=== PATIENT | female | born 1965 | race Two or more races ===

== ENCOUNTER → 2020-06-13 08:06 | Outpatient (BNVA) | payer OTHER, SELFPAY | PROVIDERS: PCP Internal Medicine; Visit Provider Anesthesiology | DX: Z76.89 Persons encountering health services in other specified circumstances (principal) ==

== ENCOUNTER 2020-06-18 08:40 | Outpatient (REF) | payer OTHER, SELFPAY ==
--- NOTE | 2020-06-18 08:42 | MR_ITS ---
EXAMINATION: MR CERVICAL SPINE WITHOUT CONTRAST CLINICAL INFORMATION: Radiculopathy of left arm. COMPARISON: MRI dated 02/10/2018. TECHNIQUE: MRI of the cervical spine was obtained using routine sequences without contrast. FINDINGS: VERTEBRAL BODIES AND PARASPINAL SOFT TISSUES: There is a mild reversal of the normal cervical lordosis. Endplate spurring most notable at the C4-C5 level and at the C5-C6 level where there is also [id number] disc space narrowing. No compression fractures are seen. No new subluxation evident. The paraspinal soft tissues are unremarkable. The imaged portions of the lungs are clear. CERVICOMEDULLARY JUNCTION AND VISUALIZED POSTERIOR FOSSA: The craniovertebral junction and imaged portions of the brain parenchyma appear normal. No cord signal abnormality or syrinx is seen. SPINAL LEVELS: C2-C3: No disc pathology. No central canal stenosis or foraminal narrowing. C3-C4: Minimal posterior annular bulge. No central canal stenosis or foraminal narrowing. C4-C5: Anterior endplate spurring and very mild disc bulge without central canal stenosis or significant foraminal encroachment. C5-C6: Disc-osteophyte complex noted with a left foraminal disc protrusion and uncovertebral joint spurring, as on prior imaging, suspected to impinge upon the left C6 nerve root with significant left foraminal encroachment. Stable mild central canal stenosis. C6-C7: Very mild disc bulge without central canal stenosis. Small posterior annular fissure again visible. Patent foramina. C7-T1: No disc pathology. No central canal stenosis or foraminal narrowing. MR/MR cervical spine wo con IMPRESSION: Moderate spondylosis at C5-C6 with a left foraminal disc protrusion and bulky uncovertebral joint spurring noted, also visible on prior imaging. Findings result in significant left foraminal encroachment and suspected impingement of the left C6 nerve root. Mild central canal stenosis as well. Mild reversal of the normal cervical lordosis.
== END 2020-06-18 08:41 | disposition home or self-care (01) ==
LOC: HO.MRI 08:40
PROVIDERS: Visit Provider Anesthesiology
DX: M54.12 Radiculopathy, cervical region (principal)
CPT/HCPCS: 72141

== ENCOUNTER → 2020-07-02 14:53 | Outpatient (BNVA) | payer OTHER, SELFPAY | PROVIDERS: Visit Provider Anesthesiology | DX: Z76.89 Persons encountering health services in other specified circumstances (principal) ==

== ENCOUNTER 2020-09-27 10:39 | Outpatient (REF) | payer OTHER, SELFPAY ==
--- NOTE | ~2020-09-27 | XR_ITS ---
EXAMINATION: XR CERVICAL SPINE CLINICAL INFORMATION: Status post C5-C6 fusion. COMPARISON: Most recent cervical spine MRI dated 06/18/2020. TECHNIQUE: AP, lateral, swimmer's, and open-mouth views of the cervical spine were obtained. FINDINGS: Anterior fusion hardware at C5-C6 without acute hardware or osseous fracture. No perihardware lucency to suggest loosening or infection. The C7 vertebral body is largely obscured by overlying soft tissues, limiting evaluation. Anterior endplate osteophytes redemonstrated at C4-C5. Unremarkable prevertebral soft tissues. Normal atlantoaxial alignment. XR/XR cervical spine 3V IMPRESSION: Anterior fusion hardware at C5-C6 without evidence of complication. Evaluation of C7 limited due to overlying soft tissues.
== END 2020-09-27 10:40 | disposition home or self-care (01) ==
LOC: HO.XRAY 10:39
PROVIDERS: Absent Provider Neurological Surgery; Visit Provider Physician Assistant
DX: M43.22 Fusion of spine, cervical region (principal)
CPT/HCPCS: 72040

== ENCOUNTER 2020-10-12 09:20 | Outpatient (REF) | payer OTHER, SELFPAY ==
[2020-10-12 10:08] LABS: Basophils Absolute Auto 0.1 X10*3/uL (0.0-0.2); Basophils Percent Auto 0.5 % (0-2); Eosinophils Absolute Auto 0.2 X10*3/uL (0.0-0.4); Eosinophils Percent Auto 1.5 % (0-4); Hematocrit 46.9 % (37-47); Hemoglobin 15.2 g/dl (12.0-16.0); Imm Gran Abs Auto 0.13 X10*3/uL (0.00-0.03); Lymphocytes Absolute Auto 5.5 X10*3/uL (1.2-4.9); Lymphocytes Percent Auto 42.1 % (20-40); MANUAL DIFF FLAG SCAN; Mean Corpuscular HGB Conc 32.4 g/dl (31.0-35.0); Mean Corpuscular Hemoglobin 27.6 pg (27.0-33.0); Mean Corpuscular Volume 85.3 fL (80-98); Mean Platelet Volume 8.9 fL (9.4-12.3); Monocytes Absolute Auto 0.7 X10*3/uL (0.1-1.2); Monocytes Percent Auto 5.3 % (2-11); Neutrophils Absolute Auto 6.5 X10*3/uL (2.0-8.3); Neutrophils Percent Auto 49.6 % (45-73); Platelet Count 341 X10*3/uL (160-400); Red Cell Distribution Width 14.6 % (11.0-16.0); SCAN SMEAR FLAG 1; White Blood Count 13.1 X10*3/uL (4.8-10.8)
[2020-10-12 10:35] LABS: Alanine Aminotransferase 20 U/L (0-31); Albumin Level 4.1 g/dL (3.5-5.0); Alkaline Phosphatase 78 U/L (39-117); Anion Gap 15 (12-20); Aspartate Amino Transferase 16 U/L (5-31); Bilirubin Total 0.6 mg/dL (0.0-1.0); Blood Urea Nitrogen 15 mg/dL (9-16); Calcium 8.8 mg/dL (8.4-10.2); Carbon Dioxide 27 mmol/L (22-29); Chloride 102 mmol/L (96-108); Estimated Glomerular Filt Rate > 60; Glucose Random 83 mg/dL (60-115); Potassium 4.4 mmol/L (3.3-5.1); Sodium 140 mmol/L (135-145); Total Protein 7.1 g/dL (6.5-8.0)
[2020-10-12 10:40] LABS: SLIDE REVIEW VERIFIED
[2020-10-12 10:58] LABS: TSH reflex Free T4 1.98 uIU/mL (0.32-4.0)
== END 2020-10-12 09:21 | disposition home or self-care (01) ==
LOC: HO.LAB 09:20
PROVIDERS: PCP Internal Medicine; Visit Provider Physician Assistant
DX: R42 Dizziness and giddiness (principal)
CPT/HCPCS: 36415; 80053; 84443; 85025

== ENCOUNTER 2021-01-22 14:57 | Outpatient (REF) | payer OTHER, SELFPAY ==
[2021-01-22 15:38] LABS: MANUAL DIFF FLAG NO
[2021-01-22 15:44] LABS: Basophils Absolute Auto 0.1 X10*3/uL (0.0-0.2); Basophils Percent Auto 0.6 % (0-2); Eosinophils Absolute Auto 0.2 X10*3/uL (0.0-0.4); Eosinophils Percent Auto 1.4 % (0-4); Hematocrit 44.3 % (37-47); Imm Gran Abs Auto 0.11 X10*3/uL (0.00-0.03); Imm Gran Pct Auto 0.9 % (0.0-0.4); Mean Corpuscular HGB Conc 31.6 g/dl (31.0-35.0); Mean Corpuscular Hemoglobin 26.7 pg (27.0-33.0); Mean Corpuscular Volume 84.4 fL (80-98); Monocytes Absolute Auto 0.8 X10*3/uL (0.1-1.2); Monocytes Percent Auto 6.8 % (2-11); Neutrophils Percent Auto 49.3 % (45-73); Platelet Count 314 X10*3/uL (160-400); Red Blood Count 5.25 X10*6/uL (4.20-5.50); Red Cell Distribution Width 14.2 % (11.0-16.0); White Blood Count 12.1 X10*3/uL (4.8-10.8)
[2021-01-22 16:08] LABS: Alanine Aminotransferase 20 U/L (0-31); Albumin Level 4.3 g/dL (3.5-5.0); Alkaline Phosphatase 79 U/L (39-117); Anion Gap 13 (12-20); Aspartate Amino Transferase 20 U/L (5-31); Bilirubin Total 0.5 mg/dL (0.0-1.0); Blood Urea Nitrogen 10 mg/dL (9-16); Calcium 9.3 mg/dL (8.4-10.2); Carbon Dioxide 27 mmol/L (22-29); Chloride 103 mmol/L (96-108); Cholesterol 295 mg/dL; Estimated Glomerular Filt Rate > 60; Glucose Random 94 mg/dL (60-115); HDL Cholesterol 40 mg/dL; LDL Cholesterol Calculated 186 mg/dl; Potassium 4.4 mmol/L (3.3-5.1); Sodium 139 mmol/L (135-145); Total Protein 7.4 g/dL (6.5-8.0); Triglycerides 345 mg/dL
== END 2021-01-22 14:58 | disposition home or self-care (01) ==
LOC: HO.LAB 14:57
PROVIDERS: PCP Internal Medicine; Visit Provider Physician Assistant
DX: Z00.00 Encounter for general adult medical examination without abnormal findings (principal)
CPT/HCPCS: 36415; 80053; 80061; 85025

== ENCOUNTER 2021-01-24 12:59 | Outpatient (REF) | payer OTHER, SELFPAY ==
--- NOTE | ~2021-01-24 | US_ITS ---
EXAMINATION: US SOFT TISSUE NECK CLINICAL INFORMATION: Enlarged submental tissue prominence. COMPARISON: None TECHNIQUE: Ultrasound of the submental soft tissues is performed with high- frequency dewitt-scale imaging and color Doppler. FINDINGS: There are 2 lymph nodes seen in the submental region. These measure 0.6 x 0.4 x 0.6 cm and 0.8 x 0.5 x 0.6 cm. These are normal in size, demonstrate normal ultrasound morphology and flow. No solid or cystic soft tissue mass or fluid collection is seen. US/US soft tiss head and/or neck IMPRESSION: 2 small normal-appearing submental lymph nodes. Otherwise unremarkable exam.
== END 2021-01-24 13:00 | disposition home or self-care (01) ==
LOC: HO.HMGCX 12:59
PROVIDERS: PCP Internal Medicine; Visit Provider Physician Assistant
DX: R22.1 Localized swelling, mass and lump, neck (principal)
CPT/HCPCS: 76536

== ENCOUNTER 2021-01-29 12:18 | Outpatient (REF) | payer OTHER, SELFPAY ==
--- NOTE | ~2021-01-29 | MM_ITS ---
EXAMINATION: MM DIAGNOSTIC DIGITAL BREAST TOMOSYNTHESIS, LEFT US DIAGNOSTIC ULTRASOUND BREAST, LEFT CLINICAL INFORMATION: Recall from outside exam for nodule outer left breast, possibly intramammary node. COMPARISON: Outside left mammography 01/05/2021, and prior mammography 02/05/2011. TECHNIQUE: Digital breast tomosynthesis is performed. 2D images are generated from the tomosynthesis. The following views are obtained: 3-D spot CC, 3-D spot ML. Ultrasound left breast is targeted to the outer quadrants. Grayscale imaging and color Doppler are performed without and with harmonics. FINDINGS: There are scattered areas of fibroglandular density (ACR BI-RADS breast composition Category b). The additional views show the oval nodule mid 3:00 position approximately 6 x 5 mm. No spiculation or associated calcification. Ultrasound demonstrates a simple cyst 3:00 position 9-10 cm from nipple measuring 0.6 x 0.4 cm. Margins are circumscribed. There is increased through-transmission of sound at real-time imaging and no associated color flow. Results are discussed with the patient at time of visit. MM/MM tomosynthesis added views L IMPRESSION: Simple cyst 3:00 position mid left breast corresponding to oval circumscribed nodule on mammography. ASSESSMENT: BI-RADS 2: Benign RECOMMENDATION: Routine annual mammography screening. This patient's information was entered into a reminder system with a target due date for their next mammogram.
== END 2021-01-29 12:19 | disposition home or self-care (01) ==
LOC: HO.MAMMO 12:18
PROVIDERS: Visit Provider Internal Medicine
DX: N63.11 Unspecified lump in the right breast, upper outer quadrant (principal)
CPT/HCPCS: 76642; 77061; 77065

== ENCOUNTER 2021-02-06 15:25 | Outpatient (REF) | payer OTHER, SELFPAY ==
--- NOTE | ~2021-02-06 | XR_ITS ---
EXAMINATION: XR ANKLE, RIGHT CLINICAL INFORMATION: Right ankle pain and swelling. COMPARISON: None TECHNIQUE: AP, lateral, and mortise views of the right ankle. FINDINGS: No acute fracture or dislocation. No joint space narrowing or marginal osteophytes. The ankle mortise is maintained. No abnormal soft tissue calcification. Mild lateral soft tissue swelling. XR/XR ankle RT min 3V IMPRESSION: Mild lateral soft tissue swelling. No acute osseous abnormality.
== END 2021-02-06 15:26 | disposition home or self-care (01) ==
LOC: HO.XRAY 15:25
PROVIDERS: PCP Internal Medicine; Visit Provider Physician Assistant
DX: M25.571 Pain in right ankle and joints of right foot (principal); M25.471 Effusion, right ankle
CPT/HCPCS: 73610

== ENCOUNTER 2021-02-13 14:44 | Outpatient (REF) | payer OTHER, SELFPAY ==
--- NOTE | ~2021-02-13 | XR_ITS ---
EXAMINATION: XR WRIST, RIGHT CLINICAL INFORMATION: Right wrist pain COMPARISON: None TECHNIQUE: PA, lateral, and oblique views of the right wrist. FINDINGS: The bones and soft tissues are normal. No fracture. Alignment is anatomic with normal joint spaces. No erosions or abnormal soft tissue calcifications. XR/XR wrist RT min 3V IMPRESSION: No significant abnormality of the right wrist identified.
== END 2021-02-13 14:45 | disposition home or self-care (01) ==
LOC: HO.XRAY 14:44
PROVIDERS: PCP Internal Medicine; Visit Provider Physician Assistant
DX: M25.531 Pain in right wrist (principal)
CPT/HCPCS: 73110

== ENCOUNTER 2021-04-04 09:29 | Outpatient (REF) | payer OTHER, SELFPAY ==
--- NOTE | 2021-04-04 09:33 | EMG_ITS ---
Right median and ulnar motor and sensory studies were performed. Right radial sensory study was performed and paraspinal muscles were tested. IMPRESSION: Mild right ulnar neuropathy across cubital tunnel. MD JONATHAN Samuel/WILLOW / [id number]
== END 2021-04-04 09:30 | disposition home or self-care (01) ==
LOC: HO.NEURO 09:29
PROVIDERS: Visit Provider Physician Assistant
DX: R20.9 Unspecified disturbances of skin sensation (principal)
CPT/HCPCS: 95886; 95909

== ENCOUNTER → 2021-07-31 12:46 | Outpatient (BNVA) | payer OTHER, SELFPAY | PROVIDERS: PCP Internal Medicine; Referring Provider Internal Medicine; Visit Provider Surgery ==

== ENCOUNTER 2021-08-06 14:48 | Outpatient (REF) | payer OTHER, SELFPAY ==
[2021-08-06 15:56] LABS: Blood Urea Nitrogen 13 mg/dL (9-16); Estimated Glomerular Filt Rate > 60
== END 2021-08-06 14:49 | disposition home or self-care (01) ==
LOC: HO.LAB 14:48
PROVIDERS: PCP Internal Medicine; Visit Provider Surgery
DX: R10.31 Right lower quadrant pain (principal)
CPT/HCPCS: 36415; 82565; 84520

== ENCOUNTER 2021-08-12 06:58 | Outpatient (REF) | payer OTHER, SELFPAY ==
--- NOTE | ~2021-08-12 | CT_ITS ---
EXAMINATION: CT ABDOMEN AND PELVIS WITH CONTRAST CLINICAL INFORMATION: Right lower quadrant pain COMPARISON: MRI abdomen and pelvis with and without contrast 02/10/2020. CT abdomen and pelvis 05/20/2019. TECHNIQUE: Multidetector volumetric images were obtained from the superior aspect of the liver through the pubic symphysis following administration 85 mL of Omnipaque 350 intravenous contrast. Sagittal and coronal reformatted images were obtained on the technologist's workstation. Oral contrast: No This CT examination was performed using dose optimization techniques as appropriate, variously including the following: *Automated exposure control *Adjustment of mA and/or kV according to patient size (this includes techniques or standardized protocols for targeted exams where dose is matched to indication/reason for exam; i.e. extremities or head) *Use of iterative reconstruction technique DLP: 592 mGy-cm FINDINGS: LUNG BASES: There is minimal dependent bibasilar atelectasis. There is a focal 2.2 cm opacity anterior lingula, axial image /.Question focal atelectasis. The heart size is normal. LIVER, GALLBLADDER, AND BILIARY TREE: The liver is normal in size, shape, and attenuation. No focal hepatic lesion or biliary ductal dilatation is present. The gallbladder is unremarkable with no evidence of radiopaque gallstones, gallbladder wall thickening, or obvious pericholecystic inflammatory changes. PANCREAS: Unremarkable. SPLEEN: Unremarkable. ADRENAL GLANDS: Unremarkable. KIDNEYS AND URETERS: The kidneys are normal in size, shape, and attenuation. No hydronephrosis, hydroureter, or calculi seen. No perinephric stranding. There are punctate hyperdensities in the midpole right kidney likely tiny calculi. BLADDER: Unremarkable. GASTROINTESTINAL TRACT: There is scattered stool and oral contrast seen in the colon without distention. The small bowel loops are normal caliber. The appendix is normal caliber. No inflammatory process seen in the right lower quadrant or the abdomen. ABDOMINAL WALL: No significant hernia is appreciated. LYMPH NODES: Normal. VASCULAR: Unremarkable. PELVIC VISCERA: The uterus is anteverted and appears unremarkable. There are several phleboliths in the pelvis. OSSEOUS STRUCTURES: Unremarkable. CT/CT abdomen pelvis w con IMPRESSION: No acute intra-abdominal process seen. Nonobstructive punctate at least 3 radiopaque calculi seen midpole right kidney. Fleischner guidelines were followed.
[2021-08-12] MEDS: Barium Sulfate Oral (Berry) 450 ML ORAL.SUSP 900 ML PO (09:14)
== END 2021-08-12 06:59 | disposition home or self-care (01) ==
LOC: HO.CT 06:58
PROVIDERS: PCP Internal Medicine; Visit Provider Surgery
DX: R10.31 Right lower quadrant pain (principal); Z87.19 Personal history of other diseases of the digestive system; Z98.890 Other specified postprocedural states
CPT/HCPCS: 74177

== ENCOUNTER → 2021-08-20 15:20 | Outpatient (BNVA) | payer OTHER, SELFPAY | PROVIDERS: PCP Internal Medicine; Referring Provider Internal Medicine; Visit Provider Surgery ==

== ENCOUNTER 2021-12-09 12:44 | Emergency (ER) | payer OTHER, SELFPAY ==
--- NOTE | 2021-12-09 12:52 | ECG_ITS ---
Test Reason : L ARM PAIN Blood Pressure : / mmHG Vent. Rate : 088 BPM Atrial Rate : 088 BPM P-R Int : 170 ms QRS Dur : 074 ms QT Int : 354 ms P-R-T Axes : 056 -06 031 degrees QTc Int : 428 ms Normal sinus rhythm Low voltage QRS Septal infarct , age undetermined Abnormal ECG No previous ECGs available Referred By: Generic ED Physician Electronically Signed By:Javier Velasco
[2021-12-09 12:57] VITALS: BP 144/76; PULSE 85; RESP 16; TEMP 36.1; O2SAT 98; BMI 36.4
[2021-12-09 13:24] LABS: MANUAL DIFF FLAG NO
[2021-12-09 13:25] LABS: Basophils Absolute Auto 0.1 X10*3/uL (0.0-0.2); Basophils Percent Auto 0.5 % (0-2); Eosinophils Absolute Auto 0.1 X10*3/uL (0.0-0.4); Hematocrit 45.2 % (37.0-47.0); Hemoglobin 14.6 g/dl (12.0-16.0); Imm Gran Abs Auto 0.08 X10*3/uL (0.00-0.03); Imm Gran Pct Auto 0.7 % (0.0-0.4); Lymphocytes Absolute Auto 4.5 X10*3/uL (1.2-4.9); Lymphocytes Percent Auto 40.6 % (20-40); Mean Corpuscular HGB Conc 32.3 g/dl (31.0-35.0); Mean Corpuscular Hemoglobin 26.8 pg (27.0-33.0); Mean Corpuscular Volume 83.1 fL (80.0-98.0); Mean Platelet Volume 8.5 fL (9.4-12.3); Monocytes Absolute Auto 0.8 X10*3/uL (0.1-1.2); Monocytes Percent Auto 6.9 % (2-11); Neutrophils Absolute Auto 5.5 x10*3/uL (2.0-8.3); Neutrophils Percent Auto 50.3 % (45-73); Platelet Count 301 X10*3/uL (160-400); Red Blood Count 5.44 X10*6/uL (4.20-5.50); Red Cell Distribution Width 14.6 % (11.0-16.0)
[2021-12-09 13:30] LABS: INTERNATIONAL NORM RATIO 1.1 (0.9-1.1)
[2021-12-09 13:33] LABS: Partial Thromboplastin Time 41.4 SEC (24.1-38.0)
[2021-12-09 13:44] LABS: Troponin-I High Sensitivity < 3.5 ng/L (<3.5-17.0)
[2021-12-09 13:50] LABS: Anion Gap 12 (12-20); Blood Urea Nitrogen 10 mg/dL (9-16); Carbon Dioxide 28 mmol/L (22-29); Chloride 104 mmol/L (96-108); Creatinine Clr Calc Pharmacy 76.9; Estimated Glomerular Filt Rate > 60; Glucose Random 80 mg/dL (60-115); Sodium 140 mmol/L (135-145)
--- NOTE | 2021-12-09 15:28 | ED_ITS ---
HPI - General Adult General Chief complaint: General Medical Stated complaint: l arm pain, abnormal ekg Time Seen by Provider: 12/09/21 15:00 Source: patient Mode of arrival: ambulatory Limitations: no limitations History of Present Illness HPI narrative: 56-year-old female with a history of high cholesterol here with reports of left arm pain and numbness for 2 days. No chest pain, shortness of breath, nausea, d iaphoresis, cough for fever. Patient was seen at [facility]. They were concerned that her EKG was abnormal. Additionally it was noted that she has family history of coronary disease. Therefore she was transferred to the emergency department for further evaluation. Patient denies any recent travel. No sick contact. No leg swelling or leg pain. No estrogen use. Denies any smoking history. Related Data Home Medications Medication Instructions Recorded Confirmed ibuprofen 800 mg tablet 800 mg PO Q8H PRN 06/13/20 08/21/21 acetaminophen 500 mg tablet 500 mg PO QID PRN 07/02/20 08/21/21 (Tylenol Extra Strength) ascorbic acid (vitamin C) 500 mg 500 mg PO DAILY 03/06/21 08/21/21 tablet (Vitamin C) atorvastatin 10 mg tablet 1 tab PO DAILY 03/06/21 08/21/21 cholecalciferol (vitamin D3) 125 125 mcg PO DAILY 03/06/21 08/21/21 mcg (5,000 unit) tablet (Vitamin D3) multivitamin 1 tab PO DAILY 03/06/21 08/21/21 Previous Rx's Medication Instructions Recorded cyclobenzaprine 10 mg tablet 10 mg PO TID PRN #14 tab 12/09/21 prednisone 20 mg tablet 40 mg PO DAILY #10 tab 12/09/21 Allergies Allergy/AdvReac Type Severity Reaction Status Date / Time No Known Drug Allergies Allergy Unknown N/A Verified 08/20/21 15:30 [NO KNOWN DRUG ALLERGIES] Review of Systems Review of Systems: Yes all other systems are reviewed and are negative Constitutional: Constitutional: Reports no additional constitutional complaints, Denies body ache(s), Denies chills, Denies fever(s), Denies headache(s) and Denies weakness Eyes: Eyes: Reports no additional eye complaints and Denies change in vision ENT: Reports system reviewed and no additional complaints, except as documented, Denies dizziness, Denies headache(s), Denies nasal congestion, Denies nasal discharge and Denies neck pain Cardiovascular: Cardiovascular: Reports no additional cardiovascular complaints, Denies chest pain, Denies leg edema and Denies dyspnea Respiratory: Respiratory: Reports no additional respiratory complaints, Denies cough and Denies dyspnea Gastrointestinal: Gastrointestinal: Reports no additional gastrointestinal complaints, Denies abdominal pain, Denies diarrhea, Denies nausea and Denies vomiting Genitourinary: Genitourinary: Reports no additional female genitourinary complaints and Denies urinary incontinence Musculoskeletal: Musculoskeletal: Reports no additional musculoskeletal complaints, Denies back pain, Denies arthralgias, Denies joint swelling, Denies neck pain, Reports numbness, Reports radiating pain into limb, Reports tingling and Reports other Integumentary/Breasts: Skin/Breast: Reports system reviewed and no additional complaints, except as docu and Denies rash Neurologic: Reports system reviewed and no additional complaints, except as documented, Denies dizziness, Denies headache(s), Reports numbness, Reports tingling and Denies weakness PMFSH Past Medical History Attestation statement: The following information was validated with the patient. Source: old records reviewed and nursing notes reviewed Medical History Degeneration, intervertebral disc, cervical Family history of early CAD History of kidney stones Hyperlipidemia JAIRO (obstructive sleep apnea) Spondylosis of cervical spine with radiculopathy Surgical History History of bilateral inguinal hernia repair (~2018) History of cervical spinal surgery (~2018) History of colonoscopy (~2017) History of cystoscopy (~2015) History of esophagogastroduodenoscopy (EGD) (~2019) History of hysterectomy (~2010) History of left oophorectomy History of lithotripsy (~2017) Family History Family History Maternal Aunt Breast cancer Maternal Aunt Stomach cancer Maternal Aunt Ovarian cancer Maternal Uncle Throat cancer Father Alzheimer disease Diabetes Brother COPD (chronic obstructive pulmonary disease) Diabetes Son HTN (hypertension) Maternal Uncle Prostate cancer Sister CAD, multiple vessel Social History Social History Alcohol intake: former Patient Tobacco Use Status: Never used Tobacco Advance Directives: No Advance Directives Information Provided: No Physical Exam ED Vital Signs: Vital Signs - 24 hr 12/09/21 12:57 Temperature 96.9 F Pulse Rate 85 Respiratory Rate 16 Blood Pressure 144/76 H Pulse Oximetry 98 BMI result Body Mass Index 36.4 Const General: cooperative, healthy appearing, comfortable and no acute distress Orientation/consciousness: patient oriented x3 Limitations: no limitations HENMT Head: Yes normal to inspection Ears: hearing grossly normal bilaterally and TM's normal bilaterally General nose exam: Normal external nose present Face and sinus: Yes normal facial exam Mouth: Normal oral and palatal mucosa present Throat: Yes posterior oropharynx normal, Yes tonsils normal and Yes uvula midline Eyes General: appearance normal, both eyes and all related structures Pupils: Equal, round and reactive pupils present Neck Other: Tenderness the left trapezius with a palpable muscle spasm. Neck: Yes normal visual inspection, Yes full ROM and Yes no lymphadenopathy Chest Chest palpation & inspection: normal inspection of the chest Resp Effort & Inspection: normal respiratory effort Auscultation: clear to auscultation bilaterally Cardio Rate: regular rate Rhythm: regular rhythm Peripheral pulses: Peripheral pulses 2+ throughout GI Inspection: Yes normal to inspection Palpation (GI): Soft to palpation and nontender General: Yes no CVA tenderness Back/Spine/Pelvis Back: no CVA tenderness Thoracic/Lumbar Spine: thoracic and lumbar spine normal to inspection Skin General skin exam: no rashes or lesions noted Neuro General: patient oriented x3 Cranial nerves: Yes CN's II-XII intact bilaterally, Yes Equal, round and reactive pupils present, Yes Bilaterally intact EOM present, Yes Nystagmus not present, Yes Normal facial strength present and Yes Midline tongue present Cognition (Neuro): normal cognition Gait exam (Neuro): Normal gait present Motor exam (neuro): 5/5 motor strength present throughout Sensory Exam: Normal double simultaneous stimulation for sensation Extrem General: Yes normal to inspection, Yes no pedal edema and Yes no calf tenderness Course Course Course Narrative: 56-year-old female with a history of high cholesterol here with reports of intermittent left arm numbness and pain that feels like it is radiating down the limb for 2 days. No other reported symptoms. On exam the patient has palpable trapezius tenderness over the left trapezius with a palpable muscle spasm. She has normal neurological exam. Vitals are stable. She was sent from [facility] as there was concern that her EKG was abnormal. I reviewed the EKG from [facility] which shows normal sinus rhythm with a septal infarct age undetermined. No previous for comparison Therefore labs will be obtained and a EKG here. Exam is more typical for cervical radiculopathy versus ACS so I will treat her with Toradol Reevaluation(s) Reevaluation #1: Labs are unremarkable. EKG is unremarkable with a septal infarct which is age indeterminate. Patient received Toradol with some improvement. Less likely ACS. Exam is more consistent with cervical radiculopathy. Will discharge her home with Flexeril, prednisone course and recommend she use NSAIDs. Also red and recommend massage and heat and follow-up with primary care doctor. She can follow-up with Cardiology for her or old findings on her EKG. Reviewed worrisome signs and symptoms of when to return to the emergency department. Comfortable discharge home. Time: 16:15 Medical Decision Making MDM Narrative Medical decision making narrative: Heart score 2 Low concern for ACS with atypical symptoms, normal EKG, negative troponin Medical Records Medical records reviewed: Yes I reviewed the patient's medical records. Lab Data Lab results reviewed: Yes I reviewed the patient's lab results. Result diagrams: 12/09/21 13:14 12/09/21 13:14 Labs: Lab Results 12/09/21 12/09/21 12/09/21 Range/Units 13:14 13:14 13:14 WBC 11.0 H (4.8-10.8) X10*3/uL RBC 5.44 (4.20-5.50) X10*6/uL Hgb 14.6 (12.0-16.0) g/dl Hct 45.2 (37.0-47.0) % MCV 83.1 (80.0-98.0) fL MCH 26.8 L (27.0-33.0) pg MCHC 32.3 (31.0-35.0) g/dl RDW 14.6 (11.0-16.0) % Plt Count 301 (160-400) X10*3/uL MPV 8.5 L (9.4-12.3) fL Immature Gran % (Auto) 0.7 H (0.0-0.4) % Neut % (Auto) 50.3 (45-73) % Lymph % (Auto) 40.6 H (20-40) % [place] % (Auto) 6.9 (2-11) % Eos % (Auto) 1.0 (0-4) % Baso % (Auto) 0.5 (0-2) % Lymph # (Auto) 4.5 (1.2-4.9) X10*3/uL [place] # (Auto) 0.8 (0.1-1.2) X10*3/uL Eos # (Auto) 0.1 (0.0-0.4) X10*3/uL Baso # (Auto) 0.1 (0.0-0.2) X10*3/uL Abs Immat Gran (auto) 0.08 H (0.00-0.03) X10*3/uL Absolute Neuts (auto) 5.5 (2.0-8.3) x10*3/uL Absolute Nucleated RBC 0.000 (0.0-0.012) X10*3/uL Nucleated RBC % (auto) 0.0 (0.0-0.2) /100WBC PT (9.9-13.0) SEC INR (0.9-1.1) APTT (24.1-38.0) SEC Sodium 140 (135-145) mmol/L Potassium 4.0 (3.3-5.1) mmol/L Chloride 104 (96-108) mmol/L Carbon Dioxide 28 (22-29) mmol/L Anion Gap 12 (12-20) BUN 10 (9-16) mg/dL Creatinine 0.84 (0.5-1.4) mg/dL Estim Creat Clear Calc 76.9 Estimated GFR > 60 Random Glucose 80 (60-115) mg/dL Calcium 10.0 D (8.4-10.2) mg/dL Magnesium 2.1 (1.6-2.6) mg/dL Total Bilirubin 0.5 (0.0-1.0) mg/dL Direct Bilirubin 0.2 (0.0-0.5) mg/dL AST 18 (5-31) U/L ALT 24 (0-31) U/L Alkaline Phosphatase 75 (39-117) U/L Troponin I High Sens < 3.5 (<3.5-17.0) ng/L Total Protein 7.5 (6.5-8.0) g/dL Albumin 4.2 (3.5-5.0) g/dL 12/09/21 Range/Units 13:14 WBC (4.8-10.8) X10*3/uL RBC (4.20-5.50) X10*6/uL Hgb (12.0-16.0) g/dl Hct (37.0-47.0) % MCV (80.0-98.0) fL MCH (27.0-33.0) pg MCHC (31.0-35.0) g/dl RDW (11.0-16.0) % Plt Count (160-400) X10*3/uL MPV (9.4-12.3) fL Immature Gran % (Auto) (0.0-0.4) % Neut % (Auto) (45-73) % Lymph % (Auto) (20-40) % [place] % (Auto) (2-11) % Eos % (Auto) (0-4) % Baso % (Auto) (0-2) % Lymph # (Auto) (1.2-4.9) X10*3/uL [place] # (Auto) (0.1-1.2) X10*3/uL Eos # (Auto) (0.0-0.4) X10*3/uL Baso # (Auto) (0.0-0.2) X10*3/uL Abs Immat Gran (auto) (0.00-0.03) X10*3/uL Absolute Neuts (auto) (2.0-8.3) x10*3/uL Absolute Nucleated RBC (0.0-0.012) X10*3/uL Nucleated RBC % (auto) (0.0-0.2) /100WBC PT 12.0 (9.9-13.0) SEC INR 1.1 (0.9-1.1) APTT 41.4 H (24.1-38.0) SEC Sodium (135-145) mmol/L Potassium (3.3-5.1) mmol/L Chloride (96-108) mmol/L Carbon Dioxide (22-29) mmol/L Anion Gap (12-20) BUN (9-16) mg/dL Creatinine (0.5-1.4) mg/dL Estim Creat Clear Calc Estimated GFR Random Glucose (60-115) mg/dL Calcium (8.4-10.2) mg/dL Magnesium (1.6-2.6) mg/dL Total Bilirubin (0.0-1.0) mg/dL Direct Bilirubin (0.0-0.5) mg/dL AST (5-31) U/L ALT (0-31) U/L Alkaline Phosphatase (39-117) U/L Troponin I High Sens (<3.5-17.0) ng/L Total Protein (6.5-8.0) g/dL Albumin (3.5-5.0) g/dL ECG Data Attestation: I personally reviewed and interpreted this ECG as follows: Interpretation: Normal sinus rhythm with rate 88, normal [place], normal QRS, normal QT, normal ST segment. Discharge Plan Discharge Clinical Impression: Radiculopathy of cervical region, Abnormal EKG Patient Disposition: Home, Self-Care Instructions: Cervical Radiculopathy (ED) Additional Instructions: Your EKG does not show any acute infarct. You can follow-up with Cardiology as desired Apply heat to the area. Gentle massage to the affected area. Take ibuprofen or naproxen for the next couple of days which you can purchase [id number] Follow up with her primary care doctor for persistent symptoms Prescriptions: New cyclobenzaprine 10 mg tablet 10 mg PO TID PRN (Reason: muscle spasm) Qty: 14 0RF prednisone 20 mg tablet 40 mg PO DAILY Qty: 10 0RF No Action multivitamin Tablet 1 tab PO DAILY 0RF atorvastatin 10 mg tablet 1 tab PO DAILY 0RF ascorbic acid (vitamin C) [Vitamin C] 500 mg Tablet 500 mg PO DAILY 0RF cholecalciferol (vitamin D3) [Vitamin D3] 125 mcg (5,000 unit) Tablet 125 mcg PO DAILY 0RF ibuprofen 800 mg tablet 800 mg PO Q8H PRN (Reason: pain) 0RF acetaminophen [Tylenol Extra Strength] 500 mg tablet 500 mg PO QID PRN (Reason: Pain) 0RF Referrals: Javier Velasco MD [Physician] - 2 weeks Luna Andrew MD [Primary Care Provider] - 1 week (for er follow-up) Stand Alone Forms: Work/School Release
[2021-12-09 15:53] LABS: Alanine Aminotransferase 24 U/L (0-31); Albumin Level 4.2 g/dL (3.5-5.0); Alkaline Phosphatase 75 U/L (39-117); Aspartate Amino Transferase 18 U/L (5-31); Bilirubin Direct 0.2 mg/dL (0.0-0.5); Bilirubin Total 0.5 mg/dL (0.0-1.0); Magnesium 2.1 mg/dL (1.6-2.6); Total Protein 7.5 g/dL (6.5-8.0)
[2021-12-09] MEDS: Ketorolac Tromethamine 60 MG/2 ML VIAL IM (15:55)
--- NOTE | 2021-12-09 16:20 | PC.NURSE ---
NO DYSPNEA, NO CYANOSIS, NO DIFF BREATHING, NO CP AT THIS TIME. PT CALM AND COOPERATIVE, MOVING ALL EXTREMITIES, A+OX4, STEADY GAIT, NAD.
== END 2021-12-09 16:25 | disposition home or self-care (01) ==
PROVIDERS: Nurse Practitioner Family; Emergency Provider Emergency Medicine; PCP Internal Medicine
DX: M54.12 Radiculopathy, cervical region (principal); R94.31 Abnormal electrocardiogram [ECG] [EKG]; M79.602 Pain in left arm; E78.5 Hyperlipidemia, unspecified; Z79.02 Long term (current) use of antithrombotics/antiplatelets
CPT/HCPCS: 36415; 80048; 80076; 83735; 84484; 85025; 85610; 85730; 93005; 96372; 99283; 99284; J1885

== ENCOUNTER → 2021-12-18 10:31 | Outpatient (BNVA) | payer OTHER, SELFPAY | PROVIDERS: PCP Internal Medicine; Referring Provider Internal Medicine; Visit Provider Internal Medicine Cardiovascular Disease | DX: Z13.89 Encounter for screening for other disorder (principal) ==

== ENCOUNTER 2021-12-25 13:59 | Outpatient (REF) | payer OTHER, SELFPAY ==
--- NOTE | ~2021-12-25 | XR_ITS ---
EXAMINATION: XR CERVICAL SPINE CLINICAL INFORMATION: Pain radiating down left arm COMPARISON: Previous x-ray September 2020 TECHNIQUE: 5 views of the cervical spine were obtained. FINDINGS: There is anterior fusion hardware at C5-C6. Hardware appears intact without evidence of fracture or loosening. Bone alignment is normal. The C7 vertebral body is not well visualized. There is degenerative spondylosis at C4-C5 and mild degenerative spondylosis at C6-C7. There is left-sided neuroforaminal narrowing at C5-C6 from bony osteophyte. Right-sided neural foramen are patent. Vertebral soft tissues are normal. XR/XR cervical spine 4V IMPRESSION: Stable postsurgical changes at C5-C6. Degenerative changes.
== END 2021-12-25 14:00 | disposition home or self-care (01) ==
LOC: HO.XRAY 13:59
PROVIDERS: Visit Provider Physician Assistant
DX: Z98.890 Other specified postprocedural states (principal)
CPT/HCPCS: 72050

== ENCOUNTER → 2021-12-31 08:21 | Outpatient (REF) | payer OTHER, SELFPAY ==
--- NOTE | 2021-12-31 08:38 | CA_ITS ---
Transthoracic Echocardiogram Patient (Last, First, Middle): Roxie Alfaro, Gender: Female Date of : 1965 Age: 56 Procedure Date: 12/31/2021 Procedure Type: Transthoracic Echocardiogram Location: OP Height: 154.94 cm Weight: 87.54 kg BSA: 1.86 m2 Heart Rate: bpm BP: 112 / 76 mmHg Stock Layer: EILEEN Referring MD: Javier Velasco MD Symptoms: R94.31 - Abnormal electrocardiogram [ECG] [EKG] Study Quality: Fair/contrast Conclusions: - Normal left ventricular size and systolic function. There is mildly increased left ventricular wall thickness. The visually estimated ejection fraction is between 55-60%. - Diastolic function is normal for age. - Normal right ventricular cavity size and systolic function. Findings Procedure Information Contrast agent, definity, is being given per protocol without apparent complications. Left Ventricle Normal left ventricular size and systolic function. There is mildly increased left ventricular wall thickness. The visually estimated ejection fraction is between 55-60%. There is no evidence of regional wall motion abnormalities. Diastolic function is normal for age. Right Ventricle Normal right ventricular cavity size and systolic function. Atria Both atria are normal in size. Aortic Valve Normal aortic valve structure and function. There is no aortic valve stenosis. There is no aortic valve regurgitation. Mitral Valve Normal mitral valve structure and function. There is no mitral valve regurgitation. There is no mitral valve stenosis. Pulmonic Valve Normal pulmonic valve structure and function. Tricuspid Valve Normal tricuspid valve structure and function. There is trace tricuspid valve regurgitation. Normal right atrial pressure. There is no evidence of pulmonary hypertension. Great Vessels All visible segments of the aorta are normal in size. The visualized portions of the pulmonary artery and branches are normal. Venous The inferior vena cava is normal in size and collapses greater than 50% with inspiration. Pericardium/Pleural There is no evidence of pericardial effusion. Prior Study Comparison No prior study available for comparison. Measurements 2D Linear Measurements IVSd: 0.92 0.6-0.9/0.6-1.0 cm LVIDd: 3.63 3.9-5.3/4.2-5.9 cm LVIDd Index: 1.95 2.4-3.2/2.2-3.1 cm/m2 LVIDs: 2.43 2.0-3.6 cm LVPWd: 1.04 0.7-1.1 cm LA Diam: 3.30 2.7-3.8/3.0-4.0 cm LAIDs Index: 1.77 1.5-2.3 cm/m2 LV Mass: 132.31 67-162/88-224 g LV Mass Index: 71.13 43-95/49-115 g/m2 LVOT Diam: 2.00 3.0+(-)1.3 cm 2D Systolic Function EF 4C: 58.40 >55% EF 2C: 64.50 >55% EF BiP: 62.90 >55% Mitral Valve MV Pk E: 0.80 MV PK A: 0.80 MV Decel Time: 207.00 E/A: 1.00 E'Lateral: 11.30 E'Medial: 8.59 E/E' Med: 9.30 E/E' Lat: 7.00 PHT: 61.00 MVA PHT: 3.61 Decel [place]: 3.84 Aortic Valve AoV Pk [place]: 1.01 AoV Mn [place]: 0.66 AoV VTI: 0.22 AoV Pk Grad: 4.00 Aov Mn Grad: 2.00 MARTA Cont.VTI: 2.66 LVOT LVOT Pk [place]: 0.84 LVOT Mn [place]: 0.54 LVOT VTI: 0.19 LVOT Pk Grad: 3.00 LVOT Mn Grad: 1.00 LVOT Diam: 2.00 LVOT Area: 3.14 Diastolic Function MV Pk E: 0.80 MV Pk A: 0.80 E/A: 1.00 E'Medial: 8.59 E/E' Med: 9.30 E' Laterial: 11.30 E/E' Lat: 7.00 Right Ventricle TAPSE (mm): 22.80 TVS' [place]: 10.30 Tricuspid Valve TR Pk [place]: 2.29 TR Pk Grad: 21.00 RA Press: 3.00 RVSP: 24.00 Great Vessels Aorta Sinus of Valsalva: 2.79 2.0-3.[address] [place]: 2.59 1.7-3.4 cm Ao Asc: 2.60 2.1-3.4 cm Updated in Other Vendor System with Status of Final Javier Velasco MD electronically signed on 01/04/2022 7:03:44 PM with status of Final
== END ==
LOC: HO.CARD 08:21
PROVIDERS: PCP Nurse Practitioner Family; Visit Provider Internal Medicine Cardiovascular Disease
DX: R94.31 Abnormal electrocardiogram [ECG] [EKG] (principal)
CPT/HCPCS: 93306; Q9957

== ENCOUNTER → 2022-01-09 08:46 | Outpatient (REF) | payer OTHER, SELFPAY ==
--- NOTE | ~2022-01-09 | NM_ITS ---
Exercise Myocardial perfusion study Indication: Chest pain to evaluate for myocardial ischemia Technique: The patient was brought in for an exercise perfusion study on 01/09/2022. Patient performed exercise as per Nikita protocol and was injected 30 mCi of sestamibi was given intravenously one target HR was achieved. Images were obtained using the SPECT gamma camera interlaced with the gating device. Images were obtained in supine position. Resting perfusion study was performed on 01/10/2022. Patient was administered 30 mCi of sestamibi intravenously at rest. Images were then obtained in supine position. Images obtained with and without CT attenuation. Total DLP 131 mGy-cm. Images were processed with the software and compared side to side in short axis, horizontal long axis and vertical long axis views. Findings: The stress perfusion study showed non attenuated as well as attenuated corrected images show normal uptake of radiotracer in all segments of LV myocardium. There is suggestion of left ventricle hypertrophy. The gated study shows normal LV systolic function with calculated LVEF of greater than 70%. LV cavity is normal in size. The gated study shows normal systolic wall thickening and contraction of all segments. There is no transient ischemic dilation. Resting study shows non attenuated images show normal uptake of radiotracer in all segments of LV myocardium. Gating at rest reveals normal systolic wall motion with ejection fraction at greater than 70 %. The findings are consistent with normal myocardial perfusion. NM/NM cardiolite stress test Impression: 1. Normal myocardial perfusion 2. Gated LVEF is greater than 70% 3. Transient ischemic dilatation not present Stress EKG is negative for ischemia
--- NOTE | 2022-01-09 08:49 | CA_ITS ---
Acquisition Time: 2022-01-09 09:09:46 Total Exercise Time: 00:06:45 Test Indications: Abnormal ECG Medications: ATORVASTATIN PREDNISONE ASA Protocol: ERLIN Max HR: 153 BPM 92% of Pred: 166 BPM Max BP: 128/070 mmHG Max Work Load: 7.7 METS Exercise stress test with exercise 6 min 45 sec of Erlin protocol, with moderate shortness of breath and feeling of anxiety , no chest discomfort, without arrythmia, with normotensive response to exercise, without EKG changes meeting criteria for ischemia. In recovery she had an ongoing feeling of anxiety that resolved with encouragement and relaxation. Nuclear images pending. Test reviewed with Dr Diana, Referred By: Javier Velasco Overread By: MADDY HERNANDEZ
== END ==
LOC: HO.CARD 08:46
PROVIDERS: PCP Nurse Practitioner Family; Visit Provider Internal Medicine Cardiovascular Disease
DX: R07.9 Chest pain, unspecified (principal)
CPT/HCPCS: 78452; 93017; A9500

== ENCOUNTER 2022-02-18 18:32 | Outpatient (REF) | payer OTHER, SELFPAY | END 2022-02-18 18:33 | disposition home or self-care (01) | LOC: HO.MRI 18:32 | PROVIDERS: Visit Provider Physician Assistant | DX: Z13.89 Encounter for screening for other disorder (principal) ==

== ENCOUNTER 2022-02-24 13:31 | Outpatient (REF) | payer OTHER, SELFPAY ==
--- NOTE | ~2022-02-24 | MR_ITS ---
EXAMINATION: MR CERVICAL SPINE WITHOUT CONTRAST CLINICAL INFORMATION: Radiculopathy, cervical region. COMPARISON: Cervical spine MRI 06/18/2020. TECHNIQUE: MRI of the cervical spine was performed using routine sequences without contrast. FINDINGS: There postoperative findings of anterior cervical discectomy and fusion at C5-C6. The vertebral body heights are preserved. No significant disc height loss is seen. There is no bone marrow edema. The imaged portions of the intracranial contents appear normal. The extraspinal soft tissues appear normal. SPINAL LEVELS: C2-C3: No posterior disc abnormality. No spinal canal or neural foraminal stenosis. C3-C4: Shallow central protrusion. No spinal canal or neural foraminal stenosis. C4-C5: Disc bulging asymmetric to the left with uncovertebral hypertrophy resulting in mild left neural foraminal stenosis. No spinal canal stenosis. C5-C6: ACDF. No spinal canal or neural foraminal stenosis. C6-C7: Disc bulging with left foraminal protrusion causing severe left neural foraminal stenosis, new from prior. No spinal canal stenosis. C7-T1: No posterior disc abnormality. No spinal canal or neural foraminal stenosis. MR/MR cervical spine wo con IMPRESSION: Postoperative findings of ACDF at C5-C6. At C6-C7 there is left foraminal protrusion causing severe left-sided neural foraminal stenosis. No cervical spinal canal stenosis is seen.
== END 2022-02-24 13:32 | disposition home or self-care (01) ==
LOC: HO.MRI 13:31
PROVIDERS: Visit Provider Physician Assistant
DX: M54.12 Radiculopathy, cervical region (principal)
CPT/HCPCS: 72141

== ENCOUNTER 2022-03-17 06:54 | Outpatient (REF) | payer OTHER, SELFPAY ==
[2022-03-17 07:44] LABS: Cholesterol 233 mg/dL; HDL Cholesterol 45 mg/dL; LDL Cholesterol Calculated 164 mg/dl; Triglycerides 124 mg/dL
== END 2022-03-17 06:55 | disposition home or self-care (01) ==
LOC: HO.LAB 06:54
PROVIDERS: Visit Provider Internal Medicine Cardiovascular Disease
DX: E78.5 Hyperlipidemia, unspecified (principal)
CPT/HCPCS: 36415; 80061

== ENCOUNTER 2022-04-11 06:50 | Outpatient (REF) | payer OTHER, SELFPAY ==
--- NOTE | ~2022-04-11 | XR_ITS ---
EXAMINATION: XR CHEST CLINICAL INFORMATION: Obesity COMPARISON: Previous chest x-ray July 2019 TECHNIQUE: 2 views of the chest were obtained. FINDINGS: The cardiac and mediastinal contours are normal. The lungs are clear. There is no pleural effusion or pneumothorax. There are postsurgical changes to the cervical spine. Bony structures are otherwise unremarkable. XR/XR chest 2V IMPRESSION: No evidence for acute disease in the chest.
--- NOTE | 2022-04-11 06:59 | ECG_ITS ---
Test Reason : arm pain Blood Pressure : / mmHG Vent. Rate : 084 BPM Atrial Rate : 084 BPM P-R Int : 180 ms QRS Dur : 074 ms QT Int : 374 ms P-R-T Axes : 054 -05 044 degrees QTc Int : 441 ms Normal sinus rhythm Septal infarct (cited on or before 09-DEC-2021) Abnormal ECG When compared with ECG of 09-DEC-2021 12:54, No significant change was found Referred By: Rory Irby Electronically Signed By:DARNELL LUU
[2022-04-11 07:04] LABS: MANUAL DIFF FLAG NO
[2022-04-11 07:31] LABS: Basophils Percent Auto 0.4 % (0-2); Eosinophils Absolute Auto 0.2 X10*3/uL (0.0-0.4); Eosinophils Percent Auto 1.6 % (0-4); Hematocrit 46.1 % (37.0-47.0); Hemoglobin 15.1 g/dl (12.0-16.0); Imm Gran Abs Auto 0.03 X10*3/uL (0.00-0.03); Imm Gran Pct Auto 0.3 % (0.0-0.4); Lymphocytes Absolute Auto 3.7 X10*3/uL (1.2-4.9); Lymphocytes Percent Auto 39.9 % (20-40); Mean Corpuscular HGB Conc 32.8 g/dl (31.0-35.0); Mean Corpuscular Hemoglobin 26.9 pg (27.0-33.0); Mean Platelet Volume 8.8 fL (9.4-12.3); Monocytes Absolute Auto 0.5 X10*3/uL (0.1-1.2); Monocytes Percent Auto 5.5 % (2-11); Neutrophils Absolute Auto 4.8 x10*3/uL (2.0-8.3); Neutrophils Percent Auto 52.3 % (45-73); Platelet Count 282 X10*3/uL (160-400); Red Blood Count 5.62 X10*6/uL (4.20-5.50); Red Cell Distribution Width 14.3 % (11.0-16.0); White Blood Count 9.2 X10*3/uL (4.8-10.8)
[2022-04-11 07:47] LABS: Estimated Average Glucose 126 mg/dL
[2022-04-11 08:15] LABS: Alanine Aminotransferase 22 U/L (0-31); Albumin Level 4.3 g/dL (3.5-5.0); Alkaline Phosphatase 80 U/L (39-117); Anion Gap 17 (12-20); Aspartate Amino Transferase 18 U/L (5-31); Bilirubin Total 0.6 mg/dL (0.0-1.0); Blood Urea Nitrogen 13 mg/dL (9-16); Calcium 9.2 mg/dL (8.4-10.2); Carbon Dioxide 25 mmol/L (22-29); Chloride 104 mmol/L (96-108); Cholesterol 216 mg/dL; Estimated Glomerular Filt Rate 60; Glucose Random 103 mg/dL (60-115); HDL Cholesterol 43 mg/dL; Iron 46 mcg/dL (30-160); LDL Cholesterol Calculated 141 mg/dl; Percent Iron Saturation 16 % (15-50); Potassium 4.3 mmol/L (3.3-5.1); Sodium 142 mmol/L (135-145); Total Iron Binding Capacity 289 mcg/dL (228-428); Total Protein 7.6 g/dL (6.5-8.0); Triglycerides 163 mg/dL; Unsaturated Iron Binding 243 ug/dL
[2022-04-11 08:31] LABS: Ferritin 130 ng/mL (10-250); TSH reflex Free T4 2.66 uIU/mL (0.32-4.0); Vitamin D 25-OH Total 30.6 ng/mL (>30)
[2022-04-11 08:48] LABS: Folate > 20.0 ng/mL (> or = 4.0); Vitamin B12 510 pg/mL (200-900)
[2022-04-11 09:01] LABS: Insulin 22 uU/mL (2-29)
[2022-04-14 17:26] LABS: Calcium (PTHI) 9.2 mg/dL (8.6-10.4); PTHI 72 pg/mL (16-77)
[2022-04-15 06:02] LABS: Vitamin B1 10 nmol/L (8-30)
[2022-04-15 12:52] LABS: Zinc 74 mcg/dL (60-130)
[2022-04-16 20:32] LABS: Vitamin A 39 mcg/dL (38-98)
== END 2022-04-11 06:51 | disposition home or self-care (01) ==
LOC: HO.XRAY 06:50
PROVIDERS: Visit Provider Surgery
DX: E66.9 Obesity, unspecified (principal); Z68.36 Body mass index [BMI] 36.0-36.9, adult; E78.5 Hyperlipidemia, unspecified; G47.30 Sleep apnea, unspecified
CPT/HCPCS: 36415; 71046; 80053; 80061; 82306; 82607; 82728; 82746; 83036; 83525; 83540; 83970; 84425; 84443; 84590; 84630; 85025; 86140; 93005

== ENCOUNTER 2022-06-16 06:47 | Outpatient (REF) | payer OTHER, SELFPAY ==
[2022-06-16 07:27] LABS: Basophils Absolute Auto 0.1 X10*3/uL (0.0-0.2); Basophils Percent Auto 0.7 % (0-2); Eosinophils Percent Auto 0.1 % (0-4); Hematocrit 48.7 % (37.0-47.0); Hemoglobin 15.6 g/dl (12.0-16.0); Imm Gran Abs Auto 0.45 X10*3/uL (0.00-0.03); Imm Gran Pct Auto 2.3 % (0.0-0.4); Lymphocytes Absolute Auto 7.3 X10*3/uL (1.2-4.9); Lymphocytes Percent Auto 36.7 % (20-40); MANUAL DIFF FLAG SCAN; Mean Corpuscular Hemoglobin 26.4 pg (27.0-33.0); Mean Corpuscular Volume 82.3 fL (80.0-98.0); Mean Platelet Volume 8.8 fL (9.4-12.3); Monocytes Percent Auto 4.8 % (2-11); Neutrophils Percent Auto 55.4 % (45-73); Platelet Count 380 X10*3/uL (160-400); Red Blood Count 5.92 X10*6/uL (4.20-5.50); Red Cell Distribution Width 14.6 % (11.0-16.0); SCAN SMEAR FLAG 1; White Blood Count 19.8 X10*3/uL (4.8-10.8)
[2022-06-16 07:53] LABS: Alanine Aminotransferase 23 U/L (0-31); Albumin Level 4.1 g/dL (3.5-5.0); Alkaline Phosphatase 70 U/L (39-117); Anion Gap 13 (12-20); Aspartate Amino Transferase 14 U/L (5-31); Bilirubin Total 0.5 mg/dL (0.0-1.0); Blood Urea Nitrogen 15 mg/dL (9-16); Calcium 9.3 mg/dL (8.4-10.2); Carbon Dioxide 28 mmol/L (22-29); Chloride 103 mmol/L (96-108); Cholesterol 185 mg/dL; Estimated Glomerular Filt Rate > 60; Glucose Random 82 mg/dL (60-115); HDL Cholesterol 59 mg/dL; LDL Cholesterol Calculated 91 mg/dl; Potassium 4.3 mmol/L (3.3-5.1); Sodium 140 mmol/L (135-145); Total Protein 7.3 g/dL (6.5-8.0); Triglycerides 177 mg/dL
[2022-06-16 08:05] LABS: SLIDE REVIEW VERIFIED
== END 2022-06-16 06:48 | disposition home or self-care (01) ==
LOC: HO.LAB 06:47
PROVIDERS: PCP Internal Medicine; Visit Provider Internal Medicine
DX: E78.2 Mixed hyperlipidemia (principal)
CPT/HCPCS: 36415; 80053; 80061; 85025

== ENCOUNTER 2022-06-25 06:59 | Outpatient (REF) | payer OTHER, SELFPAY | END 2022-06-25 07:00 | disposition home or self-care (01) | LOC: HO.LAB 06:59 | PROVIDERS: Visit Provider Otolaryngology | DX: J30.89 Other allergic rhinitis (principal) | CPT/HCPCS: 36415; 82785; 86003 ==

== ENCOUNTER 2022-07-27 19:51 | Emergency (ER) | payer OTHER, SELFPAY ==
[2022-07-27 19:54] VITALS: BP 149/75; PULSE 98; RESP 20; TEMP 36.6; O2SAT 98; BMI 35.9
--- NOTE | 2022-07-27 19:55 | ED.ALLEREA ---
HPI - Allergic Reaction General Chief complaint: Allergic Reaction Stated complaint: rash ?allergic reaction Time Seen by Provider: 07/27/22 19:55 Source: patient Mode of arrival: ambulatory Limitations: no limitations History of Present Illness HPI narrative: 57-year-old female presenting to the ER with complaints of rash to her neck/chest that is radiating to her abdomen that is very itchy in nature that started a few hours prior to arrival while she was drinking coffee. She denies any new substances which include medications, lotions, detergents, foods. Reports that she has not been in the [place] and she does not believe this is poison lamar or any plan exposures. She denies any bug bites. She denies others with similar symptoms. She denies any other symptoms complaints or concerns at this time. Reports she is being worked up by the community organization director due to she has had allergic reactions in the past. Denies any other symptoms complaints or concerns at this time. MD complaint: allergic reaction and hives Onset (ago): hour(s) (Few hours prior to arrival) Exposure: unknown Symptoms: rash and itching Severity: mild Treatment prior to arrival: none Previous Allergic Reaction History: prior ED visit(s) Related Data Home Medications Medication Instructions Recorded Confirmed ibuprofen 800 mg tablet 800 mg PO Q8H PRN pain 06/13/20 06/27/22 acetaminophen 500 mg tablet 500 mg PO QID PRN Pain 07/02/20 06/27/22 (Tylenol Extra Strength) ascorbic acid (vitamin C) 500 mg 500 mg PO DAILY 03/06/21 06/27/22 tablet (Vitamin C) Previous Rx's Medication Instructions Recorded evolocumab 140 mg/mL subcutaneous 140 mg subcut Q2W 90 days #6 mL 05/29/22 pen injector (Repatha SureVictorianoick) diphenhydramine HCl 25 mg tablet 50 mg PO TID PRN allergic reaction 07/27/22 (Benadryl Allergy) #20 tabs epinephrine 0.3 mg/0.3 mL 0.3 mg (0.3 mL) IM Q10M PRN 07/27/22 injection, auto-injector anaphylaxis #2 ea famotidine 20 mg tablet (Pepcid) 20 mg PO BID rash #20 tabs 07/27/22 prednisone 20 mg tablet 40 mg PO DAILY rash 5 days #10 tabs 01/08/23 Allergies Allergy/AdvReac Type Severity Reaction Status Date / Time No Known Drug Allergies Allergy Unknown N/A Verified 07/27/22 19:59 [NO KNOWN DRUG ALLERGIES] gluten Allergy Diarrhea Verified 06/27/22 11:51 lactose Allergy Diarrhea Verified 06/27/22 11:51 Review of Systems Review of Systems: Constitutional : No Fever, No Chills , no body aches, no recent illness Head/Face: No facial swelling, No facial redness ENT/Mouth : No oral/throat swelling, No Hoarseness, No Swallowing Difficulty Eyes: No Eye Pain, No Swelling, No Redness Cardiovascular : No Chest Pain, No SOB, No palpitations Respiratory : No Cough, No Sputum, No Wheezing, No Smoke Exposure, No Dyspnea Gastrointestinal : No Nausea, No Vomiting, No Diarrhea, No abdominal Pain Genitourinary : No Dysuria, No Urinary Frequency, No Hematuria Musculoskeletal : No joint pain, No Myalgias, No Joint Swelling Skin : No Skin Lesions, positive rash Neuro : No Weakness, No Numbness, No Headache, No dizziness, No tingling Psych : No Anxiety/Panic, No Depression Heme/Lymph: No Bruising, No Lymphadenopathy Endocrine : No Polyuria, No Polydipsia Denies changes in lotions or detergents. Denies new medications or any changes in medications. Denies drainage from rash. Denies any recent sick contacts or recent travel. Yes all other systems are reviewed and are negative PMFSH Past Medical History Attestation statement: The following information was validated with the patient. Source: old records reviewed and nursing notes reviewed Medical History Back pain BMI 36.0-36.9,adult Degeneration, intervertebral disc, cervical Family history of early CAD History of kidney stones Hyperlipidemia Obesity JAIRO (obstructive sleep apnea) Sleep apnea with use of continuous positive airway pressure (CPAP) Spondylosis of cervical spine with radiculopathy Surgical History History of bilateral inguinal hernia repair (~2017) History of cervical spinal surgery (~2018) History of colonoscopy (~2017) History of cystoscopy (~2015) History of esophagogastroduodenoscopy (EGD) (~2019) History of hysterectomy (~2010) History of left oophorectomy History of lithotripsy (~2016) Family History Family History Maternal Aunt Breast cancer Maternal Aunt Stomach cancer Maternal Aunt Ovarian cancer Maternal Uncle Throat cancer Father Alzheimer disease Diabetes Brother COPD (chronic obstructive pulmonary disease) Diabetes Son HTN (hypertension) Maternal Uncle Prostate cancer Sister CAD, multiple vessel Son No problems noted. Son No problems noted. Social History Social History Household Members: Significant Other Housing: House Alcohol intake: never Patient Tobacco Use Status: Never used Tobacco service: No Current occupational status: employed Physical Exam ED Vital Signs: Vital Signs - 24 hr 07/27/22 19:54 Temperature 98 F Pulse Rate 98 Respiratory Rate 20 Blood Pressure 149/75 H Pulse Oximetry 98 Oxygen Delivery Method Room Air BMI result Body Mass Index 35.9 Vital signs have been reviewed and all within normal limits Appearance: Alert. Oriented X3. No acute distress. Head: Normal external exam. Normocephalic. No angioedema noted. Eyes: PERRLA. EOMI. Conjunctiva and sclera normal. Eyelids normal. ENT: Pharynx normal. Uvula midline. Moist mucous membranes. No trismus noted. No drooling noted. No muffled voice noted. Neck: Normal inspection. Neck supple. FROM. No adenopathy. No meningeal signs. CVS: Normal heart rate and rhythm. Heart sound normal. No murmurs noted. Pulses normal throughout. Respiratory: No respiratory distress. Painless inspiration. Breath sounds normal. No wheezes/rales/rhonchi noted. Chest nontender. No accessory muscle usage noted or decreased air movement noted. Abdomen: Soft and nontender. Nondistended. No guarding. Back: No CVA tenderness. Full range of motion noted. Skin: Skin warm and dry. Normal skin color. Normal skin turgor. Patient macular well-demarcated erythematous blanching lesions/hives throughout the chest/abdomen and neck. No signs of infection. No lesions/lacerations noted. Extremities: Extremities exhibit normal range of motion. Extremities nontender. Neuro: Oriented X 3. No motor deficit. No sensory deficit. Reflexes normal. Normal steady gait. CN's II-XII intact bilaterally? Course Course Course Narrative: IMP/Plan: Allergic rxn. Not anaphylaxis. Not sepsis/ infectious etiology. Patient well appearing in no acute distress, breathing easily without throat symptoms. Speaking full sentences, and handling secretions without difficulty. There is no obvious threat to airway. Lungs are CTA in all trevizo. No signs of angioedema, stridor, airway compromise, anaphylaxis or anaphylactic shock. Not c/w SSSS/ TEN/ Eryth multiforme/ Vo Johnsons. Given HPI and PE - Will watch and observe. If patient continues to be symptom free - will d/c with return precautions. Patient understands and agrees with plan Discharge Plan Discharge Clinical Impression: Allergic reaction Patient Disposition: Home, Self-Care Instructions: General Allergic Reaction (ED) Prescriptions: New prednisone 20 mg tablet 40 mg PO DAILY 5 Days Qty: 10 0RF famotidine [Pepcid] 20 mg tablet 20 mg PO BID Qty: 20 0RF diphenhydramine HCl [Benadryl Allergy] 25 mg tablet 50 mg PO TID PRN (Reason: allergic reaction) Qty: 20 0RF epinephrine 0.3 mg/0.3 mL auto-injector 0.3 mg IM Q10M PRN (Reason: anaphylaxis) Qty: 2 0RF Rx Instructions: for 2 doses No Action Repatha SureClick 140 mg/mL pen injector 140 mg subcut Q2W 90 Days Qty: 6 3RF ascorbic acid (vitamin C) [Vitamin C] 500 mg Tablet 500 mg PO DAILY ibuprofen 800 mg tablet 800 mg PO Q8H PRN (Reason: pain) acetaminophen [Tylenol Extra Strength] 500 mg tablet 500 mg PO QID PRN (Reason: Pain) Referrals: Physician,Unknown J [Primary Care Provider] - (Your PCP within the next few days as needed) Stand Alone Forms: Work/School Release
[2022-07-27] MEDS: Famotidine 20 MG TABLET PO (20:19)
[2022-07-27] MEDS: predniSONE 20 MG TABLET 60 MG PO (20:19)
[2022-07-27] MEDS: diphenhydrAMINE HCL 25 MG CAPSULE 50 MG PO (20:19)
== END 2022-07-27 20:26 | disposition home or self-care (01) ==
PROVIDERS: Emergency Provider Internal Medicine; PCP Internal Medicine
DX: L50.0 Allergic urticaria (principal); Z79.899 Other long term (current) drug therapy
CPT/HCPCS: 99283; 99284

== ENCOUNTER 2022-07-28 18:27 | Emergency (ER) | payer OTHER, SELFPAY ==
[2022-07-28 19:20] VITALS: BP 129/68; PULSE 100; RESP 18; TEMP 36.7; O2SAT 95; BMI 35.9
--- NOTE | 2022-07-28 19:22 | ED.GENADULT ---
HPI - General Adult General Chief complaint: General Medical Stated complaint: rash under arms/ back of neck Time Seen by Provider: 07/28/22 19:21 Source: patient Mode of arrival: ambulatory History of Present Illness HPI narrative: 57-year-old female with a past medical history of allergic reaction to unknown source evaluated in our ED last night presenting to the ED complaining of recurrent pruritic rash to bilateral axilla and posterior neck since 16:00. States yesterday after treatment symptoms resolved, then return today, states they are not worsening however just persistent. Denies cough, throat closing sensation, SOB, CP, new exposures/lotions/detergents, foods, or medications. Has been using previously prescribed medications with improvement Onset (ago): hour(s) Related Data Home Medications Medication Instructions Recorded Confirmed ibuprofen 800 mg tablet 800 mg PO Q8H PRN pain 06/13/20 06/27/22 acetaminophen 500 mg tablet 500 mg PO QID PRN Pain 07/02/20 06/27/22 (Tylenol Extra Strength) ascorbic acid (vitamin C) 500 mg 500 mg PO DAILY 03/06/21 06/27/22 tablet (Vitamin C) Previous Rx's Medication Instructions Recorded evolocumab 140 mg/mL subcutaneous 140 mg subcut Q2W 90 days #6 mL 05/29/22 pen injector (Yanet Bradford) diphenhydramine HCl 25 mg tablet 50 mg PO TID PRN allergic reaction 07/27/22 (Benadryl Allergy) #20 tabs epinephrine 0.3 mg/0.3 mL 0.3 mg (0.3 mL) IM Q10M PRN 07/27/22 injection, auto-injector anaphylaxis #2 ea famotidine 20 mg tablet (Pepcid) 20 mg PO BID rash #20 tabs 07/27/22 prednisone 20 mg tablet 40 mg PO DAILY rash 5 days #10 tabs 07/27/22 hydrocortisone 1 % topical cream 1 appl topical BID PRN rash #28.4 07/28/22 (Anti-Itch (hydrocortisone)) grams Allergies Allergy/AdvReac Type Severity Reaction Status Date / Time No Known Drug Allergies Allergy Unknown N/A Verified 07/27/22 19:59 [NO KNOWN DRUG ALLERGIES] gluten Allergy Diarrhea Verified 06/27/22 11:51 lactose Allergy Diarrhea Verified 06/27/22 11:51 Review of Systems Review of Systems: Constitutional: No Weight loss, No Fever, No Chills ENT/Mouth: No Ear Pain, No Nasal Congestion, No Sinus Pain, No Hoarseness, No sore throat, No Rhinorrhea, No Swallowing Difficulty Cardiovascular: No Chest Pain, No SOB Respiratory: No Cough, No Sputum, No Wheezing Gastrointestinal: No Nausea, No Vomiting, No Abdominal pain Genitourinary: No Dysuria, No Urinary Frequency, No Hematuria,No Flank Pain Musculoskeletal: No joint pain, No Myalgias, No Joint Swelling Skin: No Skin Lesions, + rash Neuro: No Weakness, No Numbness, No Paresthesias Yes all other systems are reviewed and are negative Constitutional: Constitutional: Reports as per [facility] Past Medical History Attestation statement: The following information was validated with the patient. Medical History Back pain BMI 36.0-36.9,adult Degeneration, intervertebral disc, cervical Family history of early CAD History of kidney stones Hyperlipidemia Obesity JAIRO (obstructive sleep apnea) Sleep apnea with use of continuous positive airway pressure (CPAP) Spondylosis of cervical spine with radiculopathy Surgical History History of bilateral inguinal hernia repair (~2018) History of cervical spinal surgery (~2019) History of colonoscopy (~2017) History of cystoscopy (~2016) History of esophagogastroduodenoscopy (EGD) (~2019) History of hysterectomy (~2010) History of left oophorectomy History of lithotripsy (~2017) Family History Family History Maternal Aunt Breast cancer Maternal Aunt Stomach cancer Maternal Aunt Ovarian cancer Maternal Uncle Throat cancer Father Alzheimer disease Diabetes Brother COPD (chronic obstructive pulmonary disease) Diabetes Son HTN (hypertension) Maternal Uncle Prostate cancer Sister CAD, multiple vessel Son No problems noted. Son No problems noted. Social History Social History Household Members: Significant Other Housing: House Alcohol intake: never Patient Tobacco Use Status: Never used Tobacco Advance Directives: No Advance Directives Information Provided: No service: No Current occupational status: employed Physical Exam ED Vital Signs: Vital Signs - 24 hr 07/28/22 19:20 Temperature 98.1 F Pulse Rate 100 Respiratory Rate 18 Blood Pressure 129/68 Pulse Oximetry 95 Oxygen Delivery Method Room Air BMI result Body Mass Index 35.9 Const General: cooperative, healthy appearing and no acute distress Orientation/consciousness: patient oriented x3 Limitations: no limitations HENMT Head: Yes normal to inspection and Yes atraumatic Ears: hearing grossly normal bilaterally, external ears normal and mastoids normal General nose exam: Normal external nose present Face and sinus: Yes normal facial exam Mouth: Normal oral and palatal mucosa present Throat: Yes posterior oropharynx normal, Yes tonsils normal, Yes uvula midline, No peritonsillar mass, No uvula laterally displaced and No uvular edema Eyes General: appearance normal, both eyes and all related structures EOM: EOMs intact bilaterally Neck Neck: Yes normal visual inspection, Yes no meningeal signs, Yes supple and No anterior neck swelling Resp Effort & Inspection: normal respiratory effort, no respiratory distress and no stridor Auscultation: clear to auscultation bilaterally, no crackles, no rhonchi and no wheezes Cardio Rate: regular rate Heart sounds: S1 normal heart sound present and S2 normal heart sound present Skin Other: + mild erythematous macular rash noted to posterior neck and bilateral axilla. Blanching. No evidence of hives. No palm/sole or mucous membrane involvement Wounds: no wounds Neuro General: patient oriented x3, tone normal and no meningeal signs Gait exam (Neuro): Normal gait present Extrem General: Yes normal to inspection Medical Decision Making Medical Decision Making MDM Narrative: 57-year-old female with a past medical history of allergic reaction to unknown source evaluated in our ED last night presenting to the ED complaining of recurrent pruritic rash to bilateral axilla and posterior neck since 16:00. On exam vital signs stable, NAD, nontoxic appearing, mild blanching macular rash noted to posterior neck and bilateral axilla. Blanching. No evidence of cellulitis, no warmth, no mucous membrane or upon/stool involvement. Concern for recurrent allergic reaction versus contact dermatitis per id lower suspicion for tinea, SJS, TENs or insect/tick-borne illness Encouraged patient to continue taking previously prescribed medications, additionally will out topical hydrocortisone. Discussed allergic reaction precautions and need a close follow-up with supervisor billposting Results discussed with patient including worrisome signs and symptoms and strict return precautions, and when to return to the emergency department. They verbalized understanding and feel safe for discharge at this time. Differential Diagnosis Differential Diagnoses: The differential diagnosis associated with the presentation includes As above External Record Review Prior ED record Discharge Plan Discharge Clinical Impression: Allergic reaction Patient Disposition: Home, Self-Care Instructions: General Allergic Reaction (ED), Allergy Testing (ED) Additional Instructions: Continue taking previously prescribed medications. In addition hydrocortisone as a topical steroid, apply to rash only. Avoid application to face, hands, genital region or feet as can discolored skin Please follow-up with an supervisor billposting for allergy testing. If you develop worsening or persistent rash, fever, difficulty breathing, cough, throat closing sensation return to the ED Prescriptions: New hydrocortisone [Anti-Itch (HC)] 1 % cream 1 appl topical BID PRN (Reason: rash) Qty: 28.4 0RF No Action Repatha SureClick 140 mg/mL pen injector 140 mg subcut Q2W 90 Days Qty: 6 3RF ascorbic acid (vitamin C) [Vitamin C] 500 mg Tablet 500 mg PO DAILY prednisone 20 mg tablet 40 mg PO DAILY 5 Days Qty: 10 0RF famotidine [Pepcid] 20 mg tablet 20 mg PO BID Qty: 20 0RF diphenhydramine HCl [Benadryl Allergy] 25 mg tablet 50 mg PO TID PRN (Reason: allergic reaction) Qty: 20 0RF epinephrine 0.3 mg/0.3 mL auto-injector 0.3 mg IM Q10M PRN (Reason: anaphylaxis) Qty: 2 0RF Rx Instructions: for 2 doses ibuprofen 800 mg tablet 800 mg PO Q8H PRN (Reason: pain) acetaminophen [Tylenol Extra Strength] 500 mg tablet 500 mg PO QID PRN (Reason: Pain) Referrals: Donte Ac MD [Physician] - Cal Espinoza DO [Physician] -
== END 2022-07-28 19:28 | disposition home or self-care (01) ==
PROVIDERS: Emergency Provider Internal Medicine; PCP Internal Medicine
DX: T78.40XA Allergy, unspecified, initial encounter (principal); R21 Rash and other nonspecific skin eruption; X58.XXXA Exposure to other specified factors, initial encounter
CPT/HCPCS: 99282; 99283

== ENCOUNTER 2022-08-05 06:49 | Outpatient (REF) | payer OTHER, SELFPAY ==
[2022-08-05 07:40] LABS: Basophils Absolute Auto 0.1 X10*3/uL (0.0-0.2); Basophils Percent Auto 0.7 % (0-2); Eosinophils Absolute Auto 0.2 X10*3/uL (0.0-0.4); Eosinophils Percent Auto 1.9 % (0-4); Hematocrit 46.9 % (37.0-47.0); Hemoglobin 15.2 g/dl (12.0-16.0); Imm Gran Abs Auto 0.12 X10*3/uL (0.00-0.03); Lymphocytes Absolute Auto 5.4 X10*3/uL (1.2-4.9); Lymphocytes Percent Auto 43.7 % (20-40); MANUAL DIFF FLAG SCAN; Mean Corpuscular HGB Conc 32.4 g/dl (31.0-35.0); Mean Corpuscular Hemoglobin 26.5 pg (27.0-33.0); Mean Corpuscular Volume 81.7 fL (80.0-98.0); Monocytes Absolute Auto 0.7 X10*3/uL (0.1-1.2); Monocytes Percent Auto 5.6 % (2-11); Neutrophils Absolute Auto 5.8 x10*3/uL (2.0-8.3); Neutrophils Percent Auto 47.1 % (45-73); Platelet Count 279 X10*3/uL (160-400); Red Blood Count 5.74 X10*6/uL (4.20-5.50); Red Cell Distribution Width 14.6 % (11.0-16.0); SCAN SMEAR FLAG 1; White Blood Count 12.4 X10*3/uL (4.8-10.8)
[2022-08-05 08:06] LABS: SLIDE REVIEW VERIFIED
[2022-08-06 22:59] LABS: Immunoglobulin E 122 kU/L (<OR=114)
[2022-08-08 18:04] LABS: Mycoplasma Pneumoniae - IgG 1.69 (<=0.90); Mycoplasma Pneumoniae - IgM 24 U/mL (<770)
== END 2022-08-05 06:50 | disposition home or self-care (01) ==
LOC: HO.LAB 06:49
PROVIDERS: PCP Internal Medicine; Visit Provider Allergy & Immunology
DX: L50.9 Urticaria, unspecified (principal)
CPT/HCPCS: 36415; 82785; 85025; 86003; 86738

== ENCOUNTER 2023-02-14 09:08 | Outpatient (REF) | payer OTHER, SELFPAY ==
[2023-02-14 10:23] LABS: Anion Gap 17 (12-20); Blood Urea Nitrogen 10 mg/dL (9-16); Calcium 9.6 mg/dL (8.4-10.2); Carbon Dioxide 22 mmol/L (22-29); Chloride 105 mmol/L (96-108); Estimated Glomerular Filt Rate > 60; Glucose Random 106 mg/dL (60-115); Potassium 4.3 mmol/L (3.3-5.1); Sodium 140 mmol/L (135-145)
== END 2023-02-14 09:09 | disposition home or self-care (01) ==
LOC: HO.LAB 09:08
PROVIDERS: Visit Provider Internal Medicine
DX: M54.12 Radiculopathy, cervical region (principal)
CPT/HCPCS: 36415; 80048

== ENCOUNTER 2023-03-25 14:28 | Outpatient (AMB) | payer OTHER, SELFPAY ==
[2023-03-25 14:30] VITALS: BP 134/76; PULSE 94; BMI 36.6
--- NOTE | 2023-03-25 14:30 | MHC.OFFVIS ---
Intake Vital Signs 03/25/23 14:30 Height 5 ft 1 in Weight 193 lb 9.054 oz BMI 36.6 BP 134/76 Blood Pressure Location Lt brachial Position Sitting Pulse 94 Pulse Source Monitor Intake Visit Reasons: 6 month follow up Intake Note: 6 month follow up with EKG. Customer Assistance Associate Required: No Accompanied by: Self / Same As Patient Allergies gluten Allergy (Verified 06/27/22 11:51) Diarrhea lactose Allergy (Verified 06/27/22 11:51) Diarrhea Medication List - Last Reconciled 03/25/23 by Javier Velasco MD epinephrine 0.3 mg (0.3 mL) IM Q10M PRN evolocumab (Repatha SureClick) 140 mg subcut Q2W 90 days ibuprofen 600 mg PO Q8H PRN HPI HPI Comments History of Present Illness Details Pleasant 56-year-old female here for follow-up. Recently she was seen her primary care physician's office when she presented with shooting left arm pain. She had known history of cervical radiculopathy with previous C4-5 surgery. She said the pain has been a chronic issue but was worse on that day. She had an EKG performed which showed poor R-wave progression and concern for old anterior infarct. She was sent to the ER which she was ruled out and then discharged home. Her sister who is 1 year older had triple-vessel bypass. Patient has background of hyperlipidemia with an LDL level of 186 in January 2021. She is a nonsmoker and does not drink or do any recreational drugs. She was experiencing exertional left-sided sharp chest pains. She was referred for exercise stress test which did not show any perfusion defect. Echocardiography showed no wall motion abnormality with normal biventricular function. She returns today and has been experiencing left arm pain. She has seen her neurosurgeon who has done MRI and told her that she has radiculopathy. 03/25/23: She returns for follow-up. She is saying that she has been taking the Repatha but apparently stop the atorvastatin 80 mg. There is some confusion about her medications. She currently is not taking statins. She does not have any allergy to statins. And In any case looking back at her blood workup her LDL level was 227 at 1 stage and total cholesterol was 319. Her last LDL was 92 in May 2022. She is complaining of some palpitations which happen at nighttime. She also has some off and on chest discomfort but this is random and there is no pattern. She previously had normal exercise stress test. [facility] Medical History Back pain BMI 36.0-36.9,adult Degeneration, intervertebral disc, cervical Family history of early CAD History of kidney stones Hyperlipidemia Obesity JAIRO (obstructive sleep apnea) Sleep apnea with use of continuous positive airway pressure (CPAP) Spondylosis of cervical spine with radiculopathy Surgical History History of bilateral inguinal hernia repair (~2017) History of cervical spinal surgery (~2018) History of colonoscopy (~2016) History of cystoscopy (~2015) History of esophagogastroduodenoscopy (EGD) (~2019) History of hysterectomy (~2010) History of left oophorectomy History of lithotripsy (~2016) Family History Maternal Aunt Breast cancer Maternal Aunt Stomach cancer Maternal Aunt Ovarian cancer Maternal Uncle Throat cancer Father Alzheimer disease Diabetes Brother COPD (chronic obstructive pulmonary disease) Diabetes Son HTN (hypertension) Maternal Uncle Prostate cancer Sister CAD, multiple vessel Son No problems noted. Son No problems noted. Social History Household Members: Significant Other Housing: House Alcohol intake: never Patient Tobacco Use Status: Never used Tobacco service: No Current occupational status: employed Review of Systems Const Denies weakness ENT Denies dizziness Card Denies chest pain, Denies chest pain with activity, Denies syncope, Denies rapid heart rate, Denies pedal edema, Denies edema, Denies leg edema, Denies lightheadedness, Denies palpitations, Denies dyspnea, Denies dyspnea on exertion and Denies orthopnea Resp Denies cough, Denies dyspnea and Denies dyspnea on exertion GI Denies hematochezia and Denies change in stool character Musc Denies abnormal gait, Denies muscle cramps, Denies muscle weakness, Denies numbness, Denies radiating pain into limb and Denies tingling Neuro Denies abnormal gait, Denies dizziness, Denies syncope, Denies numbness, Denies tingling and Denies weakness Endo Denies palpitations Physical Exam Vital Signs: Last Vital Signs Pulse 94 03/25/23 14:30 BP 134/76 03/25/23 14:30 BMI result Body Mass Index 36.6 GENERAL APPEARANCE: in no acute distress, pleasant. NECK: no carotid bruit, no jugular venous distention. SKIN: no suspicious lesions, warm and dry. HEART: no murmurs, regular rate and rhythm. LUNGS: clear to auscultation bilaterally. ABDOMEN: soft, nontender. EXTREMITIES: no edema. PERIPHERAL PULSES: equal. NEUROLOGIC: No gross deficits, AAO X 3 Office Procedures EKG Details: Sinus rhythm 94 beats per minute, normal axis, anteroseptal infarct (old), QTC 455 milliseconds. [id number], Complete Assessment & Plan Assessment & Plan (1) Chest pain: Code(s): R07.9 - Chest pain, unspecified (2) Abnormal EKG: Onset Date: ~12/09/21 Comment: Septal infarct, poor R-wave progression. Code(s): R94.31 - Abnormal electrocardiogram [ECG] [EKG] (3) Hyperlipidemia: Comment: (untreated - 01/22/21 labs = Chol: 295, Tri, LDL: 186, HDL:40) Code(s): E78.5 - Hyperlipidemia, unspecified Plan Pleasant 57 year female who is here for follow-up. She has strong family history of coronary disease as well as hyperlipidemia. Her LDL cholesterol is previously were significantly elevated and were in the family and hyperlipidemia range. She was on statin therapy and we added Praluent but it appears she stop the statins at some stage. She is saying that she was instructed by my office to stop the statins. In any case does not have any LAD to statins right now. I am adding back Crestor 40 mg once a day which she will continue along with the PCSK9 inhibitors. In 6 weeks we will repeat her lipid panel. She has some random chest discomfort. I have advised her that if she gets any exertional symptoms consistent with and she should reach out to us. She previously had exercise stress testing which was normal. If she has persistent episodes of chest discomfort then we will consider either a diagnostic angiogram or a coronary CTA. Follow-up in few months. Thank you for allowing me to participate in the care of your patient. Please feel free to contact me if you have any questions. Orders: Orders Lipid Panel Today E78.5 - Hyperlipidemia, unspecified Medications: New rosuvastatin 40 mg PO DAILY 90 tabs 3RF E78.5 - Hyperlipidemia, unspecified Coding Level of Care Code Est Pt Level 4 (92830) Diagnoses Chest pain R07.9 Abnormal EKG R94.31 Hyperlipidemia E78.5 CPT Codes EKG - CPT: 80039-[id number], Complete ([id number])
== END 2023-03-25 15:08 | disposition home or self-care (01) ==
PROVIDERS: PCP Internal Medicine; Referring Provider Internal Medicine; Visit Provider Internal Medicine Cardiovascular Disease
DX: R07.9 Chest pain, unspecified (principal); R94.31 Abnormal electrocardiogram [ECG] [EKG]; E78.5 Hyperlipidemia, unspecified
CPT/HCPCS: 93010; 99214

== ENCOUNTER → 2023-03-25 14:28 | Outpatient (BNVA) | payer OTHER, SELFPAY | PROVIDERS: PCP Internal Medicine; Referring Provider Internal Medicine; Visit Provider Internal Medicine Cardiovascular Disease | DX: R07.9 Chest pain, unspecified (principal); R94.31 Abnormal electrocardiogram [ECG] [EKG]; E78.5 Hyperlipidemia, unspecified | CPT/HCPCS: 93005 ==

== ENCOUNTER 2023-05-05 14:41 | Outpatient (REF) | payer OTHER, SELFPAY ==
[2023-05-06 04:00] LABS: CT PCR NOT DETECTED (Not Detect.); NG PCR NOT DETECTED (Not Detect.)
[2023-05-07 23:43] LABS: HPV mRNA E6/E7 rflx Not Detected (Not Detected)
== END 2023-05-05 14:42 | disposition home or self-care (01) ==
LOC: HO.LNP 14:41
PROVIDERS: Visit Provider Advanced Practice Midwife
DX: Z01.419 Encounter for gynecological examination (general) (routine) without abnormal findings (principal); Z11.51 Encounter for screening for human papillomavirus (HPV); Z20.2 Contact with and (suspected) exposure to infections with a predominantly sexual mode of transmission
CPT/HCPCS: 0353U; 87624; 88142

== ENCOUNTER 2023-05-05 14:41 | Outpatient (AMB) | payer OTHER, SELFPAY ==
[2023-05-05 14:46] VITALS: BP 110/70; BMI 36.8
--- NOTE | 2023-05-05 14:46 | A.OFFVIS_ITS ---
Intake Vital Signs 05/05/23 14:46 Height 5 ft 1 in Weight 195 lb BMI 36.8 BP 110/70 Intake Visit Reasons: New patient Annual Intake Note: Last pap @[facility] normal hx per pt The patient agreed to use of a medical device during this encounter. Scribed for JAZMIN Sears by [employer]orena Tang medical device, on 05/05/2023 at 3:14 pm EST. Purchasing Buyer: Purchasing Buyer Present (Dianna) Allergies gluten Allergy (Verified 05/05/23 14:51) Diarrhea lactose Allergy (Verified 05/05/23 14:51) Diarrhea Post menopausal: Yes HPI HPI Comments History of Present Illness Details She is a new patient postmenopausal woman presenting for annual exam. Patient admits she tries to eat a healthy diet including Calcium and Vitamin D. She stays active with exercise. Currently not sexually active. Denies vaginal itching and irritation. STD screening offered; she accepts. Denies family hx of colon cancer. Last pap smear 01/29/21. Last mammogram 01/29/21. UTD on colonoscopy. Reports hernia mesh; complaints that the mesh in her abdomen hurts at times. [facility] Medical History Back pain Sleep apnea with use of continuous positive airway pressure (CPAP) BMI 36.0-36.9,adult Obesity JAIRO (obstructive sleep apnea) History of kidney stones Hyperlipidemia Family history of early CAD Spondylosis of cervical spine with radiculopathy Degeneration, intervertebral disc, cervical Surgical History History of right oophorectomy History of hysterectomy, supracervical History of esophagogastroduodenoscopy (EGD) (~2019) History of colonoscopy (~2017) History of left oophorectomy History of cystoscopy (~2015) History of lithotripsy (~2017) History of cervical spinal surgery (~2018) History of bilateral inguinal hernia repair (~2017) Family History Maternal Aunt Breast cancer Maternal Aunt Stomach cancer Maternal Aunt Ovarian cancer Maternal Uncle Throat cancer Father Alzheimer disease Diabetes Brother COPD (chronic obstructive pulmonary disease) Diabetes Son HTN (hypertension) Maternal Uncle Prostate cancer Sister CAD, multiple vessel Son No problems noted. Son No problems noted. Mother Breast cancer Social History Household Members: Significant Other Housing: House Alcohol intake: never Patient Tobacco Use Status: Never used Tobacco service: No Current occupational status: employed Female Reproductive History Menstrual Menopause type: surgical Total pregnancies: 4 Full term: 2 Number of Living Children: 2 Ab spontaneous: 2 Date of last pap smear: 01/29/21 Physical Exam Vital Signs: Last Vital Signs BP 110/70 05/05/23 14:46 BMI result Body Mass Index 36.8 Const General: cooperative, healthy appearing, no acute distress, well developed and alert Orientation/consciousness: patient oriented x3 HEENT Head: Yes normal to inspection Eyes General: appearance normal, both eyes and all related structures Neck Neck: Yes normal visual inspection Thyroid: Thyroid normal Chest Chest palpation & inspection: normal inspection of the chest Breast/axilla inspection: normal inspection of the breasts (no puckering, dimpling, peau de orange, retraction, discharge, masses) Breast/axilla palpation: normal palpation of the breasts Resp Effort & Inspection: normal respiratory effort GI Inspection: Yes normal to inspection and Yes obesity Palpation (GI): Soft to palpation (to palpation) Rectal Exam - Female: deferred General: Yes bladder normal to inspection External Female Exam: normal external appearance and normal appearance of the urethra Speculum Exam - Vagina: normal appearance of the vagina, normal palpation and vagina atrophic Speculum Exam - Cervix: normal appearance of the cervix and normal palpation Bimanual exam- vagina & uterus: normal palpation and normal palpation Bimanual Exam- Adnexa, other: normal adnexae and no masses Skin General skin exam: no rashes or lesions noted Neuro General: patient oriented x3 Cognition (Neuro): normal cognition Extrem General: Yes normal to inspection Psych Attitude: cooperative Thought process: Normal thought process present Assessment & Plan Assessment & Plan (1) Encounter for well woman exam: Code(s): Z01.419 - Encounter for gynecological examination (general) (routine) without abnormal findings Plan: Discussed: Current recommendations for pap smears per ASCCP guidelines. Breast awareness and periodic self breast exams. Encouraged yearly mammograms. Maintaining a healthy lifestyle including a well balanced diet including Calcium and Vitamin D and routine exercise. Contact office with any PMB. All of her questions and concerns were addressed to the best of my ability. RTO in 1 year for AG. (2) Potential exposure to STD: Code(s): Z20.2 - Contact with and (suspected) exposure to infections with a predominantly sexual mode of transmission Plan: BV testing and GC/CT panel done today. Await results and treat accordingly. Orders: Orders Pap Smear Today Z01.419 - Encounter for gynecological examination (general) (routine) without abnormal findings CT NG by PCR Today Z20.2 - Contact with and (suspected) exposure to infections with a predominantly sexual mode of transmission Coding Level of Care Code New Pt Prev Care 40-64y(06711) Diagnoses Encounter for well woman exam Z01.419 Potential exposure to STD Z20.2
== END 2023-05-05 15:23 | disposition home or self-care (01) ==
PROVIDERS: Visit Provider Advanced Practice Midwife
DX: Z01.419 Encounter for gynecological examination (general) (routine) without abnormal findings (principal); Z20.2 Contact with and (suspected) exposure to infections with a predominantly sexual mode of transmission
CPT/HCPCS: 99386

== ENCOUNTER → 2023-05-08 06:50 | Outpatient (REF) | payer OTHER, SELFPAY ==
--- NOTE | 2023-05-08 06:51 | HM_ITS ---
Conclusion: 1. Patient was monitored for total period of 3 days 2. Baseline was normal sinus rhythm with average heart of 87 beats per minute 3. No significant pauses or arrhythmias detected 4. Patient marked the counter 12 times correlating with symptoms in the diary of palpitations or chest pressure correlating with sinus rhythm MTDD
== END ==
LOC: HO.CARD 06:50
PROVIDERS: PCP Internal Medicine; Visit Provider Internal Medicine Cardiovascular Disease
DX: R00.2 Palpitations (principal); G47.30 Sleep apnea, unspecified
CPT/HCPCS: 93242

== ENCOUNTER → 2023-05-08 06:51 | Outpatient (BNV) | payer OTHER, SELFPAY | PROVIDERS: PCP Internal Medicine; Visit Provider Internal Medicine Cardiovascular Disease | DX: R00.2 Palpitations (principal) | CPT/HCPCS: 93244 ==

== ENCOUNTER 2023-06-19 06:44 | Outpatient (REF) | payer OTHER, SELFPAY ==
[2023-06-19 07:29] LABS: Cholesterol 105 mg/dL (<200); HDL Cholesterol 48 mg/dL (>40); LDL Cholesterol Calculated 35 mg/dL (<100); Triglycerides 112 mg/dL (<150)
== END 2023-06-19 06:45 | disposition home or self-care (01) ==
LOC: HO.LAB 06:44
PROVIDERS: PCP Internal Medicine; Visit Provider Internal Medicine Cardiovascular Disease
DX: E78.5 Hyperlipidemia, unspecified (principal)
CPT/HCPCS: 36415; 80061

== ENCOUNTER 2023-06-24 14:23 | Outpatient (AMB) | payer OTHER, SELFPAY ==
[2023-06-24 14:43] VITALS: BP 110/70; PULSE 103; BMI 37.1
--- NOTE | 2023-06-24 14:43 | MHC.OFFVIS ---
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 Recently she was seen her primary care physician's office when she presented with shooting left arm pain. She had known history of cervical radiculopathy with previous C4-5 surgery. She said the pain has been a chronic issue but was worse on that day. She had an EKG performed which showed poor R-wave progression and concern for old anterior infarct. She was sent to the ER which she was ruled out and then discharged home. Her sister who is 1 year older had triple-vessel bypass. Patient has background of hyperlipidemia with an LDL level of 186 in January 2021. She is a nonsmoker and does not drink or do any recreational drugs. She was experiencing exertional left-sided sharp chest pains. She was referred for exercise stress test which did not show any perfusion defect. Echocardiography showed no wall motion abnormality with normal biventricular function. She returns today and has been experiencing left arm pain. She has seen her neurosurgeon who has done MRI and told her that she has radiculopathy. 03/25/23: She returns for follow-up. She is saying that she has been taking the Repatha but apparently stop the atorvastatin 80 mg. There is some confusion about her medications. She currently is not taking statins. She does not have any allergy to statins. And In any case looking back at her blood workup her LDL level was 227 at 1 stage and total cholesterol was 319. Her last LDL was 92 in May 2022. She is complaining of some palpitations which happen at nighttime. She also has some off and on chest discomfort but this is random and there is no pattern. She previously had normal exercise stress test. 06/24/2023: She returns for follow-up. She has been doing well. Fasting lipid panel 06/19/2023: Triglycerides 112, cholesterol 105, LDL 35, HDL 48. She has restarted rosuvastatin 40 mg along with Repatha. She is complaining of headaches, fatigue and daytime sleepiness. She has known history of sleep apnea and had a sleep study many years ago which was abnormal. She said she was given CPAP but there were charging her 50 dollars per week and she could not afford it. She has not had any further workup since then or any follow-up sleep study. Her symptoms appear to be related to sleep apnea and not due to Repatha. [facility] Medical History (Updated 06/24/23 @ 15:06 by Javier Velasco MD) Back pain Sleep apnea with use of continuous positive airway pressure (CPAP) BMI 36.0-36.9,adult Obesity JAIRO (obstructive sleep apnea) History of kidney stones Hyperlipidemia Family history of early CAD Spondylosis of cervical spine with radiculopathy Degeneration, intervertebral disc, cervical Surgical History History of right oophorectomy History of hysterectomy, supracervical History of esophagogastroduodenoscopy (EGD) (~2019) History of colonoscopy (~2017) History of left oophorectomy History of cystoscopy (~2015) History of lithotripsy (~2017) History of cervical spinal surgery (~2019) History of bilateral inguinal hernia repair (~2018) Family History Maternal Aunt Breast cancer Maternal Aunt Stomach cancer Maternal Aunt Ovarian cancer Maternal Uncle Throat cancer Father Alzheimer disease Diabetes Brother COPD (chronic obstructive pulmonary disease) Diabetes Son HTN (hypertension) Maternal Uncle Prostate cancer Sister CAD, multiple vessel Son No problems noted. Son No problems noted. Mother Breast cancer Social History Household Members: Significant Other Housing: House Alcohol intake: never Patient Tobacco Use Status: Never used Tobacco service: No Current occupational status: employed Review of [employer] Reports chills, Reports fatigue, Reports fever(s), Reports frequent falls, Reports weakness, Reports weight gain and Reports weight loss ENT Reports dizziness Card Reports chest pain, Reports leg edema, Reports lightheadedness, Reports palpitations, Reports dyspnea and Reports dyspnea on exertion Resp Reports cough, Reports dyspnea and Reports dyspnea on exertion GI Reports hematochezia Musc Reports abnormal gait, Reports muscle weakness, Reports numbness, Reports radiating pain into limb and Reports tingling Neuro Reports abnormal gait, Reports dizziness, Reports frequent falls, Reports numbness, Reports tingling and Reports weakness Endo Reports fatigue and Reports palpitations Physical Exam Vital Signs: Last Vital Signs Pulse 103 H 06/24/23 14:43 BP 110/70 06/24/23 14:43 BMI result Body Mass Index 37.1 GENERAL APPEARANCE: in no acute distress, pleasant. NECK: no carotid bruit, no jugular venous distention. SKIN: no suspicious lesions, warm and dry. HEART: no murmurs, regular rate and rhythm. LUNGS: clear to auscultation bilaterally. ABDOMEN: soft, nontender. EXTREMITIES: no edema. PERIPHERAL PULSES: equal. NEUROLOGIC: No gross deficits, AAO X 3 Assessment & Plan Assessment & Plan (1) JAIRO (obstructive sleep apnea): Code(s): G47.33 - Obstructive sleep apnea (adult) (pediatric) (2) Hyperlipidemia: Comment: (untreated - 01/22/21 labs = Chol: 295, Tri, LDL: 186, HDL:40) Code(s): E78.5 - Hyperlipidemia, unspecified Plan Very pleasant 58 year female who is here for follow-up. She has family history of coronary artery disease. She has significantly abnormal lipid panel in the past. She is currently taking rosuvastatin 40 mg and Repatha 140 mg q.2 weeks. Her cholesterol numbers have significantly improved. I have advised her to continue same medications for now. She is complaining of headache, daytime sleepiness and has known history of sleep apnea in the past. I am referring her to Sleep Medicine for further assessment. Thank you for allowing me to participate in the care of your patient. Please feel free to contact me if you have any questions. Orders: Referrals Sleep Medicine Referral G47.33 - Obstructive sleep apnea (adult) (pediatric) Coding Level of Care Code Est Pt Level 4 (44283) Diagnoses JAIRO (obstructive sleep apnea) G47.33 Hyperlipidemia E78.5
== END 2023-06-24 15:04 | disposition home or self-care (01) ==
PROVIDERS: PCP Internal Medicine; Visit Provider Internal Medicine Cardiovascular Disease
DX: G47.33 Obstructive sleep apnea (adult) (pediatric) (principal); E78.5 Hyperlipidemia, unspecified
CPT/HCPCS: 99214

== ENCOUNTER → 2023-06-24 14:23 | Outpatient (BNVA) | payer OTHER, SELFPAY | PROVIDERS: PCP Internal Medicine; Visit Provider Internal Medicine Cardiovascular Disease ==

== ENCOUNTER 2023-09-15 14:38 | Outpatient (AMB) | payer OTHER, SELFPAY ==
--- NOTE | 2023-09-15 15:01 | A.OFFVIS_ITS ---
Intake Vital Signs 09/15/23 15:06 Height 5 ft 1 in Weight 196 lb 4 oz BMI 37.1 BP 115/70 Blood Pressure Location Lt brachial Position Sitting Pulse 89 Pulse Source Pulse Oximeter Pulse Oximetry (%) 95 Oxygen Delivery Method Room Air Intake Visit Reasons: [employer]/JAIRO-CONF Intake Note: Patient presents for JAIRO. Difficulty falling asleep and difficulty staying up during the day. snoring and morning headaches Allergies gluten Allergy (Verified 09/15/23 15:06) Diarrhea lactose Allergy (Verified 09/15/23 15:06) Diarrhea HPI HPI Comments History of Present Illness Details 58 y/o female patient presents for new i n-person visit to manage sleep apnea. Pt reports she was diagnosed with JAIRO about 10 years ago. She used CPAP, and her sleep quality and daytime tiredness has improved. However, she used loaner CPAP and her insurance charged $45/week. She was not affordable for CPAP at that time and returned it. She continues to have gasping arousals, and non refreshing sleep with daytime sleepiness. Sleep questionnaire: Have you ever been diagnosed with a sleep disorder? Yes, JAIRO. Have you ever had a sleep study in the past? Yes. Have you ever been treated for a sleep disorder? Yes, CPAP. Do you take medications for a sleep disorder? No. Do you snore? Yes. Do you wake up gasping at night? Yes. Do you have episodes of apneas? Yes. If yes, are they witnessed? Yes. Do you have episodes of nocturnal chest pain or dyspnea? No. Do you have difficulty initiating sleep? Yes. Do you have difficulty maintaining sleep? Yes. Do you wake up tired? Yes. Do you have headaches upon awakening? Yes, sometimes. Do you wake up with dry mouth or throat? Yes, all the time. Do you have GERD? No. Do you have nocturia? Yes. Do you have nocturnal leg cramps? No. Do you have symptoms of restless legs? Yes. Do you act out your dreams? No. Sleep hygiene questionnaire: What is your usual sleep routine? Usual bedtime is at 10 pm; Usual wake up time is at 5:30 am. Do you take naps? Yes, sometimes. Is your sleep environment cool, dark, and quiet? Yes. Do you exercise? No. Do you take caffeine or other stimulants? 1 cup of coffee in the morning. Do you use electronics in bed? No. What is your work schedule? 7 am to 3:30 pm. Hypersomnolence questionnaire: Do you have daytime tiredness or fatigue? Yes. Do you easily fall asleep when inactive? Yes. Have you ever had episodes of sudden weakness? No. Have you ever had episodes of sudden weakness associated with strong emotions? No. PFSH Medical History (Updated 09/15/23 @ 15:20 by Dwayne Denton CNP) Back pain Sleep apnea with use of continuous positive airway pressure (CPAP) BMI 36.0-36.9,adult Obesity JAIRO (obstructive sleep apnea) History of kidney stones Hyperlipidemia Family history of early CAD Spondylosis of cervical spine with radiculopathy Degeneration, intervertebral disc, cervical Surgical History History of right oophorectomy History of hysterectomy, supracervical History of esophagogastroduodenoscopy (EGD) (~2019) History of colonoscopy (~2017) History of left oophorectomy History of cystoscopy (~2016) History of lithotripsy (~2017) History of cervical spinal surgery (~2019) History of bilateral inguinal hernia repair (~2018) Family History Maternal Aunt Breast cancer Maternal Aunt Stomach cancer Maternal Aunt Ovarian cancer Maternal Uncle Throat cancer Father Alzheimer disease Diabetes Brother COPD (chronic obstructive pulmonary disease) Diabetes Son HTN (hypertension) Maternal Uncle Prostate cancer Sister CAD, multiple vessel Son No problems noted. Son No problems noted. Mother Breast cancer Social History Household Members: Significant Other Housing: House Alcohol intake: never Patient Tobacco Use Status: Never used Tobacco service: No Current occupational status: employed [employer] All systems reviewed & are unremarkable except as noted in HPI and below Physical Exam Vital Signs: Last Vital Signs Pulse 89 09/15/23 15:06 BP 115/70 09/15/23 15:06 Pulse Ox 95 09/15/23 15:06 Oxygen Delivery Method Room Air 09/15/23 15:06 BMI result Body Mass Index 37.1 Const General: cooperative Nutritional Appearance: obese Orientation/consciousness: patient oriented x3 Neck Neck: Yes full ROM and Yes supple Resp Effort & Inspection: normal respiratory effort and able to speak in complete sentences Neuro General: patient oriented x3, gait normal and moves all extremities Cranial nerves: Yes CN's II-XII intact bilaterally Cognition (Neuro): normal cognition Gait exam (Neuro): Normal gait present Motor exam (neuro): 5/5 motor strength present throughout Psych Appearance: grossly normal Mental Status: mental status grossly normal Speech and movement: Normal speech and movement present Affect: normal affect Attitude: cooperative Assessment & Plan Assessment & Plan (1) JAIRO (obstructive sleep apnea): Code(s): G47.33 - Obstructive sleep apnea (adult) (pediatric) (2) Daytime sleepiness: Code(s): R40.0 - Somnolence (3) Obesity: Code(s): E66.9 - Obesity, unspecified Plan Pt is advised to undergo home sleep study to assess for sleep apnea. Will f/u with pt after study to discuss results and appropriate treatment options. Sleep hygiene education provided. Wt reduction advised. Pt to call with any worsening concerns or questions. Orders: Orders RT home sleep study 09/15/23 E66.9 - Obesity, unspecified, G47.33 - Obstructive sleep apnea (adult) (pediatric), R40.0 - Somnolence Coding Level of Care Code New Pt Level 3 (39756) Diagnoses JAIRO (obstructive sleep apnea) G47.33 Daytime sleepiness R40.0 Obesity E66.9
[2023-09-15 15:06] VITALS: BP 115/70; PULSE 89; O2SAT 95; BMI 37.1
== END 2023-09-15 15:24 | disposition home or self-care (01) ==
PROVIDERS: PCP Internal Medicine; Visit Provider Nurse Practitioner Family
DX: G47.33 Obstructive sleep apnea (adult) (pediatric) (principal); R40.0 Somnolence; E66.9 Obesity, unspecified
CPT/HCPCS: 99203

== ENCOUNTER → 2023-09-15 14:38 | Outpatient (BNVA) | payer OTHER, SELFPAY | PROVIDERS: PCP Internal Medicine; Visit Provider Nurse Practitioner Family ==

== ENCOUNTER 2023-09-29 11:20 | Outpatient (AMB) | payer OTHER, SELFPAY ==
[2023-09-29 11:40] VITALS: BMI 36.3
--- NOTE | 2023-09-29 11:40 | A.OFFVIS_ITS ---
Intake VS Expanded 09/29/23 11:40 09/29/23 11:56 Height 5 ft 1 in 5 ft 1 in Weight 192 lb 3.889 oz 192 lb BMI 36.3 36.3 Intake Visit Reasons: Pre DM/CONFIRMED Allergies gluten Allergy (Verified 09/15/23 15:06) Diarrhea lactose Allergy (Verified 09/15/23 15:06) Diarrhea HPI Nutrition Presentation Details Pt presents for MNT for Obesity, Pt is self referred Pt reports lacking meal planning, has 2 jobs and is typically choosing fast food most of the time or snacking throughout the day. works from 7am to 3 pm and then 4-7 pm coffee 2x/d Pt reports having lactose intolerance 10 croissant egg/ham/cheese 12 may skip or mixed nuts /flakito miranda, c rackers, chips , vitamin water 7 pm mashed potato, burger, lettuce/lul to , avocado/flakito miranda fruits: not including fish: not including water: 6 cups/day dairy: almond milk etoh: denies smoking: denies non additional to that at work on feet majority of the time EIR-Wbkwoco-Kq.Jeor Equation Height 5 ft 1 in Weight 192 lb Resting Metabolic Rate 1401.88 Calculated Activity Level Sedentary Calories Needed to Maintain Weight 1682.26 Diagnosis Nutrition problem #1 excessive energy intake As related to (etiology) #1 diagnosis (BMI at 36.3) As evidenced by (sign/symptom) #1 high BMI (36.3 on 09/2023) and knowledge deficit of diet Monitoring/Goals Nutrition problem monitoring level of knowledge/skill, total PRO intake, total CHO intake, weight and oral fluids Nutrition goal/outcome list 3 CHO foods, wt loss 5lbs in 2 months and list 3 high fiber foods Learning/Education Readiness to learn good Stages of change contemplation Educational materials provided Yes (meal planning) Most Recent Diabetes Results: Cholesterol 105 mg/dL (<200) 06/19/23 HDL Cholesterol 48 mg/dL (>40) 06/19/23 Triglycerides 112 mg/dL (<150) 06/19/23 Creatinine 0.82 mg/dL (0.5-1.4) 02/14/23 Blood Urea Nitrogen 10 mg/dL (9-16) 02/14/23 Sodium 140 mmol/L (135-145) 02/14/23 Potassium 4.3 mmol/L (3.3-5.1) 02/14/23 Chloride 105 mmol/L (96-108) 02/14/23 Carbon Dioxide 22 mmol/L (22-29) 02/14/23 Calcium 9.6 mg/dL (8.4-10.2) 02/14/23 [facility] Medical History (Updated 09/15/23 @ 15:20 by Dwayne Denton CNP) Back pain Sleep apnea with use of continuous positive airway pressure (CPAP) BMI 36.0-36.9,adult Obesity JAIRO (obstructive sleep apnea) History of kidney stones Hyperlipidemia Family history of early CAD Spondylosis of cervical spine with radiculopathy Degeneration, intervertebral disc, cervical Surgical History History of right oophorectomy History of hysterectomy, supracervical History of esophagogastroduodenoscopy (EGD) (~2019) History of colonoscopy (~2017) History of left oophorectomy History of cystoscopy (~2015) History of lithotripsy (~2017) History of cervical spinal surgery (~2018) History of bilateral inguinal hernia repair (~2018) Family History Maternal Aunt Breast cancer Maternal Aunt Stomach cancer Maternal Aunt Ovarian cancer Maternal Uncle Throat cancer Father Alzheimer disease Diabetes Brother COPD (chronic obstructive pulmonary disease) Diabetes Son HTN (hypertension) Maternal Uncle Prostate cancer Sister CAD, multiple vessel Son No problems noted. Son No problems noted. Mother Breast cancer Social History Household Members: Significant Other Housing: House Alcohol intake: never Patient Tobacco Use Status: Never used Tobacco service: No Current occupational status: employed Assessment & Plan Assessment & Plan (1) Obesity: Code(s): E66.9 - Obesity, unspecified Plan: Wt: 87 Kg ( 09/29/23 ) Est kcal needs as per MSJ: 1700 (40% carb, 30% protein/fat) Est fluid needs as per 25-30 ml/d: 2200 Est prot per day as per 1 g/kg bw: 87 Recommend fiber intake : 8-10 g per day and gradually increase to 25-28 g per day for women and 35-38 g for men or as tolerated Recommend sodium intake per day : less than 2000 mg Educated patient on: ( R = reviewed V = verbalizes understanding N/R = needs review N/A = not applicable * Food sources of carbohydrate, adequate serving sizes and its role in various health conditions: R * Differences between complex carbohydrates a simple carbohydrates, role of fiber in diet: R * Lean protein sources of foods: R * Differences between types of fats and role in diet (mono on saturated fat fatty acids, saturated fatty acids, trans fats): N/R * Food sources of sodium in salt and healthy modifications for heart health in kidney health: N/R * Vitamins and minerals: R * Healthy plate method concept: R * Physical activity: Benefits a precaution: N/R Plan 1600 Patient Instructions: Work on having 3 balanced meals per day following healthy plate method have a fruit as snack in place of pastries once a day to start Switch to Bolivian muffin vs croissant /bagels for sandwiches Coding Level of Care Code Nutr Indiv Intake (26564) Diagnoses Obesity E66.9 Time Spent (min) 30
[2023-09-29 11:56] VITALS: BMI 36.3
== END 2023-09-29 12:11 | disposition home or self-care (01) ==
PROVIDERS: PCP Internal Medicine; Visit Provider Dietitian, Registered
DX: E66.9 Obesity, unspecified (principal)

== ENCOUNTER → 2023-09-29 11:20 | Outpatient (BNVA) | payer OTHER, SELFPAY | PROVIDERS: PCP Internal Medicine; Visit Provider Dietitian, Registered | DX: E66.9 Obesity, unspecified (principal); Z68.36 Body mass index [BMI] 36.0-36.9, adult; Z71.3 Dietary counseling and surveillance | CPT/HCPCS: 97802 ==

== ENCOUNTER 2023-10-02 07:38 | Outpatient (REF) | payer OTHER, SELFPAY ==
--- NOTE | ~2023-10-02 | CT_ITS ---
EXAMINATION: CT MAXILLOFACIAL WITHOUT CONTRAST CLINICAL INFORMATION: Sinonasal polyps with deviated septum. COMPARISON: None available. TECHNIQUE: Multidetector helical imaging was performed in the axial plane with generation of coronal and sagittal reformatted images. This CT examination was performed using dose optimization techniques as appropriate, variously including the following: *Automated exposure control *Adjustment of mA and/or kV according to patient size (this includes techniques or standardized protocols for targeted exams where dose is matched to indication/reason for exam; i.e. extremities or head) *Use of iterative reconstruction technique DLP: 123 mGy-cm FINDINGS: The paranasal sinuses are well aerated. The nasal passages are clear. There is a leftward deviation of the nasal septum with nasal septal spurring impressing upon the left inferior turbinate. The ostiomeatal complexes are clear. The lamina papyracea are intact. The ethmoid roofs are asymmetric. The carotid canals are normally covered by bone. No maxillary periapical lucencies are seen. The mastoid air cells and visualized middle ear cavities are well aerated. The orbits are normal. There are mild degenerative changes in the condylar head of the right temporomandibular joint. The imaged portions of the brain demonstrate no acute abnormality. CT/CT sinus wo IV con IMPRESSION: No active sinus disease. Leftward nasal septal deviation with nasal septal spurring impressing upon the left inferior turbinate.
== END 2023-10-02 07:39 | disposition home or self-care (01) ==
LOC: HO.CT 07:38
PROVIDERS: PCP Internal Medicine; Visit Provider Otolaryngology
DX: J33.0 Polyp of nasal cavity (principal)
CPT/HCPCS: 70486

== ENCOUNTER → 2023-10-27 14:58 | Outpatient (REF) | payer OTHER, SELFPAY | LOC: HO.SL 14:58 | PROVIDERS: PCP Internal Medicine; Visit Provider Nurse Practitioner Family | DX: G47.33 Obstructive sleep apnea (adult) (pediatric) (principal); E66.9 Obesity, unspecified; R40.0 Somnolence | CPT/HCPCS: 95806 ==

== ENCOUNTER → 2023-10-27 15:11 | Outpatient (BNV) | payer OTHER, SELFPAY | PROVIDERS: PCP Internal Medicine; Visit Provider Psychiatry & Neurology Neurology | DX: G47.33 Obstructive sleep apnea (adult) (pediatric) (principal) | CPT/HCPCS: 95806 ==

== ENCOUNTER 2023-12-16 14:12 | Outpatient (AMB) | payer OTHER, SELFPAY ==
[2023-12-16 14:21] VITALS: BP 114/62; PULSE 89; O2SAT 97; BMI 36.1
--- NOTE | 2023-12-16 14:21 | A.OFFVIS_ITS ---
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 Recently she was seen her primary care physician's office when she presented with shooting left arm pain. She had known history of cervical radiculopathy with previous C4-5 surgery. She said the pain has been a chronic issue but was worse on that day. She had an EKG performed which showed poor R-wave progression and concern for old anterior infarct. She was sent to the ER which she was ruled out and then discharged home. Her sister who is 1 year older had triple-vessel bypass. Patient has background of hyperlipidemia with an LDL level of 186 in January 2021. She is a nonsmoker and does not drink or do any recreational drugs. She was experiencing exertional left-sided sharp chest pains. She was referred for exercise stress test which did not show any perfusion defect. Echocardiography showed no wall motion abnormality with normal biventricular function. She returns today and has been experiencing left arm pain. She has seen her neurosurgeon who has done MRI and told her that she has radiculopathy. 03/25/23: She returns for follow-up. She is saying that she has been taking the Repatha but apparently stop the atorvastatin 80 mg. There is some confusion about her medications. She currently is not taking statins. She does not have any allergy to statins. And In any case looking back at her blood workup her LDL level was 227 at 1 stage and total cholesterol was 319. Her last LDL was 92 in May 2022. She is complaining of some palpitations which happen at nighttime. She also has some off and on chest discomfort but this is random and there is no pattern. She previously had normal exercise stress test. 06/24/2023: She returns for follow-up. She has been doing well. Fasting lipid panel 06/19/2023: Triglycerides 112, cholesterol 105, LDL 35, HDL 48. She has restarted rosuvastatin 40 mg along with Repatha. She is complaining of headaches, fatigue and daytime sleepiness. She has known history of sleep apnea and had a sleep study many years ago which was abnormal. She said she was given CPAP but there were charging her 50 dollars per week and she could not afford it. She has not had any further workup since then or any follow-up sleep study. Her symptoms appear to be related to sleep apnea and not due to Repatha. 11/16/23: She is here for follow-up. She has been doing well. Last blood workup was in 07/08/2023 as mentioned above. She has been taking medications regularly. She is asking whether she can be taken off the Repatha. I have explained to her that she has significantly elevated LDL levels and she has done well with the current strategy of Repatha and rosuvastatin. I have advised her not to stop the Repatha currently. [facility] Medical History (Updated 09/15/23 @ 15:20 by Dwayne Denton CNP) Back pain Sleep apnea with use of continuous positive airway pressure (CPAP) BMI 36.0-36.9,adult Obesity JAIRO (obstructive sleep apnea) History of kidney stones Hyperlipidemia Family history of early CAD Spondylosis of cervical spine with radiculopathy Degeneration, intervertebral disc, cervical Surgical History History of right oophorectomy History of hysterectomy, supracervical History of esophagogastroduodenoscopy (EGD) (~2019) History of colonoscopy (~2016) History of left oophorectomy History of cystoscopy (~2015) History of lithotripsy (~2017) History of cervical spinal surgery (~2018) History of bilateral inguinal hernia repair (~2018) Family History Maternal Aunt Breast cancer Maternal Aunt Stomach cancer Maternal Aunt Ovarian cancer Maternal Uncle Throat cancer Father Alzheimer disease Diabetes Brother COPD (chronic obstructive pulmonary disease) Diabetes Son HTN (hypertension) Maternal Uncle Prostate cancer Sister CAD, multiple vessel Son No problems noted. Son No problems noted. Mother Breast cancer Social History Household Members: Significant Other Housing: House Alcohol intake: never Patient Tobacco Use Status: Never used Tobacco service: No Current occupational status: employed Review of Systems Const Denies chills, Denies fatigue, Denies fever(s), Denies frequent falls, Denies weakness, Denies weight gain and Denies weight loss ENT Denies dizziness Card Denies chest pain, Denies leg edema, Denies lightheadedness, Denies palpitations, Denies dyspnea and Denies dyspnea on exertion Resp Denies cough, Denies dyspnea and Denies dyspnea on exertion GI Denies hematochezia Musc Denies abnormal gait, Denies muscle weakness, Denies numbness, Denies radiating pain into limb and Denies tingling Neuro Denies abnormal gait, Denies dizziness, Denies frequent falls, Denies numbness, Denies tingling and Denies weakness Endo Denies fatigue and Denies palpitations Physical Exam Vital Signs: Last Vital Signs Pulse 89 12/16/23 14:21 BP 114/62 12/16/23 14:21 Pulse Ox 97 12/16/23 14:21 BMI result Body Mass Index 36.1 GENERAL APPEARANCE: in no acute distress, pleasant. NECK: no carotid bruit, no jugular venous distention. SKIN: no suspicious lesions, warm and dry. HEART: no murmurs, regular rate and rhythm. LUNGS: clear to auscultation bilaterally. ABDOMEN: soft, nontender. EXTREMITIES: no edema. PERIPHERAL PULSES: equal. NEUROLOGIC: No gross deficits, AAO X 3 Assessment & Plan Assessment & Plan (1) Hyperlipidemia: Comment: (untreated - 01/22/21 labs = Chol: 295, Tri, LDL: 186, HDL:40) Code(s): E78.5 - Hyperlipidemia, unspecified Category: Medical Plan Pleasant 58-year-old female with strong family history of coronary artery dise ase and familiar hyperlipidemia. Her total cholesterol in the past was as high as 319. LDL 227 in 2020. She has done very well with rosuvastatin and Repatha. Her LDL level is 35, total cholesterol 105, HDL 48 and triglycerides 112. I have explained to her that she has made good progress with the current medications and she should not stop Repatha. 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 She is saying that so far this set up is working for her and she will continue the Repatha. Hopefully will have some oral options for her in the coming years. Thank you for allowing me to participate in the care of your patient. Please feel free to contact me if you have any questions. Coding Level of Care Code Est Pt Level 4 (30821) Diagnoses Hyperlipidemia E78.5
== END 2023-12-16 14:38 | disposition home or self-care (01) ==
PROVIDERS: PCP Internal Medicine; Visit Provider Internal Medicine Cardiovascular Disease
DX: E78.5 Hyperlipidemia, unspecified (principal)
CPT/HCPCS: 99214

== ENCOUNTER → 2023-12-16 14:12 | Outpatient (BNVA) | payer OTHER, SELFPAY | PROVIDERS: PCP Internal Medicine; Visit Provider Internal Medicine Cardiovascular Disease ==

== ENCOUNTER 2023-12-17 08:20 | Outpatient (AMB) | payer OTHER, SELFPAY ==
--- NOTE | 2023-12-17 08:37 | A.OFFVIS_ITS ---
Vital Signs 12/17/23 08:42 Height 5 ft 1 in Weight 191 lb BMI 36.1 Intake Visit Reasons: [employer] LEAK TESTER-Right foot pain/ Intake Note: Roxie is a 58 year old female who presents today as a new patient for a evaluation of her right foot pain. She states that her pain is on the lateral aspect of the foot. Pain is worse when walking. Patient [place], the next day she started to have pain on the lateral aspect of the foot and it radiates up to her knee. Having pain for about 3 weeks. Allergies gluten Allergy (Verified 12/17/23 08:41) Diarrhea lactose Allergy (Verified 12/17/23 08:41) Diarrhea Medication List - Last Reconciled 12/17/23 by Claribel Ann MD epinephrine 0.3 mg (0.3 mL) IM Q10M PRN evolocumab (Repatha SureClick) 140 mg subcut Q2W 90 days ibuprofen 600 mg PO Q8H PRN rosuvastatin 40 mg PO DAILY HPI Comments Details: Acute onset of right foot, day after walking on [place] 2-3 weeks. right lateral ankle was swollen. Foot is now numb on lateral side. And feels the right knee would give out in the morning. No associated back pain. No past foot and knee issues before this. Wearing flat sandals today. But says she wears sneakers. Treatment done so far: epsom salt exercise REPLACED BY [facility] Medical History (Updated 12/17/23 @ 10:02 by Claribel Ann MD) Back pain Sleep apnea with use of continuous positive airway pressure (CPAP) BMI 36.0-36.9,adult Obesity JAIRO (obstructive sleep apnea) History of kidney stones Hyperlipidemia Family history of early CAD Spondylosis of cervical spine with radiculopathy Degeneration, intervertebral disc, cervical Surgical History History of right oophorectomy History of hysterectomy, supracervical History of esophagogastroduodenoscopy (EGD) (~2019) History of colonoscopy (~2016) History of left oophorectomy History of cystoscopy (~2016) History of lithotripsy (~2017) History of cervical spinal surgery (~2018) History of bilateral inguinal hernia repair (~2018) Family History Maternal Aunt Breast cancer Maternal Aunt Stomach cancer Maternal Aunt Ovarian cancer Maternal Uncle Throat cancer Father Alzheimer disease Diabetes Brother COPD (chronic obstructive pulmonary disease) Diabetes Son HTN (hypertension) Maternal Uncle Prostate cancer Sister CAD, multiple vessel Son No problems noted. Son No problems noted. Mother Breast cancer Social History Household Members: Significant Other Housing: House Alcohol intake: never Patient Tobacco Use Status: Never used Tobacco service: No Current occupational status: employed Review of Systems Const All systems reviewed & are unremarkable except as noted in HPI and below Physical Exam Vital Signs: BMI result Body Mass Index 36.1 Constitutional: Patient appears to be in no acute distress, well nourished and well developed. MSK: Tender around right lateral malleolus and slightly on achilles tendon. No effusion, warmth, redness. No tenderness medial malleolus or plantar fascia. No calf tenderness. No ankle instability. Tender on right lateral joint line, knee. No effusion, redness or warmth. No pain with varus or valgus stress. Negative emy or anterior drawer. Strength is 5/5 in all muscle groups tested. No increased tone noted. Neurological: Neurologic examination of the upper and lower extremities was nonfocal with intact sensation, muscle stretch reflexes and without focal motor deficits . Telles?s negative bilaterally. Babinski was down going bilaterally. Clonus was negative. Gait is non-antalgic without loss of balance. Results Reviewed Results Reviewed: No recent imaging. Ordering Physician: JUANI BAZAN Date of Service: 02/06/21 Procedure(s): XR ankle RT min 3V Accession Number(s): [id number] cc: JUANI BAZAN~ EXAMINATION: XR ANKLE, RIGHT CLINICAL INFORMATION: Right ankle pain and swelling. COMPARISON: None TECHNIQUE: AP, lateral, and mortise views of the right ankle. FINDINGS: No acute fracture or dislocation. No joint space narrowing or marginal osteophytes. The ankle mortise is maintained. No abnormal soft tissue calcification. Mild lateral soft tissue swelling. XR/XR ankle RT min 3V IMPRESSION: Mild lateral soft tissue swelling. No acute osseous abnormality. I reviewed records from the following: Neurology Cardiology Assessment & Plan Assessment & Plan (1) Sprain of lateral ligament of ankle joint: Code(s): S93.409A - Sprain of unspecified ligament of unspecified ankle, initial encounter Category: Medical (2) Right knee pain: Code(s): M25.561 - Pain in right knee Category: Medical Qualifiers: Chronicity: acute Qualified Code(s): M25.561 - Pain in right knee (3) Numbness of foot: Code(s): R20.0 - Anesthesia of skin Category: Medical Plan Suspect she sprained right lateral ankle. Pain on knee and paresthesia are secondary. Will put on lace up ankle brace. Discussed better stability shoes, not flip flops. Ice and elevate. Referring to PT. Will do ankle and knee xray today. If numbness continues, will consider EMG. Assessment and plan discussed with patient, and patient was agreeable. All questions were answered thoroughly. Claribel Ann MD, CALOS Board Certified, [place] Board [employer] and Rehabilitation (ABPMR) Board Certified, [place] Board [employer] Electrodiagnostic Medicine (ABEM) Orders: Orders PT Evaluation and Treatment Today S93.409A - Sprain of unspecified ligament of unspecified ankle, initial encounter XR knee RT 3V Today M25.561 - Pain in right knee, S93.409A - Sprain of unspecified ligament of unspecified ankle, initial encounter Coding Level of Care Code New Pt Level 4 (26109) Diagnoses Sprain of lateral ligament of ankle joint S93.409A Acute pain of right knee M25.561 Chronicity: acute Numbness of foot R20.0
[2023-12-17 08:42] VITALS: BMI 36.1
== END 2023-12-17 09:24 | disposition home or self-care (01) ==
PROVIDERS: PCP Internal Medicine; Visit Provider Physical Medicine & Rehabilitation
DX: S93.401A Sprain of unspecified ligament of right ankle, initial encounter (principal); M25.561 Pain in right knee; R20.0 Anesthesia of skin
CPT/HCPCS: 99203

== ENCOUNTER 2023-12-17 08:20 | Outpatient (REF) | payer OTHER, SELFPAY ==
--- NOTE | ~2023-12-17 | XR_ITS ---
EXAMINATION: XR KNEE, RIGHT CLINICAL INFORMATION: Sprain. COMPARISON: None available. TECHNIQUE: Three views of the right knee. FINDINGS: No fracture or joint effusion. Alignment is anatomic. Medial and lateral compartment joint spaces are maintained. Question mild patellofemoral joint space narrowing on the lateral view. Evaluation limited. No abnormal soft tissue calcification. XR/XR knee RT 3V IMPRESSION: Possible mild patellofemoral arthritis.
--- NOTE | ~2023-12-17 | XR_ITS ---
EXAMINATION: XR ANKLE, RIGHT CLINICAL INFORMATION: Sprain COMPARISON: None available. TECHNIQUE: AP, lateral, and mortise views of the right ankle. FINDINGS: No visible acute fracture or dislocation.. Alignment is anatomic. No erosions. Joint spaces are maintained. Soft tissues are unremarkable. XR/XR ankle RT min 3V IMPRESSION: No radiographic evidence of acute osseous abnormality.
== END 2023-12-17 08:21 | disposition home or self-care (01) ==
LOC: HO.HOSX 08:20
PROVIDERS: PCP Internal Medicine; Visit Provider Physical Medicine & Rehabilitation
DX: S93.409A Sprain of unspecified ligament of unspecified ankle, initial encounter (principal); M25.561 Pain in right knee; Y93.01 Activity, walking, marching and hiking; Y92.9 Unspecified place or not applicable
CPT/HCPCS: 73562; 73610

== ENCOUNTER 2024-01-29 13:45 | Outpatient (RCR) | payer OTHER, SELFPAY ==
--- NOTE | 2024-01-29 15:48 | MHC.PT.EP ---
[facility] [place] Office [place] Office [place] Office [address] Alisa Mireles [address] [phone] F: [phone] F: [phone] F: [phone] F: [phone] Physical Therapy Plan of Care Date of Evaluation: 01/29/24 Date of Surgery: Diagnosis: RIGHT ankle sprain (MD Dx) BILATERAL ankle pain, questionable sciatica vs nerve compression (PT Dx) Assessment: Patient is a pleasant 58 y.o. female who is referred to PT by Dr. Claribel Ann MD with Dx of RIGHT ankle sprain (MD Dx). PT diagnosis is BILATERAL ankle pain, questionable sciatica vs nerve compression (PT Dx). She has tenderness in LEFT low back and LEFT hip musculature but NEGATIVE SLR Testing bilaterally. Patient impairments include pain in ankles, low back, numbness/tingling, limited ROM ankles, weakness in ankles and hips. Patient current functional limitations are prolonged walking, walking outdoors/uneven surfaces, prolonged sitting, prolonged standing. Patient will benefit from skilled PT to address aforementioned impairments and functional limitations to meet established goals. Frequency and Duration: The patient will be seen 2x/week for 4 weeks Short Term Goals: 2 weeks Patient demonstrates consistency and independence with HEP to self manage symptoms. Artificial Breeding Distributor Goals: 4 weeks Patient presents with increased LEFT glute med strength 4+/5 to be able to ambulate 1 mile outside without familiar sxs. Patient presents with increased bilateral ankle DF 5 degrees bilaterally to improve gait pattern rockerboard. Treatment Plan: Modalities to reduce pain, spasms and effusion. Manual therapy to restore motion and function. Therapeutic exercise to improve strength and flexibility. Neuromuscular re-education for posture and balance. Therapeutic activities to return to functional activities of daily living. Electronically signed by: Mai Copeland, PT, DPT Please sign and return to therapist. Thank you for your referral.
== END 2024-02-10 13:05 | disposition home or self-care (01) ==
LOC: HO.PT 13:45
PROVIDERS: PCP Internal Medicine; Visit Provider Physical Medicine & Rehabilitation
DX: S93.401D Sprain of unspecified ligament of right ankle, subsequent encounter (principal)
CPT/HCPCS: 97110; 97161

== ENCOUNTER 2024-02-05 08:44 | Outpatient (AMB) | payer OTHER, SELFPAY ==
--- NOTE | 2024-02-05 08:52 | MHC.OFFWIV ---
Intake Vital Signs 02/05/24 08:53 Height 5 ft 1 in Weight 180 lb BMI 34.0 BP 132/78 Blood Pressure Location Lt brachial Position Sitting Pulse 76 Pulse Source Pulse Oximeter Pulse Oximetry (%) 98 Oxygen Delivery Method Room Air Intake Visit Reasons: EP Stiff RT shoulder Patient Tobacco Use Status: Never used Tobacco Allergies gluten Allergy (Verified 02/05/24 08:54) Diarrhea lactose Allergy (Verified 02/05/24 08:54) Diarrhea Do you need a note to return to daycare/school/sports/work: No HPI HPI Comments History of Present Illness Details 58 y/o female patient who presents to the walk in clinic with c/o right shoulder pain since yesterday. She lifted a heavy laptop backpack yesterday. Woke up this morning with severe excrutining pain and unable to abduct her upper arm. Prior h/o Neck Surgery ([facility]) after Trauma at work. She is currently receiving PT for the shoulder and lower legs. [facility] Medical History (Updated 12/17/23 @ 10:02 by Claribel Ann MD) Back pain Sleep apnea with use of continuous positive airway pressure (CPAP) BMI 36.0-36.9,adult Obesity JAIRO (obstructive sleep apnea) History of kidney stones Hyperlipidemia Family history of early CAD Spondylosis of cervical spine with radiculopathy Degeneration, intervertebral disc, cervical Surgical History (Reviewed 12/16/23 @ 14:23 by Flor Ruano [facility]) History of right oophorectomy History of hysterectomy, supracervical History of esophagogastroduodenoscopy (EGD) (~2019) History of colonoscopy (~2017) History of left oophorectomy History of cystoscopy (~2016) History of lithotripsy (~2017) History of cervical spinal surgery (~2019) History of bilateral inguinal hernia repair (~2018) Family History Maternal Aunt Breast cancer Maternal Aunt Stomach cancer Maternal Aunt Ovarian cancer Maternal Uncle Throat cancer Father Alzheimer disease Diabetes Brother COPD (chronic obstructive pulmonary disease) Diabetes Son HTN (hypertension) Maternal Uncle Prostate cancer Sister CAD, multiple vessel Son No problems noted. Son No problems noted. Mother Breast cancer Social History (Reviewed 12/16/23 @ 14:24 by Flor Ruano [facility]) Household Members: Significant Other Housing: House Alcohol intake: never Patient Tobacco Use Status: Never used Tobacco service: No Current occupational status: employed Review of Systems Const All systems reviewed & are unremarkable except as noted in HPI and below Physical Exam Vital Signs: Last Vital Signs Pulse 76 02/05/24 08:53 BP 132/78 02/05/24 08:53 Pulse Ox 98 02/05/24 08:53 Oxygen Delivery Method Room Air 02/05/24 08:53 BMI result Body Mass Index 34.0 Const General: no acute distress; No comfortable Nutritional Appearance: obese Orientation/consciousness: patient oriented x3 Neuro General: patient oriented x3 and gait normal Extrem Right upper extremity: shoulder/upper arm Details: tenderness (posterior trapezius muscle, right side) Location: of the A-C joint and abnormal ROM Details: held in an abnormal fashion Details: in ABduction and in internal rotation, pain with active ROM and pain with passive ROM; no swelling Psych Speech and movement: Normal speech and movement present Assessment & Plan Assessment & Plan (1) Trapezius muscle strain: Code(s): S46.819A - Strain of other muscles, fascia and tendons at shoulder and upper arm level, unspecified arm, initial encounter Qualifiers: Encounter type: initial encounter Laterality: right Qualified Code(s): S46.811A - Strain of other muscles, fascia and tendons at shoulder and upper arm level, right arm, initial encounter Plan: Ref to Ortho Ref to PT IceHot NSAIDs alt with Acetaminophen Rest joint Prednisone Orders: Orders PT Evaluation and Treatment Today S46.811A - Strain of other muscles, fascia and tendons at shoulder and upper arm level, right arm, initial encounter Referrals Orthopedics Referral S46.811A - Strain of other muscles, fascia and tendons at shoulder and upper arm level, right arm, initial encounter Medications: New ibuprofen 800 mg PO Q8H 60 tabs 0RF S46.811A - Strain of other muscles, fascia and tendons at shoulder and upper arm level, right arm, initial encounter acetaminophen 1,000 mg (2 x 500 mg) PO Q6H PRN 60 caps 0RF pain S46.811A - Strain of other muscles, fascia and tendons at shoulder and upper arm level, right arm, initial encounter prednisone 50 mg PO DAILY 5 days 5 tabs 0RF S46.811A - Strain of other muscles, fascia and tendons at shoulder and upper arm level, right arm, initial encounter cyclobenzaprine 10 mg PO BEDTIME 10 tabs 0RF S46.811A - Strain of other muscles, fascia and tendons at shoulder and upper arm level, right arm, initial encounter Coding Level of Care Code Est Pt Level 3 (60377) Diagnoses Strain of right trapezius muscle, initial encounter S46.811A Encounter type: initial encounter Laterality: right Time Spent (min) 15
[2024-02-05 08:53] VITALS: BP 132/78; PULSE 76; O2SAT 98; BMI 34.0
== END 2024-02-05 09:13 | disposition home or self-care (01) ==
PROVIDERS: PCP Internal Medicine; Visit Provider Nurse Practitioner Family
DX: S46.811A Strain of other muscles, fascia and tendons at shoulder and upper arm level, right arm, initial encounter (principal)
CPT/HCPCS: 99213

== ENCOUNTER 2024-03-01 10:24 | Outpatient (REF) | payer OTHER, SELFPAY ==
--- NOTE | ~2024-03-01 | XR_ITS ---
EXAMINATION: XR SHOULDER, RIGHT CLINICAL INFORMATION: Back pain COMPARISON: None available. TECHNIQUE: Two views of the right shoulder. FINDINGS: Postsurgical changes on the views of the lower cervical spine. Mild degenerative changes in the common clavicular joint. Glenohumeral alignment is preserved. Calcification/ossification along the superolateral aspect of the humeral head possibly related to focal periostitis versus soft tissue calcification related to rotator cuff pathology. XR/XR shoulder RT min 2V IMPRESSION: 1. Calcification/ossification along the superolateral aspect of the humeral head possibly related to focal periostitis versus soft tissue calcification related to rotator cuff pathology. Electronically signed by: Susanne Cheng MD 03/30/2024 05:32 AM EDT
== END 2024-03-01 10:25 | disposition home or self-care (01) ==
LOC: HO.HOSX 10:24
PROVIDERS: Visit Provider Orthopaedic Surgery
DX: M25.511 Pain in right shoulder (principal)
CPT/HCPCS: 73030

== ENCOUNTER 2024-03-01 12:07 | Outpatient (AMB) | payer OTHER, SELFPAY ==
--- NOTE | 2024-03-01 13:18 | MHC.OFFVIS ---
Intake Visit Reasons: OV- RT shoulder pain, Neck pain Intake Note: Roxei a 58 year old female who presents with complaints of progressively worsening neck pain which radiates down her left arm to her left hand. The patient states that she did undergo cervical spine surgery by Dr. Lopez at [facility] several years ago. She got mild relief from that surgery. The patient states that over the last year her neck pain has gotten progressively worse in spite of continued non operative treatments. She has failed the last 6 weeks of conservative treatment. She has done physical therapy which aggravated her neck pain. She has also tried Tylenol and anti-inflammatory medicines which gave her minimal relief. She also reports intermittent weakness in her left arm. The patient does have intermittent right shoulder pain as well. She states that at this point her right shoulder pain is tolerable to her. She did aggravate her right shoulder several weeks ago while lifting a backpack with a laptop inside of it. Allergies gluten Allergy (Verified 02/05/24 08:54) Diarrhea lactose Allergy (Verified 02/05/24 08:54) Diarrhea shellfish derived Allergy (Verified 03/01/24 13:25) Anaphylaxis Medication List - Last Reconciled 03/01/24 by Satya Ruiz MD acetaminophen 1,000 mg (2 x 500 mg) PO Q6H PRN epinephrine 0.3 mg (0.3 mL) IM Q10M PRN ibuprofen 600 mg PO Q8H PRN PFSH Medical History (Updated 02/26/24 @ 12:05 by Satya Ruiz MD) Back pain Sleep apnea with use of continuous positive airway pressure (CPAP) BMI 36.0-36.9,adult Obesity JAIRO (obstructive sleep apnea) History of kidney stones Hyperlipidemia Family history of early CAD Spondylosis of cervical spine with radiculopathy Degeneration, intervertebral disc, cervical Surgical History History of right oophorectomy History of hysterectomy, supracervical History of esophagogastroduodenoscopy (EGD) (~2019) History of colonoscopy (~2016) History of left oophorectomy History of cystoscopy (~2016) History of lithotripsy (~2017) History of cervical spinal surgery (~2018) History of bilateral inguinal hernia repair (~2018) Family History Maternal Aunt Breast cancer Maternal Aunt Stomach cancer Maternal Aunt Ovarian cancer Maternal Uncle Throat cancer Father Alzheimer disease Diabetes Brother COPD (chronic obstructive pulmonary disease) Diabetes Son HTN (hypertension) Maternal Uncle Prostate cancer Sister CAD, multiple vessel Son No problems noted. Son No problems noted. Mother Breast cancer Social History Household Members: Significant Other Housing: House Alcohol intake: never Patient Tobacco Use Status: Never used Tobacco service: No Current occupational status: employed Physical Exam Const Other: Well-nourished well-developed very friendly female awake alert and oriented x3 in no acute distress Neck Other: Cervical spine examination shows left-sided paraspinal muscle tenderness, pain with range of motion, positive Spurling's test, 4/5 strength with testing of her left biceps and wrist extensors when compared to 5/5 strength on her right side Extrem Other: Right shoulder examination shows full range of motion when compared to her left shoulder, positive impingement signs, 5/5 strength with supraspinatus testing, no instability Results Reviewed Results Reviewed: X-rays of the patient's right shoulder show moderate acromioclavicular joint narrowing, a type 2 acromion, a possible small calcium deposit within the supraspinatus tendon, no acute bony abnormalities Assessment & Plan Assessment & Plan (1) Cervicalgia: Code(s): M54.2 - Cervicalgia Category: Medical Plan Ms. Alfaro presents with progressively worsening neck pain which radiates down her left arm as well as associated left arm weakness most likely due to cervical herniation. Thus, I will send the patient for an MRI of her cervical spine for further evaluation. I will contact her by phone once the MRI results are available. She also has right shoulder pain due to impingement syndrome. At this point her right shoulder pain is tolerable to her. We will hold off on a cortisone injection. Feel free to call me at any time should questions regarding her orthopedic management arise. Thank you very much for asking me to see this very friendly patient. I spent 22 minutes in reviewing the patient's records and imaging studies, seeing the patient and documenting in the medical record. Orders: Orders XR shoulder RT min 2V Today M25.511 - Pain in right shoulder MR cervical spine wo con Today M54.2 - Cervicalgia Coding Level of Care Code New Pt Level 3 (09601) Diagnoses Cervicalgia M54.2
== END 2024-03-01 13:44 | disposition home or self-care (01) ==
PROVIDERS: PCP Internal Medicine; Visit Provider Orthopaedic Surgery
DX: M54.2 Cervicalgia (principal)
CPT/HCPCS: 99203

== ENCOUNTER 2024-03-17 10:05 | Outpatient (REF) | payer OTHER, SELFPAY ==
--- NOTE | ~2024-03-17 | XR_ITS ---
EXAMINATION: XR LUMBOSACRAL SPINE CLINICAL INFORMATION: Back pain, numbness and tingling in both legs for years per patient, no known injury COMPARISON: None available. TECHNIQUE: 05/20/2019 FINDINGS: Mild dextroscoliosis of the lumbar spine. Surgical clips in the pelvis.. Facet arthritis in the lower lumbar spine. Moderate degenerative changes with loss of disc space height at L5-S1. Grade 1 anterolisthesis of L5 on S1. XR/XR lumbar spine 2-3V IMPRESSION: Moderate degenerative disc disease at L5-S1. Electronically signed by: Susanne Cheng MD 03/30/2024 05:29 AM EDT
== END 2024-03-17 10:06 | disposition home or self-care (01) ==
LOC: HO.HOSX 10:05
PROVIDERS: PCP Internal Medicine; Visit Provider Physical Medicine & Rehabilitation
DX: M54.9 Dorsalgia, unspecified (principal); R29.818 Other symptoms and signs involving the nervous system; R20.0 Anesthesia of skin
CPT/HCPCS: 72100

== ENCOUNTER 2024-03-17 10:05 | Outpatient (AMB) | payer OTHER, SELFPAY ==
[2024-03-17 10:18] VITALS: BMI 34.0
--- NOTE | 2024-03-17 10:18 | A.OFFVIS_ITS ---
Vital Signs 03/17/24 10:18 Height 5 ft 1 in Weight 180 lb BMI 34.0 Intake Visit Reasons: OV-Right foot pain-two month follow up Intake Note: Roxie is a 58 year old female who presents today for a follow up evaluation of her right foot pain. Patient was going to PT, which she found helpful. However, patient injured her shoulder and is now doing PT for her shoulder and not her right foot. Allergies gluten Allergy (Verified 03/17/24 10:18) Diarrhea lactose Allergy (Verified 03/17/24 10:18) Diarrhea shellfish derived Allergy (Verified 03/17/24 10:18) Anaphylaxis HPI Comments Details: Seen last November for acute onset right foot pain. To be lateral ankle sprain. Has finished PT for the right foot. She tells me that it is still numb, actually bilateral. Points to lateral sides of both feet. No numbness on leg or toes. Constant. Worse when walking more than a mile. Feets gets swollen. History of surgery C5-6; pending further surgery per patient. Following Dr. Ruiz and sent to Pain Management, waiting for cervical MRI. Told to have arthritis. No history of diabetis, thyroid, cancer/chemo, kidney issues, HIV or hepatitis B/C. Denies crossing legs or wearing high boots. No numbness on hands. [facility] Medical History (Updated 03/17/24 @ 10:51 by Claribel Ann MD) Back pain Sleep apnea with use of continuous positive airway pressure (CPAP) BMI 36.0-36.9,adult Obesity JAIRO (obstructive sleep apnea) History of kidney stones Hyperlipidemia Family history of early CAD Spondylosis of cervical spine with radiculopathy Degeneration, intervertebral disc, cervical Surgical History History of right oophorectomy History of hysterectomy, supracervical History of esophagogastroduodenoscopy (EGD) (~2019) History of colonoscopy (~2016) History of left oophorectomy History of cystoscopy (~2016) History of lithotripsy (~2017) History of cervical spinal surgery (~2019) History of bilateral inguinal hernia repair (~2018) Family History Maternal Aunt Breast cancer Maternal Aunt Stomach cancer Maternal Aunt Ovarian cancer Maternal Uncle Throat cancer Father Alzheimer disease Diabetes Brother COPD (chronic obstructive pulmonary disease) Diabetes Son HTN (hypertension) Maternal Uncle Prostate cancer Sister CAD, multiple vessel Son No problems noted. Son No problems noted. Mother Breast cancer Social History Household Members: Significant Other Housing: House Alcohol intake: never Patient Tobacco Use Status: Never used Tobacco service: No Current occupational status: employed Physical Exam Vital Signs: BMI result Body Mass Index 34.0 Constitutional: Patient appears to be in no acute distress, well nourished and well developed. Patient was appropriately conversant and oriented. Good historian. MSK: No specific abnormalities found on inspection of the spine and all extremities. No pain with palpation over the lumbar area. Lumbar ROM was full. Bilateral hip, knee and ankle ROM WNL. No ligamentous laxity or crepitance. No increased effusion. Straight-leg raising test negative. FABERE test negative. Strength is 5/5 in all muscle groups tested. No increased tone noted. No footdrop. Neurological: Neurologic examination of the upper and lower extremities was nonfocal with intact sensation, muscle stretch reflexes and without focal motor deficits . Telles?s negative bilaterally. Babinski was down going bilaterally. Clonus was negative. Gait is non-antalgic without loss of balance. Results Reviewed Results Reviewed: Ordering Physician: Claribel Woody Date of Service: 12/17/23 Procedure(s): XR ankle RT min 3V Accession Number(s): [id number] cc: Keya Jay MD; Claribel Woody~ EXAMINATION: XR ANKLE, RIGHT CLINICAL INFORMATION: Sprain COMPARISON: None available. TECHNIQUE: AP, lateral, and mortise views of the right ankle. FINDINGS: No visible acute fracture or dislocation.. Alignment is anatomic. No erosions. Joint spaces are maintained. Soft tissues are unremarkable. XR/XR ankle RT min 3V IMPRESSION: No radiographic evidence of acute osseous abnormality. I reviewed records from the following: Orthopedics PCP Assessment & Plan Assessment & Plan (1) Numbness of foot: Code(s): R20.0 - Anesthesia of skin Category: Medical (2) Neurogenic claudication: Code(s): R29.818 - Other symptoms and signs involving the nervous system Category: Medical Plan Ankle sprain has healed but she continues to have numbness, affecting both feet. No past medical history that could cause neuropathy. She does have chronic back pain and describes claudication type symptoms. We will schedule for EMG to rule out neuropathy. Getting lumbar x-rays to evaluate back pain and claudication. Assessment and plan discussed with patient, and patient was agreeable. All questions were answered thoroughly. Claribel Ann MD, CALOS Board Certified, [place] [employer] and Rehabilitation (ABPMR) Board Certified, [place] [employer] Electro[employer] (ABEM) Orders: Orders XR lumbar spine 2-3V Today M54.9 - Dorsalgia, unspecified, R20.0 - Anesthesia of skin, R29.818 - Other symptoms and signs involving the nervous system NE electromyogram (EMG) Today R20.0 - Anesthesia of skin, R29.818 - Other symptoms and signs involving the nervous system NE nerve conduction velocity Today R20.0 - Anesthesia of skin, R29.818 - Other symptoms and signs involving the nervous system Coding Level of Care Code Est Pt Level 4 (40971) Complex EM visit Add On G2211 Diagnoses Numbness of foot R20.0 Neurogenic claudication R29.818
== END 2024-03-17 10:57 | disposition home or self-care (01) ==
PROVIDERS: PCP Internal Medicine; Visit Provider Physical Medicine & Rehabilitation
DX: R20.0 Anesthesia of skin (principal); R29.818 Other symptoms and signs involving the nervous system
CPT/HCPCS: 99213

== ENCOUNTER 2024-03-23 14:54 | Outpatient (REF) | payer OTHER, SELFPAY ==
--- NOTE | 2024-03-23 14:56 | EMG_ITS ---
Chief complaint: Bilateral feet numbness Reason for referral: Evaluate for peripheral neuropathy versus peroneal neuropathy Procedure done: Bilateral lower extremity NCS Precautions and/or limitations: Anxiety, patient deferred needle EMG. The limb temperature was monitored continuously and remained between 32-36 degrees C during the performance of the NCS. Nerve Conduction Studies Anti Sensory Summary Table ?Stim Site NR Onset (ms) Norm Onset (ms) Peak (ms) Norm Peak (ms) O-P Amp (?V) Norm O-P Amp Site1 Site2 Delta-0 (ms) Dist (cm) [place] (m/s) Norm [place] (m/s) Left Sural Anti Sensory (Lat Mall) Calf ? 1.5 3.4 <4.0 3.8 >5.0 Calf Lat Mall 1.5 14.0 93 Right Sural Anti Sensory (Lat Mall) Calf ? 2.2 3.3 <4.0 3.0 >5.0 Calf Lat Mall 2.2 14.0 64 Motor Summary Table ?Stim Site NR Onset (ms) Norm Onset (ms) O-P Amp (mV) Norm O-P Amp iAmp (mV) Amp (1st) (%) Site1 Site2 Delta-0 (ms) Dist (cm) [place] (m/s) Norm [place] (m/s) Left Peroneal Motor (Ext Dig Brev) Ankle ? 3.5 <4.0 10.8 >2.5 13.5 100.0 Ankle Ext Dig Brev 3.5 0.0 B Fib ? 8.8 10.7 13.4 99.1 B Fib Ankle 5.3 28.0 53 >40 Poplt ? 9.3 11.1 14.0 102.8 Poplt B Fib 0.5 5.0 100 >40 Right Peroneal Motor (Ext Dig Brev) Ankle ? 3.5 <4.0 9.6 >2.5 11.2 100.0 Ankle Ext Dig Brev 3.5 0.0 B Fib ? 8.9 9.5 11.2 99.0 B Fib Ankle 5.4 29.5 55 >40 Poplt ? 9.8 9.0 10.6 93.8 Poplt B Fib 0.9 5.5 61 >40 Left Tibial Motor (Abd Gerardo Brev) Ankle ? 3.7 <5 16.2 >2.5 21.1 100.0 Ankle Abd Gerardo Brev 3.7 0.0 Knee ? 9.9 12.2 15.9 75.3 Knee Ankle 6.2 32.0 52 >40 Right Tibial Motor (Abd Gerardo Brev) Ankle ? 4.1 <5 6.5 >2.5 8.2 100.0 Ankle Abd Gerardo Brev 4.1 0.0 Knee ? 11.2 5.4 6.2 83.1 Knee Ankle 7.1 36.0 51 >40 FINDINGS: All motor and sensory nerves tested showed normal latencies, amplitudes and conduction velocities. Sural nerves were present, normal peak latencies, but slightly small amplitude. IMPRESSION: I think this is overall normal nerve conduction study. Unable to do needle EMG due to anxiety. CLINICAL COMMENT: We will further follow up patient in the physiatry Clinic. Thank you for your kind referral. Claribel Ann MD, CALOS Board Certified, [place] Board [employer] and Rehabilitation (ABPMR) Board Certified, [place] Board [employer] Electrodiagnostic [employer] (ABEM) CODIN MTDD
== END 2024-03-23 14:55 | disposition home or self-care (01) ==
LOC: HO.NEURO 14:54
PROVIDERS: PCP Internal Medicine; Visit Provider Physical Medicine & Rehabilitation
DX: R29.818 Other symptoms and signs involving the nervous system (principal); R20.0 Anesthesia of skin
CPT/HCPCS: 95909

== ENCOUNTER → 2024-03-23 14:56 | Outpatient (BNV) | payer OTHER, SELFPAY | PROVIDERS: PCP Internal Medicine; Visit Provider Physical Medicine & Rehabilitation | DX: R20.0 Anesthesia of skin (principal); R20.2 Paresthesia of skin | CPT/HCPCS: 95909 ==

== ENCOUNTER 2024-03-25 18:43 | Outpatient (REF) | payer OTHER, SELFPAY | END 2024-03-25 18:44 | disposition home or self-care (01) | LOC: HO.MRI 18:43 | PROVIDERS: PCP Internal Medicine; Visit Provider Orthopaedic Surgery | DX: Z13.89 Encounter for screening for other disorder (principal) ==

== ENCOUNTER 2024-03-30 15:00 | Outpatient (RCR) | payer OTHER, SELFPAY ==
--- NOTE | 2024-02-25 07:54 | MHC.PT.EP ---
[facility] [place] Office [place] Office [place] Office [address] Alisa Mireles [address] [phone] F: [phone] F: [phone] F: [phone] F: [phone] Physical Therapy Plan of Care Date of Evaluation: 02/25/24 Date of Surgery: Diagnosis: shoulder pain (RL) Assessment: pt is a 58 y/o female presenting to physical therapy w/ referring diagnosis of shoulder pain. Her signs and symptoms seem more consistent w/ neck pain and cervical radiculopathy. Her poor upper extremity function is questionably related to pain vs. nerve compression causing weakness. She has an order for another MRI and is following up w/ neurosurgeon soon. Impairments include pain, decreased range of motion, decreased strength, impaired functional mobility, impaired postural awareness, and altered ambulation mechanics. pt is a fair candidate for skilled PT due to age, potential remediation of impairments, typical disease/condition progression and prognosis, comorbidities, and motivation. pt would benefit from skilled PT intervention to provide a tailored strengthening and stretching exercise program, functional training, gait training, postural re-training, neuromuscular re-education, modalities as needed for pain, equipment safety demonstration. Frequency and Duration: The patient will be seen 2x/wk for 6 wks Short Term Goals: pt will be I w/ HEP to promote self-management of condition. pt will demo proper sitting posture w/ lumbar roll to promote neutral spine w/ seated ADLs. pt will improve B shoulder flexion by at least 10 degrees to promote ease in reaching for objects on higher shelves. Chartered Wealth Manager Goals: pt will report a statistically significant improvement in self-reported outcome measure, SPADI, to promote return to PLOF. pt will improve L shoulder functional ER to at least occiput to promote ease in upper body ADLs. pt will improve B shoulder and abduction strength by at least 1 MMT grade to promote ease in carrying 10# (groceries). Treatment Plan: Modalities to reduce pain, spasms and effusion. Manual therapy to restore motion and function. Therapeutic exercise to improve strength and flexibility. Neuromuscular re-education for posture and balance. Therapeutic activities to return to functional activities of daily living. Electronically signed by: Winnie Fuentes PT, DPT Please sign and return to therapist. Thank you for your referral.
--- NOTE | 2024-04-26 11:28 | MHC.PT.DC ---
[facility] [place] Office [place] Office [place] Office [address] Alisa Mireles [address] [facility] [phone] F: [phone] F: [phone] F: [phone] F: [phone] Physical Therapy Discharge Report Diagnosis: shoulder pain (RL) Date of Surgery: Date of Evaluation: 02/25/24 Date of Discharge: 04/26/24 Treatments to Date: 6 Cancellations to Date: 5 No Shows to Date: 0 Discharge Status: Visit Non-compliance Discharge Summary: The patient has cancelled her last several appointments and has not rescheduled in almost 30 days. She is discharged for non-compliance. Electronically signed by: Winnie Fuentes PT, DPT Please sign and return to therapist. Thank you for your referral.
== END 2024-04-26 11:28 | disposition home or self-care (01) ==
LOC: HO.PT 15:00
PROVIDERS: PCP Internal Medicine; Visit Provider Nurse Practitioner Family
DX: S46.811D Strain of other muscles, fascia and tendons at shoulder and upper arm level, right arm, subsequent encounter (principal)
CPT/HCPCS: 97110; 97140; 97162

== ENCOUNTER 2024-03-31 13:39 | Outpatient (REF) | payer OTHER, SELFPAY ==
[2024-03-31 16:30] LABS: Vitamin D 25-OH Total 28.9 ng/mL (>30)
[2024-03-31 16:39] LABS: Folate 15.8 ng/mL (> or = 4.0); Vitamin B12 421 pg/mL (200-900)
== END 2024-03-31 13:40 | disposition home or self-care (01) ==
LOC: HO.LAB 13:39
PROVIDERS: PCP Internal Medicine; Visit Provider Physical Medicine & Rehabilitation
DX: R20.0 Anesthesia of skin (principal)
CPT/HCPCS: 36415; 82306; 82607; 82746

== ENCOUNTER 2024-03-31 13:39 | Outpatient (AMB) | payer OTHER, SELFPAY ==
--- NOTE | 2024-03-31 13:54 | A.OFFVIS_ITS ---
Intake Visit Reasons: OV- EMG review B/L feet numbness Intake Note: Roxie is a 58 year old female who presents today for an EMG review of bilateral LE. Patient reports no change in her symptoms. She mentions that she is scheduled today at [facility] for a cervical MRI that was ordered by Dr. Ruiz, she is questioning if these could be done together. Allergies gluten Allergy (Verified 03/31/24 13:59) Diarrhea lactose Allergy (Verified 03/31/24 13:59) Diarrhea shellfish derived Allergy (Verified 03/31/24 13:59) Anaphylaxis HPI Comments Details: Seen last November for acute onset right foot pain. Thought to be lateral ankle sprain. Has finished PT for the right foot. She tells me that it is still numb, actually bilateral. Points to lateral sides of both feet. No numbness on leg or toes. Constant. Worse when walking more than a mile. Feets gets swollen. History of surgery C5-6; pending further surgery per patient. Following Dr. Ruiz and sent to Pain Management, waiting for cervical MRI. Told to have arthritis. No history of diabetes, thyroid, cancer/chemo, kidney issues, HIV or hepatitis B/C. Denies crossing legs or wearing high boots. No numbness on hands. NCS done by me 03/23 did not show signs of neuropathy. Unfortunately could not tolerate needle EMG. Lumbar xray shows decreased disc space L5-S1. Patient reports back pain. But back pain is non radicular. Today getting cervical MRI. [facility] Medical History (Updated 03/17/24 @ 10:51 by Claribel Ann MD) Back pain Sleep apnea with use of continuous positive airway pressure (CPAP) BMI 36.0-36.9,adult Obesity JAIRO (obstructive sleep apnea) History of kidney stones Hyperlipidemia Family history of early CAD Spondylosis of cervical spine with radiculopathy Degeneration, intervertebral disc, cervical Surgical History History of right oophorectomy History of hysterectomy, supracervical History of esophagogastroduodenoscopy (EGD) (~2019) History of colonoscopy (~2017) History of left oophorectomy History of cystoscopy (~2015) History of lithotripsy (~2017) History of cervical spinal surgery (~2019) History of bilateral inguinal hernia repair (~2018) Family History Maternal Aunt Breast cancer Maternal Aunt Stomach cancer Maternal Aunt Ovarian cancer Maternal Uncle Throat cancer Father Alzheimer disease Diabetes Brother COPD (chronic obstructive pulmonary disease) Diabetes Son HTN (hypertension) Maternal Uncle Prostate cancer Sister CAD, multiple vessel Son No problems noted. Son No problems noted. Mother Breast cancer Social History Household Members: Significant Other Housing: House Alcohol intake: never Patient Tobacco Use Status: Never used Tobacco service: No Current occupational status: employed Physical Exam Constitutional: Patient appears to be in no acute distress, well nourished and well developed. Patient was appropriately conversant and oriented. Good historian. MSK: No specific abnormalities found on inspection of the spine and all extremities. No pain with palpation over the lumbar area. Lumbar ROM was full. Bilateral hip, knee and ankle ROM WNL. No ligamentous laxity or crepitance. No increased effusion. Straight-leg raising test negative. FABERE test negative. Cervical range of motion full. Negative Spurling sign. Strength is 5/5 in all muscle groups tested. No increased tone noted. No footdrop. Neurological: Neurologic examination of the upper and lower extremities was nonfocal with intact sensation, muscle stretch reflexes and without focal motor deficits . Telles?s negative bilaterally. Babinski was down going bilaterally. Clonus was negative. Gait is non-antalgic without loss of balance. Results Reviewed Results Reviewed: Ordering Physician: Claribel Woody Date of Service: 03/17/24 Procedure(s): XR lumbar spine 2-3V Accession Number(s): [id number] cc: Keya Jay MD; Claribel Woody~ EXAMINATION: XR LUMBOSACRAL SPINE CLINICAL INFORMATION: Back pain, numbness and tingling in both legs for years per patient, no known injury COMPARISON: None available. TECHNIQUE: 05/20/2019 FINDINGS: Mild dextroscoliosis of the lumbar spine. Surgical clips in the pelvis.. Facet arthritis in the lower lumbar spine. Moderate degenerative changes with loss of disc space height at L5-S1. Grade 1 anterolisthesis of L5 on S1. XR/XR lumbar spine 2-3V IMPRESSION: Moderate degenerative disc disease at L5-S1. Assessment & Plan Assessment & Plan (1) Numbness of foot: Code(s): R20.0 - Anesthesia of skin Category: Medical Plan Numbness in both feet, etiology unknown. Nerve conduction studies did not show signs of neuropathy. Chronic back pain, possible claudication? No signs of cervical myelopathy. But patient is getting cervical MRI ordered by Dr. Ruiz. Let us see if it shows any significant spinal stenosis or cord compression that could cause paresthesias to lower extremities. If none, we will consider getting lumbar MRI. We will do blood work to rule out other causes of neuropathy such as diabetes and vitamin deficiencies. Assessment and plan discussed with patient, and patient was agreeable. All questions were answered thoroughly. Patient to let us know after cervical MRI done. Claribel Ann MD, CALOS Board Certified, [place] [employer] and Rehabilitation (ABPMR) Board Certified, [place] [employer] Electrodiagnostic [employer] (ABEM) Orders: Orders Vitamin D 25-OH Total Today R20.0 - Anesthesia of skin AMB Hemoglobin A1c Today R20.0 - Anesthesia of skin, Z13.9 - Encounter for scr eening, unspecified Vitamin B12 and Folate Today R20.0 - Anesthesia of skin Coding Level of Care Code Est Pt Level 4 (79036) Diagnoses Numbness of foot R20.0
== END 2024-03-31 14:25 | disposition home or self-care (01) ==
PROVIDERS: PCP Internal Medicine; Visit Provider Physical Medicine & Rehabilitation
DX: R20.0 Anesthesia of skin (principal)
CPT/HCPCS: 99214

== ENCOUNTER 2024-04-12 06:45 | Outpatient (REF) | payer OTHER, SELFPAY ==
[2024-04-12 07:42] LABS: Estimated Average Glucose 131 mg/dL; Hemoglobin A1c % 6.2 % (<6.0)
[2024-04-12 07:45] LABS: Anion Gap 12 (12-20); Blood Urea Nitrogen 12 mg/dL (9-16); Carbon Dioxide 26 mmol/L (22-29); Chloride 106 mmol/L (96-108); Cholesterol 207 mg/dL (<200); Estimated Glomerular Filt Rate > 60; Glucose Random 123 mg/dL (60-115); HDL Cholesterol 44 mg/dL (>40); LDL Cholesterol Calculated 126 mg/dL (<100); Potassium 4.1 mmol/L (3.3-5.1); Sodium 140 mmol/L (135-145); Triglycerides 189 mg/dL (<150)
== END 2024-04-12 06:46 | disposition home or self-care (01) ==
LOC: HO.LAB 06:45
PROVIDERS: PCP Internal Medicine; Visit Provider Internal Medicine
DX: E66.01 Morbid (severe) obesity due to excess calories (principal); Z68.37 Body mass index [BMI] 37.0-37.9, adult; Z13.1 Encounter for screening for diabetes mellitus
CPT/HCPCS: 36415; 80048; 80061; 83036

== ENCOUNTER 2024-04-18 08:48 | Outpatient (REF) | payer OTHER, SELFPAY ==
--- NOTE | ~2024-04-18 | XR_ITS ---
EXAMINATION: XR CERVICAL SPINE CLINICAL INFORMATION: M96.1 - Postlaminectomy syndrome, not elsewhere classified COMPARISON: 01/24/2022. Correlation made with MR cervical spine 02/24/2022. TECHNIQUE: 5 views of the cervical spine, inclusive of bilateral oblique views, were obtained. FINDINGS: No significant scoliosis. Straightening of the normal lordosis, nonspecific. No subluxations. Anterior fusion C5-6 with disc graft and oblique endplate interbody screws. Hardware appears well situated in anatomic alignment, without complication or loosening. No periscrew lucencies. There is mild to moderate disc degeneration C4-5, and C6-C7. Mild multilevel facet degeneration is present bilaterally, most significant at C3-4 and C4-5 on the left. Oblique views obtained demonstrate no significant bony neural foraminal narrowing on either side. Mild narrowing seen C5-6 on the left. Atlantoaxial joint mildly narrowed from degenerative changes but normally aligned. Craniocervical junction intact. There is no prevertebral soft tissue abnormality. Remainder of the soft tissue structures and lung apices appear normal. XR/XR cervical spine 4V IMPRESSION: 1. No acute bony more soft tissue abnormalities of the cervical spine. No alignment abnormalities. 2. Anterior fusion and discectomy C5-6 without complication evident. 3. Mild straightening of the normal lordosis, nonspecific. 4. Mild to moderate disc space narrowing C4-5, and C6-7. 5. Mild degenerative facet changes throughout, most significant at C3-4 and C4-5 on the left. Electronically signed by: Oscar Knight MD 06/26/2024 04:[address] [facility]
== END 2024-04-18 08:49 | disposition home or self-care (01) ==
LOC: HO.XRAY 08:48
PROVIDERS: PCP Internal Medicine; Visit Provider Anesthesiology
DX: M96.1 Postlaminectomy syndrome, not elsewhere classified (principal); G89.4 Chronic pain syndrome
CPT/HCPCS: 72050

== ENCOUNTER 2024-04-18 08:48 | Outpatient (AMB) | payer OTHER, SELFPAY ==
--- NOTE | 2024-04-18 08:49 | A.OFFVIS_ITS ---
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 She was in the past diagnose to is disc degeneration of the cervical spine, spinal stenosis, radiculopathy of the cervical spine. She was under care of and under care of Pioneer Mckeon. She received multiple injections, Dr. Rogers was performing her injections under deep sedation, while Pioneer Mckeon performed on her what sounds like left transforaminal cervical epidural steroid injection while awake. She reports that it was very uncomfortable and she never would imagine any transforaminal or interlaminar cervical epidural steroid injections to be performed with a without anesthesia. She also was under care of Dr. Lopez and she had C5-C6 ACDF. She had an MRI of the cervical spine results of which dictated as below. On this MRI she has severe C6-C7 left sided foraminal stenosis. She was offered a spinal surgery but adamantly refused. She had very bad experience with 1st ACDF although admits that it gave her some results. We discussed today possibility of treating her pain with spinal cord stimulator. I explained to her cervical spinal cord stimulator. I explained to her psychological evaluation. As soon as she will past psychological evaluation we go for [employer] trial of SCS. [facility] Medical History (Updated 04/18/24 @ 09:31 by Bhupendra Chauhan MD) Back pain Sleep apnea with use of continuous positive airway pressure (CPAP) BMI 36.0-36.9,adult Obesity JAIRO (obstructive sleep apnea) History of kidney stones Hyperlipidemia Family history of early CAD Spondylosis of cervical spine with radiculopathy Degeneration, intervertebral disc, cervical Surgical History History of right oophorectomy History of hysterectomy, supracervical History of esophagogastroduodenoscopy (EGD) (~2019) History of colonoscopy (~2016) History of left oophorectomy History of cystoscopy (~2015) History of lithotripsy (~2017) History of cervical spinal surgery (~2019) History of bilateral inguinal hernia repair (~2018) Family History Maternal Aunt Breast cancer Maternal Aunt Stomach cancer Maternal Aunt Ovarian cancer Maternal Uncle Throat cancer Father Alzheimer disease Diabetes Brother COPD (chronic obstructive pulmonary disease) Diabetes Son HTN (hypertension) Maternal Uncle Prostate cancer Sister CAD, multiple vessel Son No problems noted. Son No problems noted. Mother Breast cancer Social History Household Members: Significant Other Housing: House Alcohol intake: never Patient Tobacco Use Status: Never used Tobacco service: No Current occupational status: employed Review of Systems Const All systems reviewed & are unremarkable except as noted in HPI and below ENT Reports Normal hearing present Neuro Reports Normal hearing present, Denies Abnormal speech present, Denies confusion and Denies Sensory deficit (Neuro) Psych Denies confusion Physical Exam Vital Signs: Last Vital Signs Pulse 84 04/18/24 08:53 BP 123/60 04/18/24 08:53 Pulse Ox 99 04/18/24 08:53 Oxygen Delivery Method Room Air 04/18/24 08:53 BMI result Body Mass Index 37.6 Const General: No confusion Nutritional Appearance: obese Orientation/consciousness: No confusion Eyes General: appearance normal, both eyes and all related structures Pupils: Equal, round and reactive pupils present EOM: EOMs intact bilaterally Neck Neck: Yes full ROM Chest Chest palpation & inspection: normal inspection of the chest Resp Effort & Inspection: normal respiratory effort, able to speak in complete sentences, normal respiratory pattern, no audible wheezes and no cough Cardio Jugular venous distension: no JVD GI Inspection: Yes normal to inspection Back/Spine/Pelvis Other: +spurlings on the left in the C6 distribution. Strength 5/5 C5-T1 b/l. DTR's 2+ biceps/triceps b/l. +dysesthesias in the left C6 . Neuro General: No confusion Cranial nerves: Yes Equal, round and reactive pupils present and Yes Normal hearing present Speech: No Abnormal speech present Gait exam (Neuro): Normal gait present Motor exam (neuro): 5/5 motor strength present throughout Sensory Exam: No Sensory deficit (Neuro) Extrem General: No pedal edema Psych Speech and movement: Normal speech and movement present Affect: normal affect Attitude: cooperative Thought process: Normal thought process present Thought content: Normal thought content present Insight: Good insight present (Psych) Judgement: Good judgement present (Psych) Results Reviewed Results Reviewed: On the MRI cervical spine 06/18/2020: C2-C3 no disc pathology no central canal or foraminal narrowing same as at C3-C4. C4-C5 anterior endplate spurring and very mild disc bulge without central canal stenosis or significant foraminal encroachment. C5-C6 disc osteophyte complex noted in the left foraminal disc protrusion and uncovertebral joint spurring as on prior imaging. Suspect into impinge upon the left C6 nerve root with significant left foraminal encroachment. Stable mild central canal stenosis. C6-C7 very mild disc bulge without central canal stenosis small posterior annular fissure patent foramina. C7-T1 no disc pathology no central canal or foraminal stenosis. On sagittal image mild reversal of normal cervical lordosis no cord signal abnormality or syrinx is seen. Assessment & Plan Assessment & Plan (1) Postlaminectomy syndrome of cervical region: Code(s): M96.1 - Postlaminectomy syndrome, not elsewhere classified Category: Medical (2) Chronic pain syndrome: Code(s): G89.4 - Chronic pain syndrome Category: Medical Plan Patient is adamantly refusing to go for MRI to evaluate current condition in her cervical spine. She is suffering from postlaminectomy syndrome. She states that she can not even tolerate MRI in open MRI machine, she wants MRI to be done under sedation. At the same time she has on the previous MRI severe C6-C7 left foraminal stenosis. The MRI would be reasonable thing to do if she would go for surgery or if she would agreed to go for interlaminar epidural steroid injections. However patient adamantly refused to do epidural steroid injections she is adamantly negative about surgery. She tried multiple ways to manage her cervicalgia and radiculopathy pain with physical therapy, chiropractic manipulation, she tried NSAIDs she is trying to be active and mobile. Unfortunately all of those measures did not help her in extend that she can not tolerate her activities of daily living and reduce her pain. I offered her psychological evaluation and [employer] spinal cord stimulator trial. This can be done under sedation. I will send her for the x-ray to evaluate feasibility of spinal cord stimulation with her ACDF. I will see her on a trial when her psychological evaluation will be scheduled. Orders: Orders XR cervical spine 4V Today G89.4 - Chronic pain syndrome, M96.1 - Postlaminectomy syndrome, not elsewhere classified Patient Instructions: I here by testify that I spent 35 minutes in conversation with this patient as well as planning her care and organizing this note. Coding Level of Care Code Est Pt Level 4 (39244) Diagnoses Postlaminectomy syndrome of cervical region M96.1 Chronic pain syndrome G89.4
[2024-04-18 08:53] VITALS: BP 123/60; PULSE 84; O2SAT 99; BMI 37.6
== END 2024-04-18 09:26 | disposition home or self-care (01) ==
PROVIDERS: PCP Internal Medicine; Visit Provider Anesthesiology
DX: M96.1 Postlaminectomy syndrome, not elsewhere classified (principal); G89.4 Chronic pain syndrome
CPT/HCPCS: 99214

== ENCOUNTER → 2024-04-18 15:01 | Outpatient (BNV) | payer OTHER, SELFPAY | PROVIDERS: PCP Internal Medicine; Visit Provider Radiology Diagnostic Radiology | DX: M96.1 Postlaminectomy syndrome, not elsewhere classified (principal); M43.22 Fusion of spine, cervical region | CPT/HCPCS: 72050 ==

== ENCOUNTER 2024-06-01 14:37 | Outpatient (REF) | payer OTHER, SELFPAY ==
[2024-06-01 16:16] LABS: Thyroid Stimulating Hormone 1.81 uIU/mL (0.32-4.0)
== END 2024-06-01 14:38 | disposition home or self-care (01) ==
LOC: HO.LAB 14:37
PROVIDERS: PCP Internal Medicine; Visit Provider Internal Medicine
DX: Z00.00 Encounter for general adult medical examination without abnormal findings (principal)
CPT/HCPCS: 36415; 84443

== ENCOUNTER 2024-06-20 13:39 | Outpatient (AMB) | payer OTHER, SELFPAY ==
--- NOTE | 2024-06-20 13:45 | MHC.OFFWIV ---
Intake Vital Signs 06/20/24 13:50 Weight 200 lb BP 110/78 Blood Pressure Location Rt brachial Position Sitting Pulse 89 Pulse Source Pulse Oximeter Pulse Oximetry (%) 97 Oxygen Delivery Method Room Air Intake Visit Reasons: EP-sob, chest tightness Intake Note: Patient here for SOB and chest tightness that started yesterday. Patient Tobacco Use Status: Never used Tobacco Allergies gluten Allergy (Verified 06/20/24 13:50) Diarrhea lactose Allergy (Verified 06/20/24 13:50) Diarrhea shellfish derived Allergy (Verified 06/20/24 13:50) Anaphylaxis Do you need a note to return to daycare/school/sports/work: No HPI EP-sob, chest tightness HPI Details This note is constructed using voice recognition software. While every effort has been made to ensure accuracy, sander and buffer errors may have been included. The patient is a 59 year old female who presents to the clinic today with shortness of breath and chest tightness since yesterday. She reports she contacted her senior portfolio manager who advised her to be seen immediately. She reports the pain to be midsternal, and feeling like a tightness with breathing. She feels like this was either a panic attack, or an exacerbation of her allergies as both been affecting her recently. Reports that she treats her allergies with Zyrtec, Flonase. She has not been working on her stress lately, but does have recently some worsening mental health. She reports that sometimes when she gets a panic attack she feels very immobilized, and unable to proceed with what she is trying to do. She denies dyspnea at rest. [facility] Medical History (Updated 04/18/24 @ 09:31 by Bhupendra Chauhan MD) Back pain Sleep apnea with use of continuous positive airway pressure (CPAP) BMI 36.0-36.9,adult Obesity JAIRO (obstructive sleep apnea) History of kidney stones Hyperlipidemia Family history of early CAD Spondylosis of cervical spine with radiculopathy Degeneration, intervertebral disc, cervical Surgical History History of right oophorectomy History of hysterectomy, supracervical History of esophagogastroduodenoscopy (EGD) (~2019) History of colonoscopy (~2016) History of left oophorectomy History of cystoscopy (~2015) History of lithotripsy (~2017) History of cervical spinal surgery (~2019) History of bilateral inguinal hernia repair (~2018) Family History Maternal Aunt Breast cancer Maternal Aunt Stomach cancer Maternal Aunt Ovarian cancer Maternal Uncle Throat cancer Father Alzheimer disease Diabetes Brother COPD (chronic obstructive pulmonary disease) Diabetes Son HTN (hypertension) Maternal Uncle Prostate cancer Sister CAD, multiple vessel Son No problems noted. Son No problems noted. Mother Breast cancer Social History Household Members: Significant Other Housing: House Alcohol intake: never Patient Tobacco Use Status: Never used Tobacco service: No Current occupational status: employed Review of Systems Const All systems reviewed & are unremarkable except as noted in HPI and below Physical Exam Vital Signs: Last Vital Signs Pulse 89 06/20/24 13:50 BP 110/78 06/20/24 13:50 Pulse Ox 97 06/20/24 13:50 Oxygen Delivery Method Room Air 06/20/24 13:50 Const General: cooperative, healthy appearing, comfortable, no acute distress and well developed Orientation/consciousness: patient oriented x3 Limitations: no limitations HEENT Head: Yes normal to inspection Ears: hearing grossly normal bilaterally General nose exam: Normal external nose present Face and sinus: Yes normal facial exam Eyes General: appearance normal, both eyes and all related structures Neck Neck: Yes normal visual inspection and Yes full ROM Resp Effort & Inspection: normal respiratory effort and able to speak in complete sentences Auscultation: clear to auscultation bilaterally Cardio Rate: regular rate Rhythm: regular rhythm Heart sounds: normal S1 and S2 GI Inspection: Yes normal to inspection Palpation (GI): Soft to palpation and nontender Skin General skin exam: no rashes or lesions noted Neuro General: patient oriented x3 Assessment & Plan Assessment & Plan (1) Atypical chest pain: Code(s): R07.89 - Other chest pain Plan: In office EKG appears normal sinus rhythm. May be asthmatic type response to allergies, albuterol inhaler prescribed for symptomatic management. Reviewed appropriate use of inhaler. Advised patient to seek out care for her mental health, however I do not believe that her symptoms are related to a panic attack, as they lasted much longer than typical 20 minutes. Her examination was otherwise reassuring, so we elected to defer any additional imaging. Advised ER with sudden acute worsening chest pain. Advised patient to keep her follow up appointment scheduled with product info specialist and Cardiology. Plan See above for full details and plan. Orders: Orders AMB EKG-In Office Today R07.9 - Chest pain, unspecified Medications: New albuterol sulfate 90 mcg/actuation 1 - 2 puffs inhalation QID PRN 6.7 grams 0RF Shortness Of Breath Or Wheezing Coding Level of Care Code Est Pt Level 3 (39784) Diagnoses Atypical chest pain R07.89
[2024-06-20 13:50] VITALS: BP 110/78; PULSE 89; O2SAT 97
== END 2024-06-20 14:33 | disposition home or self-care (01) ==
PROVIDERS: PCP Internal Medicine; Visit Provider Registered Nurse
DX: R07.89 Other chest pain (principal)

== ENCOUNTER → 2024-06-20 13:39 | Outpatient (BNVA) | payer OTHER, SELFPAY | PROVIDERS: PCP Internal Medicine; Visit Provider Registered Nurse | DX: R07.89 Other chest pain (principal) | CPT/HCPCS: 93005 ==

== ENCOUNTER 2024-06-27 13:08 | Outpatient (AMB) | payer OTHER, SELFPAY ==
[2024-06-27 13:15] VITALS: BP 130/68; PULSE 91; BMI 38.0
--- NOTE | 2024-06-27 13:15 | MHC.OFFVIS ---
Vital Signs 06/27/24 13:15 Height 5 ft 1 in Weight 201 lb 0.985 oz BMI 38.0 BP 130/68 Blood Pressure Location Lt brachial Position Sitting Pulse 91 Pulse Source Pulse Oximeter Intake Visit Reasons: r/s 05/23/24 6 mos followup Intake Note: R/S- 6 mth f/up [employer] Required: No Accompanied by: Self / Same As Patient Allergies gluten Allergy (Verified 06/27/24 15:46) Diarrhea lactose Allergy (Verified 06/27/24 15:46) Diarrhea shellfish derived Allergy (Verified 06/27/24 15:46) Anaphylaxis evolocumab [From Repathgarrett [facility]] Adverse Reaction (Intermediate, Verified 06/27/24 15:46) Abdominal Pain Medication List - Last Reconciled 06/27/24 by Javier Velasco MD acetaminophen 1,000 mg (2 x 500 mg) PO Q6H PRN albuterol sulfate 90 mcg/actuation 1 - 2 puffs inhalation QID PRN epinephrine 0.3 mg (0.3 mL) IM Q10M PRN ibuprofen 600 mg PO Q8H PRN lorazepam 0.5 mg (1/2 x 1 mg) PO ONCE rosuvastatin 40 mg PO DAILY HPI Comments Details: Pleasant 59-year-old female here for follow-up. Recently she was seen her primary care physician's office when she presented with shooting left arm pain. She had known history of cervical radiculopathy with previous C4-5 surgery. She said the pain has been a chronic issue but was worse on that day. She had an EKG performed which showed poor R-wave progression and concern for old anterior infarct. She was sent to the ER which she was ruled out and then discharged home. Her sister who is 1 year older had triple-vessel bypass. Patient has background of hyperlipidemia with an LDL level of 186 in January 2021. She is a nonsmoker and does not drink or do any recreational drugs. She was experiencing exertional left-sided sharp chest pains. She was referred for exercise stress test which did not show any perfusion defect. Echocardiography showed no wall motion abnormality with normal biventricular function. She returns today and has been experiencing left arm pain. She has seen her neurosurgeon who has done MRI and told her that she has radiculopathy. 03/25/23: She returns for follow-up. She is saying that she has been taking the Repatha but apparently stop the atorvastatin 80 mg. There is some confusion about her medications. She currently is not taking statins. She does not have any allergy to statins. And In any case looking back at her blood workup her LDL level was 227 at 1 stage and total cholesterol was 319. Her last LDL was 92 in May 2022. She is complaining of some palpitations which happen at nighttime. She also has some off and on chest discomfort but this is random and there is no pattern. She previously had normal exercise stress test. 06/24/2023: She returns for follow-up. She has been doing well. Fasting lipid panel 06/19/2023: Triglycerides 112, cholesterol 105, LDL 35, HDL 48. She has restarted rosuvastatin 40 mg along with Repatha. She is complaining of headaches, fatigue and daytime sleepiness. She has known history of sleep apnea and had a sleep study many years ago which was abnormal. She said she was given CPAP but there were charging her 50 dollars per week and she could not afford it. She has not had any further workup since then or any follow-up sleep study. Her symptoms appear to be related to sleep apnea and not due to Repatha. 11/16/23: She is here for follow-up. She has been doing well. Last blood workup was in 07/08/2023 as mentioned above. She has been taking medications regularly. She is asking whether she can be taken off the Repatha. I have explained to her that she has significantly elevated LDL levels and she has done well with the current strategy of Repatha and rosuvastatin. I have advised her not to stop the Repatha currently. 06/27/2024: She is here for follow-up. She said she had headache, abdominal pain and lower extremity numbness couple of months ago after using Repatha. She called the rep and was advised to stop the Repatha. Repeat LDL was 126. [facility] Medical History (Updated 04/18/24 @ 09:31 by Bhupendra Chauhan MD) Back pain Sleep apnea with use of continuous positive airway pressure (CPAP) BMI 36.0-36.9,adult Obesity JAIRO (obstructive sleep apnea) History of kidney stones Hyperlipidemia Family history of early CAD Spondylosis of cervical spine with radiculopathy Degeneration, intervertebral disc, cervical Surgical History (Reviewed 06/27/24 @ 13:26 by Flor Ruano [facility]) History of right oophorectomy History of hysterectomy, supracervical History of esophagogastroduodenoscopy (EGD) (~2019) History of colonoscopy (~2017) History of left oophorectomy History of cystoscopy (~2016) History of lithotripsy (~2017) History of cervical spinal surgery (~2019) History of bilateral inguinal hernia repair (~2018) Family History (Reviewed 06/27/24 @ 13:26 by Flor Ruano [facility]) Maternal Aunt Breast cancer Maternal Aunt Stomach cancer Maternal Aunt Ovarian cancer Maternal Uncle Throat cancer Father Alzheimer disease Diabetes Brother COPD (chronic obstructive pulmonary disease) Diabetes Son HTN (hypertension) Maternal Uncle Prostate cancer Sister CAD, multiple vessel Son No problems noted. Son No problems noted. Mother Breast cancer Social History (Reviewed 06/27/24 @ 13:26 by Flor Ruano [facility]) Household Members: Significant Other Housing: House Alcohol intake: never Patient Tobacco Use Status: Never used Tobacco service: No Current occupational status: employed Review of Systems Const Denies chills, Denies fatigue, Denies fever(s), Denies frequent falls, Denies weakness, Denies weight gain and Denies weight loss ENT Denies dizziness Card Denies chest pain, Denies leg edema, Denies lightheadedness, Denies palpitations, Denies dyspnea and Denies dyspnea on exertion Resp Denies cough, Denies dyspnea and Denies dyspnea on exertion GI Denies hematochezia Musc Denies abnormal gait, Denies muscle weakness, Denies numbness, Denies radiating pain into limb and Denies tingling Neuro Denies abnormal gait, Denies dizziness, Denies frequent falls, Denies numbness, Denies tingling and Denies weakness Endo Denies fatigue and Denies palpitations Physical Exam Vital Signs: Last Vital Signs Pulse 91 06/27/24 13:15 BP 130/68 06/27/24 13:15 BMI result Body Mass Index 38.0 GENERAL APPEARANCE: in no acute distress, pleasant. NECK: no carotid bruit, no jugular venous distention. SKIN: no suspicious lesions, warm and dry. HEART: no murmurs, regular rate and rhythm. LUNGS: clear to auscultation bilaterally. ABDOMEN: soft, nontender. EXTREMITIES: no edema. PERIPHERAL PULSES: equal. NEUROLOGIC: No gross deficits, AAO X 3 Assessment & Plan Assessment & Plan (1) Hyperlipidemia: Comment: (untreated - 01/22/21 labs = Chol: 295, Tri, LDL: 186, HDL:40) Code(s): E78.5 - Hyperlipidemia, unspecified Category: Medical Plan Pleasant 59-year-old female with strong family history of coronary artery disease and familiar hyperlipidemia. Her total cholesterol in the past was as high as 319. LDL 227 in 2020. She was doing quite well with rosuvastatin and Repatha combination and LDL was down to 35, total cholesterol 105, HDL 48 and triglycerides 112. Unfortunately she was getting some headaches and abdominal pain and also leg numbness and she got in touch with the Repatha help desk representative and she was advised to stop the Repatha. She is saying that since then her symptoms have improved. She is unable to take the Repatha and her LDL already has gone from 35-126. We have discussed in detail. After some discussion we have decided to start her on Praluent. We will continue to monitor her closely. If she can not tolerate Praluent then she may need referral to lipidology specialist. Thank you for allowing me to participate in the care of your patient. Please feel free to contact me if you have any questions. Medications: New alirocumab (Praluent Pen) 150 mg subcut Q14D 2 mL 6RF Coding Level of Care Code Est Pt Level 4 (76947) Diagnoses Hyperlipidemia E78.5
== END 2024-06-27 14:14 | disposition home or self-care (01) ==
PROVIDERS: PCP Internal Medicine; Visit Provider Internal Medicine Cardiovascular Disease
DX: E78.5 Hyperlipidemia, unspecified (principal)
CPT/HCPCS: 99214

== ENCOUNTER 2024-07-04 08:21 | Outpatient (AMB) | payer OTHER, SELFPAY ==
--- OUTSIDE RECORDS SUMMARY | 2024-07-04 08:24 | XMS_ITS | Patient Health Record ---
Demographics Address [address] [place] [address] Mobile Email Address Preferred Language en Marital Status Moravian Affiliation Unknown Race Ethnic Group or Author Organization [facility] Address [address] [place] [address] Care Team Providers Care Ui Developer Name Role Phone NONE, NONE Primary Care Provider Unavaildarshan e Osman Ledbetter Jr Unavailable [phone] Marya Tejada MD Unavailable Unavailable ALLERGIES Allergen (clinical drug ingredient) Drug/Non Drug Allergy documented on EMR Reaction Allergy Type Onset Date Status seasonal (uncoded) Unknown Allergy A ctive REASON FOR REFERRAL No Information MEDICATIONS Medication SIG (Take, Route, Frequency, Duration) Notes Start Date End Date Status Colyte with Flavor Packs 240 GM as directed Orally 05/27/2017 Active Dicyclomine HCl 20 MG 1 tablet Orally 2- 4 times a day Active Colyte with Flavor Packs 240 GM As directed Orally Over the specified time. for 1 day(s) Active Flonase 50 MCG/DOSE 1 spray in each nost ril Nasally Once a day 05/27/2017 Active Estradiol 0.05 MG/24HR APPLY 1 PATCH TOP ICALLY EVERY WEEK, REMOVE AFTER 1 WK & PLACE NEW PATCH IN DIFFERENT LOCATION Transdermal for 28 Active SOCIAL HISTORY Tobacco Use: Social History Observation Description Date Details (start date - stop date) Never Smoker NA - NA Sex Assigned At : Social History Observation Description Sex Assigned At Unknown Tobacco Use/Smoking Question Answer Notes Patient is a nonsmoker Alcohol Screen Question Answer Notes Did you have a drink containing alcohol in the p ast year? No Points 0 Interpretation Negative PROBLEMS Problem Type ICD Code Onset Dates Problem Status W/U Status Risk SNOMED Code Notes Problem Diarrhea, unspecified type (R19.7) Active confirmed [id number] PLAN OF TREATMENT Pending Test Test Name Order Date STOOL WBC 05/27/2017 OVA & PARASITES (O&P) 05/27/2017 CULTURE, STOOL 05/27/2017 Future Test Test Name Order Date COLONOSCOPY 05/27/2017 Insurance Providers Payer Name Payer Address Payer Phone Subscriber Number Group Number Insured Name Patient Relationship to Insured Coverage Start Date Coverage End Date [employer] [place] [address] [address] [place] [address] [id number] MINERVA JONES Self - patient is the insured MEDICAL (GENERAL) HISTORY Medical History History ICD Code Denies HI,DM,CVA,Lung disease,renal dise ase Surgical History Surgery Date(Month/Year) partial hysterectomy robotic oopherectomy
--- NOTE | 2024-07-04 11:21 | A.OFFVIS_ITS ---
VS Expanded 07/04/24 11:35 Height 5 ft 1 in Weight 197 lb 8 oz BMI 37.3 Body Fat % 42.1 Body Fat Mass 83.4 Fat Free Mass 114.4 Visceral Fat Rating 12 Body Water % 41 Body Water Mass 81.2 Basal Metabolic Rate/Score 1,582 Intake Visit Reasons: TV Re-Est SWL BMI 37.4 Allergies gluten Allergy (Verified 07/04/24 11:21) Diarrhea lactose Allergy (Verified 07/04/24 11:21) Diarrhea shellfish derived Allergy (Verified 07/04/24 11:21) Anaphylaxis evolocumab [From Yanet Bradford] Adverse Reaction (Intermediate, Verified 07/04/24 11:21) Abdominal Pain Medication List - Last Reconciled 07/04/24 by Rory Irby MD acetaminophen 1,000 mg (2 x 500 mg) PO Q6H PRN albuterol sulfate 90 mcg/actuation 1 - 2 puffs inhalation QID PRN alirocumab (Praluent Pen) 150 mg subcut Q14D epinephrine 0.3 mg (0.3 mL) IM Q10M PRN ibuprofen 600 mg PO Q8H PRN rosuvastatin 40 mg PO DAILY HPI HPI TV Re-Est SWL BMI 37.4: Details: Start time: 11.06am, End time: 12.06pm ?I spent 55 minutes speaking with the patient on the phone plus an additional 5 minutes reviewing and updating records for a total of 60 minutes HPI Comments Details: Previous weight loss efforts: [facility] Wakes up: 5.30am, sleeps: 10pm Breakfast: 10am (Yogurt with berries and egg and croisant) Lunch: 1pm (Grilled cheese) Dinner: 5pm (graf's pie, salad) Snacks: 7-8pm (ice cream) Exercise: Has home treadmill Fluids: Coffee: 1 cup/day (milk and sugar), tea:none, soda: Gingerale 2wk/wk, juice: Sullivan juice: 2/wk, ETOH: none PFSH Medical History (Updated 07/04/24 @ 11:46 by Rory Irby MD) History of ovarian cancer BMI 37.0-37.9, adult Back pain Sleep apnea with use of continuous positive airway pressure (CPAP) BMI 36.0-36.9,adult Obesity JAIRO (obstructive sleep apnea) History of kidney stones Hyperlipidemia Family history of early CAD Spondylosis of cervical spine with radiculopathy Degeneration, intervertebral disc, cervical Surgical History History of right oophorectomy History of hysterectomy, supracervical History of esophagogastroduodenoscopy (EGD) (~2019) History of colonoscopy (~2016) History of left oophorectomy History of cystoscopy (~2015) History of lithotripsy (~2017) History of cervical spinal surgery (~2019) History of bilateral inguinal hernia repair (~2018) Family History Maternal Aunt Breast cancer Maternal Aunt Stomach cancer Maternal Aunt Ovarian cancer Maternal Uncle Throat cancer Father Alzheimer disease Diabetes Brother COPD (chronic obstructive pulmonary disease) Diabetes Son HTN (hypertension) Maternal Uncle Prostate cancer Sister CAD, multiple vessel Son No problems noted. Son No problems noted. Mother Breast cancer Social History Household Members: Significant Other Housing: House Alcohol intake: never Patient Tobacco Use Status: Never used Tobacco service: No Current occupational status: employed Telehealth Telehealth Telehealth Platform: Telephone Location of provider rendering services: practice address Location of patient: address on file Patient Identification confirmed using: Name, : Yes Telehealth method: voice only Patient verbally consented to treatment: Yes Patient verbally consented to billing insurance company: Yes Patient informed of any privacy concerns related to visit: Yes Minutes spent on Phone/Video with Pt.: 60 Assessment & Plan Assessment & Plan (1) Obesity: Code(s): E66.9 - Obesity, unspecified Category: Medical Qualifiers: Obesity type: due to excess calories Obesity classification: adult class 2 (BMI 35 - 39.9) Serious obesity comorbidity presence: with serious comorbidity Body mass index: BMI 37.0-37.9 Qualified Code(s): E66.812 - Obesity, class 2; E66.01 - Morbid (severe) obesity due to excess calories; Z68.37 - Body mass index [BMI] 37.0-37.9, adult Plan: 1.? Plan for lap sleeve gastrectomy. If diaphragmatic or ventral hernias are present at time of surgery, these will be repaired laparoscopically as well. Risks and complications include possible conversion to an open procedure, anastomotic leak, bleeding requiring transfusion, small bowel obstruction, , DVT and pulmonary embolism, cardiac, or pulmonary complications, as chcf complications such as anastomotic ulcer, insufficient weight loss and vitamin deficiencies. I emphasized the importance of close follow-up, adherence to instructions and good communication. 2. Nutritional counseling. Start with 2 CELEBRATE REBUILD protein (buy at [facility] [employer]) shakes (HALF scoop EACH in 8oz low fat unsweetened almond milk each) at 7am-9am and 10am-12pm, 2 protein bars (CELEBRATE protein bars, buy at [facility] [employer]) at 1pm-3pm and 4pm-6pm, dinner at 7pm (8 forks of protein and 8 forks of salad/vegetables) AND another HALF protein bar after dinner at 9pm-10pm. So you do 2 protein shakes, 2.5 protein bars and one meal per day. Meal to include lean meat (beef, fish, pork, turkey, chicken), or pashto yogurt, or egg whites, or beans with a salad with olive oil and fruits (berries, pears, apples, kiwi). Avoid salt, breads, potatoes, rice, pasta, desserts. 3. Each shake would be drunk slowly, like coffee in a period of 2 hours. 4. Cut each bar in 4 pieces and eat each piece in 30min ?to make each bar last 2 hours. 5. I emphasized the importance of measuring accurately the food portion and measure it when serving the food in plate 6. The meal portions include 8 full-size forks of meat and 8 full-size forks of salad. You always eat the meat portion but you can replace up to 4 forks for salad/vegetables with rice, potatoes or pasta, or a fruit ?if you like. The less you do it the better weight loss will be. 7. One full-size fork is what it can be scooped on the fork without falling aside and not what can be bit with the fork. Use regular forks like those you find in a typical restaurant. 8.? Please buy the body composition scale we discussed and send me weight measurements as soon as possible and then once a week. Always include your diet and exercise plan. 9. Start treadmill with a speed of 3.5 and burn daily 300 calories. Goal is to burn 2000 calories per week on exercise, which means either 300 calories daily, or 400 calories 5 days per week, or 500 calories 4 days per week, or 650 calories 3 days per week. Start also weight exercises with 20-30lbs for fritz st/shoulders/abdomen and 40-50lbs for thighs doing 2 sets of 15 repetitions each. 10. The best choice would be to purchase a stationary bike, elliptical or treadmill at home that can track calories. Let me know if you do so I can give you an exercise plan. 11. Goal is to lose at least 1.5-2lbs per week 12. Goal to lose 10% of your weight before surgery, which is about 20lbs. Ultimate weight goal: 177lbs before surgery 13. Please follow the diet plan exactly without any change. If you don't like something about the plan or you feel hungry you need to communicate with me so I can help you revise the plan. You should not change the plan yourself. 14. To be scheduled for EGD on 07/19/24 to assess the stomach's anatomy. The possibility of biopsies was discussed. Patient needs to avoid use of NSAIDs and aspirin for 1 week prior to EGD. You must be on liquids only the day before your endoscopy. Risks of perforation and bleeding was discussed with the patient. This will be an outpatient procedure with IV sedation. Orders: Orders Hemoglobin A1c Today E66.9 - Obesity, unspecified, E78.5 - Hyperlipidemia, unspecified, Z68.37 - Body mass index [BMI] 37.0-37.9, adult Complete Blood Count Auto Diff Today E66.9 - Obesity, unspecified, E78.5 - Hyperlipidemia, unspecified, Z68.37 - Body mass index [BMI] 37.0-37.9, adult Lipid Panel Today E66.9 - Obesity, unspecified, E78.5 - Hyperlipidemia, unspecified, Z68.37 - Body mass index [BMI] 37.0-37.9, adult Comprehensive Met. Panel Today E66.9 - Obesity, unspecified, E78.5 - Hyperlipidemia, unspecified, Z68.37 - Body mass index [BMI] 37.0-37.9, adult C Reactive Protein Today E66.9 - Obesity, unspecified, E78.5 - Hyperlipidemia, unspecified, Z68.37 - Body mass index [BMI] 37.0-37.9, adult Vitamin B1 Today E66.9 - Obesity, unspecified, E78.5 - Hyperlipidemia, unspecified, Z68.37 - Body mass index [BMI] 37.0-37.9, adult TSH reflex Free T4 Today E66.9 - Obesity, unspecified, E78.5 - Hyperlipidemia, unspecified, Z68.37 - Body mass index [BMI] 37.0-37.9, adult Vitamin D 25-OH Total Today E66.9 - Obesity, unspecified, E78.5 - Hyperlipidemia, unspecified, Z68.37 - Body mass index [BMI] 37.0-37.9, adult XR chest 2V Today E66.9 - Obesity, unspecified, E78.5 - Hyperlipidemia, unspecified, Z68.37 - Body mass index [BMI] 37.0-37.9, adult ECG 12 lead EKG Today E66.9 - Obesity, unspecified, E78.5 - Hyperlipidemia, unspecified, Z68.37 - Body mass index [BMI] 37.0-37.9, adult FL upper GI w air Today E66.9 - Obesity, unspecified, E78.5 - Hyperlipidemia, unspecified, Z68.37 - Body mass index [BMI] 37.0-37.9, adult Insulin Today E66.9 - Obesity, unspecified, E78.5 - Hyperlipidemia, unspecified, Z68.37 - Body mass index [BMI] 37.0-37.9, adult H Pylori Breath Test Today E66.9 - Obesity, unspecified, E78.5 - Hyperlipidemia, unspecified, Z68.37 - Body mass index [BMI] 37.0-37.9, adult IRON PROFILE Today E66.9 - Obesity, unspecified, E78.5 - Hyperlipidemia, unspecified, Z68.37 - Body mass index [BMI] 37.0-37.9, adult Vitamin B12 and Folate Today E66.9 - Obesity, unspecified, E78.5 - Hyperlipidemia, unspecified, Z68.37 - Body mass index [BMI] 37.0-37.9, adult Zinc Today E66.9 - Obesity, unspecified, E78.5 - Hyperlipidemia, unspecified, Z68.37 - Body mass index [BMI] 37.0-37.9, adult Vitamin A Today E66.9 - Obesity, unspecified, E78.5 - Hyperlipidemia, unspecified, Z68.37 - Body mass index [BMI] 37.0-37.9, adult Ferritin Today E66.9 - Obesity, unspecified, E78.5 - Hyperlipidemia, unspecified, Z68.37 - Body mass index [BMI] 37.0-37.9, adult US abdomen comp w elastography Today E66.9 - Obesity, unspecified, E78.5 - Hyperlipidemia, unspecified, Z68.37 - Body mass index [BMI] 37.0-37.9, adult Referrals Behavioral Health Referral E66.9 - Obesity, unspecified, E78.5 - Hyperlipidem ia, unspecified, Z68.37 - Body mass index [BMI] 37.0-37.9, adult Nutrition/Dietitian Referral E66.9 - Obesity, unspecified, E78.5 - Hyperlipidemia, unspecified, Z68.37 - Body mass index [BMI] 37.0-37.9, adult
[2024-07-04 11:35] VITALS: BMI 37.3
== END 2024-07-04 12:07 | disposition home or self-care (01) ==
LOC: HO.HBS 08:21
PROVIDERS: PCP Internal Medicine; Visit Provider Surgery
DX: E66.812 Obesity, class 2 (principal); E66.01 Morbid (severe) obesity due to excess calories; Z68.37 Body mass index [BMI] 37.0-37.9, adult
CPT/HCPCS: 99215

== ENCOUNTER → 2024-07-04 08:21 | Outpatient (BNVA) | payer OTHER, SELFPAY | PROVIDERS: PCP Internal Medicine; Visit Provider Surgery ==

== ENCOUNTER 2024-07-05 06:57 | Outpatient (REF) | payer OTHER, SELFPAY ==
--- NOTE | ~2024-07-05 | FL_ITS ---
EXAMINATION: XR FLUOROSCOPY UPPER GI WITH AIR CLINICAL INFORMATION: Preoperative evaluation prior to bariatric surgery COMPARISON: None TECHNIQUE: Fluoroscopic air contrast upper GI examination was performed utilizing standard techniques with thin and thick barium and effervescent granules. Numerous spot images were obtained. FINDINGS: Dual and single contrast images of the esophagus demonstrate normal caliber, contour, and mucosal pattern. There is mild cricopharyngeal achalasia present. No evidence of stricture, mass, or ulcerations identified. Esophageal peristalsis is mildly disorganized. Anterior cervical fusion and discectomy is seen at C5-C6. A small type I hiatal hernia is present. A small amount of gastroesophageal reflux is seen in the stomach esophagus. Dual contrast and single contrast images of the stomach demonstrated normal contour and mucosal pattern without evidence of mass, ulceration, or other abnormality. Contrast freely passed into the gastric antrum and duodenal bulb without delay. Single and air-contrast images of the duodenal bulb demonstrate no abnormality. The duodenal sweep has a normal appearance, course, and mucosal fold appearance. The imaged proximal jejunum has a normal fold pattern and caliber. FLUOROSCOPY TIME: 4 minutes 2 seconds Number of Spot Images: 8 Number of Cine: 14 DOSE AREA PRODUCT: [id number] uGy-m2 (microgray-meter squared) FL/FL upper GI w air IMPRESSION: 1. Mild cricopharyngeal achalasia. 2. Mildly disorganized esophageal peristalsis. 3. Small type I hiatal hernia with mild gastroesophageal reflux. 4. Status post ACDF at C5-C6. This procedure was performed by Checo Pappas PA-C, and supervised by Dr. Knight Electronically signed by: Oscar Knight MD 07/06/2024 04:25 PM [facility]
--- OUTSIDE RECORDS SUMMARY | 2024-07-05 06:59 | XMS_ITS | Patient Health Record ---
Demographics Address [address] [place] [address] Mobile Email Address Preferred Language en Marital Status Denominational Affiliation Unknown Race Ethnic Group or Author Organization [facility] Address [address] [place] [address] Care Team Providers Care Plaster Foreman Name Role Phone NONE, NONE Primary Care Provider Unavaildarshan e Osman Ledbetter Jr Unavailable [phone] Marya Tejada MD Unavailable Unavailable ALLERGIES [...] Problem Diarrhea, unspecified type (R19.7) Active confirmed [id number] PLAN OF TREATMENT Pending Test Test Name Order Date STOOL WBC 05/27/2017 OVA & PARASITES (O&P) 05/27/2017 CULTURE, STOOL 05/27/2017 Future Test Test Name Order Date COLONOSCOPY 05/27/2017 Insurance Providers Payer Name Payer Address Payer Phone Subscriber Number Group Number Insured Name Patient Relationship to Insured Coverage Start Date Coverage End Date [employer] [place] [address] [address] [place] [address] [id number] MINERVA JONES Self - patient is the insured MEDICAL (GENERAL) HISTORY Medical History History ICD Code Denies [place],DM,CVA,Lung disease,renal dise ase Surgical History Surgery Date(Month/Year) partial hysterectomy robotic oopherectomy
--- NOTE | 2024-07-05 07:30 | ECG_ITS ---
Test Reason : e66.9 Blood Pressure : / mmHG Vent. Rate : 077 BPM Atrial Rate : 077 BPM P-R Int : 164 ms QRS Dur : 072 ms QT Int : 362 ms P-R-T Axes : 058 -02 040 degrees QTc Int : 409 ms Normal sinus rhythm Septal infarct (cited on or before 09-DEC-2021) Abnormal ECG When compared with ECG of 11-APR-2022 06:58, No significant change was found Referred By: Rory Irby Electronically Signed By:GABRIELE JOSEPH
[2024-07-05 08:34] LABS: Basophils Absolute Auto 0.1 X10*3/uL (0.0-0.2); Basophils Percent Auto 0.4 % (0-2); Eosinophils Percent Auto 0.1 % (0-4); Hematocrit 47.6 % (37.0-47.0); Hemoglobin 15.7 g/dl (12.0-16.0); Imm Gran Abs Auto 0.13 X10*3/uL (0.00-0.03); Imm Gran Pct Auto 0.7 % (0.0-0.4); Lymphocytes Percent Auto 36.9 % (20-40); MANUAL DIFF FLAG SCAN; Mean Corpuscular Hemoglobin 26.3 pg (27.0-33.0); Mean Corpuscular Volume 79.6 fL (80.0-98.0); Mean Platelet Volume 9.1 fL (9.4-12.3); Monocytes Percent Auto 5.4 % (2-11); Neutrophils Absolute Auto 10.3 x10*3/uL (2.0-8.3); Neutrophils Percent Auto 56.5 % (45-73); Platelet Count 328 X10*3/uL (160-400); Red Blood Count 5.98 X10*6/uL (4.20-5.50); Red Cell Distribution Width 14.6 % (11.0-16.0); SCAN SMEAR FLAG 1; White Blood Count 18.1 X10*3/uL (4.8-10.8)
[2024-07-05 08:35] LABS: Lymphocytes Absolute Auto 6.7 X10*3/uL (1.2-4.9)
[2024-07-05 08:45] LABS: Estimated Average Glucose 131 mg/dL; Hemoglobin A1C 179.8342 umol/L; Hemoglobin A1c % 6.2 % (<6.0); Total Hemoglobin (HGBA1C) 4028.1353 umol/L
[2024-07-05 09:01] LABS: Alanine Aminotransferase 44 U/L (0-31); Albumin Level 4.3 g/dL (3.5-5.0); Alkaline Phosphatase 84 U/L (39-117); Anion Gap 12 (12-20); Aspartate Amino Transferase 21 U/L (5-31); Bilirubin Total 0.6 mg/dL (0.0-1.0); Blood Urea Nitrogen 14 mg/dL (9-16); C Reactive Protein 0.49 mg/dL (< or = 0.50); Calcium 9.1 mg/dL (8.4-10.2); Carbon Dioxide 28 mmol/L (22-29); Chloride 104 mmol/L (96-108); Cholesterol 217 mg/dL (<200); Estimated Glomerular Filt Rate > 60; Glucose Random 82 mg/dL (60-115); HDL Cholesterol 64 mg/dL (>40); Iron 55 mcg/dL (30-160); LDL Cholesterol Calculated 121 mg/dL (<100); Percent Iron Saturation 20 % (15-50); Potassium 4.2 mmol/L (3.3-5.1); SLIDE REVIEW VERIFIED; Sodium 140 mmol/L (135-145); Total Iron Binding Capacity 273 mcg/dL (228-428); Total Protein 8.1 g/dL (6.5-8.0); Triglycerides 163 mg/dL (<150); Unsaturated Iron Binding 218 ug/dL
[2024-07-05 09:26] LABS: Ferritin 114 ng/mL (10-250); Vitamin D 25-OH Total 24.5 ng/mL (>30)
[2024-07-05 09:31] LABS: Folate 10.4 ng/mL (> or = 4.0); Vitamin B12 450 pg/mL (200-900)
[2024-07-05 09:40] LABS: Insulin 23 uU/mL (2-29)
[2024-07-08 00:28] LABS: Zinc 80 mcg/dL (60-130)
[2024-07-08 20:43] LABS: Vitamin A 57 mcg/dL (38-98)
[2024-07-12 14:23] LABS: Vitamin B1 12 nmol/L (8-30)
== END 2024-07-05 06:58 | disposition home or self-care (01) ==
LOC: HO.XRAY 06:57
PROVIDERS: PCP Internal Medicine; Visit Provider Surgery
DX: E66.9 Obesity, unspecified (principal); Z68.37 Body mass index [BMI] 37.0-37.9, adult; E78.5 Hyperlipidemia, unspecified; Z13.1 Encounter for screening for diabetes mellitus
CPT/HCPCS: 36415; 71046; 74246; 80053; 80061; 82306; 82607; 82728; 82746; 83036; 83525; 83540; 84425; 84443; 84590; 84630; 85025; 86140; 93005

== ENCOUNTER → 2024-07-05 07:11 | Outpatient (BNV) | payer OTHER, SELFPAY | PROVIDERS: PCP Internal Medicine; Visit Provider Physician Assistant Surgical | DX: K22.4 Dyskinesia of esophagus (principal) | CPT/HCPCS: 74246 ==

== ENCOUNTER → 2024-07-05 07:30 | Outpatient (BNV) | payer OTHER, SELFPAY | PROVIDERS: PCP Internal Medicine; Visit Provider Internal Medicine | DX: R94.31 Abnormal electrocardiogram [ECG] [EKG] (principal) | CPT/HCPCS: 93010 ==

== ENCOUNTER 2024-07-18 11:25 | Outpatient (AMB) | payer OTHER, SELFPAY ==
--- NOTE | 2024-07-18 11:15 | A.OFFWM_ITS ---
Intake Intake Visit Reasons: VIDEO BH Intake Allergies shellfish derived Allergy (Severe, Verified 07/19/24 11:05) Anaphylaxis gluten Allergy (Intermediate, Verified 07/19/24 11:05) Diarrhea lactose Allergy (Intermediate, Verified 07/19/24 11:05) Diarrhea evolocumab [From Yanet Bradford] Adverse Reaction (Intermediate, Verified 07/19/24 11:05) Abdominal Pain PFSH Medical History History of ovarian cancer BMI 37.0-37.9, adult Back pain Sleep apnea with use of continuous positive airway pressure (CPAP) BMI 36.0-36.9,adult Obesity JAIRO (obstructive sleep apnea) History of kidney stones Hyperlipidemia Family history of early CAD Spondylosis of cervical spine with radiculopathy Degeneration, intervertebral disc, cervical Surgical History History of right oophorectomy History of hysterectomy, supracervical History of esophagogastroduodenoscopy (EGD) (~2019) History of colonoscopy (~2017) History of left oophorectomy History of cystoscopy (~2015) History of lithotripsy (~2017) History of cervical spinal surgery (~2018) History of bilateral inguinal hernia repair (~2018) Family History Maternal Aunt Breast cancer Maternal Aunt Stomach cancer Maternal Aunt Ovarian cancer Maternal Uncle Throat cancer Father Alzheimer disease Diabetes Brother COPD (chronic obstructive pulmonary disease) Diabetes Son HTN (hypertension) Maternal Uncle Prostate cancer Sister CAD, multiple vessel Son No problems noted. Son No problems noted. Mother Breast cancer Social History Household Members: Significant Other Housing: House Are you a primary caregivers non medical to a significant other at home: No Do you presently have visiting nurse or other home services: No Alcohol intake: never Patient Tobacco Use Status: Never used Tobacco service: No Current occupational status: employed Behavioral Health Assessment Weight Management Therapy Therapy Notes Details PT is a 59 years old Female, who presents for a visit to complete BH assessment as part of surgical weight loss program. Presenting Concerns Referral Source P Provider. PT had initial visit with Dr. Ridley on 07/04/2024. Reason for referral Completion of behavioral health assessment as part of process for weight-loss surgery. Precipitating Event Obesity. Started weight: 197 lbs. Living Situation Current Living Situation Rent At risk of losing current housing? No Satisfied with current living situation? 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 Food/Weight/Diet Expectations of change The initial Goal to lose 10% of her weight before surgery, which is about 20 lbs. Ultimate weight goal: 177lbs before surgery. PT started the program at 197 Lbs. Most recent weight (): 195 lbs. PT is implementing the following: Current meal plan: 2 protein shakes, 2.5 protein bars, and one meal per day. Exercise plan: treadmill. 2x day, every other day. For 30 min. History/Relationship with food Example of meals before starting the program: Breakfast: Lunch: Dinner: Snacks: Drinks/Liquids: History/Relationship with weight In the last 10 years, the patient's Lowest weight was and highest Social History Family history and relationship PT is single. She was years ago. She has 2 adult children and has 9 grandchildren. Father is alive, in a detention due to dementia. Mother is alive and lives independently. 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 Developmental history and status Never got any Special Ed. but she has undiagnosed dyslexia. Social support She hasn't shared about weight-loss surgery with her family. But she is very close to her family and Community support Therapist. PCP Quaker/Spirituality Amish. Attends synagogue weekly. Cultural/Ethnic information . PT was born in [place], parents are from [place]. PT is bi-lingual. Legal Involvement and History Current or historical involvement with the legal system? None reported Education Highest grade completed 3 years of college. Associate degree. Preferred learning style Visual Currently enrolled in educational program? No Interested in further educational program? 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 ) Wants help to find employment? No Meaningful activities Family activities. Financial Situation Describe current financial situation Comfortable and Occasional struggle Financial assistance? None Service Service? No Mental Health and Addiction Treatment Current/Past substance abuse? No Comments Alcohol: None Cigarettes/Tobacco: None Cannabis/Edibles: None Current/Past addictive behavior concerns? No Psychiatric history PT reports she attends counseling as needed using her EAP benefits. However, she has never been in formal counseling or mental health treatment. PT denies ever being in crisis or inpatient for mental health. There is no history and/or current concern about SI/SA and self-harm or other harm. Medical and Physical Health Summary Additional Medical History not covered in history None additional Sexual History concerns None reported Physical exam in the last year? Yes Pain Screening Current pain? Yes Pain in the last few months? Yes Comments Due to back surgery she has back and neck pain. Medications Is the patient compliant with medications? Yes Does the patient have Alvarado Guardian in place? Not applicable Does the patient use complimentary health approaches? No Trauma/Abuse History History of trauma? No Questionnaires PHQ-9 Over the last 2 weeks, how often have you been bothered by any of the following problems? 1. Little interest or pleasure in doing things: more than half the days 2. Feeling down, depressed, or hopeless: more than half the days 3. Trouble falling or staying asleep, or sleeping too much: more than half the days 4. Feeling tired or having little energy: more than half the days 5. Poor appetite or overeating: several days 6. Feeling bad about yourself - or that you are a failure or have let yourself or your family down: nearly every day 7. Trouble concentrating on things, such as reading the newspaper or watching television: several days 8. Moving or speaking so slowly that other people could have noticed. Or the opposite - being so fidgety or restless that you have been moving around a lot more than usual: more than half the days 9. Thoughts that you would be better off or of hurting yourself in some way: not at all Total score: 15 Depression Screening Interpretation: Positive (From new PT pack scanned on 07/08/24) Depression Screening Done: Yes Source: Developed by Drs. Chang L. NinaCourtney ceja, Shon Medellin and colleagues, with an educational thomas from [employer]. Binge Eating Scale Group 1 A. I don't feel self-conscious about my wt. or body size when I'm with others. B. I feel concerned about how I look to others, but it normally does not make me fell disappointed with myself C. I do get self-conscious about my appearance and wt. which makes me feel disappointed in myself. D. I feel very self-conscious about my wt. and frequently I feel intense shame and disgust for myself. I try to avoid social contacts because of my self- consciousness. Response Group 1: D Group 2 A. I don't have any difficulty eating slowly in the proper manner. B. Although I seem to gobble down foods, I don't end up feeling stuffed because of eating to much. C. At times, I tend to eat quickly and then, I feel uncomfortably full afterwards. D. I have the habit of bolting down my food, without really chewing it. When this happens I usually feel uncomfortably stuffed because I've eaten to much. Response Group 2: A Group 3 A. I feel capable to control my eating urges when I want to. B. I feel like I have failed to control my eating more than the average person. C. I feel utterly helpless when it comes to feeling in control of my eating urges. D. Because I feel so helpless about controlling my eating I have become very desperate about trying to get control. Response Group 3: A Group 4 A. I don't have the habit of eating when I'm bored. B. I sometimes eat when I'm bored, but often I'm able to get busy and get my mind off food. C. I have a regular habit of eating when I'm bored, but occasionally, I can use some other activity to get my mind off eating. D. I have a strong habit of eating when I'm bored. Nothing seems to help me breath the habit. Response Group 4: A Group 5 A. I'm usually physically hungry when I eat something. B. Occasionally, I eat something on impulse even though I really am not hungry. C. I have the regular habit of eating foods, that I might not really enjoy, to satisfy a hungry feeling even though physically, I don't need the food. D. Although I'm not physically hungry, I get a hungry feeling in my mouth that only seems to be satisfied when I eat a food, like sandwich, that fills my mouth. Sometimes, when I eat the food to satisfy my mouth hunger, I then spit the food out so I won't gain weight. Response Group 5: B Group 6 A. I don't feel any guilt or self-hate after I overeat. B. After I overeat, occasionally I feel guilt or self-hate. C. Almost all the time I experience strong guilt or self-hate after I overeat. Response Group 6: B Group 7 A. I don't lose total control of my eating when dieting even after periods when I overeat. B. Sometimes when I eat a forbidden food on a diet, I feel like I blew it and eat even more. C. Frequently, I have the habit of saying to myself, I've blown it now, why not go all the way, when I overeat on a diet. When that happens I eat more. D. I have a regular habit of starting a strict diets for myself but I break the diets by going on an eating binge. My life seems to be either a feast or famine. Response Group 7: B Group 8 A. I rarely eat so much food that I feel uncomfortably stuffed afterwards. B. Usually about once a month, I each such a quantity of food, I end up feeling very stuffed. C. I have regular periods during the month when I eat large amounts of food, either at mealtime or at snacks. D. I eat so much food that I regularly feel quite uncomfortable after eating and sometimes a bit nauseous. Response Group 8: B Group 9 A. My level of calorie intake does not go up very high or go down very low on a regular basis. B. Sometimes after I overeat, I will try to reduce my caloric intake to almost nothing to compensate for the excess calories I've eaten. C. I have a regular habit of overeating during the night. It seems that my routine is not to be hungry in the morning but overeat in the evening. D. In my adult years, I have had week-long periods where I practically starve myself. This follows periods when I overeat. It seems I live a life of either feast or famine. Response Group 9: D Group 10 A. I usually am able to stop eating when I want to. I know when enough is enough. B. Every so often, I experience a compulsion to eat which I can't seem to control. C. Frequently, I experience strong urges to eat which I seem unable to control, but at other times I can control my eating urges. D. I feel incapable of controlling urges to eat. I have a fear of not being able to stop eating voluntarily. Response Group 10: C Group 11 A. I don't have any problem stopping eating when I feel full. B. I usually can stop eating when I feel full but occasionally overeat leaving me feeling uncomfortably stuffed. C. I have a problem stopping eating once I start and usually I feel uncomfortably stuffed after I eat a meal. D. Because I have a problem not being able to stop eating when I want, I sometimes have to induce vomiting to relieve my stuffed feeling. Response Group 11: B Group 12 A. I seem to eat just as much when I'm with others, Family social gatherings as when I'm by myself. B. Sometimes, when I'm with other persons, I don't eat as much as I want to eat because I'm self-conscious about my eating. C. Frequently, I eat only a small amount of food when others are present, because I'm very embarrassed about my eating. D. I feel so ashamed about overeating that I pick times to overeat when I know no one will see me. I feel like a closet eater. Response Group 12: B Group 13 A. I eat three meals a day with only an occasional between meal snack. B. I eat 3 meals a day, but I also normally snack between meals. C. When I am snacking heavily, I get in the habit of skipping regular meals. D. There are regular periods when I seem to be continually eating, with no planned meals. Response Group 13: C Group 14 A. I don't think much about trying to control unwanted eating urges. B. At least some of the time, I feel my thoughts are pre-occupied with trying to control my eating urges. C. I feel that frequently I spend much time thinking about how much I ate or about trying not to eat anymore. D. It seems to me that most of my waking hours are pre-occupied by thoughts about eating or not eating. I feel like I'm constantly struggling not to eat. Response Group 14: C Group 15 A. I don't think about food a great deal. B. I have strong craving for food but they last only for brief periods of time. C. I have days when I can't seem to think about anything else but food. D. Most of my days seem to be pre-occupied with thoughts about food. I feel like I live to eat. Response Group 15: B Group 16 A. I usually know whether or not I'm physically hungry. I take the right portion of food to satisfy me. B. Occasionally, I feel uncertain about knowing whether or not I'm physically hungry. A these times it's hard to know how much food I should take to satisfy me. C. Even though I might know how many calories I should eat, I don't have any idea what is a normal amount of food for me. Response Group 16: B Binge Eating Score: 20 Score less than 17 Minimal Risk Score between 18-26 Moderate Risk Score between 27-46 High Risk Assessment & Plan Assessment & Plan (1) Adjustment disorder, unspecified: Code(s): F43.20 - Adjustment disorder, unspecified Plan PT is not yet cleared as the assessment was not completed today. She will return on 08/10/2024 at 1:00 PM via Telehealth to continue the assessment. Telehealth Telehealth [facility]health [facility] Location of provider rendering services: other Location of patient: address on file Patient Identification confirmed using: Name, : Yes Telehealth method: voice only Patient verbally consented to treatment: Yes Patient verbally consented to billing insurance company: Yes Patient informed of any privacy concerns related to visit: Yes Minutes spent on Phone/Video with Pt.: 50 Coding Level of Care Code New Pt Tele Psy Diag Rahelbryanna ([id number]) Patient Type New Diagnoses Adjustment disorder, unspecified F43.20 Time Spent (min) 50
== END 2024-07-18 14:07 | disposition home or self-care (01) ==
LOC: HO.HBST 11:25
PROVIDERS: PCP Internal Medicine; Visit Provider Counselor Mental Health
DX: F43.20 Adjustment disorder, unspecified (principal)
CPT/HCPCS: 90791

== ENCOUNTER → 2024-07-18 11:25 | Outpatient (BNVA) | payer OTHER, SELFPAY | PROVIDERS: PCP Internal Medicine; Visit Provider Counselor Mental Health ==

== ENCOUNTER → 2024-07-19 10:45 | Day surgery (SDC) | payer OTHER, SELFPAY ==
[2024-07-15 08:46] VITALS: BMI 37.3
--- OUTSIDE RECORDS SUMMARY | 2024-07-19 11:01 | XMS_ITS | Patient Health Record ---
Demographics Address [address] [place] [address] Mobile Email Address Preferred Language en Marital Status Restoration Affiliation Unknown Race Ethnic Group or Author Organization [facility] Address [address] [place] [address] Care Team Providers Care Flute Teacher Name Role Phone NONE, NONE Primary Care Provider Unavaildarshan e Osman Ledbetter Jr Unavailable Marya Tejada MD Unavailable Unavailable ALLERGIES Allergen [...] Problem Diarrhea, unspecified type (R19.7) Active confirmed [id number] PLAN OF TREATMENT Pending Test Test Name Order Date STOOL WBC 05/27/2017 OVA & PARASITES (O&P) 05/27/2017 CULTURE, STOOL 05/27/2017 Future Test Test Name Order Date COLONOSCOPY 05/27/2017 Insurance Providers Payer Name Payer Address Payer Phone Subscriber Number Group Number Insured Name Patient Relationship to Insured Coverage Start Date Coverage End Date [employer] [address] [address] [place] [address] [id number] MINERVA JONES Self - patient is the insured MEDICAL (GENERAL) HISTORY Medical History History ICD Code Denies [place],DM,CVA,Lung disease,renal dise ase Surgical History Surgery Date(Month/Year) partial hysterectomy robotic oopherectomy
[2024-07-19 11:06] VITALS: BMI 36.7
--- NOTE | 2024-07-19 14:29 | MHC.SHP ---
Pre-Procedural Eval Section A - 24 Hr Update-Section A only Date of Service: 07/19/24 The patient is an INPATIENT: No The patient has been examined within 24 hours of the surgical procedure. The History & Physical has been completed within 30 days and I have reviewed it.: Yes Section B - Complete if H&P > 30 days Chief Complaint: Morbid (severe) obesity due to excess calories Relevant Family History (Specify if Yes): No Relevant Social History: None Present Medications: None Medical History: No relevant PMH History of Previous Operations: No relevant previous surgery Allergies: Allergies Allergy/AdvReac Type Severity Reaction Status Date / Time shellfish derived Allergy Severe Anaphylaxis Verified 07/19/24 11:05 gluten Allergy Intermediate Diarrhea Verified 07/19/24 11:05 lactose Allergy Intermediate Diarrhea Verified 07/19/24 11:05 evolocumab AdvReac Intermediate Abdominal Verified 07/19/24 11:05 [From Rep[facility]] Pain Review of Systems Sugical H&P ROS: Negative: Constitution, Cardiovascular, Respiratory, Neurological, Psychiatric, Hem-Onc, Allergic/Immunologic, Gastrointestinal, Genitourinary, Musculoskeletal, Integumentary, Endocrine and Eyes/Ears/Nose/Throat Exam Surgical H&P Exam: Normal: HEENT, Normal: Heart, Normal: Lungs, Normal: Extremities, Normal: Abdomen, Normal: Skin and Normal: Neurological Plan Diagnosis/Plan: Unchanged (EGD to assess the stomach's anatomy. Risks of bleeding and perforation were discussed with the patient and she is in agreement with the plan.) I have reviewed the history and physical and performed a pertinent physical examination on my patient. No changes have occurred unless specified. Time Spent With Patient Time: Total time managing care of this patient today ____ minutes.
--- NOTE | 2024-07-19 14:33 | P.BOP_ITS ---
Brief Operative Note Date of Service: 07/19/24 Pre-op diagnosis: Obesity Post-op diagnosis: same (& gastric polyps) Procedure: PROCEDURE DATE: 07/19/2024 PREOPERATIVE DIAGNOSIS: Obesity POSTOPERATIVE DIAGNOSIS: ?Same as above. 1) gastric polyps PROCEDURE: Guigvrba-[id number] with biopsies Surgeon: ?North Irby M.D.. Ph.D. Director Of Informatics: None ? Anesthesia: IV sedation Estimated blood loss: ?Minimal FINDINGS AND PROCEDURE: ? OPERATIVE INDICATIONS: ?The patient is a 59 year old female known to me who is interested in bariatric surgery. Based on this information I recommended an upper endoscopy to evaluate the stomach's anatomy. Risks and complications of the surgery were discussed with the patient in advance particularly the possibility of perforation or bleeding that may require surgical intervention. The patient understood the risks and was in agreement with the plan. ? PROCEDURE: After informed consent was obtained by the patient, the patient was ?transferred to the Operating Room and was placed in the supine position.? After successful induction of IV sedation, a mouth block was inserted and the patient was placed in the left lateral decubitus position. An upper endoscopy was performed next, the oropharynx and esophagus appeared within the normal limits. There was no hiatal hernia. The z-line was smooth. Two biopsies were obtained from the distal esophagus 2-3 cm proximal to the GE junction and two additional biopsies from the GE junction. The stomach was entered and it appeared to be of normal size. There was no gastritis. There were a few scattered benign-appearing gastric polyps in the body and fundus of the stomach. One of them was biopsied. There was no stricture or ulcer. A biopsy was obtained from the gastric fundus and the antrum. No significant bleeding was noted from any of the biopsy sites. Retroflexion of the scope revealed a normal GE junction. The scope was then advanced into the duodenum which appeared to be normal as well. At that point the duodenum ?and the stomach were decompressed and the scope was withdrawn from the patient's mouth. The patient extubated and was transferred in stable condition to the Recovery Room for further care. I was present and performed all steps of the procedure. There were no residents to assist with this case. North Irby M.D., Ph.D. Surgeon: Rory Irby MD Anesthesia: MAC Was an Director Of Informatics used for this Procedure?: No Estimated blood loss (mL): 0 IV fluids (mL): 400 Urine output (mL): 0 (No Elkins to record output) Pathology: other (1) antrum x1, 2) fundus x1, 3) GE junction x2, 4) distal esophagus x2) Condition: stable Disposition: PACU
[2024-07-19 14:35] VITALS: BP 103/61; PULSE 90; RESP 14; TEMP 36.6; O2SAT 95
--- NOTE | 2024-07-19 14:35 | P.CONAN_ITS ---
HPI - Anesthesia Eval Consult details Narrative: 59 yo female patient for EGD PMFSH Active Problems Active Problems: All Active Problems (Updated 07/05/24 @ 21:01 by Rory Irby MD) Vitamin B12 deficiency (Acute) Vitamin D deficiency (Acute) BMI 37.0-37.9, adult (Acute) Chronic pain syndrome (Acute) Postlaminectomy syndrome of cervical region (Acute) Neurogenic claudication (Acute) Right shoulder pain (Acute) Numbness of foot (Acute) Right knee pain (Acute) Sprain of lateral ligament of ankle joint (Acute) Daytime sleepiness (Acute) JAIRO (obstructive sleep apnea) (Acute) Heart palpitations (Acute) Back pain (Acute) Sleep apnea with use of continuous positive airway pressure (CPAP) (Acute) BMI 36.0-36.9,adult (Acute) Obesity (Acute) Chest pain (Acute) Left arm pain (Acute ~12/07/21) Abnormal EKG (Acute ~12/09/21) Hyperlipidemia (Acute) Family history of early CAD (Acute) Cervicalgia (Acute) Radiculopathy of cervical region (Acute) Degeneration, intervertebral disc, cervical (Acute) Spondylosis of cervical spine with radiculopathy (Acute) Irritable bowel syndrome (IBS) (Acute) Right inguinal pain (Acute) Leucocytosis (Chronic) Past Medical History Medical History History of ovarian cancer BMI 37.0-37.9, adult Back pain Sleep apnea with use of continuous positive airway pressure (CPAP) BMI 36.0-36.9,adult Obesity JAIRO (obstructive sleep apnea) History of kidney stones Hyperlipidemia Family history of early CAD Spondylosis of cervical spine with radiculopathy Degeneration, intervertebral disc, cervical Family History Family History Maternal Aunt Breast cancer Maternal Aunt Stomach cancer Maternal Aunt Ovarian cancer Maternal Uncle Throat cancer Father Alzheimer disease Diabetes Brother COPD (chronic obstructive pulmonary disease) Diabetes Son HTN (hypertension) Maternal Uncle Prostate cancer Sister CAD, multiple vessel Son No problems noted. Son No problems noted. Mother Breast cancer Family history of problems with anesthesia: No Surgical History Surgical History History of right oophorectomy History of hysterectomy, supracervical History of esophagogastroduodenoscopy (EGD) (~2019) History of colonoscopy (~2017) History of left oophorectomy History of cystoscopy (~2015) History of lithotripsy (~2017) History of cervical spinal surgery (~2018) History of bilateral inguinal hernia repair (~2018) History of Problems with Anesthesia: No Social History Social History Household Members: Significant Other Housing: House Are you a primary cattle care worker to a significant other at home: No Do you presently have visiting nurse or other home services: No Alcohol intake: never Patient Tobacco Use Status: Never used Tobacco Use of substances other than those prescribed or required for medical reasons: No Have you been hit, kicked, punched, or otherwise hurt by someone within the past year? If so, by whom?: No Are you DNR?: No Advance Directives: No Advance Directives Information Provided: Yes Recently lost weight without trying: No Nutrition Risks: No Nutritional Risk service: No Current occupational status: employed Meds Allergies Allergy/AdvReac Type Severity Reaction Status Date / Time shellfish derived Allergy Severe Anaphylaxis Verified 07/19/24 11:05 gluten Allergy Intermediate Diarrhea Verified 07/19/24 11:05 lactose Allergy Intermediate Diarrhea Verified 07/19/24 11:05 evolocumab AdvReac Intermediate Abdominal Verified 07/19/24 11:05 [From Yanet Bradford] Pain Active Medications: Current Medications Lactated Ringer's (Lr) 1,000 mls @ 80 mls/hr IVCONT .[id number] TYLER Home Medications ?Medication ?Instructions ?Recorded ?Confirmed ?Last Taken ?Type ibuprofen 600 mg tablet 600 mg PO Q8H PRN Pain 03/25/23 07/19/24 Unknown History Exam Height,Weight and Vital Signs: Height 5 ft 1 in Weight 87.997 kg Vital Signs Temp Pulse Resp BP Pulse Ox O2 Del Method 07/19/24 14:35 97.9 F 90 14 103/61 95 Room Air Airway Mallampati Class: III TM Dist: >3cm Neck ROM: Full Loose/Missing/Broken Teeth: Yes (Missing tooth back. Deniesbroken or loose teeth) Heart: RRR Lungs: CTAB Assessment and Plan Assessment Anesthesia Assessment: Anesthesia Plan Discussed and Chart Reviewed Final Anesthetic Review Family History of Problems with Anesthesia: No History of Problems with Anesthesia: No NPO: Yes ASA Class: III Final Preanesthetic Review: No Changes in Pt Med Stat, Meds/Allgs Chart Reviewed, Consent Obtained/Reviewed and Anes Risks/Benef Reviewed Patient Risk: Intermediate Procedure Risk: Low Assessment/Block/Sedation in SS: Assess/Block/Sedation-SS Anesthetic Plan Anesthetic Plan: TIVA Disposition: Standard PACU
[2024-07-19 15:02] VITALS: BP 102/48; PULSE 109; RESP 18; TEMP 36.1; O2SAT 92
[2024-07-19 15:17] VITALS: BP 121/70; PULSE 90; RESP 16; TEMP 36.1; O2SAT 95
== END | disposition home or self-care (01) ==
PROVIDERS: Visit Provider Surgery
PROC: 0DJ08ZZ Inspection of Upper Intestinal Tract, Via Natural or Artificial Opening Endoscopic (ICD-10-PCS; CPT 43235; principal; 2024-07-19 13:10)
DX: E66.01 Morbid (severe) obesity due to excess calories (principal); Z68.36 Body mass index [BMI] 36.0-36.9, adult; K31.7 Polyp of stomach and duodenum; Z98.890 Other specified postprocedural states; E53.8 Deficiency of other specified B group vitamins; E55.9 Vitamin D deficiency, unspecified; E78.5 Hyperlipidemia, unspecified; D72.828 Other elevated white blood cell count; K58.9 Irritable bowel syndrome, unspecified; Z85.43 Personal history of malignant neoplasm of ovary; G89.4 Chronic pain syndrome; Z87.442 Personal history of urinary calculi; M50.30 Other cervical disc degeneration, unspecified cervical region; M47.22 Other spondylosis with radiculopathy, cervical region; M96.1 Postlaminectomy syndrome, not elsewhere classified; G47.33 Obstructive sleep apnea (adult) (pediatric); Z79.1 Long term (current) use of non-steroidal anti-inflammatories (NSAID); Z79.899 Other long term (current) drug therapy; Z99.89 Dependence on other enabling machines and devices; Z91.018 Allergy to other foods; Z91.011 Allergy to milk products; Z88.8 Allergy status to other drugs, medicaments and biological substances
CPT/HCPCS: 43239; 88305; 88342; J1596; J2003; J2704; J3010

== ENCOUNTER → 2024-07-19 10:45 | Outpatient (BNV) | payer OTHER, SELFPAY | PROVIDERS: Visit Provider Surgery | DX: K31.7 Polyp of stomach and duodenum (principal) | CPT/HCPCS: 43239 ==

== ENCOUNTER 2024-07-29 08:24 | Outpatient (REF) | payer OTHER, SELFPAY ==
--- NOTE | ~2024-07-29 | US_ITS ---
EXAMINATION: US COMPLETE ABDOMEN WITH LIVER ELASTOGRAPHY CLINICAL INFORMATION: Obesity, unspecified. COMPARISON: No prior ultrasound. Correlation made with CT abdomen and pelvis 08/12/2021. Correlation also made with MRI of abdomen 08/12/2019. TECHNIQUE: Real-time imaging of the abdominal viscera. Noninvasive ultrasound liver fibrosis assessment is performed using Ela ElastPQ point quantification shear wave elastography (pSWE) with a C5-2 MHz transducer. Multiple elastography samples are obtained. FINDINGS: PANCREAS: The visualized pancreatic head and body are normal in appearance. The remainder of the pancreas is obscured from visualization by the overlying bowel gas. ABDOMINAL AORTA: No aortic aneurysm is seen. INFERIOR VENA CAVA: Visualized portions are normal. LIVER: The liver demonstrates mildly diffusely increased echogenicity suggesting steatosis. There is no suspicious focal lesion. Hepatic contour is smooth. The right lobe measures 13.2 cm in length. The left lobe measures 8.8 cm in length. Portal flow is hepatopedal. Shear wave liver elastography median stiffness is 1.73 m/s (reference: normal median stiffness is 1.3 m/s or less). IQR/median stiffness to assess sampling precision is 0.06 (reference: good quality data set is IQR/median stiffness of 0.15 or less). GALLBLADDER: Gallbladder is physiologically distended. No stones or sludge. There is adenomyomatosis of the gallbladder wall with ring down artifact. There is focal adenomyomatosis of the gallbladder fundus, stable in appearance when compared with 08/12/2021 CT exam. There is no pericholecystic fluid or significant wall thickening. COMMON BILE DUCT: Normal in caliber measuring 0.4 cm in diameter. RIGHT KIDNEY: No hydronephrosis. No focal parenchymal lesions. There is a lower pole calculus measuring 2 x 2 x 3 mm. The kidney measures 10.6 cm in maximum dimension. LEFT KIDNEY: No hydronephrosis. No renal calculi or focal parenchymal lesions. The kidney measures 10.0 cm in maximum dimension. SPLEEN: Unremarkable. The spleen measures 10.1 cm in maximum dimension. FREE FLUID: None seen. US/US abdomen comp w elastography IMPRESSION: 1. Echogenic liver suggestive of hepatic steatosis. Number exclude superimposed underlying hepatocellular disease. No focal abnormality. 2. Liver elastography: Measurements are suggestive of compensated advanced chroniic liver disease but need further test for confirmation. 3. Adenomyomatosis of the gallbladder. 4. Lower pole right renal calculus suspected measuring 2 x 2 x 3 mm. No hydronephrosis. REFERENCE: Society of Radiologists in Ultrasound Liver Stiffness Thresholds (2020): LIVER STIFFNESS THRESHOLDS: *Liver Stiffness equal or less than 1.3 m/s: High probability of being normal. *Liver Stiffness less than 1.7 m/s: In the absence of other known clinical signs, rules out compensated advanced chronic liver disease. *Liver Stiffness 1.7-2.1 m/s: Suggestive of compensated advanced chronic liver disease but need further test for confirmation. *Liver Stiffness over 2.1 m/s: Rules in compensated advanced chronic liver disease. *Liver Stiffness over 2.4 m/s: Suggestive of clinically significant portal hypertension. QUALITY OF DATA SET: *IQR/Median value equal or less than 0.15 implies a quality data set. *IQR/Median value over 0.15 implies a poor quality data set. SIGNIFICANT CHANGE FROM PRIOR EXAM: Significant change if liver stiffness measurement is 10% or greater from prior exam. OTHER CONSIDERATIONS: The stage of liver fibrosis may be overestimated in the setting of acute hepatitis, liver inflammation, elevated liver function tests, hepatic vascular congestion, obstructive cholestasis, non-fasting state, and infiltrative diseases such as amyloidosis and lymphoma. In some patients with NAFLD, the liver stiffness thresholds for compensated advanced chronic liver disease may be lower. In causes other than viral hepatitis and NAFLD, liver stiffness thresholds are not well established. Electronically signed by: Oscar Knight MD 08/01/2024 02:03 PM [facility] [place]
--- OUTSIDE RECORDS SUMMARY | 2024-07-29 08:31 | XMS_ITS | Patient Health Record ---
Demographics Address [address] [place] [address] Mobile Email Address Preferred Language en Marital Status Shinto Affiliation Unknown Race Ethnic Group or Author Organization [facility] Address [address] [place] [address] Care Team Providers Care Raisin Washer Name Role Phone NONE, NONE Primary Care [...] Problem Diarrhea, unspecified type (R19.7) Active confirmed [id number] PLAN OF TREATMENT Pending Test Test Name Order Date STOOL WBC 05/27/2017 OVA & PARASITES (O&P) 05/27/2017 CULTURE, STOOL 05/27/2017 Future Test Test Name Order Date COLONOSCOPY 05/27/2017 Insurance Providers Payer Name Payer Address Payer Phone Subscriber Number Group Number Insured Name Patient Relationship to Insured Coverage Start Date Coverage End Date [employer] [place] [address] [address] [place] [address] [id number] MINERVA JONES Self - patient is the insured MEDICAL (GENERAL) HISTORY Medical History History ICD Code Denies [place],DM,CVA,Lung disease,renal dise ase Surgical History Surgery Date(Month/Year) partial hysterectomy robotic oopherectomy
== END 2024-07-29 08:25 | disposition home or self-care (01) ==
LOC: HO.US 08:24
PROVIDERS: PCP Internal Medicine; Visit Provider Surgery
DX: E66.9 Obesity, unspecified (principal); Z68.37 Body mass index [BMI] 37.0-37.9, adult; E78.5 Hyperlipidemia, unspecified
CPT/HCPCS: 76700; 76981

== ENCOUNTER → 2024-07-29 08:26 | Outpatient (BNV) | payer OTHER, SELFPAY | PROVIDERS: PCP Internal Medicine; Visit Provider Radiology Diagnostic Radiology | DX: E66.9 Obesity, unspecified (principal) | CPT/HCPCS: 76700 ==

== ENCOUNTER 2024-09-07 12:57 | Outpatient (AMB) | payer OTHER, SELFPAY ==
--- OUTSIDE RECORDS SUMMARY | 2024-09-07 13:06 | XMS_ITS ---
Author Organization [facility] Address [address] [place] [address] Care Team Providers Care Dye Colorist Dyer Name Role Phone of [facility] Primary Care Provider Deisi selbyALIRIO Cortes Unavailable [phone] ALLERGIES Allergen (clinical drug ingredient) Drug/Non Drug Allergy documented on EMR Reaction Allergy Type Onset Date Status Shellfish (FN) Shellfish-derived Products anaphylaxis Drug Allergy Active REASON FOR VISIT Pt here for weight management consult. TORIE done. She wants to learn about her options for weight loss, no major concerns at this moment. Current weight is 195 MEDICATIONS Medication SIG (Take, Route, Frequency, Duration) Notes Start Date End Date Status Zepbound 2.5 MG/0.5ML Inject 2.5mg Subcu taneous weekly for 30 days 09/07/2024 Active Rosuvastatin Calcium 40 MG Oral for 90 Days Active PROBLEMS Problem Type ICD Code Onset Dates Problem Status W/U Status Risk SNOMED Code Notes Problem History of ovarian cancer (Z85.43) Active confirmed 905539253 Problem Obesity (BMI 30-39.9) (E66.9) Active confirmed 858685880 Problem BMI 36.0-36.9,adult (Z68.36) Active confirmed 726650668 Problem Prediabetes (R73.03) Active confirmed 970424176 Problem JAIRO (obstructive sleep apnea) (G47.33) Active confirmed 89215364 Problem Other hyperlipidemia (E78.49) Active confirmed 19698885 Problem Nutritional counseling (Z71.3) Active confirmed 548904122 VITAL SIGNS Heart Rate 99 /min 09/07/2024 Blood pressure systolic 112 mm Hg 09/07/19 25 Blood pressure diastolic 74 mm Hg 025 Weight 195 lbs 09/07/2024 BMI 36.84 kg/m2 09/07/2024 Height 61 in 09/07/2024 Oximetry 99 % 09/07/2024 Encounters Encounter Location Date Provider Diagnosis [address] [facility] [address] [place] [address] 09/07/2024 ALIRIO SANCHES Obesity (BMI 30-39.9 ) E66.9 ; BMI 36.0-36.9,adult Z68.36 ; Prediabetes R73.03 ; JAIRO (obstructive sleep apnea) G47.33 ; Other hyperlipidemia E78.49 and Nutritional counseling Z71.3 ASSESSMENTS Encounter Date Diagnosis Assessment Notes Treatment Notes Treatment Clinical Notes Section Notes 09/07/2024 Obesity (BMI 30-39.9) (ICD-10 - E66.9) Roxie is a 59-year-old female with a PMH of prediabetes (A1c 6.2%), JAIRO, HLD, history of ovarian cancer that presents for weight management consult. Patient was reassured and welcomed to the practice. Discussed [facility] holistic and medical approach to weight loss with emphasis on lifestyle modification. Patient is educated that a healthy lifestyle aids in combating obesity as well as reducing the risk of developing obesity-related medical complications including but not limited to diabetes and cardiovascular disease. Detailed education provided about taking steps to initiate sustainable lifestyle changes including incorporating regular physical activity, making healthy diet choices, and prioritizing mental health. Information provided about literature including The Food Rules by Art Mckeon and Eat Fat Get Lean by Dr Milad Saldana. Handouts including lifestyle checklist, protein content of food, low calorie snacks, and cholesterol information sheet provided. Diagnostic testing/ SECA scale offered. Discussed the importance of regular SECA scale measurements to ensure healthy weight loss. 09/07/2024: Weight: 195, BMI: 36.8. Reviewed SECA/goals for implementing sustainable lifestyle changes. Patient is encouraged to increase physical activity, goal 8-10k steps/day. Also discussed the importance of strength training with proper safety/body mechanics for maintenance of muscle mass/bone health. Patient encouraged to drink 60-80oz water/day. Reviewed nutrition, recommending food diary x 1 week to ensure adequate caloric/protein intake. Goal of 80-100g protein/day. Reviewed risks, benefits, and side effects of weight management medications including phentermine, Topamax, Contrave, metformin, and GLP-1 agonist.Patient interested in GLP-1 agonist Zepbound. Denies personal/family history of medullary thyroid cancer/MEN syndrome. Rx for Zepbound 2.5 mg SC weekly sent to pharmacy. Reviewed proper use, administration, side effects, expectations for PA process/insurance coverage. Patient would like to initiate treatment with compounded tirzepatide, 2.5 mg administered in office today. After consultation and careful review of medical history, this patient would benefit from Zepbound based off of the following criteria met: patient is over the age of 20 with a BMI of 36.8. Additional comorbidities include prediabetes, JAIRO, HLD. Patient has trialed other methods of weight loss including following with alternative weight management clinic ([facility]), working with central office worker, and improving diet and exercise without success over at least three months. This medication is prescribed by or in consultation with a board-certified obesity and weight management physician (Dr. Osvaldo Arthur or Dr. Jose Antoino Arthur). All questions answered to the patient's satisfaction. Patient demonstrates understanding of diagnosis and treatments discussed. Follow-up in 4 weeks, sooner should any questions/concerns arise. Case discussed with collaborating physician Bailee Arthur who has reviewed the assessment/plan. Chart, medications, labs, and vital signs reviewed. Dictation completed with the use of sliceX voice recognition software, prone to medical misidentifications and grammatical errors. All errors are unintentional. Although the practitioner does try to identify and correct errors, some may be present. Please do not hesitate to contact the practitioner for clarification. Total time was 60 minutes spent with >50% on coordination of care and patient education. 09/07/2024 BMI 36.0-36.9,adult (ICD-10 - Z68.36) Roxie is a 59-year-old female with a PMH of prediabetes (A1c 6.2%), JAIRO, HLD, history of ovarian cancer that presents for weight management consult. Patient was reassured and welcomed to the practice. Discussed [facility] holistic and medical approach to weight loss with emphasis on lifestyle modification. Patient is educated that a healthy lifestyle aids in combating obesity as well as reducing the risk of developing obesity-related medical complications including but not limited to diabetes and cardiovascular disease. Detailed education provided about taking steps to initiate sustainable lifestyle changes including incorporating regular physical activity, making healthy diet choices, and prioritizing mental health. Information provided about literature including The Food Rules by Art Mckeon and Eat Fat Get Lean by Dr Milad Saldana. Handouts including lifestyle checklist, protein content of food, low calorie snacks, and cholesterol information sheet provided. Diagnostic testing/ SECA scale offered. Discussed the importance of regular SECA scale measurements to ensure healthy weight loss. 09/07/2024: Weight: 195, BMI: 36.8. Reviewed SECA/goals for implementing sustainable lifestyle changes. Patient is encouraged to increase physical activity, goal 8-10k steps/day. Also discussed the importance of strength training with proper safety/body mechanics for maintenance of muscle mass/bone health. Patient encouraged to drink 60-80oz water/day. Reviewed nutrition, recommending food diary x 1 week to ensure adequate caloric/protein intake. Goal of 80-100g protein/day. Reviewed risks, benefits, and side effects of weight management medications including phentermine, Topamax, Contrave, metformin, and GLP-1 agonist.Patient interested in GLP-1 agonist Zepbound. Denies personal/family history of medullary thyroid cancer/MEN syndrome. Rx for Zepbound 2.5 mg SC weekly sent to pharmacy. Reviewed proper use, administration, side effects, expectations for PA process/insurance coverage. Patient would like to initiate treatment with compounded tirzepatide, 2.5 mg administered in office today. After consultation and careful review of medical history, this patient would benefit from Zepbound based off of the following criteria met: patient is over the age of 20 with a BMI of 36.8. Additional comorbidities include prediabetes, JAIRO, HLD. Patient has trialed other methods of weight loss including following with alternative weight management clinic ([facility]), working with central office worker, and improving diet and exercise without success over at least three months. This medication is prescribed by or in consultation with a board-certified obesity and weight management physician (Dr. Osvaldo Arthur or Dr. Jose Antonio Arthur). All questions answered to the patient's satisfaction. Patient demonstrates understanding of diagnosis and treatments discussed. Follow-up in 4 weeks, sooner should any questions/concerns arise. Case discussed with collaborating physician Bailee Arthur who has reviewed the assessment/plan. Chart, medications, labs, and vital signs reviewed. Dictation completed with the use of sliceX voice recognition software, prone to medical misidentifications and grammatical errors. All errors are unintentional. Although the practitioner does try to identify and correct errors, some may be present. Please do not hesitate to contact the practitioner for clarification. Total time was 60 minutes spent with >50% on coordination of care and patient education. 09/07/2024 Prediabetes (ICD-10 - R73.03) Roxie is a 59-year-old female with a PMH of prediabetes (A1c 6.2%), JAIRO, HLD, history of ovarian cancer that presents for weight management consult. Patient was reassured and welcomed to the practice. Discussed [facility] holistic and medical approach to weight loss with emphasis on lifestyle modification. Patient is educated that a healthy lifestyle aids in combating obesity as well as reducing the risk of developing obesity-related medical complications including but not limited to diabetes and cardiovascular disease. Detailed education provided about taking steps to initiate sustainable lifestyle changes including incorporating regular physical activity, making healthy diet choices, and prioritizing mental health. Information provided about literature including The Food Rules by Art Mckeon and Eat Fat Get Lean by Dr Milad Saldana. Handouts including lifestyle checklist, protein content of food, low calorie snacks, and cholesterol information sheet provided. Diagnostic testing/ SECA scale offered. Discussed the importance of regular SECA scale measurements to ensure healthy weight loss. 09/07/2024: Weight: 195, BMI: 36.8. Reviewed SECA/goals for implementing sustainable lifestyle changes. Patient is encouraged to increase physical activity, goal 8-10k steps/day. Also discussed the importance of strength training with proper safety/body mechanics for maintenance of muscle mass/bone health. Patient encouraged to drink 60-80oz water/day. Reviewed nutrition, recommending food diary x 1 week to ensure adequate caloric/protein intake. Goal of 80-100g protein/day. Reviewed risks, benefits, and side effects of weight management medications including phentermine, Topamax, Contrave, metformin, and GLP-1 agonist.Patient interested in GLP-1 agonist Zepbound. Denies personal/family history of medullary thyroid cancer/MEN syndrome. Rx for Zepbound 2.5 mg SC weekly sent to pharmacy. Reviewed proper use, administration, side effects, expectations for PA process/insurance coverage. Patient would like to initiate treatment with compounded tirzepatide, 2.5 mg administered in office today. After consultation and careful review of medical history, this patient would benefit from Zepbound based off of the following criteria met: patient is over the age of 20 with a BMI of 36.8. Additional comorbidities include prediabetes, JAIRO, HLD. Patient has trialed other methods of weight loss including following with alternative weight management clinic ([facility]), working with central office worker, and improving diet and exercise without success over at least three months. This medication is prescribed by or in consultation with a board-certified obesity and weight management physician (Dr. Osvaldo Arthur or Dr. Jose Antonio Arthur). All questions answered to the patient's satisfaction. Patient demonstrates understanding of diagnosis and treatments discussed. Follow-up in 4 weeks, sooner should any questions/concerns arise. Case discussed with collaborating physician Bailee Arthur who has reviewed the assessment/plan. Chart, medications, labs, and vital signs reviewed. Dictation completed with the use of sliceX voice recognition software, prone to medical misidentifications and grammatical errors. All errors are unintentional. Although the practitioner does try to identify and correct errors, some may be present. Please do not hesitate to contact the practitioner for clarification. Total time was 60 minutes spent with >50% on coordination of care and patient education. 09/07/2024 JAIRO (obstructive sleep apnea) (ICD-10 - G47.33) Roxie is a 59-year-old female with a PMH of prediabetes (A1c 6.2%), JAIRO, HLD, history of ovarian cancer that presents for weight management consult. Patient was reassured and welcomed to the practice. Discussed [facility] holistic and medical approach to weight loss with emphasis on lifestyle modification. Patient is educated that a healthy lifestyle aids in combating obesity as well as reducing the risk of developing obesity-related medical complications including but not limited to diabetes and cardiovascular disease. Detailed education provided about taking steps to initiate sustainable lifestyle changes including incorporating regular physical activity, making healthy diet choices, and prioritizing mental health. Information provided about literature including The Food Rules by Art Mckeon and Eat Fat Get Lean by Dr Milad Saldana. Handouts including lifestyle checklist, protein content of food, low calorie snacks, and cholesterol information sheet provided. Diagnostic testing/ SECA scale offered. Discussed the importance of regular SECA scale measurements to ensure healthy weight loss. 09/07/2024: Weight: 195, BMI: 36.8. Reviewed SECA/goals for implementing sustainable lifestyle changes. Patient is encouraged to increase physical activity, goal 8-10k steps/day. Also discussed the importance of strength training with proper safety/body mechanics for maintenance of muscle mass/bone health. Patient encouraged to drink 60-80oz water/day. Reviewed nutrition, recommending food diary x 1 week to ensure adequate caloric/protein intake. Goal of 80-100g protein/day. Reviewed risks, benefits, and side effects of weight management medications including phentermine, Topamax, Contrave, metformin, and GLP-1 agonist.Patient interested in GLP-1 agonist Zepbound. Denies personal/family history of medullary thyroid cancer/MEN syndrome. Rx for Zepbound 2.5 mg SC weekly sent to pharmacy. Reviewed proper use, administration, side effects, expectations for PA process/insurance coverage. Patient would like to initiate treatment with compounded tirzepatide, 2.5 mg administered in office today. After consultation and careful review of medical history, this patient would benefit from Zepbound based off of the following criteria met: patient is over the age of 20 with a BMI of 36.8. Additional comorbidities include prediabetes, JAIRO, HLD. Patient has trialed other methods of weight loss including following with alternative weight management clinic ([facility]), working with central office worker, and improving diet and exercise without success over at least three months. This medication is prescribed by or in consultation with a board-certified obesity and weight management physician (Dr. Osvaldo Arthur or Dr. Jose Antonio Arthur). All questions answered to the patient's satisfaction. Patient demonstrates understanding of diagnosis and treatments discussed. Follow-up in 4 weeks, sooner should any questions/concerns arise. Case discussed with collaborating physician Bailee Arthur who has reviewed the assessment/plan. Chart, medications, labs, and vital signs reviewed. Dictation completed with the use of sliceX voice recognition software, prone to medical misidentifications and grammatical errors. All errors are unintentional. Although the practitioner does try to identify and correct errors, some may be present. Please do not hesitate to contact the practitioner for clarification. Total time was 60 minutes spent with >50% on coordination of care and patient education. 09/07/2024 Other hyperlipidemia (ICD-10 - E78.49) Roxie is a 59-year-old female with a PMH of prediabetes (A1c 6.2%), JAIRO, HLD, history of ovarian cancer that presents for weight management consult. Patient was reassured and welcomed to the practice. Discussed [facility] holistic and medical approach to weight loss with emphasis on lifestyle modification. Patient is educated that a healthy lifestyle aids in combating obesity as well as reducing the risk of developing obesity-related medical complications including but not limited to diabetes and cardiovascular disease. Detailed education provided about taking steps to initiate sustainable lifestyle changes including incorporating regular physical activity, making healthy diet choices, and prioritizing mental health. Information provided about literature including The Food Rules by Art Mckeon and Eat Fat Get Lean by Dr Milad Saldana. Handouts including lifestyle checklist, protein content of food, low calorie snacks, and cholesterol information sheet provided. Diagnostic testing/ SECA scale offered. Discussed the importance of regular SECA scale measurements to ensure healthy weight loss. 09/07/2024: Weight: 195, BMI: 36.8. Reviewed SECA/goals for implementing sustainable lifestyle changes. Patient is encouraged to increase physical activity, goal 8-10k steps/day. Also discussed the importance of strength training with proper safety/body mechanics for maintenance of muscle mass/bone health. Patient encouraged to drink 60-80oz water/day. Reviewed nutrition, recommending food diary x 1 week to ensure adequate caloric/protein intake. Goal of 80-100g protein/day. Reviewed risks, benefits, and side effects of weight management medications including phentermine, Topamax, Contrave, metformin, and GLP-1 agonist.Patient interested in GLP-1 agonist Zepbound. Denies personal/family history of medullary thyroid cancer/MEN syndrome. Rx for Zepbound 2.5 mg SC weekly sent to pharmacy. Reviewed proper use, administration, side effects, expectations for PA process/insurance coverage. Patient would like to initiate treatment with compounded tirzepatide, 2.5 mg administered in office today. After consultation and careful review of medical history, this patient would benefit from Zepbound based off of the following criteria met: patient is over the age of 20 with a BMI of 36.8. Additional comorbidities include prediabetes, JAIRO, HLD. Patient has trialed other methods of weight loss including following with alternative weight management clinic ([facility]), working with central office worker, and improving diet and exercise without success over at least three months. This medication is prescribed by or in consultation with a board-certified obesity and weight management physician (Dr. Osvaldo Arthur or Dr. Jose Antonio Arthur). All questions answered to the patient's satisfaction. Patient demonstrates understanding of diagnosis and treatments discussed. Follow-up in 4 weeks, sooner should any questions/concerns arise. Case discussed with collaborating physician Bailee Arthur who has reviewed the assessment/plan. Chart, medications, labs, and vital signs reviewed. Dictation completed with the use of sliceX voice recognition software, prone to medical misidentifications and grammatical errors. All errors are unintentional. Although the practitioner does try to identify and correct errors, some may be present. Please do not hesitate to contact the practitioner for clarification. Total time was 60 minutes spent with >50% on coordination of care and patient education. 09/07/2024 Nutritional counseling (ICD-10 - Z71.3) Roxie is a 59-year-old female with a PMH of prediabetes (A1c 6.2%), JAIRO, HLD, history of ovarian cancer that presents for weight management consult. Patient was reassured and welcomed to the practice. Discussed [facility] holistic and medical approach to weight loss with emphasis on lifestyle modification. Patient is educated that a healthy lifestyle aids in combating obesity as well as reducing the risk of developing obesity-related medical complications including but not limited to diabetes and cardiovascular disease. Detailed education provided about taking steps to initiate sustainable lifestyle changes including incorporating regular physical activity, making healthy diet choices, and prioritizing mental health. Information provided about literature including The Food Rules by Art Mckeon and Eat Fat Get Lean by Dr Milad Saldana. Handouts including lifestyle checklist, protein content of food, low calorie snacks, and cholesterol information sheet provided. Diagnostic testing/ SECA scale offered. Discussed the importance of regular SECA scale measurements to ensure healthy weight loss. 09/07/2024: Weight: 195, BMI: 36.8. Reviewed SECA/goals for implementing sustainable lifestyle changes. Patient is encouraged to increase physical activity, goal 8-10k steps/day. Also discussed the importance of strength training with proper safety/body mechanics for maintenance of muscle mass/bone health. Patient encouraged to drink 60-80oz water/day. Reviewed nutrition, recommending food diary x 1 week to ensure adequate caloric/protein intake. Goal of 80-100g protein/day. Reviewed risks, benefits, and side effects of weight management medications including phentermine, Topamax, Contrave, metformin, and GLP-1 agonist.Patient interested in GLP-1 agonist Zepbound. Denies personal/family history of medullary thyroid cancer/MEN syndrome. Rx for Zepbound 2.5 mg SC weekly sent to pharmacy. Reviewed proper use, administration, side effects, expectations for PA process/insurance coverage. Patient would like to initiate treatment with compounded tirzepatide, 2.5 mg administered in office today. After consultation and careful review of medical history, this patient would benefit from Zepbound based off of the following criteria met: patient is over the age of 20 with a BMI of 36.8. Additional comorbidities include prediabetes, JAIRO, HLD. Patient has trialed other methods of weight loss including following with alternative weight management clinic ([facility]), working with central office worker, and improving diet and exercise without success over at least three months. This medication is prescribed by or in consultation with a board-certified obesity and weight management physician (Dr. Osvaldo Arthur or Dr. Jose Antonio Arthur). All questions answered to the patient's satisfaction. Patient demonstrates understanding of diagnosis and treatments discussed. Follow-up in 4 weeks, sooner should any questions/concerns arise. Case discussed with collaborating physician Bailee Arthur who has reviewed the assessment/plan. Chart, medications, labs, and vital signs reviewed. Dictation completed with the use of sliceX voice recognition software, prone to medical misidentifications and grammatical errors. All errors are unintentional. Although the practitioner does try to identify and correct errors, some may be present. Please do not hesitate to contact the practitioner for clarification. Total time was 60 minutes spent with >50% on coordination of care and patient education. PLAN OF TREATMENT Medication Medication Name Sig Start Date Stop Date Notes Zepbound 2.5 MG/0.5ML Inject 2.5mg Subcu taneous weekly for 30 days 09/07/2024 Next Appt Details Provider Name:DEBBIE VAUGHN, 09/14/2024 03:00:00 PM, [address], [address], [place], [address], Provider Name:DEBBIE BURNETTEAby, 09/21/2024 03:15:00 PM, [address], [address], [place], [address], Provider Name:DEBBIE BURNETTEAby, 09/28/2024 03:15:00 PM, [address], [address], [place], [phone], Provider Name:DEBBIE VAUGHN, 10/05/2024 03:15:00 PM, [address], [address], [place], [phone], Provider Name:ALIRIO Sol, 10/11/2024 11:30:00 AM, [address] [facility] [address], [place], [address], MEDICATIONS ADMINISTERED Medication Instructions Date of Administration Dosage Notes Tirzepatide 09/07/2024 2.5 mg Progress Notes * Micky JONESB: [birth year] (59 yo F)Acc No.[id number]:09/07/2024 Patient:??Roxie JONES Provider:??ALIRIO SANCHES PA-C :1965?Age:59 Y?Sex:Fe male Date:09/07/2024 Address:[address] [place], [place] [id number] Pcp:[facility] Subjective: * Chief Complaints: * ?1. Pt here for weight management consult. TORIE done. She wants to learn about her options for weight loss, no major concerns at this moment. Current weight is 195. * HPI: ?Constitutional:? Roxie is a 59-year-old female with a PMH of prediabetes (A1c 6.2%), JAIRO, HLD, history of ovarian cancer that presents for weight management consult. Has struggled with her weight since having the partial hysterectomy. Would like to optimize overall health. Has followed with [facility] program where she worked on lifestyle changes and worked with a central office worker - successfully lost 10lbs. Reviewed lifestyle. ?The patient starts the day with coffee. Breakfast is a protein shake with a protein bar. Lunch is typically a salad or a protein and veggie. Dinner is prepared at home and usually is a protein, veggie, an occasional carb/starch. Averages 32 ounces/day. Physically active at work and constantly climbing stairs. Additionally walks on the treadmill 30min daily. ?Established as primary care patient with Hanna. Last labs 07/21/24. 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 * ROS:?Constitutional: Denies fever, night sweats, excessive fatigue, or changes in sleep. ???CV: Denies chest pain or heart palpitations. ???Respiratory: Denies SOB, wheezing, or pleuritic pain. ???GI: Denies abdominal pain, n/v/d, constipation, blood in stools, pain associated with eating, indigestion, or difficulty/pain with swallowing. ???MSK: Denies back pain, joint deformity/pain, or muscle weakness. ???Integumentary: Denies skin changes. ???Endocrine: Denies polyuria, polyphagia, or polydipsia. No heat/cold intolerance or excessive thirst. * Medical History:??History of ovarian cancer. * Surgical History:??C3-C4 fus ion , partial hysterectomy . * Family History:??Father: Alz hiemers.??Mother: HTN, anxiety, T2DM, HLD.??Paternal uncle: Stomach cancer.??Paternal aunt: Breast cancer.??Siblings: Asthma, HLD, T2DM, HTN.??1 brother(s) , 1 sister(s) . 2 son(s) - healthy. .?? * Medications:??Taking Rosuvas tatin Calcium 40 MG Tablet Oral * Allergies:??Shellfish-derive d Products: anaphylaxis. Objective: * Vitals:??HR:99/min, BP:112/7 4mm Hg, Wt:195lbs, BMI:36.84Index, Ht: 61 in, Oxygen sat %:99%. * Physical Examination:?General: Age appropriate, well-appearing 59-year-old female in no acute distress, speaking in full sentences without respiratory compromise. Well groomed, well developed. Alert, interactive. ?Skin: Warm, dry and intact. No lesions/rashes/erythema. ?HEENT: Normocephalic/atraumatic. ?CV: RRR. ?Lungs: Clear to auscultation bilaterally. ?Neuro: CN II-XII grossly intact. Steady gait with non-assisted ambulation observed. ?Psych: Stable mood and affect. Assessment: * Assessment: 1.??Obesity (BMI 30-39.9) - E66.9 (Primary)??2.??BMI 36.0-36.9,adult - Z68.36??3.??Prediabetes - R73.03??4.??JAIRO (obstructive sleep apnea) - G47.33??5.??Other hyperlipidemia - E78.49??6.??Nutritional counseling - Z71.3?? Roxie is a 59-year-old fem miranda with a PMH of prediabetes (A1c 6.2%), JAIRO, HLD, history of ovarian cancer that presents for weight management consult. Patient was reassured and welcomed to the practice. Discussed [facility] holistic and medical approach to weight loss with emphasis on lifestyle modification. Patient is educated that a healthy lifestyle aids in combating obesity as well as reducing the risk of developing obesity-related medical complications including but not limited to diabetes and cardiovascular disease. Detailed education provided about taking steps to initiate sustainable lifestyle changes including incorporating regular physical activity, making healthy diet choices, and prioritizing mental health. Information provided about literature including The Food Rules by Art Mckeon and Eat Fat Get Lean by Dr Milad Saldana. Handouts including lifestyle checklist, protein content of food, low calorie snacks, and cholesterol information sheet provided. Diagnostic testing/ SECA scale offered. Discussed the importance of regular SECA scale measurements to ensure healthy weight loss. 09/07/2024: Weight: 195, BMI: 36.8. Reviewed SECA/goals for implementing sustainable lifestyle changes. Patient is encouraged to increase physical activity, goal 8- 10k steps/day. Also discussed the importance of strength training with proper safety/body mechanics for maintenance of muscle mass/bone health. Patient encouraged to drink 60-80oz water/day. Reviewed nutrition, recommending food diary x 1 week to ensure adequate caloric/protein intake. Goal of 80-100g protein/day. Reviewed risks, benefits, and side effects of weight management medications including phentermine, Topamax, Contrave, metformin, and GLP-1 agonist.Patient interested in GLP-1 agonist Zepbound. Denies personal/family history of medullary thyroid cancer/MEN syndrome. Rx for Zepbound 2.5 mg SC weekly sent to pharmacy. Reviewed proper use, administration, side effects, expectations for PA process/insurance coverage. Patient would like to initiate treatment with compounded tirzepatide, 2.5 mg administered in office today. After consultation and careful review of medical history, this patient would benefit from Zepbound based off of the following criteria met: patient is over the age of 18 with a BMI of 36.8. Additional comorbidities include prediabetes, JAIRO, HLD. Patient has trialed other methods of weight loss including following with alternative weight management clinic ([facility]), working with central office worker, and improving diet and exercise without success over at least three months. This medication is prescribed by or in consultation with a board-certified obesity and weight management physician (Dr. Osvaldo Arthur or Dr. Jose Antonio Arthur). All questions answered to the patient's satisfaction. Patient demonstrates understanding of diagnosis and treatments discussed. Follow-up in 4 weeks, sooner should any questions/concerns arise. Case discussed with collaborating physician Bailee Arthur who has reviewed the assessment/plan. Chart, medications, labs, and vital signs reviewed. Dictation completed with the use of sliceX voice recognition software, prone to medical misidentifications and grammatical errors. All errors are unintentional. Although the practitioner does try to identify and correct errors, some may be present. Please do not hesitate to contact the practitioner for clarification. Total time was 60 minutes spent with >50% on coordination of care and patient education. Plan: * Treatment: * Procedures:?6.2. ? * Therapeutic Injections:? Tirzepatide : 2.5 mg (Route: Subcutaneous) given by Tess Turner on subcutaneus * Procedure Codes:??G0447 FCE- FCE BEHAVRL CNSL OBESITY 15 MIN, Modifiers: 59 , 63330 GLYCATED HEMOGLOBIN TEST, Modifiers: QW * Images: Billing Information: * Visit Code:?? 91432 Office Visit, New Pt., Level 5. * Procedure Codes:?? G0447 FCE-FCE BEHAVRL CNSL OBESITY 15 MIN. Modifiers: 59 87229 GLYCATED HEMOGLOBIN TEST. Modifiers: QW * Sign off status: Completed true * Provider:??ALIRIO SANCHES PA-C Date:?? 09/07/2024 History and Physical Notes * Physical Examination Category Sub-Category Detail Notes Section Note s General: Age appropriate, well-appearing 59-year-old female in no acute distress, speaking in full sentences without respiratory compromise. Well groomed, well developed. Alert, interactive. Skin: Warm, dry and intact. No lesions/rashes/erythema. HEENT: Normocephalic/atraumatic. CV: RRR. Lungs: Clear to auscultation bilaterally. Neuro: CN II-XII grossly intact. Steady gait with non-assisted ambulation observed. Psych: Stable mood and affect.
--- NOTE | 2024-09-07 13:07 | A.OFFVIS_ITS ---
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 She is doing well with no materials engineering technician concerns. Started Zepbound today. Currently sexually active, partner has medical concerns. Denies any vaginal dryness or irritation. Attempting to eat a healthy diet with calcium and vitamin D and stays active with exercise. Last pap smear; 2022. History supracervical hysterectomy. Last mammogram; [facility] 04/2024-no copy availalbe, pt. reports all was normal. Colonoscopy is UTD. Family history of breast, ovarian or colon cancer. Pt. is BRCA negative. 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, intervertebral disc, cervical Surgical History (Updated 09/07/24 @ 13:52 by Spring Reid CNM) History of right oophorectomy History of hysterectomy, supracervical History of esophagogastroduodenoscopy (EGD) (~2019) History of colonoscopy (~2016) History of left oophorectomy History of cystoscopy (~2015) History of lithotripsy (~2016) History of cervical spinal surgery (~2018) History of bilateral inguinal hernia repair (~2018) Family History Maternal Aunt Breast cancer Maternal Aunt Stomach cancer Maternal Aunt Ovarian cancer Maternal Uncle Throat cancer Father Alzheimer disease Diabetes Brother COPD (chronic obstructive pulmonary disease) Diabetes Son HTN (hypertension) Maternal Uncle Prostate cancer Sister CAD, multiple vessel Son No problems noted. Son No problems noted. 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 Female Reproductive History Menstrual Age of Menarche: 15 Total pregnancies: 4 Full term: 2 Ab spontaneous: 1 Ectopics: 1 Date of last pap smear: 05/05/23 (negative hpv, negative pap smear) Date of Mammogram: 01/29/21 (bi rad 2) Review of Systems Const All systems reviewed & are unremarkable except as noted in HPI and below Reports as per HPI Eyes Reports no additional complaints ENT Reports no additional complaints Card Reports no additional complaints Resp Reports no additional complaints GI Reports as per HPI and Reports no additional complaints Reports as per HPI Musc Reports no additional complaints Skin/Breast Reports as per HPI Neuro Reports no additional complaints Psych Reports no additional complaints Endo Reports no additional complaints Rocky/Lymph Reports no additional complaints Aller/Immun Reports no additional complaints Physical Exam Const General: cooperative, healthy appearing, no acute distress, well developed and alert Orientation/consciousness: patient oriented x3 HEENT Head: Yes normal to inspection Eyes General: appearance normal, both eyes and all related structures Neck Neck: Yes normal visual inspection Thyroid: Thyroid normal Chest Chest palpation & inspection: normal inspection of the chest and other (no puckering, dimpling, peau de orange, retraction, discharge, masses) Breast/axilla inspection: normal inspection of the breasts Breast/axilla palpation: normal palpation of the breasts Resp Effort & Inspection: normal respiratory effort GI Inspection: Yes normal to inspection Palpation (GI): Soft to palpation Rectal Exam - Female: deferred General: Yes bladder normal to palpation External Female Exam: normal external appearance and normal appearance of the urethra Speculum Exam - Vagina: normal appearance of the vagina, normal palpation and normal vaginal discharge Speculum Exam - Cervix: normal appearance of the cervix and normal palpation Bimanual exam- vagina & uterus: normal bimanual exam, normal palpation, bladder normal to palpation, normal palpation and uterus absent Bimanual Exam- Adnexa, other: no masses Skin General skin exam: no rashes or lesions noted Rashes: no rashes Neuro General: patient oriented x3 Cognition (Neuro): normal cognition Extrem General: Yes normal to inspection Psych Attitude: cooperative Thought process: Normal thought process present Assessment & Plan Assessment & Plan (1) Encounter for well woman exam with routine gynecological exam: Code(s): Z01.419 - Encounter for gynecological examination (general) (routine) without abnormal findings Category: Medical Plan Discussed: Current recommendations for pap smears per ASCCP guidelines. Breast awareness, periodic self breast exams and yearly mammogram. Send copies of mammograms from [facility]. Maintain a healthy lifestyle, well balanced diet including Calcium 1,200 mg and Vitamin D 600 IU daily, and routine exercise. Contact the office with any postmenopausal bleeding. Patient verbalizes understanding and agrees to the plan of care. She was given opportunity to ask questions and all questions were answered to the best of my ability. RTO in 1 year for annual materials engineering technician exam. This note is constructed using voice recognition software. While every effort has been made to ensure accuracy, bridge gang worker errors may have been included. Coding Level of Care Code Est Pt Prev Care 40-64y(36895) Diagnoses Encounter for well woman exam with routine gynecological exam Z01.419
--- OUTSIDE RECORDS SUMMARY | 2024-09-07 13:07 | XMS_ITS | Clinical Summary ---
Author Organization [address] Address [address] [place] [phone] Phone Care Team Providers Care Professor Of Surgery Name Role Phone Keya Glass MD Primary Care Prov ider Allergies Active Allergy Reactions Criticality Noted Date Comments Lactose 08/29/2022 Other Reaction(s): Rash/Dermatitis Other 04/08/2013 Seasonal Medications loratadine (CLARITIN) 10 mg tablet Take 1 tablet (10 mg total) by mouth 1 (one) time each day. 11/17/19 24 Active rosuvastatin (CRESTOR) 40 mg tablet Take 1 tablet (40 mg total) by mouth 1 (one) time each day. 07/30/19 24 Active EPINEPHrine (EpiPen 2-Janes) 0.3 mg/0.3 mL injection INJECT THE CONTENTS OF 1 PEN INTRAMUSCULARLY EVERY 10 MINS NEEDED FOR ANAPHYLAXIS FOR 2 DOSES 07/28/19 23 Active ibuprofen (ADVIL,MOTRIN) 600 mg tablet Take 1 tablet (600 mg total) by mouth every 8 (eight) hours if needed for mild pain. 30 tablet 05/31/20 24 Active Active Problems Problem Noted Date Diagnosed Date Surgical menopause on hormone replacement therap y 04/21/2024 Prediabetes 04/21/2024 Assessment & Plan (08/18/2024 3:01 PM EST): Recent labs at [facility] on the range of prediabetes. Patient is recommended a low-carb diet and regular exercise. Orders: Hemoglobin A1c; Future Leukocytosis 02/06/2021 Cervical radiculitis 04/15/2018 Renal calculus 02/09/2017 Overview (04/21/2024): 11/18/2016 Renal US: small left renal calculus, otherwise unremarkable Hyperlipidemia 09/10/2015 Assessment & Plan (08/18/2024 3:01 PM EST): Currently on rosuvastatin 40 mg a day. Following with cardiology for injectables, but having problems with her insurance to get the medications approved. Will continue rosuvastatin for now. Midline thoracic back pain 09/03/2015 Chronic headache 06/07/2012 JAIRO on CPAP 08/12/2011 Encounters Date Type Department Care Team Description 08/18/2024 2:30 PM EST Office Visit Adult Medicine [address] [phone] MD Prediabetes (Primary Dx); Class 2 obesity due to excess calories without serious comorbidity with body mass index (BMI) of 37.0 to 37.9 in adult; Mixed hyperlipidemia 06/09/2024 Telephone Adult Medicine [address] [phone] MD from Last 3 Months Immunizations Name Administration Dates Next Due Influenza Quadravalent, MDCK , 0.5ml, preservative free (Flucelvax) 6mo and older 04/11/2018 Influenza Quadravalent, MDCK , 0.5ml, with preservative (Flucelvax) 6mo and older 03/24/2021,04/27/2019,04/12/2017 Influenza trivalent, with preservative (Fluzone; Afluria) 6mo and older 05/12/2016 Influenza, Unspecified 03/26/2024,2022,03/21/2022,2018,05/12/2016 [facility] SARS-CoV-2 COVID-19, mRNA, LNP-S, preservative free 04/23/2021,08/02/2020,07/11/2020 Tdap Tetanus diptheria acell ular pertussis (Boostrix; Adacel) 7yo and older 07/29/2022,05/09/2022,10/13/2011 Zoster recombinant (Shingrix ) 19yo and older 10/22/2022,06/06/2022 Surgical History Surgery Date Site/Laterality Comments OOPHORECTOMY 1991, 2016 Bilateral PROCEDURE: HISTORICAL OOPHORECTOMY; COMMENT: robotic laparoscopic - 2017 benign serous cystadenoma OTHER SURGICAL HISTORY 04/2011 PROCEDURE: HISTORICAL SUPRACERVICAL HYSTERECTOMY W/O BSO; COMMENT: one ovary remains ESOPHAGOGASTRODUODENOSCOPY 05/28/2012 PROCEDURE: FL ESOPHAGOGASTRODUODENOSCOPY TRANSORAL DIAGNOSTIC; COMMENT: normal BREAST LUMPECTOMY 2007 Left PROCEDURE: HISTORICAL BREAST LUMPECTOMY; COMMENT: neg HERNIA REPAIR 05/2018 PROCEDURE: HISTORICAL HERNIA REPAIR/ING; COMMENT: with a mesh OTHER SURGICAL HISTORY 2004 PROCEDURE: FL HYSTEROSCOPY ENDOMETRIAL ABLATION OTHER SURGICAL HISTORY 2003 Right PROCEDURE: LAPAROSCOPY PROCEDURE NEC; COMMENT: salpingectomy for hematosalpinx TUBAL LIGATION 1997 Bilateral PROCEDURE: HISTORICAL TUBAL LIGATION; COMMENT: laparoscopic tubal fulguration COLONOSCOPY 2016 PROCEDURE: HISTORICAL COLONOSCOPY; COMMENT: for chronic pelvic pain OOPHORECTOMY 1991 Left PROCEDURE: HISTORICAL OOPHORECTOMY; COMMENT: ovarian cancer, BRCA neg, had chemo NECK SURGERY 2020 PROCEDURE: HISTORICAL NECK SURGERY; COMMENT: Cervical discectomy and fusion HYSTERECTOMY PROCEDURE: HISTORICAL HYSTERECTOMY BREAST BIOPSY PROCEDURE: BX BREAST; PERC NEEDLE CORE W/IMAG GUID; COMMENT: lt breast bx-neg Medical History Medical History Date Comments Chronic headache 06/07/2012 DX:Chronic head ache JAIRO on CPAP 08/12/2011 DX:JAIRO on CPAP Hyperlipidemia 09/10/2015 DX:Hyperlipidemi a Renal calculus 02/09/2017 DX:Renal calculu s; COMMENT: 11/18/2016 Renal US: small left renal calculus, otherwise unremarkable Midline thoracic back pain 09/03/2015 DX:Mi dline thoracic back pain Ovarian cyst DX:Ovarian cyst; COMMENT: righ side removed, benign Ovarian cancer (CMS/HCC) 1991 DX:Ovar fabiana cancer (HCC); COMMENT: left ovary removed and chemo at [facility], BRCA negative, had genetic counseling Iron deficiency anemia secon lyly to inadequate dietary iron intake DX:Iron deficiency anem ia secondary to inadequate dietary iron intake Family History Medical History Relation Name Comments Breast cancer Aunt 1 m 40s Mother's siste r Ovarian cancer Aunt 2 Mother's Sist er Other: alzheimer's Aunt 3 Other: alzheimer's Father diabetes Breast cancer Mother 40s diabetes Colon cancer Uncle 1 maternal- a t 56 Prostate cancer Uncle 2 maternal unc le- Relation Name Status Comments Aunt 1 m 40s Alive Aunt 2 Aunt 3 Father Alive HEART DM , hype rlipid, BLIND, alzhimers Mother 40s Alive DM BREAST CANCE R Uncle 1 Uncle 2 Social History Tobacco Use Types Packs/Day Years Used Date Smoking Tobacco: Never Smokeless Tobacco: Never Tobacco Cessation:Counseling Given: Not Answered Alcohol Use Standard Drinks/Week Comments No 0 (1 standard drink = 0.6 oz pur e alcohol) Housing Instability Answer Date Recorde d Are you worried that in the next 2 months you may not have stable housing? No 05/31/2024 Food Access & Nutrition Answer Date Rec orded Do you have access to a vari ety of food including fruits and vegetables? Yes 05/31/2024 Access to Healthcare Answer Date Record ed Within the last 3 months, ho w many times did you visit the emergency department for your medical care? 0 05/31/2024 Health Literacy Answer Date Recorded How often do you need to hav e someone help you when you read instructions, pamphlets, or other written material from your doctor or pharmacy? Never 05/31/2024 Caregiver: How often do you need to have someone help you when you read instructions, pamphlets, or other written material from your doctor or pharmacy? Not on file 05/31/2024 Financial Risk Answer Date Recorded How hard is it for you to pa y for the very basics like food, housing, medical care, and air conditioning / heating? Not very hard 05/31/2024 Transportation Answer Date Recorded Has the lack of transportati on kept you from meetings, work, or from getting things needed for daily living? No Has the lack of transportati on kept you from medical appointments or from getting medications? No 05/31/2024 Social Isolation Answer Date Recorded How often do you feel lonely or isolated from th ose around you? Rarely 05/31/2024 Food Risk Answer Date Recorded Within the past 12 months we worried whether our food would run out before we got money to buy more. Never true 05/31/2024 Within the past 12 months th e food we bought just didn't last and we didn't have money to get more. Never true 05/31/2024 Dependent Care Answer Date Recorded Do you need help finding or paying for care for your loved ones. For example, child care centre manager or elderly care for an older adult? No 05/31/2024 Education Answer Date Recorded Do you think completing more education or training, like finishing a GED, going to college, or learning a trade, would be helpful for you? No 05/31/2024 Employment and Income Answer Date Recor ded During the last four weeks, have you been actively looking for work? No 05/31/2024 Living Situation Answer Date Recorded What is your living situation? 1 07/31/2023 Comments No Sex and Gender Information Value Date Recorded Sex Assigned at Not on file Legal Sex Female 5:44 AM EST Gender Identity Female 05/31/2024 8:38 AM EST Sexual Orientation Not on file Obstetrics History Last Filed Vital Signs Vital Sign Reading Time Taken Comments Blood Pressure 112/70 08/18/2024 2:13 PM EST Pulse 92 08/18/2024 2:13 PM EST Temperature 36.6 ??C (97.9 ??F) 08/18/2024 2:13 PM ES T Respiratory Rate 16 08/18/2024 2:13 PM EST Oxygen Saturation - - Inhaled Oxygen Concentration - - Weight 88.8 kg (195 lb 12.8 oz) 08/18/2024 2:13 PM EST Height 154.9 cm (5' 1 ) 05/31/2024 1:59 PM EST Body Mass Index 37 05/31/2024 1:59 PM EST Plan of Treatment Upcoming Encounters Date Type Department Care Team (Late st Contact Info) Description 02/25/2025 1:00 PM EDT Appointment Radiology Department - [address] [phone] 04/11/2025 1:30 PM EDT Consult Bariatric Surgery - [facility] [address] [phone] Carmen Bailey MD [address] [place] [phone] 06/01/2025 3:00 PM EST Office Visit Adult Medicine [address] [phone] Keya Glass MD [address] [place] [phone] Health Maintenance Due Date Last Done Comments Cervical Cancer Screening: Pap Smear 08/20/2021 08/20/2018, 08/20/2018, 08/20/2018 HIV Screening 06/28/2022 Depression Screening 05/31/2025 05/31/2024 Social Influencers of Health Screening 05/31/2025 05/31/2024 Breast Cancer Screening 02/19/2026 02/20/20 24, 02/20/2024, 01/17/2023, Additional history exists Colorectal Cancer Screening: Colonoscopy 06/03/2027 06/03/2017 Cholesterol Screening (Lipid Panel) 06/16/2027 06/16/2022 DTaP,Tdap,and Td Vaccines (4 - Td or Tdap) 07/29/2032 07/29/2022, 05/09/2022, 10/13/2011 Hepatitis C Screening Completed 09/23/2016 Zoster Vaccines Completed 10/22/2022, 07/20, 06/06/2022 Pneumococcal Vaccine: 50+ Years Completed 02/28/2024 Pneumococcal Vaccine: Pediatrics (0 to 5 Years) and At-Risk Patients (6 to 64 Years) Aged Out 02/28/2024 No longer eligible based on patient's age to complete this topic COVID-19 Vaccine Completed 03/26/2024, 10/2022, 05/23/2022, Additional history exists Influenza Vaccine Completed 03/26/2024, , 03/21/2022, Additional history exists Hepatitis B Vaccines Completed 03/31/2024, 02/28/20 24 HIB Vaccines Aged Out No longer eligi ble based on patient's age to complete this topic HPV Vaccines Aged Out No longer eligi ble based on patient's age to complete this topic Hepatitis A Vaccines Aged Out No long er eligible based on patient's age to complete this topic IPV Vaccines Aged Out No longer eligi ble based on patient's age to complete this topic MMR Vaccines Aged Out No longer eligi ble based on patient's age to complete this topic Meningococcal ACWY Vaccine Aged Out N o longer eligible based on patient's age to complete this topic Meningococcal B Vacine Aged Out No lo nger eligible based on patient's age to complete this topic RSV Immunization Patients Under 20 months Aged Out No longer eligible based on patient's age to complete this topic Varicella Vaccines Aged Out No longer eligible based on patient's age to complete this topic Procedures Procedure Name Priority Date/Time Associated Diagnosis Comments SCREENING MAMMOGRAPHY BI 2-VIEW BREAST INC CAD Routine 02/20/2024 12:23 PM EDT Encounter for screening mammogram for malignant neoplasm of breast LIPID PANEL Routine 06/16/2022 PAP SMEAR Routine 08/20/2018 COLONOSCOPY Routine 06/03/2017 HEPATITIS C SCREENING Routine 09/23/2016 from Last 3 Months or Most Recently Relevant to Health Maintenance Results * SCREENING MAMMOGRAPHY BI 2-VIEW BREAST INC CAD (02/20/2024 12:23 PM EDT) Anatomical Region Laterality Modality Radiographic Sonia ging 01/17/2023 9:28 AM EDT Narrative 02/20/2024 3:16 PM EDT This is a summary report. The complete report is available in the patient's medical record. If you cannot access the medical record, please contact the sending organization for a detailed fax or copy. Study: SCREENING MAMMOGRAPHY BI 2-VIEW BREAST INC CAD Technique: Bilateral full-field digital screening mammography is obtained and read in conjunction with computer aided detection. ??Tomosynthesis as well as 2D C-View imaging were obtained. Comparison: Comparison made to multiple priors, most recent January 17, 2023, and most remote February 21, 2015. Breast composition: There are scattered areas of fibroglandular density. Right breast: No suspicious masses, suspicious calcifications or other abnormalities are seen. Left breast: History of previous excisional biopsy. ??No suspicious masses, suspicious calcifications or other abnormalities are seen. IMPRESSION: Impression: Bilateral breasts: Benign, no specific mammographic evidence of malignancy. ??Normal interval follow-up is recommended in 12 months. BI-RADS: Category 2: Benign Procedure Note Rohan Boyd MD - 05/04/2024 This is a summary report. The complete report is available in thepatient's medical record. If you cannot access the medical record, pleasecontact the sending organization for a detailed fax or copy. Study: SCREENING MAMMOGRAPHY BI 2-VIEW BREAST INC CAD Technique: Bilateral full-field digital screening mammography is obtainedand read in conjunction with computer aided detection. Tomosynthesis aswell as 2D C-View imaging were obtained. Comparison: Comparison made to multiple priors, most recent January 17, 2023,and most remote February 21, 2015. Breast composition: There are scattered areas of fibroglandular density. Right breast: No suspicious masses, suspicious calcifications or otherabnormalities are seen. Left breast: History of previous excisional biopsy. No suspicious masses,suspicious calcifications or other abnormalities are seen. IMPRESSION: Impression: Bilateral breasts: Benign, no specific mammographic evidence ofmalignancy. Normal interval follow-up is recommended in 12 months. BI-RADS: Category 2: Benign Shelly WINTERS IMG XR PROCEDURES Final Result * (ABNORMAL) Lipid panel (06/16/2022) Triglycerides 177(A) <=150 mg/dL Cholesterol 185 <=200 mg/dL HDL 59 >=40 mg/dL LDL Cholesterol 91 <=100 mg/dL Blood Venous blood specimen / Unknown Historical Provider LAB BLOOD ORDERABLES Karla rucker Result * Pap smear (08/20/2018) 08/20/2018 Narrative HISTORICAL TESTING LAB RESULTING AGENCY - 08/25/2018 2:31 PM EST [id number] THINPREP PAP, IMAGED: NEGATIVE FOR SQUAMOUS INTRAEPITHELIAL LESION AND MALIGNANCY . VIDAL MITCHELL , PITA(ASCP) (CASE ELECTRONICALLY SIGNED 08 25 2018) RESULT OF APTIMA HIGH RISK HPV ASSAY: HIGH RISK HPV: ??NEGATIVE (SEROTYPES 16,18,31,33,35,39,45,51,52,56,58,59,66,68) COMPLETED ON 2018-08-24 ADEQUACY: SATISFACTORY ENDOCERVICAL/TRANSFORMATION ZONE COMPONENT PRESENT. SOURCE: THINPREP PAP HPV ANY DX: ??REFLEX 16 AND 18, CERVICAL, IMAGED CLINICAL INFORMATION: HPV ANY DIAGNOSIS. Z12.4, Z01.419, PAP HX: POSITIVE ASCUS 09/2016 HPV NEG Nikki HERMOSILLO LAB CYTOLOGY ORDERABLES Final R esult HISTORICAL TESTING LAB RESULTING AGENCY * Colonoscopy (06/03/2017) Colonoscopy no interpretation , abstracted Anatomical Region Laterality Modality Other Historical Provider HEALTH MAINTENANCE Final Result * Hepatitis C Screening (09/23/2016) Hepatitis C Screening abstracted Historical Provider HEALTH MAINTENANCE Final Result from Last 3 Months or Most Recently Relevant to Health Maintenance Insurance [employer] [facility] [place] [phone] Care Teams Professor Of Surgery Relationship Specialty Start Date End Date Keya Glass MD [address] [place] [id number] PCP - General Internal Medicine 08/15/24
--- OUTSIDE RECORDS SUMMARY | 2024-09-07 13:07 | XMS_ITS | Patient Health Record ---
Author Organization [facility] Address [address] [place] [address] Care Team Providers Care Motor Mechanic Name Role Phone of [facility] Primary Care Provider Deisi hightower VERÓNICA ALIRIO Unavailable [phone] ALLERGIES Allergen (clinical drug ingredient) Drug/Non Drug Allergy documented on EMR Reaction Allergy Type Onset Date Status Shellfish (FN) Shellfish-derived Products anaphylaxis Drug Allergy Active REASON FOR REFERRAL No Information MEDICATIONS Medication SIG (Take, Route, Frequency, Duration) Notes Start Date End Date Status Zepbound 2.5 MG/0.5ML Inject 2.5mg Subcu taneous weekly for 30 days 09/07/2024 Active Rosuvastatin Calcium 40 MG Oral for 90 Days Active PROBLEMS Problem Type ICD Code Onset Dates Problem Status W/U Status Risk SNOMED Code Notes Problem Prediabetes (R73.03) Active confirmed 075637037 Problem Other hyperlipidemia (E78.49) Active confirmed 20046858 Problem JAIRO (obstructive sleep apnea) (G47.33) Active confirmed 95703547 Problem Obesity (BMI 30-39.9) (E66.9) Active confirmed 692006379 Problem BMI 36.0-36.9,adult (Z68.36) Active confirmed 078251021 Problem History of ovarian cancer (Z85.43) Active confirmed 502098511 Problem Nutritional counseling (Z71.3) Active confirmed 616057899 VITAL SIGNS Heart Rate 99 /min 09/07/2024 Oximetry 99 % 09/07/2024 Blood pressure diastolic 74 mm Hg 09/07/2024 Height 61 in 09/07/2024 Blood pressure systolic 112 mm Hg 09/07/2024 Weight 195 lbs 09/07/2024 BMI 36.84 kg/m2 09/07/2024 Encounters Encounter Location Date Provider Diagnosis [address] [facility] [address] [place] [address] 09/07/2024 ALIRIO SANCHES Obesity (BMI 30-39.9 ) E66.9 ; BMI 36.0-36.9,adult Z68.36 ; Prediabetes R73.03 ; JAIRO (obstructive sleep apnea) G47.33 ; Other hyperlipidemia E78.49 and Nutritional counseling Z71.3 [facility] [address] [facility] [address] [place] [address] 09/07/2024 ALIRIO SANCHES ASSESSMENTS Encounter Date Diagnosis Assessment Notes Treatment [...] including following with alternative weight management clinic ([facility]), working with deckhand tuna boat, and improving diet and exercise without success [...] reviewed. Dictation completed with the use of [employer] voice recognition software, prone to medical misidentifications [...] including following with alternative weight management clinic ([facility]), working with deckhand tuna boat, and improving diet and exercise without success [...] reviewed. Dictation completed with the use of [employer] voice recognition software, prone to medical misidentifications [...] including following with alternative weight management clinic ([facility]), working with deckhand tuna boat, and improving diet and exercise without success [...] reviewed. Dictation completed with the use of [employer] voice recognition software, prone to medical misidentifications [...] including following with alternative weight management clinic ([facility]), working with deckhand tuna boat, and improving diet and exercise without success [...] reviewed. Dictation completed with the use of [employer] voice recognition software, prone to medical misidentifications [...] including following with alternative weight management clinic ([facility]), working with deckhand tuna boat, and improving diet and exercise without success [...] reviewed. Dictation completed with the use of [employer] voice recognition software, prone to medical misidentifications [...] including following with alternative weight management clinic ([facility]), working with deckhand tuna boat, and improving diet and exercise without success [...] reviewed. Dictation completed with the use of [employer] voice recognition software, prone to medical misidentifications and grammatical errors. All errors are unintentional. Although the practitioner does try to identify and correct errors, some may be present. Please do not hesitate to contact the practitioner for clarification. Total time was 60 minutes spent with >50% on coordination of care and patient education. PLAN OF TREATMENT Next Appt Details Provider Name:DEBBIE VAUGHN, 09/14/2024 03:00:00 PM, [address], [address], [place], [address], Provider Name:DEBBIE VAUGHN, 09/21/2024 03:15:00 PM, [address], [address], [place], [address], Provider Name:DEBBIESHELLEY VAUGHN, 09/28/2024 03:15:00 PM, [address], [address], [place], [address], Provider Name:DEBBIE VAUGHN, 10/05/2024 03:15:00 PM, [address], [address], [place], [address], Provider Name:ALIRIO Sol, 10/11/2024 11:30:00 AM, [address], [address], [place], [address], Insurance Providers Payer Name Payer Address Payer Phone Subscriber Number Group Number Insured Name Patient Relationship to Insured Coverage Start Date Coverage End Date [place] [address] [address] [place] [address] [id number] Roxie Alfaro Self - patient is the insured MEDICATIONS ADMINISTERED Medication Instructions Date of Administration Dosage Notes Tirzepatide 09/07/2024 2.5 mg MEDICAL (GENERAL) HISTORY Medical History History ICD Code History of ovarian cancer Z85.43 Surgical History Surgery Date(Month/Year) C3-C4 fusion partial hysterectomy
--- OUTSIDE RECORDS SUMMARY | 2024-09-07 13:07 | XMS_ITS | Encounter Summary ---
Author Organization [employer] [facility] Address [address] [place] [address] Care Team Providers Care Sql Programmer Name Role Phone Keya Jay MD Primary Care Prov ider Montrell Lopez MD, PHD Unavailable Unava Calvin Garcia PA-C Unavailable [phone] Encounter Details Date Type Department Care Team Description 06/20/2022 Orders Only Adult Medicine [address] [address] Keya Jay MD [address] [place] [address] [id number] Mixed hyperlipidemia Social History Tobacco Use Types Packs/Day Years Used Date Smoking Tobacco: Never Smokeless Tobacco: Never Alcohol Use Standard Drinks/Week Comments No 0 (1 standard drink = 0.6 oz pur e alcohol) Sex Assigned at Date Recorded Female 11/03/2021 6:40 PM E DT Job Start Date Occupation Industry Not on file Not on file Not on file documented as of this encounter Plan of Treatment Not on file documented as of this encounter Procedures Procedure Name Priority Date/Time Associated Diagnosis Comments CHG BLOOD COUNT COMPLETE AUTO&AUTO DIFRNTL WBC Routine 06/16/2022 Mixed hyperlipidemia CHG LIPID PANEL Routine 06/16/2022 Mixed hyperlipidemia CHG COMPREHENSIVE METABOLIC PANEL Routine 022 Mixed hyperlipidemia documented in this encounter Results * CBC (AUTO DIFF PLATELET) (06/16/2022) 06/16/2022 Keya Munoz MD LAB Performing Organization Address City/[facility] [address]/ZIP Co de Phone Number [facility] * COMPREHENSIVE METABOLIC PANEL (06/16/2022) 06/16/2022 Keya Munoz MD LAB [facility] * LIPID PROFILE (06/16/2022) 06/16/2022 Keya Munoz MD LAB Performing Organization Address [facility] [address]/[facility] Co de Phone Number [facility] documented in this encounter Visit Diagnoses Diagnosis Mixed hyperlipidemia documented in this encounter Care Teams Sql Programmer Relationship Specialty Start Date End Date Keya Jay MD [address] [place] [address] PCP - General Internal Medicine 12/24/21 Montrell Lopez MD, PHD [address] [place] [address] Surgeon Neurosurgery 02/06/22 Calvin Lucero PA-C [address] [place] [address] Specialist Neurosurgery 02/06/22 documented as of this encounter
--- OUTSIDE RECORDS SUMMARY | 2024-09-07 13:07 | XMS_ITS | Encounter Summary ---
Author Organization [employer] [facility] Address [address] [place] [address] Care Team Providers Care Accounts Payable Supervisor Name Role Phone Luna Andrew MD Primary Care Provider Keya Brito MD Primary Care Prov ider Montrell Lopez MD, PHD Unavailable Unava Calvin Garcia PA-C Unavailable [phone] Encounter Details Date Type Department Care Team Description 06/13/2020 Bilingual Spanish Inbound Sales Report Medical Records [address] [place] [address] Bhupendra Chauhan Social History Tobacco Use Types Packs/Day Years Used Date Smoking Tobacco: Never Smokeless Tobacco: Never Alcohol Use Standard Drinks/Week Comments No 0 (1 standard drink = 0.6 oz pur e alcohol) Sex Assigned at Date Recorded Female 11/03/2021 6:40 PM E DT Job Start Date Occupation Industry Not on file Not on file Not on file COVID-19 Exposure Response Date Recorded In the last month, have you been in contact with someone who was confirmed or suspected to have Coronavirus / COVID-19? No / Unsure 05/29/2020 10:10 AM EST documented as of this encounter Plan of Treatment Not on file documented as of this encounter Visit Diagnoses Not on filedocumented in this encounter Care Teams Accounts Payable Supervisor Relationship Specialty Start Date End Date Luna Andrew MD PCP - General Internal Medicine 08/11/11 12/23/21 Keya Jay MD [address] [place] [address] [id number] PCP - General Internal Medicine 12/24/21 Montrell Lopez MD, PHD [address] [place] [address] Surgeon Neurosurgery 02/06/22 Calvin Lucero PA-C [address] [place] [address] Specialist Neurosurgery 02/06/22 documented as of this encounter
--- OUTSIDE RECORDS SUMMARY | 2024-09-07 13:07 | XMS_ITS | Encounter Summary ---
Author Organization [facility] Address [address] [place] [address] Care Team Providers Care Electrical Mechanic Name Role Phone Keya Jay MD Primary Care Prov ider Montrell Lopez MD, PHD Unavailable Unava Calvin Garcia PA-C Unavailable [phone] Encounter Details Date Type Department Care Team Description 12/22/2022 Valve Steamer Report Medical Records [address] [place] [address] Xander Rogers DO Social History Tobacco Use Types Packs/Day Years [...] Exposure Response Date Recorded In the last 10 days, have kristi ruiz been in contact with someone who was confirmed or suspected to have Coronavirus/COVID-19? No / Unsure 11/27/2022 7:58 AM EDT documented as of this encounter Plan of Treatment Not on file documented as of this encounter Visit Diagnoses Not on filedocumented in this encounter Care Teams Electrical Mechanic Relationship Specialty Start Date End Date Keya Jay MD [address] [place] [address] PCP - General Internal Medicine 12/24/21 Montrell Lopez MD, PHD [address] [place] [address] Surgeon Neurosurgery 02/06/22 Calvin Lucero PA-C [address] [facility] [address] [place] [address] Specialist Neurosurgery 02/06/22 documented as of this encounter
--- OUTSIDE RECORDS SUMMARY | 2024-09-07 13:07 | XMS_ITS ---
Author Organization [facility] Address [address] [place] [address] Care Team Providers Care Investigative Assistant Name Role Phone of [facility] Primary Care Provider ALIRIO Baca Unavailable [phone] REASON FOR VISIT PA-Zepbound Encounters Encounter Location Date Provider Diagnosis [address] [place] [address] 09/07/2024 ALIRIO SANCHES PLAN OF TREATMENT Next Appt Details Provider Name:DEBBIE VAUGHN, 09/14/2024 03:00:00 PM, [address], [address], [place], [address], Provider Name:DEBBIE VAUGHN, 09/21/2024 03:15:00 PM, [address], [address], [place], [address], Provider Name:DEBBIE VAUGHN, 09/28/2024 03:15:00 PM, [address], [address], [place], [address], Provider Name:DEBBIE VAUGHN, 10/05/2024 03:15:00 PM, [address], [address], [place], [address], Provider Name:ALIROI Sol, 10/11/2024 11:30:00 AM, [address], [address], [place], [address], Progress Notes * Svetlana JONES: [birth year] (59 yo F)Acc No.[id number]:09/07/2024 Patient:??Roxie JONES :1965?Age:59 Y?Sex:Fe male Address:[address] [place] [address] * * Date:??
--- OUTSIDE RECORDS SUMMARY | 2024-09-07 13:07 | XMS_ITS | Encounter Summary ---
Author Organization [employer] [facility] Address [address] [place] [address] Care Team Providers Care Artificial Flower Maker Name Role Phone Keya Jay MD Primary Care Prov ider Montrell Lopez MD, PHD Unavailable Unava ilable Calvin Lucero PA-C Unavailable [phone] Encounter Details Date Type Department Care Team Description 11/03/2022 Plaster Block Layer Report Medical Records [address] [place] [address] John Russo PA-C Social History Tobacco Use Types Packs/Day Years [...] on filedocumented in this encounter Care Teams Artificial Flower Maker Relationship Specialty Start Date End Date Keya Jay MD [address] [place] [address] PCP - General Internal Medicine 12/24/21 Montrell Lopez MD, PHD [address] [place] [address] Surgeon Neurosurgery 02/06/22 Calvin Lucero PA-C [address] [place] [address] [place] [address] Specialist Neurosurgery 02/06/22 documented as of this encounter
--- OUTSIDE RECORDS SUMMARY | 2024-09-07 13:07 | XMS_ITS | Encounter Summary ---
Author Organization [employer] [facility] Address [address] [place] [address] Care Team Providers Care Lime Plant Operator Name Role Phone Keya Jay MD Primary Care Prov ider Montrell Lopez MD, PHD Unavailable Unava Calvin Garcia PA-C Unavailable [phone] Encounter Details Date Type Department Care Team Description 12/04/2022 Rubber Compounder Mixer Report Medical Records [address] [place] [address] Xander Rogers DO Social History Tobacco Use [...] on filedocumented in this encounter Care Teams Lime Plant Operator Relationship Specialty Start Date End Date Keya Jay MD [address] [place] [address] PCP - General Internal Medicine 12/24/21 Montrell Lopez MD, PHD [address] [place] [address] Surgeon Neurosurgery 02/06/22 Calvin Lucero PA-C [address] [facility] [place] [facility] [address] [place] [address] Specialist Neurosurgery 02/06/22 documented as of this encounter
--- OUTSIDE RECORDS SUMMARY | 2024-09-07 13:07 | XMS_ITS | Encounter Summary ---
Author Organization [employer] [facility] Address [address] [place] [address] Care Team Providers Care Market Development Trainer Name Role Phone Keya Jay MD Primary Care Prov ider Montrell Lopez MD, PHD Unavailable Unava ilable Calvin Lucero PA-C Unavailable Encounter Details Date Type Department Care Team Description 01/07/2023 Special Agent [employer] Report Medical Records [address] [place] [address] Xander Rogers DO Social History Tobacco Use [...] on filedocumented in this encounter Care Teams Market Development Trainer Relationship Specialty Start Date End Date Keya Jay MD [address] [place] [address] PCP - General Internal Medicine 12/24/21 Montrell Lopez MD, PHD [address] [place] [address] Surgeon Neurosurgery 02/06/22 Calvin Lucero PA-C [address] [place] [address] [place] [address] Specialist Neurosurgery 02/06/22 documented as of this encounter
--- OUTSIDE RECORDS SUMMARY | 2024-09-07 13:07 | XMS_ITS | Encounter Summary ---
Author Organization [employer] [facility] Address [address] [place] [address] Care Team Providers Care Spare Fixer Name Role Phone Keya Jay MD Primary Care Prov ider Montrell Lopez MD, PHD Unavailable Unava Calvin Garcia PA-C Unavailable [phone] Encounter Details Date Type Department Care Team Description 06/17/2022 Pt. Non Urgent Medical Question Adult Medicine [address] [address] Keya Jay MD [address] [place] [address] Social History Tobacco Use Types Packs/Day Years Used Date Smoking Tobacco: Never Smokeless Tobacco: Never Alcohol Use Standard Drinks/Week Comments No 0 (1 standard drink = 0.6 oz pur e alcohol) Sex Assigned at Date Recorded Female 11/03/2021 6:40 PM E DT Job Start Date Occupation Industry Not on file Not on file Not on file documented as of this encounter Miscellaneous Notes * Telephone Encounter - Maury Flores M.A. - 06/17/2022 1:28 PM ESTFrom: Roxie Dominic To: [facility] Munoz Sent: 06/17/2022 1:12 PM EST Subject: Hematolory notes 2020 I seen a Hematology for the same thing 04/05/2021 if you would like you can set up another appointment with her Dr Yolette Fountain [facility] [place]. notes are attached. documented in this encounter Plan of Treatment Not on file documented as of this encounter Visit Diagnoses Not on filedocumented in this encounter Care Teams Spare Fixer Relationship Specialty Start Date End Date Keya Jay MD [address] [place] [address] PCP - General Internal Medicine 12/24/21 Montrell Lopez MD, PHD [address] [place] [address] Surgeon Neurosurgery 02/06/22 Calvin Lucero PA-C [address] [place] [address] Specialist Neurosurgery 02/06/22 documented as of this encounter
--- OUTSIDE RECORDS SUMMARY | 2024-09-07 13:07 | XMS_ITS | Encounter Summary ---
Author Organization [employer] Address [address] [place] [address] Care Team Providers Care Social Media Sr Strategy Manager Name Role Phone Keya Glass MD Primary Care Prov ider Reason for Visit * Reason Comments weight concerns Encounter Details Date Type Department Care Team (Late st Contact Info) Description 08/18/2024 2:30 PM EST Office Visit Adult Medicine [address] [address] Keya Glass MD [address] [place] [address] Prediabetes (Primary Dx); Class 2 obesity due to excess calories without serious comorbidity with body mass index (BMI) of 37.0 to 37.9 in adult; Mixed hyperlipidemia Social History Tobacco Use Types [...] for your loved ones. For example, child neurologist or elderly care for an older adult? [...] AM EST Sexual Orientation Not on file documented as of this encounter Last Filed Vital Signs Vital Sign Reading Time Taken Comments Blood Pressure 112/70 08/18/2024 2:13 PM EST Pulse 92 08/18/2024 2:13 PM EST Temperature 36.6 ??C (97.9 ??F) 08/18/2024 2:13 PM ES T Respiratory Rate 16 08/18/2024 2:13 PM EST Oxygen Saturation - - Inhaled Oxygen Concentration - - Weight 88.8 kg (195 lb 12.8 oz) 08/18/2024 2:13 PM EST Height - - Body Mass Index 37 05/31/2024 1:59 PM EST documented in this encounter Progress Notes * Keya Glass MD - 08/18/2024 2:30 PM ESTAssociated Problem(s): Prediabetes Recent labs at [facility] on the range of prediabetes. Patient is recommended a low-carb diet and regular exercise. Orders: Hemoglobin A1c; Future * Keya Glass MD - 08/18/2024 2:30 PM ESTAssociated Problem(s): Hyperlipidemia Currently on rosuvastatin 40 mg a day. Following with cardiology for injectables, but having problems with her insurance to get the medications approved. Will continue rosuvastatin for now. * Keya Glass MD - 08/18/2024 2:30 PM EST Images from the original note were not included. Chief Complaint Roxie Alfaro is a 59 y.o. female presenting for weight concerns Subjective Patient with a pmh of HLD, prediabetes, comes for weight management. Feels well, compliant with medications, follows the recommended diet, exercises regularly. Was evaluated at weight management in [place] but they offered only surgery and patient does not want that approach. She was referred for weight management evaluation in May, pending an appointment with Dr. Bailey in March. The patient comes today asking for a prescription for Trulicity due to her prediabetes. The following portions of the patient's history were reviewed by a provider in this encounter and updated as appropriate: Allergies: She is allergic to lactose and other. Medications: Current Outpatient Medications Medication Instructions EPINEPHrine (EpiPen 2-Janes) 0.3 mg/0.3 mL injection INJECT THE CONTENTS OF 1 PEN INTRAMUSCULARLY EVERY 10 MINS NEEDED FOR ANAPHYLAXIS FOR 2 DOSES ibuprofen (ADVIL,MOTRIN) 600 mg, oral, Every 8 hours PRN loratadine (CLARITIN) 10 mg tablet 1 tablet, oral, Daily rosuvastatin (CRESTOR) 40 mg tablet 1 tablet, oral, Daily Review of Systems: Review of Systems Constitutional: Negative. Respiratory: Negative. Cardiovascular: Negative. Gastrointestinal: Negative. All other systems reviewed and are negative. Objective BP 112/70 Pulse 92 Temp 36.6 ??C (97.9 ??F) (Temporal) Resp 16 Wt 88.8 kg (195 lb 12.8 oz) BMI 37.00 kg/m?? Physical Exam Vitals reviewed. Constitutional: Appearance: Normal appearance. Cardiovascular: Rate and Rhythm: Normal rate and regular rhythm. Heart sounds: Normal heart sounds. Pulmonary: Effort: Pulmonary effort is normal. Breath sounds: Normal breath sounds. Musculoskeletal: General: No swelling. Normal range of motion. Cervical back: Neck supple. Skin: General: Skin is warm. Neurological: General: No focal deficit present. Mental Status: She is alert. Assessment/Plan Assessment & Plan Prediabetes Recent labs at [facility] on the range of prediabetes. Patient is recommended a low-carb diet and regular exercise. Orders: Hemoglobin A1c; Future Class 2 obesity due to excess calories without serious comorbidity with body mass index (BMI) of 37.0 to 37.9 in adult BMI is 37. She has been modifying her diet and exercising regularly. Does not want bariatric surgery, she wants medications. She has pending an appointment with Dr. Bailey in March. I explained to her that Trulicity is medication approved for diabetes, under certain circumstances. She will needto be evaluated by weight management program to see if she qualifies for medications. Mixed hyperlipidemia Currently on rosuvastatin 40 mg a day. Following with cardiology for injectables, but having problems with her insurance to get the medications approved. Will continue rosuvastatin for now. All questions and concerns were addressed. Patient verbalizes understanding and agrees with above treatment plan. Patient was advised to contact the office with any worsening symptoms or if new or existing problems arise. I have applied the code G2211 to this patient???s visit as the primary care provider dealing with (hyperlipidemia, prediabetes, obesity) leading to the extensive work up, and management associated with the medical care of this patient. This patient???s serious conditions and complex medical conditions also required several consultants needing management and coordination through my office. I have reviewed all information as it pertains to the management of this patient for final approval. Keya Munoz MD ADULT MEDICINE [address] Dept: [phone] Dept Date of Visit: 08/18/2024 documented in this encounter Plan of Treatment Upcoming Encounters Date Type Department Care Team (Late st Contact Info) Description 02/25/2025 1:00 PM EDT Appointment Radiology Department - [address] [phone] 04/11/2025 1:30 PM EDT Consult Bariatric Surgery - [place] [address] [address] Carmen Bailey MD [address] [address] 06/01/2025 3:00 PM EST Office Visit Adult Medicine [address] [phone] Keya Glass MD [address] [place] [address] Scheduled Orders Name Type Priority Associated Diagnoses Orde r Schedule Hemoglobin A1c Lab Routine Prediabetes 1 Occurrences starting 08/18/2024 until 08/18/2025 documented as of this encounter Visit Diagnoses Diagnosis Prediabetes- Primary Other abnormal glucose Class 2 obesity due to excess calories without serious comorbidity with body mass index (BMI) of 37.0 to 37.9 in adult Mixed hyperlipidemia Encounter for screening mammogram for breast cancer documented in this encounter Additional Health Concerns Assessment Noted Time PHQ-9 Depression Total Score: 0 05/31/20 24 9:05 AM EST documented as of this encounter Care Teams Social Media Sr Strategy Manager Relationship Specialty Start Date End Date Keya Glass MD [address] [place] [address] PCP - General Internal Medicine 08/15/24 documented as of this encounter
--- OUTSIDE RECORDS SUMMARY | 2024-09-07 13:08 | XMS_ITS | Encounter Summary ---
Author Organization [facility] Address [address] [place] [address] Care Team Providers Care Automation Specialist Name Role Phone Luna Andrew MD Primary Care Provider Keya Brito MD Primary Care Prov ider Montrell Lopez MD, PHD Unavailable Unava Calvin Garcia PA-C Unavailable [phone] Encounter Details Date Type Department Care Team Description 02/04/2018 Supervisor Coremaker Report Medical Records [address] [place] [address] [facility] [address] [place] [address] Social History Tobacco Use Types Packs/Day Years [...] on filedocumented in this encounter Care Teams Automation Specialist Relationship Specialty Start Date End Date Luna Andrew MD PCP - General Internal Medicine 08/11/11 12/23/21 Keya Jay MD [address] [place] [address] PCP - General Internal Medicine 12/24/21 Montrell Lopez MD, PHD [address] [place] [address] Surgeon Neurosurgery 02/06/22 Calvin Lucero PA-C 175 [facility] [address] [place] [address] Specialist Neurosurgery 02/06/22 documented as of this encounter
--- OUTSIDE RECORDS SUMMARY | 2024-09-07 13:08 | XMS_ITS | Encounter Summary ---
Author Organization [facility] Address [address] [place] [address] Care Team Providers Care Gift Basket Packer Name Role Phone Luna Andrew MD Primary Care Provider Keya Brito MD Primary Care Prov ider Montrell Lopez MD, PHD Unavailable Unava Calvin Garcia PA-C Unavailable [phone] Encounter Details Date Type Department Care Team Description 08/26/2019 Transfer Records Medical Records [address] [place] [address] Abstract, Provider Social History Tobacco Use Types Packs/Day Years [...] on filedocumented in this encounter Care Teams Gift Basket Packer Relationship Specialty Start Date End Date Luna Andrew MD PCP - General Internal Medicine 08/11/11 12/23/21 Keya Jay MD [address] [place], [place] [phone] PCP - General Internal Medicine 12/24/21 Montrell Lopez MD, PHD [address] [place], [place] [phone] Surgeon Neurosurgery 02/06/22 Calvin Lucero PA-C [address] [place] [address] Specialist Neurosurgery 02/06/22 documented as of this encounter
--- OUTSIDE RECORDS SUMMARY | 2024-09-07 13:08 | XMS_ITS | Encounter Summary ---
Author Organization [facility] Address [address] [place] [address] Care Team Providers Care Cut Out Worker Name Role Phone Luna Andrew MD Primary Care Provider Keya Brito MD Primary Care Prov ider Montrell Lopze MD, PHD Unavailable Unava Calvin Garcia PA-C Unavailable [phone] Encounter Details Date Type Department Care Team Description 09/19/2020 Old Medical Records Medical Records [address] [place] [address] Abstract, Provider Social History Tobacco Use Types [...] on filedocumented in this encounter Care Teams Cut Out Worker Relationship Specialty Start Date End Date Luna Andrew MD PCP - General Internal Medicine 08/11/11 12/23/21 Keya Jay MD [address] [place], [place] [phone] PCP - General Internal Medicine 12/24/21 Montrell Lopez MD, PHD [address] [place], [place] [phone] Surgeon Neurosurgery 02/06/22 Calvin Lucero PA-C [address] [place] [address] [address] [place] [address] Specialist Neurosurgery 02/06/22 documented as of this encounter
--- OUTSIDE RECORDS SUMMARY | 2024-09-07 13:08 | XMS_ITS | Encounter Summary ---
Author Organization [facility] Address [address] [place] [address] Care Team Providers Care Customer Relations Advisor Name Role Phone Keya Jay MD Primary Care Prov ider Montrell Lopez MD, PHD Unavailable Unava ilable Calvin Lucero PA-C Unavailable [phone] Reason for Visit * Reason Comments E-prescribe Rx Request Encounter Details Date Type Department Care Team Description 03/13/2023 Refill Adult Medicine [address] [address] Barbara Sherwood PA-C [address] [place] [address] E-prescribe Rx Request Social History Tobacco Use Types Packs/Day Years [...] Recorded In the last 10 days, have yo u been in contact with someone who was confirmed or suspected to have Coronavirus/COVID-19? No / Unsure 02/13/2023 9:40 AM EDT documented as of this encounter Miscellaneous Notes * Telephone Encounter - Neisha Licona M.A. - 03/31/2023 10:09 AM EDT Lab Results Component Value Date NA 139 09/07/2015 K 4.2 09/07/2015 CO2 27.7 09/07/2015 CL 100 09/07/2015 BUN 10 09/07/2015 CREAT 0.8 09/07/2015 GLU 103 10/20/2006 CA 8.9 09/07/2015 GFR > 60 09/07/2015 LRF 02/10/23 - #30- no refills - *Pharmacy refill request MADAY 02/13/23 - PCP NOV 08/17/23 - PCP * Telephone Encounter - Mayra Mosley - 03/30/2023 7:19 PM EDT Patient would like script to be: E-PRESCRIBED/FAXED TO PHARMACY WHEN WAS THE PATIENT'S LAST APPOINTMENT IN ADULT MEDICINE? 02/13/23 WHEN WAS THE LAST TIME THE PATIENT SAW THEIR PCP? Same as above Does patient have an upcoming appointment? Yes 08/17/23 (THE MEDICATION REQUESTED IS ON THE MED LIST ABOVE) All of the medications requested were on the CURRENT MEDS list Did you check the Pharmacy information above?: YES Patient wants: 90 -day supply Is this a mail order prescription request ? NO If the refill is from a FAXED refill request what is the RX # listed on the fax? N/A Patients current insurance carrier is: Payor: [facility] BENEFITS ADMIN OF [place] / Plan: EPO $20 [place] [id number] / Product Type: EPO documented in this encounter Plan of Treatment Not on file documented as of this encounter Visit Diagnoses Not on filedocumented in this encounter Care Teams Customer Relations Advisor Relationship Specialty Start Date End Date Keya Jay MD [address] [place] [address] PCP - General Internal Medicine 12/24/21 Montrell Lopez MD, PHD [address] [place] [address] Surgeon Neurosurgery 02/06/22 Calvin Lucero PA-C [address] [place] [address] Specialist Neurosurgery 02/06/22 documented as of this encounter
--- OUTSIDE RECORDS SUMMARY | 2024-09-07 13:08 | XMS_ITS | Encounter Summary ---
Author Organization [facility] Address [address] [place] [address] Care Team Providers Care Menagerie Superintendent Name Role Phone Luna Andrew MD Primary Care Provider Keya Brito MD Primary Care Prov ider Montrell Lopez MD, PHD Unavailable Unava Calvin Garcia PA-C Unavailable [phone] Encounter Details Date Type Department Care Team Description 03/17/2012 Tier Lift Truck Operator Report Medical Records [address] [place] [address] Jostin Nafisa Social History Tobacco Use Types Packs/Day Years [...] on filedocumented in this encounter Care Teams Menagerie Superintendent Relationship Specialty Start Date End Date Luna Andrew MD PCP - General Internal Medicine 08/11/11 12/23/21 Keya Jay MD [address] [place], [place] [phone] PCP - General Internal Medicine 12/24/21 Montrell Lopez MD, PHD [address] [place], [place] [phone] Surgeon Neurosurgery 02/06/22 Calvin Lucero PA-C [address] [place] [address] [address] [place] [address] Specialist Neurosurgery 02/06/22 documented as of this encounter
--- OUTSIDE RECORDS SUMMARY | 2024-09-07 13:08 | XMS_ITS | Encounter Summary ---
Author Organization [facility] Address [address] [place] [address] Care Team Providers Care Edger Machine Setter Name Role Phone Luna Andrew MD Primary Care Provider Keya Brito MD Primary Care Prov ider Montrell Lopez MD, PHD Unavailable Unava Calvin Garcia PA-C Unavailable [phone] Encounter Details Date Type Department Care Team Description 07/15/2018 Hospital Corpsman Report Medical Records [address] [place] [address] Cash Caceres Social History Tobacco Use Types Packs/Day Years [...] on filedocumented in this encounter Care Teams Edger Machine Setter Relationship Specialty Start Date End Date Luna Andrew MD PCP - General Internal Medicine 08/11/11 12/23/21 Keya Jay MD [address] [place], [place] [phone] PCP - General Internal Medicine 12/24/21 Montrell Lopez MD, PHD [address] [place], [place] [phone] Surgeon Neurosurgery 02/06/22 Calvin Lucero PA-C [address] [place] [address] [address] [place] [address] Specialist Neurosurgery 02/06/22 documented as of this encounter
--- OUTSIDE RECORDS SUMMARY | 2024-09-07 13:08 | XMS_ITS | Encounter Summary ---
Author Organization [employer] [facility] Address [address] [place] [address] Care Team Providers Care Licensed Tax Consultant Name Role Phone Luna Andrew MD Primary Care Provider Keya Brito MD Primary Care Prov ider Montrell Lopez MD, PHD Unavailable Unava Calvin Garcia PA-C Unavailable [phone] Encounter Details Date Type Department Care Team Description 04/09/2017 Asbestos Cloth Inspector Report Medical Records [address] [place] [address] Marya Tejada MD Social History Tobacco Use Types Packs/Day Years [...] on filedocumented in this encounter Care Teams Licensed Tax Consultant Relationship Specialty Start Date End Date Luna Andrew MD PCP - General Internal Medicine 08/11/11 12/23/21 Keya Jay MD [address] [place] [address] PCP - General Internal Medicine 12/24/21 Montrell Lopez MD, PHD [address] [place], [place] [phone] Surgeon Neurosurgery 02/06/22 Calvin Lucero PA-C 175 [facility] [address] [place] [address] Specialist Neurosurgery 02/06/22 documented as of this encounter
--- OUTSIDE RECORDS SUMMARY | 2024-09-07 13:08 | XMS_ITS | Encounter Summary ---
Author Organization [facility] Address [address] [place] [address] Care Team Providers Care Sport Shoe Spike Assembler Name Role Phone Keya Jay MD Primary Care Prov ider Montrell Lopez MD, PHD Unavailable Unava ilable Calvin Lucero PA-C Unavailable [phone] Encounter Details Date Type Department Care Team Description 02/11/2022 SCAN [facility] Medical [facility] Neurosurgery [place] [address] [phone] Calvin Lucero PA-C [address] [id number] Social History Tobacco Use Types Packs/Day Years [...] on filedocumented in this encounter Care Teams Sport Shoe Spike Assembler Relationship Specialty Start Date End Date Keya Jay MD [address] [place] [address] PCP - General Internal Medicine 12/24/21 Montrell Lopez MD, PHD [address] [place] [address] Surgeon Neurosurgery 02/06/22 Calvin Lucero PA-C 175 [facility] [address] [place] [address] Specialist Neurosurgery 02/06/22 documented as of this encounter
--- OUTSIDE RECORDS SUMMARY | 2024-09-07 13:08 | XMS_ITS | Encounter Summary ---
Author Organization [facility] Address [address] [place] [address] Care Team Providers Care Drywall Sander Name Role Phone Luna Andrew MD Primary Care Provider Keya Brito MD Primary Care Prov ider Montrell Lopez MD, PHD Unavailable Unava Calvin Garcia PA-C Unavailable [phone] Encounter Details Date Type Department Care Team Description 03/11/2017 Transfer Records Medical Records [address] [place] [address] Social History Tobacco Use Types Packs/Day Years [...] on filedocumented in this encounter Care Teams Drywall Sander Relationship Specialty Start Date End Date Luna Andrew MD PCP - General Internal Medicine 08/11/11 12/23/21 Keya Jay MD [address] [place] [address] PCP - General Internal Medicine 12/24/21 Montrell Lopez MD, PHD [address] [place] [address] Surgeon Neurosurgery 02/06/22 Calvin Lucero PA-C [address] [place] [address] [address] [place] [address] Specialist Neurosurgery 02/06/22 documented as of this encounter
--- OUTSIDE RECORDS SUMMARY | 2024-09-07 13:08 | XMS_ITS | Encounter Summary ---
Author Organization [facility] Address [address] [place] [address] Care Team Providers Care Music Engineer Name Role Phone Luna Andrew MD Primary Care Provider Keya Brito MD Primary Care Prov ider Montrell Lopez MD, PHD Unavailable Unava Calvin Garcia PA-C Unavailable [phone] Encounter Details Date Type Department Care Team Description 05/20/2019 Old Medical Records Medical Records [address] [place] [address] Abstract, Provider Social History Tobacco Use Types [...] on filedocumented in this encounter Care Teams Music Engineer Relationship Specialty Start Date End Date Luna Andrew MD PCP - General Internal Medicine 08/11/11 12/23/21 Keya Jay MD [address] [place], [place] [phone] PCP - General Internal Medicine 12/24/21 Montrell Lopez MD, PHD [address] [place], [place] [phone] Surgeon Neurosurgery 02/06/22 Calvin Lucero PA-C 175 [facility] [address] [place] [address] Specialist Neurosurgery 02/06/22 documented as of this encounter
--- OUTSIDE RECORDS SUMMARY | 2024-09-07 13:08 | XMS_ITS | Encounter Summary ---
Author Organization [facility] Address [address] [place] [address] Care Team Providers Care Plating Department Helper Name Role Phone Keya Jay MD Primary Care Prov ider Montrell Loepz MD, PHD Unavailable Unava ilable Calvin Lucero PA-C Unavailable [phone] Encounter Details Date Type Department Care Team Description 09/15/2023 Tailings Man Report Medical Records [address] [place] [address] Dwayne Denton NP Social History Tobacco Use Types Packs/Day Years [...] on filedocumented in this encounter Care Teams Plating Department Helper Relationship Specialty Start Date End Date Keya Jay MD [address] [place] [address] PCP - General Internal Medicine 12/24/21 Montrell Lopez MD, PHD [address] [place] [address] Surgeon Neurosurgery 02/06/22 Calvin Lucero PA-C [address] [place] [address] [place] [address] Specialist Neurosurgery 02/06/22 documented as of this encounter
--- OUTSIDE RECORDS SUMMARY | 2024-09-07 13:08 | XMS_ITS | Encounter Summary ---
Author Organization [employer] [facility] Address [address] [place] [address] Care Team Providers Care Distribution Center Supervisor Name Role Phone Luna Andrew MD Primary Care Provider Keya Brito MD Primary Care Prov ider Montrell Lopez MD, PHD Unavailable Unava Calvin Garcia PA-C Unavailable [phone] Encounter Details Date Type Department Care Team Description 03/14/2021 Behavior Management Specialist Report Medical Records [address] [place] [address] Mabel Castaneda PA-C Social History Tobacco Use Types Packs/Day [...] have Coronavirus / COVID-19? No / Unsure 02/12/2021 2:37 PM EDT documented as of this encounter Plan of Treatment Not on file documented as of this encounter Visit Diagnoses Not on filedocumented in this encounter Care Teams Distribution Center Supervisor Relationship Specialty Start Date End Date Luna Andrew MD PCP - General Internal Medicine 08/11/11 12/23/21 Keya Jay MD [address] [place] [address] PCP - General Internal Medicine 12/24/21 Montrell Lopez MD, PHD [address] [place] [address] Surgeon Neurosurgery 02/06/22 Calvin Lucero PA-C [address] [place] [address] Specialist Neurosurgery 02/06/22 documented as of this encounter
--- OUTSIDE RECORDS SUMMARY | 2024-09-07 13:08 | XMS_ITS | Encounter Summary ---
Author Organization [employer] [facility] Address [address] [place] [address] Care Team Providers Care Head Sulfide Operator Name Role Phone Luna Andrew MD Primary Care Provider Keya Brito MD Primary Care Prov ider Montrell Lopez MD, PHD Unavailable Unava Calvin Garcia PA-C Unavailable Encounter Details Date Type Department Care Team Description 07/25/2020 Refill Physiatry - [address] [address] John Russo PA-C Social History Tobacco Use [...] encounter Miscellaneous Notes * Telephone Encounter - Barbara Henning M.A. - 07/25/2020 1:14 PM EST Rx sent to pharmacy. * Telephone Encounter - Barbara Henning M.A. - 07/25/2020 11:08 AM EST Last ov 05/29/20 No future ov Last refill 11/03/19 with 3 refills documented in this encounter Plan of Treatment Not on file documented as of this encounter Visit Diagnoses Not on filedocumented in this encounter Care Teams Head Sulfide Operator Relationship Specialty Start Date End Date Luna Andrew MD PCP - General Internal Medicine 08/11/11 12/23/21 Keya Jay MD [address] [place] [address] PCP - General Internal Medicine 12/24/21 Montrell Lopez MD, PHD [address] [place] [address] Surgeon Neurosurgery 02/06/22 Calvin Lucero PA-C [address] [place] [address] Specialist Neurosurgery 02/06/22 documented as of this encounter
--- OUTSIDE RECORDS SUMMARY | 2024-09-07 13:08 | XMS_ITS | Encounter Summary ---
Author Organization [facility] Address [address] [place] [address] Care Team Providers Care Tour Actor Name Role Phone Keya Jay MD Primary Care Prov ider Montrell Lopez MD, PHD Unavailable Unava Calvin Garcia PA-C Unavailable [phone] Reason for Visit * Reason Onset Date Comments Mychart Rx Refill 02/05/2023 Encounter Details Date Type Department Care Team Description 02/05/2023 Refill Adult Medicine [address] [address] Keya Jay MD [address] [place] [address] Mychart Rx Refill Social History Tobacco Use Types Packs/Day Years [...] encounter Miscellaneous Notes * Telephone Encounter - Keya Munoz MD - 02/06/2023 4:59 PM EDT This medication is not intended to be taken on a regular basis. * Telephone Encounter - Neisha Licona M.A. - 02/06/2023 7:29 AM EDT Images from the original note were not included. Roxie Carpenter [facility] (supporting Virginia Munoz, Keya Lopez MD) 14 hours ago (5:25 PM) [place] Garrett Oscar, can I get a refill of Ibuprofen 800MG for pain in my neck please, only when needed. Thanks PT sent 2nd [employer] message for reason for medication request. * Telephone Encounter - Neisha Licona M.A. - 02/06/2023 7:15 AM EDT Lab Results Component Value Date NA 139 09/07/2015 K 4.2 09/07/2015 CO2 27.7 09/07/2015 CL 100 09/07/2015 BUN 10 09/07/2015 CREAT 0.8 09/07/2015 GLU 103 10/20/2006 CA 8.9 09/07/2015 GFR > 60 09/07/2015 *Medication prescribed by an outside provider, entered as [facility] on 11/19/22. Patient was previouslyprescribed by [facility] providers intermittently. MADAY 11/27/22 - Ernesto NASSAR with PCP 08/29/22 NO pending appointment - NO current lab orders pending. * Telephone Encounter - Neisha Licona M.A. - 02/06/2023 7:14 AM EDTFrom: Roxie Alfaro To: Office of Sita Munoz Sent: 02/05/2023 5:27 PM EDT Subject: Medication Renewal Request Refills have been requested for the following medications: Other - Ibuprofen 800MG Preferred pharmacy: [id number] - [address] documented in this encounter Plan of Treatment Not on file documented as of this encounter Visit Diagnoses Not on filedocumented in this encounter Care Teams Tour Actor Relationship Specialty Start Date End Date Keya Jay MD [address] [place] [address] PCP - General Internal Medicine 12/24/21 Montrell Lopez MD, PHD [address] [place] [address] Surgeon Neurosurgery 02/06/22 Calvin Lucero PA-C [address] [place] [address] Specialist Neurosurgery 02/06/22 documented as of this encounter
--- OUTSIDE RECORDS SUMMARY | 2024-09-07 13:08 | XMS_ITS | Encounter Summary ---
Author Organization [employer] [facility] Address [address] [place] [address] Care Team Providers Care Art Professor Name Role Phone Luna Andrew MD Primary Care Provider Keya Brito MD Primary Care Prov ider Montrell Lopez MD, PHD Unavailable Unava Calvin Garcia PA-C Unavailable [phone] Encounter Details Date Type Department Care Team Description 05/31/2018 Speeder Worker Report Medical Records [address] [place] [address] Kristen Solo NP Social History Tobacco Use Types Packs/Day [...] on filedocumented in this encounter Care Teams Art Professor Relationship Specialty Start Date End Date Luna Andrew MD PCP - General Internal Medicine 08/11/11 12/23/21 Keya Jay MD [address] [place] [address] PCP - General Internal Medicine 12/24/21 Montrell Lopez MD, PHD [address] [place], [place] [address] Surgeon Neurosurgery 02/06/22 Calvin Lucero PA-C 175 [facility] [address] [place] [address] Specialist Neurosurgery 02/06/22 documented as of this encounter
--- OUTSIDE RECORDS SUMMARY | 2024-09-07 13:08 | XMS_ITS | Encounter Summary ---
Author Organization [facility] Address [address] [place] [address] Care Team Providers Care Welder Oxyhydrogen Name Role Phone Luna Andrew MD Primary Care Provider Keya Brito MD Primary Care Prov ider Montrell Lopez MD, PHD Unavailable Unava Calvin Garcia PA-C Unavailable [phone] Encounter Details Date Type Department Care Team Description 02/15/2014 Release of Information Medical Records [address] [place] [address] Abstract, Provider Social History Tobacco Use Types [...] on filedocumented in this encounter Care Teams Welder Oxyhydrogen Relationship Specialty Start Date End Date Luna Andrew MD PCP - General Internal Medicine 08/11/11 12/23/21 Keya Jay MD [address] [place], [place] [phone] PCP - General Internal Medicine 12/24/21 Montrell Lopez MD, PHD [address] [place], [place] [phone] Surgeon Neurosurgery 02/06/22 Calvin Lucero PA-C 175 [facility] [address] [place] [address] Specialist Neurosurgery 02/06/22 documented as of this encounter
--- OUTSIDE RECORDS SUMMARY | 2024-09-07 13:08 | XMS_ITS | Encounter Summary ---
Author Organization [facility] Address [address] [place] [address] Care Team Providers Care Care Program Director Name Role Phone Luna Andrew MD Primary Care Provider Keya Brito MD Primary Care Prov ider Montrell Lopez MD, PHD Unavailable Unava Calvin Garcia PA-C Unavailable [phone] Encounter Details Date Type Department Care Team Description 02/27/2019 Pt. Non Urgent Medical Question Physiatry - [address] [address] John Russo PA-C Spinal stenosis in cervical region Social History Tobacco Use Types Packs/Day Years [...] as of this encounter Visit Diagnoses Diagnosis Spinal stenosis in cervical region documented in this encounter Care Teams Care Program Director Relationship Specialty Start Date End Date Luna Andrew MD PCP - General Internal Medicine 08/11/11 12/23/21 Keya Jay MD [address] [place] [address] PCP - General Internal Medicine 12/24/21 Montrell Lopez MD, PHD [address] [place] [address] Surgeon Neurosurgery 02/06/22 Calvin Lucero PA-C [address] [place] [address] Specialist Neurosurgery 02/06/22 documented as of this encounter
--- OUTSIDE RECORDS SUMMARY | 2024-09-07 13:08 | XMS_ITS | Encounter Summary ---
Author Organization [facility] Address [address] [place] [address] Care Team Providers Care Agency Sales Development Associate Name Role Phone Luna Andrew MD Primary Care Provider Keya Brito MD Primary Care Prov ider Montrell Lopez MD, PHD Unavailable Unava Calvin Garcia PA-C Unavailable [phone] Encounter Details Date Type Department Care Team Description 03/31/2017 Circuit Board Drafter Report Medical Records [address] [place], [place] [phone] Micheal Telles Social History Tobacco Use Types Packs/Day Years [...] on filedocumented in this encounter Care Teams Agency Sales Development Associate Relationship Specialty Start Date End Date Luna Andrew MD PCP - General Internal Medicine 08/11/11 12/23/21 Keya Jay MD [address] [place], [place] [phone] PCP - General Internal Medicine 12/24/21 Montrell Lopez MD, PHD [address] [place], [place] [phone] Surgeon Neurosurgery 02/06/22 Calvin Lucero PA-C 175 [facility] [address] [place] [address] Specialist Neurosurgery 02/06/22 documented as of this encounter
--- OUTSIDE RECORDS SUMMARY | 2024-09-07 13:08 | XMS_ITS | Encounter Summary ---
Author Organization [facility] Address [address] [place] [address] Care Team Providers Care Motor And Generator Assembler Name Role Phone Keya Jay MD Primary Care Prov ider Montrell Lopez MD, PHD Unavailable Unava ilable Calvin Lucero PA-C Unavailable [phone] Encounter Details Date Type Department Care Team Description 03/25/2023 Label Machine Operator Report Medical Records [address] [place] [address] Javier Velasco Social History Tobacco Use Types Packs/Day Years [...] on filedocumented in this encounter Care Teams Motor And Generator Assembler Relationship Specialty Start Date End Date Keya Jay MD [address] [place] [address] PCP - General Internal Medicine 12/24/21 Montrell Lopez MD, PHD [address] [place] [address] Surgeon Neurosurgery 02/06/22 Calvin Lucero PA-C 175 [facility] [address] [place] [address] Specialist Neurosurgery 02/06/22 documented as of this encounter
--- OUTSIDE RECORDS SUMMARY | 2024-09-07 13:08 | XMS_ITS | Encounter Summary ---
Author Organization [employer] [facility] Address [address] [place] [address] Care Team Providers Care Operational Risk Manager Name Role Phone Community, Pcp Primary Care Provider Luna Bianchi MD Primary Care Provider Keya Brito MD Primary Care Prov ider Montrell Lopez MD, PHD Unavailable Calvin Masters PA-C Unavailable [phone] Encounter Details Date Type Department Care Team Description 02/15/2008 Hospital Medical Records [address] [place] [address] Nelson Perdomo MD Social History Tobacco Use Types Packs/Day [...] on filedocumented in this encounter Care Teams Operational Risk Manager Relationship Specialty Start Date End Date Community, Pcp PCP - General 12/18/02 08/10/11 Luna Andrew MD PCP - General Internal Medicine 08/11/11 12/23/21 Keya Jay MD [address] [place] [address] PCP - General Internal Medicine 12/24/21 Montrell Lopez MD, PHD [address] [place] [address] Surgeon Neurosurgery 02/06/22 Calvin Lucero PA-C [address] [place] [address] Specialist Neurosurgery 02/06/22 documented as of this encounter
--- OUTSIDE RECORDS SUMMARY | 2024-09-07 13:08 | XMS_ITS | Encounter Summary ---
Author Organization [employer] [facility] Address [address] [place] [address] Care Team Providers Care Bottom Crane Operator Name Role Phone Luna Andrew MD Primary Care Provider Keya Brito MD Primary Care Prov ider Montrell Lopez MD, PHD Unavailable Unava Calvin Garcia PA-C Unavailable [phone] Encounter Details Date Type Department Care Team Description 02/12/2012 Release of Information Medical Records [address] [place] [address] Abstract, Provider Social History Tobacco Use Types [...] on filedocumented in this encounter Care Teams Bottom Crane Operator Relationship Specialty Start Date End Date Luna Andrew MD PCP - General Internal Medicine 08/11/11 12/23/21 Keya Jay MD [address] [place], [place] [phone] PCP - General Internal Medicine 12/24/21 Montrell Lopez MD, PHD [address] [place], [place] [address] Surgeon Neurosurgery 02/06/22 Calvin Lucero PA-C 175 [facility] [address] [place] [address] Specialist Neurosurgery 02/06/22 documented as of this encounter
--- OUTSIDE RECORDS SUMMARY | 2024-09-07 13:08 | XMS_ITS | Encounter Summary ---
Author Organization [facility] [facility] Address [address] [place] [address] Care Team Providers Care Claims Correspondence Clerk Name Role Phone Luna Andrew MD Primary Care Provider Keya Brito MD Primary Care Prov ider Montrell Lopez MD, PHD Unavailable Unava Calvin Garcia PA-C Unavailable [phone] Encounter Details Date Type Department Care Team Description 03/19/2017 Hospital Medical Records [address] [place] [address] Micheal Telles Social History Tobacco Use Types [...] on filedocumented in this encounter Care Teams Claims Correspondence Clerk Relationship Specialty Start Date End Date Luna Andrew MD PCP - General Internal Medicine 08/11/11 12/23/21 Keya Jay MD [address] [place], [place] [phone] PCP - General Internal Medicine 12/24/21 Montrell Lopez MD, PHD [address] [place], [place] [address] Surgeon Neurosurgery 02/06/22 Calvin Lucero PA-C 175 [place] [address] Specialist Neurosurgery 02/06/22 documented as of this encounter
--- OUTSIDE RECORDS SUMMARY | 2024-09-07 13:08 | XMS_ITS | Encounter Summary ---
Author Organization [facility] Address [address] [place] [address] Care Team Providers Care Die Developer Name Role Phone Keya Jay MD Primary Care Prov ider Montrell Lopez MD, PHD Unavailable Unava ilable Calvin Lucero PA-C Unavailable [phone] Encounter Details Date Type Department Care Team Description 04/18/2024 Publicist Report Medical Records [address] [place] [address] Bhupendra Chauhan Social History Tobacco Use Types [...] on filedocumented in this encounter Care Teams Die Developer Relationship Specialty Start Date End Date Keya Jay MD [address] [place] [address] PCP - General Internal Medicine 12/24/21 Montrell Lopez MD, PHD [address] [place] [address] Surgeon Neurosurgery 02/06/22 Calvin Lucero PA-C [address] [place] [address] [place] [address] Specialist Neurosurgery 02/06/22 documented as of this encounter
--- OUTSIDE RECORDS SUMMARY | 2024-09-07 13:08 | XMS_ITS | Encounter Summary ---
Author Organization [facility] Address [address] [place] [address] Care Team Providers Care Communicable Disease Specialist Name Role Phone Keya Jay MD Primary Care Prov ider Montrell Lopez MD, PHD Unavailable Unava ilable Calvin Lucero PA-C Unavailable [phone] Encounter Details Date Type Department Care Team Description 04/29/2024 Transfer Records Medical Records [address] [place] [address] Abstract, Provider Social History Tobacco Use Types [...] on filedocumented in this encounter Care Teams Communicable Disease Specialist Relationship Specialty Start Date End Date Keya Jay MD [address] [place] [address] PCP - General Internal Medicine 12/24/21 Montrell Lopez MD, PHD [address] [place] [address] Surgeon Neurosurgery 02/06/22 Calvin Lucero PA-C [address] [place] [address] [place] [address] Specialist Neurosurgery 02/06/22 documented as of this encounter
--- OUTSIDE RECORDS SUMMARY | 2024-09-07 13:08 | XMS_ITS | Encounter Summary ---
Author Organization [facility] Address [address] [place] [address] Care Team Providers Care Belt Press Operator Name Role Phone Luna Andrew MD Primary Care Provider Keya Brito MD Primary Care Prov ider Montrell Lopez MD, PHD Unavailable Unava Calvin Garcia PA-C Unavailable [phone] Encounter Details Date Type Department Care Team Description 02/15/2018 Statistical Engineer Report Medical Records [address] [place] [address] Missael Catalan Social History Tobacco Use Types Packs/Day Years [...] on filedocumented in this encounter Care Teams Belt Press Operator Relationship Specialty Start Date End Date Luna Andrew MD PCP - General Internal Medicine 08/11/11 12/23/21 Keya Jay MD [address] [place], [place] [phone] PCP - General Internal Medicine 12/24/21 Montrell Lopez MD, PHD [address] [place], [place] [address] Surgeon Neurosurgery 02/06/22 Calvin Lucero PA-C 175 [facility] [address] [place] [address] Specialist Neurosurgery 02/06/22 documented as of this encounter
--- OUTSIDE RECORDS SUMMARY | 2024-09-07 13:08 | XMS_ITS | Encounter Summary ---
Author Organization [employer] [facility] Address [address] [place] [address] Care Team Providers Care Information Security Associate Name Role Phone Luna Andrew MD Primary Care Provider Keya Brito MD Primary Care Prov ider Montrlel Lopez MD, PHD Unavailable Unava Calvin Garcia PA-C Unavailable [phone] Encounter Details Date Type Department Care Team Description 05/25/2020 Pt. Non Urgent Medic al Question Physiatr - [address] [address] John Russo PA-C Social History Tobacco Use [...] on filedocumented in this encounter Care Teams Information Security Associate Relationship Specialty Start Date End Date Luna Andrew MD PCP - General Internal Medicine 08/11/11 12/23/21 Keya Jay MD [address] [place] [address] PCP - General Internal Medicine 12/24/21 Montrell Lopez MD, PHD [address] [place] [address] Surgeon Neurosurgery 02/06/22 Calvin Lucero PA-C 175 [facility] [address] [place] [address] Specialist Neurosurgery 02/06/22 documented as of this encounter
--- OUTSIDE RECORDS SUMMARY | 2024-09-07 13:08 | XMS_ITS | Encounter Summary ---
Author Organization [facility] Address [address] [place] [address] Care Team Providers Care Dry Mill Worker Name Role Phone Luna Andrew MD Primary Care Provider Keya Brito MD Primary Care Prov ider Montrell Lopez MD, PHD Unavailable Unava Calvin Garcia PA-C Unavailable [phone] Encounter Details Date Type Department Care Team Description 08/20/2021 Precision Mechanical Instrument Maker Report Medical Records [address] [place] [address] Evangelist Nelson MD Social History Tobacco Use Types Packs/Day [...] on filedocumented in this encounter Care Teams Dry Mill Worker Relationship Specialty Start Date End Date Luna Andrew MD PCP - General Internal Medicine 08/11/11 12/23/21 Keya Jay MD [address] [place] [address] PCP - General Internal Medicine 12/24/21 Montrell Lopez MD, PHD [address] [place] [address] Surgeon Neurosurgery 02/06/22 Calvin Lucero PA-C [address] [place] [address] [address] [place] [address] Specialist Neurosurgery 02/06/22 documented as of this encounter
--- OUTSIDE RECORDS SUMMARY | 2024-09-07 13:08 | XMS_ITS | Encounter Summary ---
Author Organization [employer] [facility] Address [address] [place] [address] Care Team Providers Care Orthopaedic Technologist Name Role Phone Luna Andrew MD Primary Care Provider Keya Brito MD Primary Care Prov ider Montrell Lopez MD, PHD Unavailable Unava Calvin Garcia PA-C Unavailable [phone] Encounter Details Date Type Department Care Team Description 08/17/2015 Business Doc Medical Records [address] [place] [address] Abstract, Provider Social History Tobacco Use Types [...] on filedocumented in this encounter Care Teams Orthopaedic Technologist Relationship Specialty Start Date End Date Luna Andrew MD PCP - General Internal Medicine 08/11/11 12/23/21 Keya Jay MD [address] [place], [place] [address] PCP - General Internal Medicine 12/24/21 Montrell Lopez MD, PHD [address] [place], [place] [address] Surgeon Neurosurgery 02/06/22 Calvin Lucero PA-C [address] [place] [address] Specialist Neurosurgery 02/06/22 documented as of this encounter
--- OUTSIDE RECORDS SUMMARY | 2024-09-07 13:08 | XMS_ITS | Encounter Summary ---
Author Organization [facility] Address [address] [place] [address] Care Team Providers Care Emergency Preparedness Manager Name Role Phone Luna Andrew MD Primary Care Provider Keya Brito MD Primary Care Prov ider Montrell Lopez MD, PHD Unavailable Unava Calvin Garcia PA-C Unavailable [phone] Encounter Details Date Type Department Care Team Description 04/08/2021 SCAN [facility] 175 [facility] [address] [place] [phone] Radha Crystal PA-C [address] [address] Social History Tobacco Use Types Packs/Day Years [...] have Coronavirus / COVID-19? No / Unsure 04/08/2021 3:30 PM EDT documented as of this encounter Plan of Treatment Not on file documented as of this encounter Visit Diagnoses Not on filedocumented in this encounter Care Teams Emergency Preparedness Manager Relationship Specialty Start Date End Date Luna Andrew MD PCP - General Internal Medicine 08/11/11 12/23/21 Virginia Munoz, Keya Lopez MD [address] [place] [address] PCP - General Internal Medicine 12/24/21 Montrell Lopez MD, PHD [address] [place] [address] Surgeon Neurosurgery 02/06/22 Calvin Lucero PA-C [address] [place] [address] Specialist Neurosurgery 02/06/22 documented as of this encounter
--- OUTSIDE RECORDS SUMMARY | 2024-09-07 13:08 | XMS_ITS | Encounter Summary ---
Author Organization [employer] [facility] Address [address] [place] [address] Care Team Providers Care Sustainable Products Marketing Manager Name Role Phone Luna Andrew MD Primary Care Provider Keya Brito MD Primary Care Prov ider Montrell Lopez MD, PHD Unavailable Unava Calvin Garcia PA-C Unavailable [phone] Encounter Details Date Type Department Care Team Description 08/27/2011 Transfer Records Medical Records [address] [place] [address] Abstract, Provider Social History Tobacco Use Types [...] on filedocumented in this encounter Care Teams Sustainable Products Marketing Manager Relationship Specialty Start Date End Date Luna Andrew MD PCP - General Internal Medicine 08/11/11 12/23/21 Keya Jay MD [address] [place], [place] [phone] PCP - General Internal Medicine 12/24/21 Montrell Lopez MD, PHD [address] [place], [place] [address] Surgeon Neurosurgery 02/06/22 Calvin Lucero PA-C [address] [place] [address] Specialist Neurosurgery 02/06/22 documented as of this encounter
--- OUTSIDE RECORDS SUMMARY | 2024-09-07 13:08 | XMS_ITS | Encounter Summary ---
Author Organization [facility] [facility] Address [address] [place] [address] Care Team Providers Care Home Organizer Name Role Phone Luna Andrew MD Primary Care Provider Keya Brito MD Primary Care Prov ider Montrell Lopez MD, PHD Unavailable Unava Calvin Garcia PA-C Unavailable [phone] Encounter Details Date Type Department Care Team Description 02/17/2017 Human Resources Communications Manager Report Medical Records [address] [place] [address] Marya Tejada MD Social History Tobacco Use [...] on filedocumented in this encounter Care Teams Home Organizer Relationship Specialty Start Date End Date Luna Andrew MD PCP - General Internal Medicine 08/11/11 12/23/21 Keya Jay MD [address] [place] [address] PCP - General Internal Medicine 12/24/21 Montrell Lopez MD, PHD [address] [place], [place] [phone] Surgeon Neurosurgery 02/06/22 Calvin Lucero PA-C 175 [facility] [address] [place] [address] Specialist Neurosurgery 02/06/22 documented as of this encounter
--- OUTSIDE RECORDS SUMMARY | 2024-09-07 13:08 | XMS_ITS | Encounter Summary ---
Author Organization [employer] [facility] Address [address] [place] [address] Care Team Providers Care Gear Machinist Name Role Phone Luna Andrew MD Primary Care Provider Keya Brito MD Primary Care Prov ider Montrell Lopez MD, PHD Unavailable Unava Calvin Garcia PA-C Unavailable [phone] Reason for Visit * Reason Onset Date Comments Faxed Order 05/25/2019 [facility] Encounter Details Date Type Department Care Team Description 05/25/2019 Telephone Adult Medicine [address] [address] Luna Andrew MD Faxed Order ([facility]) Social History Tobacco Use Types Packs/Day Years [...] encounter Miscellaneous Notes * Telephone Encounter - Leti Carmichael - 05/25/2019 3:12 PM EST Faxed order from [facility] in dr. Andrew's box for signature and to be faxed back to [phone] documented in this encounter Plan of Treatment Not on file documented as of this encounter Visit Diagnoses Not on filedocumented in this encounter Care Teams Gear Machinist Relationship Specialty Start Date End Date Luna Andrew MD PCP - General Internal Medicine 08/11/11 12/23/21 Keya Jay MD [address] [place] [address] PCP - General Internal Medicine 12/24/21 Montrell Lopez MD, PHD [address] [place] [address] Surgeon Neurosurgery 02/06/22 Calvin Lucero PA-C [address] [place] [address] [place] [address] Specialist Neurosurgery 02/06/22 documented as of this encounter
--- OUTSIDE RECORDS SUMMARY | 2024-09-07 13:08 | XMS_ITS | Encounter Summary ---
Author Organization [facility] Address [address] [place] [address] Care Team Providers Care Child'S Nurse Name Role Phone Keya Jay MD Primary Care Prov ider Montrell Lopez MD, PHD Unavailable Unava Calvin Garcia PA-C Unavailable [phone] Encounter Details Date Type Department Care Team Description 10/20/2023 Orders Only Medical Records [address] [place] [address] Rhett Sanchez Social History Tobacco Use Types Packs/Day Years [...] Procedure Name Priority Date/Time Associated Diagnosis Comments OUTSIDE CT Routine 10/02/2023 documented in this encounter Results * OUTSIDE CT (10/02/2023) Rhett Sanchez RADIOLOGY documented in this encounter Visit Diagnoses Not on filedocumented in this encounter Care Teams Child'S Nurse Relationship Specialty Start Date End Date Keya Jay MD [address] [place] [address] PCP - General Internal Medicine 12/24/21 Montrell Lopez MD, PHD [address] [place] [address] Surgeon Neurosurgery 02/06/22 Calvin Lucero PA-C [address] [place] [address] Specialist Neurosurgery 02/06/22 documented as of this encounter
--- OUTSIDE RECORDS SUMMARY | 2024-09-07 13:08 | XMS_ITS | Encounter Summary ---
Author Organization [facility] Address [address] [place] [address] Care Team Providers Care Medical Affairs Leader Name Role Phone Luna Andrew MD Primary Care Provider Keya Brito MD Primary Care Prov ider Montrell Lopez MD, PHD Unavailable Unava Calvin Garcia PA-C Unavailable [phone] Encounter Details Date Type Department Care Team Description 06/06/2014 Hand Salter Report Medical Records [address] [place] [address] Viviane Lopez MD [address] [place] [address] Social History Tobacco Use Types Packs/Day Years [...] on filedocumented in this encounter Care Teams Medical Affairs Leader Relationship Specialty Start Date End Date Luna Andrew MD PCP - General Internal Medicine 08/11/11 12/23/21 Keya Jay MD [address] [place] [address] PCP - General Internal Medicine 12/24/21 Montrell Lopez MD, PHD [address] [place] [address] Surgeon Neurosurgery 02/06/22 Calvin Lucero PA-C [address] [place] [address] Specialist Neurosurgery 02/06/22 documented as of this encounter
--- OUTSIDE RECORDS SUMMARY | 2024-09-07 13:08 | XMS_ITS | Encounter Summary ---
Author Organization [facility] Address [address] [place] [address] Care Team Providers Care Broker Assistant Name Role Phone Luna Andrew MD Primary Care Provider Keya Brito MD Primary Care Prov ider Montrell Lopez MD, PHD Unavailable Unava Calvin Garcia PA-C Unavailable [phone] Encounter Details Date Type Department Care Team Description 02/04/2017 Boat Finisher Report Medical Records [address] [place] [address] Marya Tejada MD Social History Tobacco Use [...] on filedocumented in this encounter Care Teams Broker Assistant Relationship Specialty Start Date End Date Luna Andrew MD PCP - General Internal Medicine 08/11/11 12/23/21 Keya Jay MD [address] [place] [address] PCP - General Internal Medicine 12/24/21 Montrell Lopez MD, PHD [address] [place], [place] [phone] Surgeon Neurosurgery 02/06/22 Calvin Lucero PA-C 175 [facility] [address] [place] [address] Specialist Neurosurgery 02/06/22 documented as of this encounter
--- OUTSIDE RECORDS SUMMARY | 2024-09-07 13:08 | XMS_ITS | Encounter Summary ---
Author Organization [facility] Address [address] [place] [address] Care Team Providers Care Audiometric Technician Name Role Phone Luna Andrew MD Primary Care Provider Keya Brito MD Primary Care Prov ider Montrell Lopez MD, PHD Unavailable Unava Calvin Garcia PA-C Unavailable [phone] Encounter Details Date Type Department Care Team Description 07/31/2021 Founder President And Ceo Report Medical Records [address] [place] [address] Evangelist Nelson MD Social History Tobacco Use [...] on filedocumented in this encounter Care Teams Audiometric Technician Relationship Specialty Start Date End Date Luna Andrew MD PCP - General Internal Medicine 08/11/11 12/23/21 Keya Jay MD [address] [place] [address] PCP - General Internal Medicine 12/24/21 Montrell Lopez MD, PHD [address] [place] [address] Surgeon Neurosurgery 02/06/22 Calvin Lucero PA-C [address] [place] [address] [address] [place] [address] Specialist Neurosurgery 02/06/22 documented as of this encounter
--- OUTSIDE RECORDS SUMMARY | 2024-09-07 13:08 | XMS_ITS | Encounter Summary ---
Author Organization [facility] Address [address] [place] [address] Care Team Providers Care Core Machine Tender Name Role Phone Luna Andrew MD Primary Care Provider Keya Brito MD Primary Care Prov ider Montrell Lopez MD, PHD Unavailable Unava Calvin Garcia PA-C Unavailable [phone] Encounter Details Date Type Department Care Team Description 08/16/2016 Release of Information Medical Records [address] [place] [address] Abstract, Provider Social History Tobacco Use Types [...] on filedocumented in this encounter Care Teams Core Machine Tender Relationship Specialty Start Date End Date Luna Andrew MD PCP - General Internal Medicine 08/11/11 12/23/21 Keya Jay MD [address] [place], [place] [phone] PCP - General Internal Medicine 12/24/21 Montrell Lopez MD, PHD [address] [place], [place] [phone] Surgeon Neurosurgery 02/06/22 Calvin Lucero PA-C 175 [facility] [address] [place] [address] Specialist Neurosurgery 02/06/22 documented as of this encounter
--- OUTSIDE RECORDS SUMMARY | 2024-09-07 13:08 | XMS_ITS | Clinical Summary ---
Author Organization [facility] Address [address] [place] [address] Care Team Providers Care Labor Law Professor Name Role Phone Keya Jay MD Primary Care Prov ider Montrell Lopez MD, PHD Unavailable Unava Calvin Garcia PA-C Unavailable [phone] Allergies Active Allergy Reactions Severity Noted Date Comments Lactose Rash/Dermatitis 08/29/2022 Seasonal 04/08/2013 Medications Medication Sig Dispensed Refills Start Date End Date Status EPINEPHrine 0.3 MG/0.3ML Solution Auto-injector INJECT THE CONTENTS OF 1 PEN INTRAMUSCULARLY EVERY 10 MINS NEEDED FOR ANAPHYLAXIS FOR 2 DOSES 0 07/28/2022 Active rosuvastatin (CRESTOR) 40 MG tablet Take 1 Tablet by mouth daily. 0 07/30/2023 Active loratadine (CLARITIN) 10 MG tablet Take 1 Tablet by mouth daily. 30 Tablet 5 11/17/2023 Active ibuprofen (ADVIL,MOTRIN) 600 MG tablet Take 1 Tablet by mouth as needed for Pain. Medication not to be taken daily 30 Tablet 0 04/11/2024 Active Active Problems Problem Noted Date Prediabetes 04/18/2024 Leukocytosis 02/06/2021 Surgical menopause on hormone replacemen t therapy 08/20/2018 Last Assessment & Plan: Counseled patient re: usual recommendation to start to wean from HRT once approaching average age of menopause and using smallest dose for shortest period of time. Reviewed that when we wean we do so over a long period of time to avoid recurrence of sx. Explained that risks of HRT include cardiovascular disease- [place], DVT, stroke. She was most interested in starting to wean. Will cut patch in half x 6 months and then return. We reviewed her healthy history and she seems to be a reasonable risk. Cervical radiculitis 04/15/2018 Renal calculus 02/09/2017 Overview: 11/18/2016 Renal US: small left renal calculus, otherwise unremarkable Hyperlipidemia 09/10/2015 Midline thoracic back pain 09/03/2015 Chronic headache 06/07/2012 History of ovarian cancer 05/03/2012 Overview: 1991; removed left ovary and chemotherapy. 11/18/2016 c/o pelvic pain, ultrasound: postsurgical changes w/ small cyst R ovary. JAIRO on CPAP 08/12/2011 Resolved Problems Problem Noted Date Resolved Date Overweight 09/19/2011 02/09/2017 H/O: hysterectomy 08/26/2011 06/26/2014 Encounters Date Type Specialty Care Team Description 07/11/2024 Orders Only [facility] from Last 3 Months Immunizations Name Administration Dates Next Due COVID-19 (Pfizer) 01/24/2022,,08/02/2020, 020 COVID-19 (Pfizer) Pt Reported 03/26/2024 ,01/24/2022,04/23/2021, 021,07/11/2020 Flu (Generic) 05/12/2016 Influenza (> 6 Months) 03/24/2021,04/27/2019, Influenza Flu (PT Reported) 03/26/2024,0 03/27/2023,03/21/2022, 019,05/12/2016 Influenza Vaccine-preservati ve Free-quadrivalent 4 Years 04/11/2018 Influenza Vaccine-quadrivale nt 4 Years Plus 03/24/2021,04/27/2019,04/12/2017 Shingrix (Patient reported) 10/22/2022, 2 Shingrix (Recombinant zoster vaccine) 07/29/2022 Tdap 07/29/2022,05/09/2022,10/13/2011 Family History Medical History Relation Name Comments CA Breast Aunt 1 m 40s Mother's sister CA Ovarian Aunt 2 Mother's Sister alzheimer's Aunt 3 alzheimer's Father diabetes CA Breast Mother 40s diabetes CA Colon Uncle 1 maternal- a t 56 Cancer of the Prostate Uncle 2 mater nal uncle- Relation Name Status Comments Aunt 1 m [...] file Not on file Not on file Last Filed Vital Signs Vital Sign Reading Time Taken Comments Blood Pressure 126/74 04/11/2024 9:45 AM EDT Pulse 87 04/11/2024 9:45 AM EDT Temperature 36.4 ??C (97.5 ??F) 04/11/2024 9:45 AM ED T Respiratory Rate 14 04/11/2024 9:45 AM EDT Oxygen Saturation 96% 08/13/2023 2:28 PM EST Inhaled Oxygen Concentration - - Weight 90.4 kg (199 lb 3.2 oz) 04/11/2024 9:45 A M EDT Height 154.9 cm (5' 1 ) 04/11/2024 9:45 AM EDT Body Mass Index 37.64 04/11/2024 9:45 AM EDT Plan of Treatment Health Maintenance Due Date Last Done Comments CERVICAL CANCER SCREENING 08/20/20212018, 09/23/2016, 04/08/2013, Additional history exists Covid-19 Vaccine ( season) 2024 03/26/2024, 01/24/2022, 01/24/2022, Additional history exists BMI CHECK/ADVISE 07/20/2024 04/11/2024, , 08/13/2023 (Completed), Additional history exists BASELINE HEALTH EXAM 40-64 08/29/202408/29, 01/31/2021, 01/18/2021, Additional history exists MAMMOGRAM 02/19/2025 02/20/2024, 07/2022, 01/11/2022, Additional history exists COLON CANCER SCREENING 06/03/2027 06/03/2017 CHOLESTEROL SCREENING 06/16/2027 06/16/2022 , 01/31/2021, 05/20/2016, Additional history exists PNEUMOCOCCAL VACCINE FOR HIG H RISK PATIENTS (#1) 2032 DTAP/TDAP/TD (4 - Td or Tdap) 07/29/2032, 05/09/2022, 10/13/2011 SHINGLES VACCINE Completed 10/22/2022, 04/2023, 06/06/2022 INFLUENZA Completed 03/26/2024, 02/2023, 03/21/2022, Additional history exists Care Teams Labor Law Professor Relationship Specialty Start Date End Date Keya Jay MD [address] [place] [address] PCP - General Internal Medicine 12/24/21 Montrell Lopez MD, PHD [address] [place] [address] Surgeon Neurosurgery 02/06/22 Calvin Lucero PA-C 175 [facility] [address] [place] [address] Specialist Neurosurgery 02/06/22
--- OUTSIDE RECORDS SUMMARY | 2024-09-07 13:08 | XMS_ITS | Encounter Summary ---
Author Organization [facility] [facility] Address [address] [place] [address] Care Team Providers Care Leg Man Name Role Phone Luna Andrew MD Primary Care Provider Keya Brito MD Primary Care Prov ider Montrell Lopez MD, PHD Unavailable Unava Calvin Garcia PA-C Unavailable Reason for Visit * Reason Onset Date Comments Call-returning From Provider 12/10/2016 Encounter Details Date Type Department Care Team Description 12/10/2016 Telephone OBGYN - [place] [address] [place] [address] Nikki Lobo CN [address] [place] [address] Call-returning From Provider Social History Tobacco Use Types Packs/Day [...] encounter Miscellaneous Notes * Telephone Encounter - Mona Schroeder M.A. - 12/10/2016 9:58 AM EDT Will await SENTHIL. CMB * Telephone Encounter - Britney Galvni - 12/10/2016 9:41 AM EDT Chief Complaint/problem: Patient called states that she received a letter to remind her to have u/sdone. She states she did have it at [facility] and will sign SENTHIL to get results to us How long has the patient had this problem? Pt???s PROFESSOR OF FOREST PLANNING provider: Nikki Lobo CNM Last menstrual period (LMP) or EDC (due date): N/A documented in this encounter Plan of Treatment Not on file documented as of this encounter Visit Diagnoses Not on filedocumented in this encounter Care Teams Leg Man Relationship Specialty Start Date End Date Luna Andrew MD PCP - General Internal Medicine 08/11/11 12/23/21 Keya Jay MD [address] [place] [address] PCP - General Internal Medicine 12/24/21 Montrell Lopez MD, PHD [address] [place] [address] Surgeon Neurosurgery 02/06/22 Calvin Lucero PA-C [address] [place] [address] [place] [address] Specialist Neurosurgery 02/06/22 documented as of this encounter
--- OUTSIDE RECORDS SUMMARY | 2024-09-07 13:08 | XMS_ITS | Encounter Summary ---
Author Organization [facility] Address [address] [place] [address] Care Team Providers Care Toe Sewer Name Role Phone Luna Andrew MD Primary Care Provider Keya Brito MD Primary Care Prov ider Montrell Lopez MD, PHD Unavailable Unava Calvin Garcia PA-C Unavailable [phone] Encounter Details Date Type Department Care Team Description 01/06/2017 Air And Hydronic Balancing Technician Report Medical Records [address] [place] [address] Marya Tejada MD Social History Tobacco Use [...] on filedocumented in this encounter Care Teams Toe Sewer Relationship Specialty Start Date End Date Luna Andrew MD PCP - General Internal Medicine 08/11/11 12/23/21 Keya Jay MD [address] [place] [address] PCP - General Internal Medicine 12/24/21 Montrell Lopez MD, PHD [address] [place], [place] [phone] Surgeon Neurosurgery 02/06/22 Calvin Lucero PA-C 175 [facility] [address] [place] [address] Specialist Neurosurgery 02/06/22 documented as of this encounter
--- OUTSIDE RECORDS SUMMARY | 2024-09-07 13:08 | XMS_ITS | Encounter Summary ---
Author Organization [facility] Address [address] [place] [address] Care Team Providers Care Hotel Maintenance Technician Name Role Phone Luna Andrew MD Primary Care Provider Keya Brito MD Primary Care Prov ider Montrell Lopez MD, PHD Unavailable Unava Calvin Garcia PA-C Unavailable [phone] Encounter Details Date Type Department Care Team Description 10/04/2018 Release of Information Medical Records [address] [place] [address] Abstract, Provider Social History Tobacco Use Types [...] on filedocumented in this encounter Care Teams Hotel Maintenance Technician Relationship Specialty Start Date End Date Luna Andrew MD PCP - General Internal Medicine 08/11/11 12/23/21 Keya Jay MD [address] [place], [place] [phone] PCP - General Internal Medicine 12/24/21 Montrell Lopez MD, PHD [address] [place], [place] [phone] Surgeon Neurosurgery 02/06/22 Calvin Lucero PA-C 175 [facility] [address] [place] [address] Specialist Neurosurgery 02/06/22 documented as of this encounter
--- OUTSIDE RECORDS SUMMARY | 2024-09-07 13:08 | XMS_ITS | Encounter Summary ---
Author Organization [employer] [facility] Address [address] [place] [address] Care Team Providers Care Groundskeeping Yardman Name Role Phone Luna Andrew MD Primary Care Provider Keya Brito MD Primary Care Prov ider Montrell Lopez MD, PHD Unavailable Unava Calvin Garcia PA-C Unavailable [phone] Encounter Details Date Type Department Care Team Description 02/20/2021 Orders Only Adult Medicine [address] [address] Shelly Montgomery PA [address] [place] [address] Pain and swelling of right ankle Social History Tobacco Use Types Packs/Day Years [...] Name Priority Date/Time Associated Diagnosis Comments CHG RADEX ANKLE COMPLETE MINIMUM 3 VIEWS Routine 02/06/2021 Pain and swelling of right ankle documented in this encounter Results * X-RAY EXAM OF ANKLE, COMPLETE (02/06/2021) Shelly [facility] [address] [facility] documented in this encounter Visit Diagnoses Diagnosis Pain and swelling of right ankle documented in this encounter Care Teams Groundskeeping Yardman Relationship Specialty Start Date End Date Luna Andrew MD PCP - General Internal Medicine 08/11/11 12/23/21 Keya Jay MD [address] [place] [address] PCP - General Internal Medicine 12/24/21 Montrell Lopez MD, PHD [address] [place] [address] Surgeon Neurosurgery 02/06/22 Calvin Lucero PA-C [address] [place] [address] Specialist Neurosurgery 02/06/22 documented as of this encounter
--- OUTSIDE RECORDS SUMMARY | 2024-09-07 13:08 | XMS_ITS | Encounter Summary ---
Author Organization [facility] Address [address] [place] [address] Care Team Providers Care Yard Spotter Name Role Phone Luna Andrew MD Primary Care Provider Keya Brito MD Primary Care Prov ider Montrell Lopez MD, PHD Unavailable Unava Calvin Garcia PA-C Unavailable [phone] Encounter Details Date Type Department Care Team Description 01/12/2017 Supervisor Shuttle Veneering Report Medical Records [address] [place], [place] [id number] Blanco Elizalde Social History Tobacco Use Types Packs/Day Years [...] on filedocumented in this encounter Care Teams Yard Spotter Relationship Specialty Start Date End Date Luna Andrew MD PCP - General Internal Medicine 08/11/11 12/23/21 Keya Jay MD [address] [place] [address] PCP - General Internal Medicine 12/24/21 Montrell Lopez MD, PHD [address] [place] [address] Surgeon Neurosurgery 02/06/22 Calvin Lucero PA-C [address] [place] [address] [address] [place] [address] Specialist Neurosurgery 02/06/22 documented as of this encounter
--- OUTSIDE RECORDS SUMMARY | 2024-09-07 13:08 | XMS_ITS | Encounter Summary ---
Author Organization [employer] [facility] Address [address] [place] [address] Care Team Providers Care Airline Lounge Receptionist Name Role Phone Luna Andrew MD Primary Care Provider Keya Brito MD Primary Care Prov ider Montrell Lopez MD, PHD Unavailable Unava Calvin Garcia PA-C Unavailable [phone] Reason for Visit * Reason Onset Date Comments REFERRAL 02/08/2021 Encounter Details Date Type Department Care Team Description 02/08/2021 Telephone Adult Medicine [address] [address] Shelly Montgomery PA [address] [place] [address] REFERRAL Social History Tobacco Use Types Packs/Day Years [...] have Coronavirus / COVID-19? No / Unsure 02/06/2021 2:38 PM EDT documented as of this encounter Miscellaneous Notes * Telephone Encounter - Erna Monsivais - 02/08/2021 11:30 AM EDT Pt states [facility] needs clinical notes and results of labs along with the referral. What insurance does the patient have today? Blue benefits Effective 04/19/09: BCBS will not retro referral requests over 90 days. If request is for this please instruct patient to call the 800# on their insurance card to appeal. Do not submit a request. Referrals cannot be processed if the insurance is not accurate. If the insurance listed above in red is NO BILLING INFORMATION FOUND FOR THIS ENCOUTNER The patients correct insurance must be obtained and registered in [facility] or their referral can not be processed. Is this a retro request? NO. If yes for what date of service do you need the retro referral? N/A Who is calling to request this referral? Pt If the caller is not the patient, what is their name? N/A Ask the patient WHO referred them to this specialty: Patient spoke to Shelly Montgomery and was told they would order a referral to this specialty FIRST and LAST NAME of SPECIALIST PATIENT is seeing: Dr. Yolette Fountain What specialty is this? Oncology/hematology DIAGNOSIS Patient is being seen for (Not a body part or a procedure): High white blood cells Have you seen this SPECIALIST for this PROBLEM/DX before?NO If YES, when: Have you checked REVIEW or the APPT DESK to see if this referral has already been done or has visits left? YES Is this visit:Initial Visit Address of Specialist: [address] [place] [address] Phone # of Specialist:[phone] Fax #: (if applicable): [phone] Does patient have an appointment scheduled?: NO Date of appointment- (including a retro-request): Is this appointment related to: Not MVA, WC or Surgery related documented in this encounter Plan of Treatment Not on file documented as of this encounter Visit Diagnoses Not on filedocumented in this encounter Care Teams Airline Lounge Receptionist Relationship Specialty Start Date End Date Luna Andrew MD PCP - General Internal Medicine 08/11/11 12/23/21 Keya Jay MD [address] [place] [address] PCP - General Internal Medicine 12/24/21 Montrell Lopez MD, PHD [address] [place] [address] Surgeon Neurosurgery 02/06/22 Calvin Lucero PA-C [address] [place] [address] Specialist Neurosurgery 02/06/22 documented as of this encounter
--- OUTSIDE RECORDS SUMMARY | 2024-09-07 13:08 | XMS_ITS | Encounter Summary ---
Author Organization [facility] Address [address] [place] [address] Care Team Providers Care In Flight Crew Member Name Role Phone Keya Jay MD Primary Care Prov ider Montrell Lopez MD, PHD Unavailable Unava ilable Calvin Lucero PA-C Unavailable [phone] Encounter Details Date Type Department Care Team Description 02/26/2024 SCAN [facility] Neurosurgery [address] [address] Montrell Lopez MD, PHD Social History Tobacco Use Types Packs/Day Years [...] on filedocumented in this encounter Care Teams In Flight Crew Member Relationship Specialty Start Date End Date Keya Jay MD [address] [place] [address] PCP - General Internal Medicine 12/24/21 Monrtell Lopez MD, PHD [address] [place] [address] Surgeon Neurosurgery 02/06/22 Calvin Lucero PA-C 175 [facility] [address] [place] [address] Specialist Neurosurgery 02/06/22 documented as of this encounter
--- OUTSIDE RECORDS SUMMARY | 2024-09-07 13:08 | XMS_ITS | Encounter Summary ---
Author Organization [facility] Address [address] [place] [address] Care Team Providers Care Shopper'S Aide Name Role Phone Luna Andrew MD Primary Care Provider Keya Brito MD Primary Care Prov ider Montrell Lopez MD, PHD Unavailable Unava Calvin Garcia PA-C Unavailable [phone] Encounter Details Date Type Department Care Team Description 10/18/2021 Seismograph Supervisor Report Medical Records [address] [place] [address] Aakash Tello MD Social History Tobacco Use Types Packs/Day [...] have Coronavirus / COVID-19? No / Unsure 09/23/2021 8:50 AM EST documented as of this encounter Plan of Treatment Not on file documented as of this encounter Visit Diagnoses Not on filedocumented in this encounter Care Teams Shopper'S Aide Relationship Specialty Start Date End Date Luna Andrew MD PCP - General Internal Medicine 08/11/11 12/23/21 Keya Jay MD [address] [place] [id number] PCP - General Internal Medicine 12/24/21 Montrell Lopez MD, PHD [address] [place] [address] Surgeon Neurosurgery 02/06/22 Calvin Lucero PA-C [address] [place] [address] Specialist Neurosurgery 02/06/22 documented as of this encounter
--- OUTSIDE RECORDS SUMMARY | 2024-09-07 13:08 | XMS_ITS | Encounter Summary ---
Author Organization [facility] Address [address] [place] [address] Care Team Providers Care Dietary Internship Name Role Phone Luna Andrew MD Primary Care Provider Keya Brito MD Primary Care Prov ider Montrell Lopez MD, PHD Unavailable Unava Calvin Garcia PA-C Unavailable [phone] Encounter Details Date Type Department Care Team Description 02/04/2021 Orders Only Adult Medicine [address] [address] Shelly Montgomery PA [address] [place] [address] Submental mass Social History Tobacco Use Types Packs/Day Years [...] Procedure Name Priority Date/Time Associated Diagnosis Comments US SOFT TISSUE HEAD/NECK Routine 01/24/2021 Submental mass documented in this encounter Results * US SOFT TISSUE HEAD/NECK (01/24/2021) Shelly [facility] [address] [facility] documented in this encounter Visit Diagnoses Diagnosis Submental mass Swelling, mass, or lump in head and neck documented in this encounter Care Teams Dietary Internship Relationship Specialty Start Date End Date Luna Andrew MD PCP - General Internal Medicine 08/11/11 12/23/21 Keya Jay MD [address] [place] [address] PCP - General Internal Medicine 12/24/21 Montrell Lopez MD, PHD [address] [place] [address] Surgeon Neurosurgery 02/06/22 Calvin Lucero PA-C [address] [place] [address] Specialist Neurosurgery 02/06/22 documented as of this encounter
[2024-09-07 13:18] VITALS: BP 120/72; BMI 36.7
== END 2024-09-07 14:28 | disposition home or self-care (01) ==
LOC: HO.HWS 12:57
PROVIDERS: PCP Internal Medicine; Visit Provider Advanced Practice Midwife
DX: Z01.419 Encounter for gynecological examination (general) (routine) without abnormal findings (principal)
CPT/HCPCS: 99396; 99459

== ENCOUNTER 2024-09-14 07:56 | Outpatient (REF) | payer OTHER, SELFPAY ==
--- OUTSIDE RECORDS SUMMARY | 2024-09-14 09:09 | XMS_ITS | Clinical Summary ---
Author Organization [address] Address [address] [place] [phone] Phone Care Team Providers Care Bag Repairer Name Role Phone Keya Glass MD Primary [...] (08/18/2024 3:01 PM EST): Recent labs at [facility] on the range of prediabetes. Patient [...] 2:30 PM EST Office Visit Adult Medicine [address] [phone] MD Prediabetes (Primary Dx); Class [...] COMMENT: one ovary remains ESOPHAGOGASTRODUODENOSCOPY 05/28/2012 PROCEDURE: [facility] ESOPHAGOGASTRODUODENOSCOPY TRANSORAL DIAGNOSTIC; COMMENT: normal BREAST LUMPECTOMY 2007 Left PROCEDURE: HISTORICAL BREAST LUMPECTOMY; COMMENT: neg HERNIA REPAIR 05/2018 PROCEDURE: HISTORICAL HERNIA REPAIR/ING; COMMENT: with a mesh OTHER SURGICAL HISTORY 2004 PROCEDURE: [facility] HYSTEROSCOPY ENDOMETRIAL ABLATION OTHER SURGICAL HISTORY 2003 [...] COMMENT: left ovary removed and chemo at [facility], BRCA negative, had genetic counseling [...] 02/25/2025 1:00 PM EDT Appointment Radiology Department [address] [phone] 04/11/2025 1:30 PM EDT Consult Bariatric Surgery - [place] [address] [phone] Carmen Bailey MD [address] [address] 06/01/2025 3:00 PM EST Office Visit Adult [address] [phone] Keya Glass MD [address] [place] [address] Health Maintenance Due Date Last Done Comments [...] RESULTING AGENCY - 08/25/2018 2:31 PM EST [id number] THINPREP PAP, IMAGED: NEGATIVE FOR SQUAMOUS INTRAEPITHELIAL [...] POSITIVE ASCUS 09/2016 HPV NEG Nikki Lobo [facility] CYTOLOGY ORDERABLES Final R esult HISTORICAL TESTING LAB RESULTING AGENCY * Colonoscopy (06/03/2017) Colonoscopy no interpretation , abstracted Anatomical Region Laterality Modality Other Historical Provider HEALTH MAINTENANCE Final Result * Hepatitis C Screening (09/23/2016) Hepatitis C Screening abstracted Historical Provider HEALTH MAINTENANCE Final Result from Last 3 Months or Most Recently Relevant to Health Maintenance Insurance [employer] [facility] Care Teams Bag Repairer Relationship Specialty Start Date End Date Coleman-Munoz, Keya Jessica, MD [address] [place] [address] PCP - General Internal Medicine 08/15/24
--- OUTSIDE RECORDS SUMMARY | 2024-09-14 09:10 | XMS_ITS | Encounter Summary ---
Author Organization [employer] [facility] Address [address] [place] [address] Care Team Providers Care Service Sprinkler Helper Name Role Phone Keya Jay MD Primary Care Prov ider Montrell Lopez MD, PHD Unavailable Unava Calvin Garcia PA-C Unavailable [phone] Encounter Details Date Type Department Care Team Description 12/04/2022 Personal Development Mentor Report Medical Records [address] [place] [address] Xander Rogers DO Social History Tobacco Use [...] on filedocumented in this encounter Care Teams Service Sprinkler Helper Relationship Specialty Start Date End Date Keya Jay MD [address] [place] [address] PCP - General Internal Medicine 12/24/21 Montrell Lopez MD, PHD [address] [place] [address] Surgeon Neurosurgery 02/06/22 Calvin Lucero PA-C 175 [facility] [address] [place] [address] Specialist Neurosurgery 02/06/22 documented as of this encounter
--- OUTSIDE RECORDS SUMMARY | 2024-09-14 09:10 | XMS_ITS | Encounter Summary ---
Author Organization [facility] Address [address] [place] [address] Care Team Providers Care Furniture Packer Name Role Phone Keya Jay MD Primary Care Prov ider Montrell Lopez MD, PHD Unavailable Unava Calvin Garcia PA-C Unavailable [phone] Encounter Details Date Type Department Care Team Description 10/20/2023 Orders Only Medical Records [address] [place] [address] Rhett Sanchez Social History Tobacco Use Types [...] on filedocumented in this encounter Care Teams Furniture Packer Relationship Specialty Start Date End Date Keya Jay MD [address] [place] [address] PCP - General Internal Medicine 12/24/21 Montrell Lopez MD, PHD [address] [place] [address] Surgeon Neurosurgery 02/06/22 Calvin Lucero PA-C [address] [place] [address] Specialist Neurosurgery 02/06/22 documented as of this encounter
--- OUTSIDE RECORDS SUMMARY | 2024-09-14 09:10 | XMS_ITS | Encounter Summary ---
Author Organization [facility] [facility] Address [address] [place] [address] Care Team Providers Care Paper Reclaiming Machine Operator Name Role Phone Luna Andrew MD Primary Care Provider Keya Brito MD Primary Care Prov ider Montrell Lopez MD, PHD Unavailable Unava Calvin Garcia PA-C Unavailable [phone] Encounter Details Date Type Department Care Team Description 05/25/2020 Pt. Non Urgent Medic al Question Physiatr - [address] [address] John Russo PA-C Social History Tobacco Use [...] on filedocumented in this encounter Care Teams Paper Reclaiming Machine Operator Relationship Specialty Start Date End Date Luna Andrew MD PCP - General Internal Medicine 08/11/11 12/23/21 Keya Jay MD [address] [place] [address] PCP - General Internal Medicine 12/24/21 Montrell Lopez MD, PHD [address] [place] [address] Surgeon Neurosurgery 02/06/22 Calvin Lucero PA-C 175 [facility] [address] [place] [address] Specialist Neurosurgery 02/06/22 documented as of this encounter
--- OUTSIDE RECORDS SUMMARY | 2024-09-14 09:10 | XMS_ITS | Encounter Summary ---
Author Organization [facility] Address [address] [place] [address] Care Team Providers Care Exterminator Helper Name Role Phone Luna Andrew MD Primary Care Provider Keya Brito MD Primary Care Prov ider Montrell Lopez MD, PHD Unavailable Unava Calvin Garcia PA-C Unavailable [phone] Reason for Visit * Reason Onset Date Comments Testing 11/24/2016 Encounter Details Date Type Department Care Team Description 11/24/2016 Telephone OBGYN - [place] [address] [place] [address] Nikki Lobo [facility] [address] [place] [address] Testing Social History Tobacco Use Types Packs/Day Years [...] Telephone Encounter - Mona Schroeder M.A. - 11/25/2016 11:43 AM EDT Left message for patient. CMB Order placed up front for picking table worker. * Telephone Encounter - Nikki Lobo CNM - 11/25/2016 11:38 AM EDT External order was placed * Telephone Encounter - Mona Schroeder M.A. - 11/25/2016 10:07 AM EDT Please order ultrasound externally so that way it prints and we can give it to patient. CMB * Telephone Encounter - Nikki Lobo CNM - 11/25/2016 9:48 AM EDT Roxie Paniagua returned call. Discussed sono pelvis results. Patient reports her right side pelvic pain continues and it is daily. When she sits for long periods of times the pain occurs, if she stands for long periods of time the pain occurs. She has not followed up with her PCP for the hernia repair. Will repeat pelvic sono in 6-8 weeks and pt advised to follow up with her PCP. Nikki Lobo CNM * Telephone Encounter - Nikki Lobo CNM - 11/25/2016 9:01 AM EDT Received sono pelvis from [facility] Impression- small right ovarian cyst 2.2 x 1.7 x 2.2 Telephone Information: Called patient to discuss results. Left voice mail for patient to call back. Nikki Lobo CNM * Telephone Encounter - Mona Schroeder M.A. - 11/24/2016 1:59 PM EDT Spoke with patient, she went to [facility] and had ultrasound performed on May 2. Awaiting medical records. CMB * Telephone Encounter - Mona Schroeder M.A. - 11/24/2016 1:32 PM EDT Left message for patient. CMB * Telephone Encounter - Chasity Kendall - 11/24/2016 1:27 PM EDT Pt calling regarding an ultra sounds. She would like to speak with nurse regarding that. She statesshe got a letter in the mail documented in this encounter Plan of Treatment Not on file documented as of this encounter Visit Diagnoses Diagnosis Cyst of right ovary- Primary Other and unspecified ovarian cyst documented in this encounter Care Teams Exterminator Helper Relationship Specialty Start Date End Date Luna Andrew MD PCP - General Internal Medicine 08/11/11 12/23/21 Keya Jay MD [address] [place] [address] PCP - General Internal Medicine 12/24/21 Montrell Lopez MD, PHD [address] [place] [address] Surgeon Neurosurgery 02/06/22 Calvin Lucero PA-C [address] [place] [address] [place] [address] Specialist Neurosurgery 02/06/22 documented as of this encounter
--- OUTSIDE RECORDS SUMMARY | 2024-09-14 09:10 | XMS_ITS | Encounter Summary ---
Author Organization [employer] [facility] Address [address] [place] [address] Care Team Providers Care Belt Fixer Name Role Phone Keya Jay MD Primary Care Prov ider Montrell Lopez MD, PHD Unavailable Unava ilable Calvin Lucero PA-C Unavailable Encounter Details Date Type Department Care Team Description 09/29/2023 Lav Crewman Report Medical Records [address] [place] [address] Pepper Orozco [address] [place] [address] [id number] Social History Tobacco Use Types Packs/Day Years [...] filedocumented in this encounter Care Teams Belt Fixer Relationship Specialty Start Date End Date Keya Jay MD [address] [place] [address] [phone] PCP - General Internal Medicine 12/24/21 Montrell Lopez MD, PHD [address] [place], [place] [phone] Surgeon Neurosurgery 02/06/22 Calvin Lucero PA-C 175 [facility] [address] [place] [address] Specialist Neurosurgery 02/06/22 documented as of this encounter
--- OUTSIDE RECORDS SUMMARY | 2024-09-14 09:10 | XMS_ITS | Encounter Summary ---
Author Organization [employer] [facility] Address [address] [place] [address] Care Team Providers Care Transfer Station Operator Name Role Phone Luna Andrew MD Primary Care Provider Keya Brito MD Primary Care Prov ider Montrell Lopez MD, PHD Unavailable Unava Calvin Garcia PA-C Unavailable [phone] Encounter Details Date Type Department Care Team Description 07/25/2020 Refill Physiatry - [address] [address] John Russo PA-C Social History Tobacco Use [...] on filedocumented in this encounter Care Teams Transfer Station Operator Relationship Specialty Start Date End Date Luna Andrew MD PCP - General Internal Medicine 08/11/11 12/23/21 Keya Jay MD [address] [place] [address] PCP - General Internal Medicine 12/24/21 Montrell Lopez MD, PHD [address] [place] [address] Surgeon Neurosurgery 02/06/22 Calvin Lucero PA-C [address] [place] [address] Specialist Neurosurgery 02/06/22 documented as of this encounter
--- OUTSIDE RECORDS SUMMARY | 2024-09-14 09:10 | XMS_ITS | Encounter Summary ---
Author Organization [employer] [facility] Address [address] [place] [address] Care Team Providers Care Title I Paraprofessional Name Role Phone Keya Jay MD Primary Care Prov ider Montrell Lopez MD, PHD Unavailable Unava ilable Calvin Lucero PA-C Unavailable [phone] Encounter Details Date Type Department Care Team Description 11/03/2022 Endoscope Technician Report Medical Records [address] [place] [address] John Russo PA-C Social History Tobacco Use [...] on filedocumented in this encounter Care Teams Title I Paraprofessional Relationship Specialty Start Date End Date Keya Jay MD [address] [place] [address] PCP - General Internal Medicine 12/24/21 Montrell Lopez MD, PHD [address] [place] [address] Surgeon Neurosurgery 02/06/22 Calvin Lucero PA-C [address] [place] [address] [place] [address] Specialist Neurosurgery 02/06/22 documented as of this encounter
--- OUTSIDE RECORDS SUMMARY | 2024-09-14 09:10 | XMS_ITS | Encounter Summary ---
Author Organization [employer] [facility] Address [address] [place] [address] Care Team Providers Care Radiology Tech Name Role Phone Keya Jay MD Primary Care Prov ider Montrell Lopez MD, PHD Unavailable Unava Calvin Garcia PA-C Unavailable [phone] Encounter Details Date Type Department Care Team Description 08/17/2023 Orders Only Medical Records [address] [place] [address] [facility] Social History Tobacco Use Types Packs/Day [...] this encounter Results * OUTSIDE LAB (06/19/2023) [facility] LAB documented in this encounter Visit Diagnoses Not on filedocumented in this encounter Care Teams Radiology Tech Relationship Specialty Start Date End Date Keya Jay MD [address] [place], [place] [phone] PCP - General Internal Medicine 12/24/21 Montrell Lopez MD, PHD [address] [place] [address] Surgeon Neurosurgery 02/06/22 Calvin Lucero PA-C [address] [place] [address] [place] [address] Specialist Neurosurgery 02/06/22 documented as of this encounter
--- OUTSIDE RECORDS SUMMARY | 2024-09-14 09:10 | XMS_ITS | Encounter Summary ---
Author Organization [employer] [facility] Address [address] [place] [address] Care Team Providers Care Team Physician Name Role Phone Luna Andrew MD Primary Care Provider Keya Brito MD Primary Care Prov ider Montrell Lopez MD, PHD Unavailable Unava Calvin Garcia PA-C Unavailable [phone] Encounter Details Date Type Department Care Team Description 08/26/2019 Transfer Records Medical Records [address] [place] [address] Abstract, Provider Social History Tobacco Use Types [...] on filedocumented in this encounter Care Teams Team Physician Relationship Specialty Start Date End Date Luna Andrew MD PCP - General Internal Medicine 08/11/11 12/23/21 Keya Jay MD [address] [place], [place] [phone] PCP - General Internal Medicine 12/24/21 Montrell Lopez MD, PHD [address] [place], [place] [phone] Surgeon Neurosurgery 02/06/22 Calvin Lucero PA-C [address] [place] [address] Specialist Neurosurgery 02/06/22 documented as of this encounter
--- OUTSIDE RECORDS SUMMARY | 2024-09-14 09:10 | XMS_ITS | Clinical Summary ---
Author Organization [employer] [facility] Address [address] [place] [address] Care Team Providers Care Legal File Clerk Name Role Phone Keya Jay MD Primary Care Prov ider Montrell Lopez MD, PHD Unavailable Unava Calvin Garcia PA-C Unavailable [phone] Allergies Active Allergy Reactions Severity Noted Date [...] that risks of HRT include cardiovascular disease- VT, DVT, stroke. She was most interested in [...] Specialty Care Team Description 07/11/2024 Orders Only [facility] from Last 3 Months Immunizations [...] 02/2023, 03/21/2022, Additional history exists Care Teams Legal File Clerk Relationship Specialty Start Date End Date Keya Jay MD [address] [place] [address] PCP - General Internal Medicine 12/24/21 Montrell Lopez MD, PHD [address] [place] [address] Surgeon Neurosurgery 02/06/22 Calvin Lucero PA-C 175 [facility] [address] [place] [address] Specialist Neurosurgery 02/06/22
--- OUTSIDE RECORDS SUMMARY | 2024-09-14 09:10 | XMS_ITS | Encounter Summary ---
Author Organization [facility] Address [address] [place] [address] Care Team Providers Care Geological Engineering Teacher Name Role Phone Keya Jay MD Primary Care Prov ider Montrell Lopez MD, PHD Unavailable Unava ilable Calvin Lucero PA-C Unavailable [phone] Encounter Details Date Type Department Care Team Description 02/26/2024 [facility] Neurosurgery [address] [address] Montrell Lopez MD, PHD Social [...] on filedocumented in this encounter Care Teams Geological Engineering Teacher Relationship Specialty Start Date End Date Keya Jay MD [address] [place] [address] PCP - General Internal Medicine 12/24/21 Montrell Lopez MD, PHD [address] [place] [address] Surgeon Neurosurgery 02/06/22 Calvin Lucero PA-C 175 [facility] [address] [place] [address] Specialist Neurosurgery 02/06/22 documented as of this encounter
--- OUTSIDE RECORDS SUMMARY | 2024-09-14 09:10 | XMS_ITS | Encounter Summary ---
Author Organization [employer] [facility] Address [address] [place] [address] Care Team Providers Care Contract Design Agent Name Role Phone Keya Jay MD Primary Care Prov ider Montrell Lopez MD, PHD Unavailable Unava ilable Calvin Lucero PA-C Unavailable [phone] Reason for Referral * EXTERNAL (Emergency) - Authorized/Booked Specialty Diagnoses / Procedures Referred By Contac t Referred To Contact Oncology/Hematology Diagnoses Leukocytosis, unspecified type Procedures REFERRAL TO ONCOLOGY/HEMATOLOGY (OUT OF NETWORK) Barbara Sherwood PA-C [address] [place] [address] External Oncology Referral ID Status Reason Start Date Expiration Date V isits Requested Visits Authorized [id number] Authorized/B ooked 06/26/2022 1 1 Encounter Details Date Type Department Care Team Description 06/26/2022 Pt. Non Urgent Medical Question Adult Medicine [address] [address] Keya Jay MD [address] [place] [address] Leukocytosis, unspecified type (Primary Dx) Social History [...] EST Subject: Oncology Dr Yolette Fountain MD [facility] needs the referral from you to see me I have appointmenttomorrow at 11:30 am. Thank You. documented in this encounter Plan of Treatment Not on file documented as of this encounter Visit Diagnoses Diagnosis Leukocytosis, unspecified type- Primary documented in this encounter Care Teams Contract Design Agent Relationship Specialty Start Date End Date Keya Jay MD [address] [place] [address] PCP - General Internal Medicine 12/24/21 Montrell Lopez MD, PHD [address] [place] [address] Surgeon Neurosurgery 02/06/22 Calvin Lucero PA-C [address] [place] [address] Specialist Neurosurgery 02/06/22 documented as of this encounter
--- OUTSIDE RECORDS SUMMARY | 2024-09-14 09:10 | XMS_ITS | Encounter Summary ---
Author Organization [employer] [facility] [facility] Address [address] [place] [address] Care Team Providers Care Coring Machine Operator Name Role Phone Luna Andrew MD Primary Care Provider Keya Brito MD Primary Care Prov ider Montrell Lopez MD, PHD Unavailable Unava Calvin Garcia PA-C Unavailable [phone] Encounter Details Date Type Department Care Team Description 05/20/2019 Old Medical Records Medical Records [address] [place] [address] Abstract, Provider Social History Tobacco Use Types [...] on filedocumented in this encounter Care Teams Coring Machine Operator Relationship Specialty Start Date End Date Luna Andrew MD PCP - General Internal Medicine 08/11/11 12/23/21 Keya Jay MD [address] [place], [place] [phone] PCP - General Internal Medicine 12/24/21 Montrell Lopez MD, PHD [address] [place], [place] [phone] Surgeon Neurosurgery 02/06/22 Calvin Lucero PA-C 175 [facility] [address] [place] [address] Specialist Neurosurgery 02/06/22 documented as of this encounter
--- OUTSIDE RECORDS SUMMARY | 2024-09-14 09:10 | XMS_ITS | Encounter Summary ---
Author Organization [employer] [facility] Address [address] [place] [address] Care Team Providers Care Maintenance Of Way Foreman Name Role Phone Keya Jay MD Primary Care Prov ider Montrell Lopez MD, PHD Unavailable Unava ilable Calvin Lucero PA-C Unavailable [phone] Encounter Details Date Type Department Care Team Description 06/24/2023 Library Customer Service Clerk Report Medical Records [address] [place] [address] Javier Velasco Social History Tobacco Use Types [...] on filedocumented in this encounter Care Teams Maintenance Of Way Foreman Relationship Specialty Start Date End Date Keya Jay MD [address] [place] [address] PCP - General Internal Medicine 12/24/21 Montrell Lopez MD, PHD [address] [place] [address] Surgeon Neurosurgery 02/06/22 Calvin Lucero PA-C 175 [facility] [address] [place] [address] Specialist Neurosurgery 02/06/22 documented as of this encounter
--- OUTSIDE RECORDS SUMMARY | 2024-09-14 09:10 | XMS_ITS | Encounter Summary ---
Author Organization [employer] [facility] Address [address] [place] [address] Care Team Providers Care Still Operator Batch Or Continuous Name Role Phone Luna Andrew MD Primary Care Provider Keya Brito MD Primary Care Prov ider Montrell Lopez MD, PHD Unavailable Unava Calvin Garcia PA-C Unavailable [phone] Encounter Details Date Type Department Care Team Description 12/03/2016 Orders Only Adult Medicine [facility] [address] [place] [address] Nikki Lobo CNM [address] [place] [address] [phone] Pelvic pain Social History Tobacco Use Types Packs/Day Years [...] Procedure Name Priority Date/Time Associated Diagnosis Comments SONO PELVIS COMPLETE Routine 11/18/2016 Pelvic pain documented in this encounter Results * SONO PELVIS COMPLETE (11/18/2016) Nikki Lobo CNM ULTRASOUND documented in this encounter Visit Diagnoses Diagnosis Pelvic pain documented in this encounter Care Teams Still Operator Batch Or Continuous Relationship Specialty Start Date End Date Luna Andrew MD PCP - General Internal Medicine 08/11/11 12/23/21 Keya Jay MD [address] [place] [address] PCP - General Internal Medicine 12/24/21 Montrell Lopez MD, PHD [address] [place] [address] Surgeon Neurosurgery 02/06/22 Calvin Lucero PA-C [address] [place] [address] Specialist Neurosurgery 02/06/22 documented as of this encounter
--- OUTSIDE RECORDS SUMMARY | 2024-09-14 09:10 | XMS_ITS | Encounter Summary ---
Author Organization [employer] [facility] Address [address] [place] [address] Care Team Providers Care Child Nurse Name Role Phone Luna Andrew MD Primary Care Provider Keya Brito MD Primary Care Prov ider Montrell Lopez MD, PHD Unavailable Unava Calvin Garcia PA-C Unavailable [phone] Reason for Visit * Reason Onset Date Comments Call-returning From Provider 12/10/2016 Encounter Details Date Type Department Care Team Description 12/10/2016 Telephone OBGYN - [place] [address] [place] [address] Nikki Lobo CN [address] [place] [address] Call-returning From Provider Social History Tobacco Use [...] She states she did have it at [facility] and will sign SENTHIL to get results to us How long has the patient had this problem? Pt???s RECEIVING WEIGHER provider: Nikki Lobo CNM Last menstrual period (LMP) or EDC (due date): N/A documented in this encounter Plan of Treatment Not on file documented as of this encounter Visit Diagnoses Not on filedocumented in this encounter Care Teams Child Nurse Relationship Specialty Start Date End Date Luna Andrew MD PCP - General Internal Medicine 08/11/11 12/23/21 Keya Jay MD [address] [place] [address] PCP - General Internal Medicine 12/24/21 Montrell Lopez MD, PHD [address] [place] [address] Surgeon Neurosurgery 02/06/22 Calvin Lucero PA-C [address] [place] [address] [place] [address] Specialist Neurosurgery 02/06/22 documented as of this encounter
--- OUTSIDE RECORDS SUMMARY | 2024-09-14 09:10 | XMS_ITS | Encounter Summary ---
Author Organization [employer] [facility] Address [address] [place] [address] Care Team Providers Care Regional Safety Manager Name Role Phone Keya Jay MD Primary Care Prov ider Montrell Lopez MD, PHD Unavailable Unava ilCalvin Juárez PA-C Unavailable [phone] Encounter Details Date Type Department Care Team Description 04/29/2024 Orders Only Medical Records [address] [place] [address] [facility] Social History Tobacco Use Types Packs/Day [...] this encounter Results * OUTSIDE LAB (03/31/2024) [facility] * OUTSIDE EMG (03/23/2024) Claribel Ann MD PERFORMABLES documented in this encounter Visit Diagnoses Not on filedocumented in this encounter Care Teams Regional Safety Manager Relationship Specialty Start Date End Date Keya Jay MD [address] [place] [address] PCP - General Internal Medicine 12/24/21 Montrell Lopez MD, PHD [address] [place] [address] Surgeon Neurosurgery 02/06/22 Calvin Lucero PA-C [address] [place] [address] Specialist Neurosurgery 02/06/22 documented as of this encounter
--- OUTSIDE RECORDS SUMMARY | 2024-09-14 09:10 | XMS_ITS | Encounter Summary ---
Author Organization [employer] [facility] Address [address] [place] [address] Care Team Providers Care Slag Mixer Name Role Phone Keya Jay MD Primary Care Prov ider Montrell Lopez MD, PHD Unavailable Unava ilCalvin Juárez PA-C Unavailable [phone] Reason for Visit * Reason Onset Date Comments REFERRAL 04/25/2024 neurosurgery Encounter Details Date Type Department Care Team Description 04/25/2024 Telephone Adult Medicine [facility] [address] [place] [address] Keya Jay MD [address] [place] [address] [phone] REFERRAL (neurosurgery) Social History Tobacco Use Types Packs/Day Years [...] encounter Miscellaneous Notes * Telephone Encounter - Vivien Munoz - 05/05/2024 8:58 AM EDT Order closed. Once we received the results from MRI or when they get scanned we will re-open the referral or pend a new one. Thank you Referral Dept. * Telephone Encounter - Keya Munoz MD - 04/25/2024 3:46 PM EDT She is being already followed by orthopedics, and they ordered an MRI. * Telephone Encounter - Vivien Munoz - 04/25/2024 10:31 AM EDT Pamela Munoz You referred the patient to Dr. Lopez but the patient must have MRIN done within a year. Once the patient get it done we will be able to work on the referral. Thank you Vivien Referral Rep. documented in this encounter Plan of Treatment Not on file documented as of this encounter Visit Diagnoses Not on filedocumented in this encounter Care Teams Slag Mixer Relationship Specialty Start Date End Date Keya Jay MD [address] [place] [address] PCP - General Internal Medicine 12/24/21 Montrell Lopez MD, PHD [address] [place] [address] Surgeon Neurosurgery 02/06/22 Calvin Lucero PA-C [address] [place] [address] [place] [address] Specialist Neurosurgery 02/06/22 documented as of this encounter
--- OUTSIDE RECORDS SUMMARY | 2024-09-14 09:10 | XMS_ITS | Encounter Summary ---
Author Organization [employer] [facility] Address [address] [place] [address] Care Team Providers Care Mother Helper Name Role Phone Luna Andrew MD Primary Care Provider Keya Brito MD Primary Care Prov ider Montrell Lopez MD, PHD Unavailable Unava Calvin Garcia PA-C Unavailable [phone] Reason for Visit * Reason Onset Date Comments Provider Call Back 05/31/2020 Encounter Details Date Type Department Care Team Description 05/31/2020 Telephone Physiatry - [address] [address] John Russo PA-C Provider Call Back Social History Tobacco Use [...] AM EST documented as of this encounter Miscellaneous Notes * Telephone Encounter - Barbara Henning M.A. - 05/31/2020 1:44 PM EST Called and left message on patients voicemail to go ahead with taking the steroids per Mr. Chilson. * Telephone Encounter - John Russo PA-C - 05/31/2020 12:20 PM EST Yes, if she is not receiving relief from the injection get she may start the steroids. * Telephone Encounter - Barbara Lamar M.A. - 05/31/2020 10:53 AM EST Patient was seen on 05/29 and had a left shoulder injection done. She states she has not had any relief since her injection. I informed the patient that it can take a few weeks for an injection to take effect. She has been icing the shoulder. She has not started using the prednisone, she wanted to check with the provider if it was ok to start the medication. * Telephone Encounter - Keyana Bowie - 05/31/2020 9:27 AM EST Caller requesting call back from provider: Is the caller the patient? YES Callers relationship to patient? Self Reason for call back: Patient called stated she has not been able to go to work since Thursday because she had an injection and is not getting any better she wants to speak with . Caller offered to speak with the nurse for assistance: YES Response: Patient offered to speak with nurse for assistance and patient agreed. Message forwarded to nurse. documented in this encounter Plan of Treatment Not on file documented as of this encounter Visit Diagnoses Not on filedocumented in this encounter Care Teams Mother Helper Relationship Specialty Start Date End Date Luna Andrew MD PCP - General Internal Medicine 08/11/11 12/23/21 Keya Jay MD [address] [place] [address] PCP - General Internal Medicine 12/24/21 Montrell Lopez MD, PHD [address] [place] [address] Surgeon Neurosurgery 02/06/22 Calvin Lucero PA-C [address] [place] [address] Specialist Neurosurgery 02/06/22 documented as of this encounter
--- OUTSIDE RECORDS SUMMARY | 2024-09-14 09:10 | XMS_ITS | Encounter Summary ---
Author Organization [place] [address] Care Team Providers Care Medical/Surgery Registered Nurse Name Role Phone Keya Glass MD Primary Care Prov ider Reason for Visit * Reason Comments weight concerns Encounter Details Date Type Department Care Team (Late st Contact Info) Description 08/18/2024 2:30 PM EST Office Visit Adult Medicine [address] [phone] Keya Glass MD [address] [place] [address] Prediabetes (Primary Dx); Class 2 obesity due [...] for your loved ones. For example, child day care teacher or elderly care for an older adult? [...] PM ESTAssociated Problem(s): Prediabetes Recent labs at [facility] on the range of prediabetes. Patient [...] regularly. Was evaluated at weight management in [place] but they offered only surgery and patient [...] Assessment & Plan Prediabetes Recent labs at [facility] on the range of prediabetes. Patient [...] final approval. Keya Munoz MD ADULT MEDICINE [address] Dept: [phone] Dept Date of Visit: 08/18/2024 documented in this encounter Plan of Treatment Upcoming Encounters Date Type Department Care Team (Late st Contact Info) Description 02/25/2025 1:00 PM EDT Appointment Radiology Department - [address] [phone] 04/11/2025 1:30 PM EDT Consult Bariatric Surgery - [place] [address] [phone] Carmen Bailey MD [address] [address] 06/01/2025 3:00 PM EST Office Visit Adult Medicine [address] [phone] Keya Glass MD [address] [place] [address] Scheduled Orders Name Type Priority Associated Diagnoses [...] documented as of this encounter Care Teams Medical/Surgery Registered Nurse Relationship Specialty Start Date End Date Keya Glass MD [address] [place] [address] PCP - General Internal Medicine 08/15/24 documented as of this encounter
--- OUTSIDE RECORDS SUMMARY | 2024-09-14 09:10 | XMS_ITS | Encounter Summary ---
Author Organization [facility] Address [address] [place] [address] Care Team Providers Care Plastic Tile Layer Name Role Phone Luna Andrew MD Primary Care Provider Keya Brito MD Primary Care Prov ider Montrell Lopez MD, PHD Unavailable Unava Calvin Garcia PA-C Unavailable [phone] Encounter Details Date Type Department Care Team Description 06/13/2020 [facility] Maker Report Medical Records [address] [place] [address] Bhupendra Chauhan Social History Tobacco Use Types [...] on filedocumented in this encounter Care Teams Plastic Tile Layer Relationship Specialty Start Date End Date Luna Andrew MD PCP - General Internal Medicine 08/11/11 12/23/21 Keya Jay MD [address] [place] [address] [id number] PCP - General Internal Medicine 12/24/21 Montrell Lopez MD, PHD [address] [place] [address] Surgeon Neurosurgery 02/06/22 Calvin Lucero PA-C [address] [place] [address] Specialist Neurosurgery 02/06/22 documented as of this encounter
--- OUTSIDE RECORDS SUMMARY | 2024-09-14 09:11 | XMS_ITS | Encounter Summary ---
Author Organization [facility] Address [address] [place] [address] Care Team Providers Care Fuel System Maintenance Supervisor Name Role Phone Luna Andrew MD Primary Care Provider Keya Brito MD Primary Care Prov ider Montrell Lopez MD, PHD Unavailable Unava Calvin Garcia PA-C Unavailable [phone] Encounter Details Date Type Department Care Team Description 02/15/2014 Release of Information Medical Records [address] [place] [address] Abstract, Provider Social History Tobacco Use Types [...] on filedocumented in this encounter Care Teams Fuel System Maintenance Supervisor Relationship Specialty Start Date End Date Luna Andrew MD PCP - General Internal Medicine 08/11/11 12/23/21 Keya Jay MD [address] [place], [place] [phone] PCP - General Internal Medicine 12/24/21 Montrell Lopez MD, PHD [address] [place], [place] [phone] Surgeon Neurosurgery 02/06/22 Calvin Lucero PA-C 175 [facility] [address] [place] [address] Specialist Neurosurgery 02/06/22 documented as of this encounter
--- OUTSIDE RECORDS SUMMARY | 2024-09-14 09:11 | XMS_ITS | Encounter Summary ---
Author Organization [employer] [facility] Address [address] [place] [address] Care Team Providers Care Telecommunications Administrator Name Role Phone Keya Jay MD Primary Care Prov ider Montrell Lopez MD, PHD Unavailable Unava Calvin Garcia PA-C Unavailable [phone] Encounter Details Date Type Department Care Team Description 07/11/2024 Orders Only Medical Records [address] [place] [address] [facility] Social History Tobacco Use Types Packs/Day Years [...] this encounter Results * OUTSIDE LAB (04/12/2024) [facility] documented in this encounter Visit Diagnoses Not on filedocumented in this encounter Care Teams Telecommunications Administrator Relationship Specialty Start Date End Date Keya Jay MD [address] [place], [place] [phone] PCP - General Internal Medicine 12/24/21 Montrell Lopez MD, PHD [address] [place] [address] Surgeon Neurosurgery 02/06/22 Calvin Lucero PA-C [address] [place] [address] [place] [address] Specialist Neurosurgery 02/06/22 documented as of this encounter
--- OUTSIDE RECORDS SUMMARY | 2024-09-14 09:11 | XMS_ITS | Encounter Summary ---
Author Organization [employer] [facility] Address [address] [place] [address] Care Team Providers Care Construction Administrator Name Role Phone Luna Andrew MD Primary Care Provider Keya Brito MD Primary Care Prov ider Montrell Lopez MD, PHD Unavailable Unava Calvin Garcia PA-C Unavailable [phone] Encounter Details Date Type Department Care Team Description 08/27/2011 Transfer Records Medical Records [address] [place] [address] Abstract, Provider Social History Tobacco Use Types [...] on filedocumented in this encounter Care Teams Construction Administrator Relationship Specialty Start Date End Date Luna Andrew MD PCP - General Internal Medicine 08/11/11 12/23/21 Keya Jay MD [address] [place], [place] [phone] PCP - General Internal Medicine 12/24/21 Montrell Lopez MD, PHD [address] [place], [place] [address] Surgeon Neurosurgery 02/06/22 Calvin Lucero PA-C 175 [place] [address] Specialist Neurosurgery 02/06/22 documented as of this encounter
--- OUTSIDE RECORDS SUMMARY | 2024-09-14 09:11 | XMS_ITS | Encounter Summary ---
Author Organization [employer] [facility] Address [address] [place] [address] Care Team Providers Care Quick Technician Name Role Phone Luna Andrew MD Primary Care Provider Keya Brito MD Primary Care Prov ider Montrell Lopez MD, PHD Unavailable Unava Calvin Garcia PA-C Unavailable [phone] Encounter Details Date Type Department Care Team Description 12/18/2021 Dot Net Architect Report Medical Records [address] [place], [place] [phone] Javier Velasco Social History Tobacco Use Types [...] on filedocumented in this encounter Care Teams Quick Technician Relationship Specialty Start Date End Date Luna Andrew MD PCP - General Internal Medicine 08/11/11 12/23/21 Keya Jay MD [address] [place], [place] [phone] PCP - General Internal Medicine 12/24/21 Montrell Lopez MD, PHD [address] [place], [place] [phone] Surgeon Neurosurgery 02/06/22 Calvin Lucero PA-C 175 [facility] [address] [place] [address] Specialist Neurosurgery 02/06/22 documented as of this encounter
--- OUTSIDE RECORDS SUMMARY | 2024-09-14 09:11 | XMS_ITS | Encounter Summary ---
Author Organization [facility] [facility] Address [address] [place] [address] Care Team Providers Care Director Of Restaurant Name Role Phone Luna Andrew MD Primary Care Provider Keya Brito MD Primary Care Prov ider Montrell Lopez MD, PHD Unavailable Unava Calvin Garcia PA-C Unavailable [phone] Encounter Details Date Type Department Care Team Description 05/14/2019 Old Medical Records Medical Records [address] [place] [address] Abstract, Provider Social History Tobacco Use Types [...] on filedocumented in this encounter Care Teams Director Of Restaurant Relationship Specialty Start Date End Date Luna Andrew MD PCP - General Internal Medicine 08/11/11 12/23/21 Keya Jay MD [address] [place], [place] [phone] PCP - General Internal Medicine 12/24/21 Montrell Lopez MD, PHD [address] [place], [place] [address] Surgeon Neurosurgery 02/06/22 Calvin Lucero PA-C 175 [facility] [address] [place] [address] Specialist Neurosurgery 02/06/22 documented as of this encounter
--- OUTSIDE RECORDS SUMMARY | 2024-09-14 09:11 | XMS_ITS | Encounter Summary ---
Author Organization [facility] [facility] Address [address] [place] [address] Care Team Providers Care Sterile Supply Technician Name Role Phone Luna Andrew MD Primary Care Provider Keya Brito MD Primary Care Prov ider Montrell Lopez MD, PHD Unavailable Unava Calvin Garcia PA-C Unavailable [phone] Encounter Details Date Type Department Care Team Description 07/31/2021 Credentialing Assistant Report Medical Records [address] [place] [address] Evangelist Nelson MD Social History Tobacco Use [...] on filedocumented in this encounter Care Teams Sterile Supply Technician Relationship Specialty Start Date End Date Luna Andrew MD PCP - General Internal Medicine 08/11/11 12/23/21 Keya Jay MD [address] [place] [address] PCP - General Internal Medicine 12/24/21 Montrell Lopez MD, PHD [address] [place] [address] Surgeon Neurosurgery 02/06/22 Calvin Lucero PA-C [address] [place] [address] [address] [place] [address] Specialist Neurosurgery 02/06/22 documented as of this encounter
--- OUTSIDE RECORDS SUMMARY | 2024-09-14 09:11 | XMS_ITS | Encounter Summary ---
Author Organization [employer] [facility] Address [address] [place] [address] Care Team Providers Care Print Buyer Name Role Phone Keya Jay MD Primary Care Prov ider Montrell Lopez MD, PHD Unavailable Unava Calvin Garcia PA-C Unavailable [phone] Encounter Details Date Type Department Care Team Description 02/27/2023 Orders Only Medical Records [address] [place] [address] Keya Jay MD [address] [place] [address] Social History Tobacco Use Types Packs/Day Years [...] on filedocumented in this encounter Care Teams Print Buyer Relationship Specialty Start Date End Date Keya Jay MD [address] [place] [address] PCP - General Internal Medicine 12/24/21 Montrell Lopez MD, PHD [address] [place] [address] Surgeon Neurosurgery 02/06/22 Calvin Lucero PA-C [address] [place] [address] Specialist Neurosurgery 02/06/22 documented as of this encounter
--- OUTSIDE RECORDS SUMMARY | 2024-09-14 09:11 | XMS_ITS | Encounter Summary ---
Author Organization [employer] [facility] Address [address] [place] [address] Care Team Providers Care Field Auto Appraiser Name Role Phone Luna Andrew MD Primary Care Provider Keya Brito MD Primary Care Prov ider Montrell Lopez MD, PHD Unavailable Unava Calvin Garcia PA-C Unavailable [phone] Encounter Details Date Type Department Care Team Description 08/17/2015 Business Doc Medical Records [address] [place] [address] Abstract, Provider Social History Tobacco Use Types [...] on filedocumented in this encounter Care Teams Field Auto Appraiser Relationship Specialty Start Date End Date Luna Andrew MD PCP - General Internal Medicine 08/11/11 12/23/21 Keya Jay MD [address] [place], [place] [phone] PCP - General Internal Medicine 12/24/21 Montrell Lopez MD, PHD [address] [place], [place] [phone] Surgeon Neurosurgery 02/06/22 Calvin Lucero PA-C 175 [place] [address] Specialist Neurosurgery 02/06/22 documented as of this encounter
--- OUTSIDE RECORDS SUMMARY | 2024-09-14 09:11 | XMS_ITS | Encounter Summary ---
Author Organization [employer] [facility] Address [address] [place] [address] Care Team Providers Care Retail Service Representative Name Role Phone Luna Andrew MD Primary Care Provider Keya Brito MD Primary Care Prov ider Montrell Lopez MD, PHD Unavailable Unava Calvin Garcia PA-C Unavailable [phone] Encounter Details Date Type Department Care Team Description 10/04/2018 Release of Information Medical Records [address] [place] [address] Abstract, Provider Social History Tobacco Use Types [...] on filedocumented in this encounter Care Teams Retail Service Representative Relationship Specialty Start Date End Date Luna Andrew MD PCP - General Internal Medicine 08/11/11 12/23/21 Keya Jay MD [address] [place], [place] [phone] PCP - General Internal Medicine 12/24/21 Montrell Lopez MD, PHD [address] [place], [place] [address] Surgeon Neurosurgery 02/06/22 Calvin Lucero PA-C 175 [facility] [address] [place] [address] Specialist Neurosurgery 02/06/22 documented as of this encounter
--- OUTSIDE RECORDS SUMMARY | 2024-09-14 09:11 | XMS_ITS | Encounter Summary ---
Author Organization [employer] [facility] Address [address] [place] [address] Care Team Providers Care Securities And Real Estate Director Name Role Phone Luna Andrew MD Primary Care Provider Keya Brito MD Primary Care Prov ider Montrell Lopez MD, PHD Unavailable Unava Calvin Garcia PA-C Unavailable [phone] Encounter Details Date Type Department Care Team Description 08/20/2021 Android Architect Report Medical Records [address] [place] [address] Evangelist Nelson MD Social History Tobacco Use [...] on filedocumented in this encounter Care Teams Securities And Real Estate Director Relationship Specialty Start Date End Date Luna Andrew MD PCP - General Internal Medicine 08/11/11 12/23/21 Keya Jay MD [address] [place] [address] PCP - General Internal Medicine 12/24/21 Montrell Lopez MD, PHD [address] [place] [address] Surgeon Neurosurgery 02/06/22 Calvin Lucero PA-C [address] [place] [address] [address] [place] [address] Specialist Neurosurgery 02/06/22 documented as of this encounter
--- OUTSIDE RECORDS SUMMARY | 2024-09-14 09:11 | XMS_ITS | Encounter Summary ---
Author Organization [employer] [facility] Address [address] [place] [address] Care Team Providers Care Sales And Marketing Executive Name Role Phone Luna Andrew MD Primary Care Provider Keya Brito MD Primary Care Prov ider Montrell Lopez MD, PHD Unavailable Unava Calvin Garcia PA-C Unavailable [phone] Reason for Visit * Reason Onset Date Comments REFERRAL 02/08/2021 Encounter Details Date Type Department Care Team Description 02/08/2021 Telephone Adult Medicine [address] [address] Shelly Montgomery PA [address] [place] [address] REFERRAL Social History Tobacco Use Types Packs/Day [...] - 02/08/2021 11:30 AM EDT Pt states [facility] needs clinical notes and results of labs [...] insurance must be obtained and registered in [facility] or their referral can not be [...] Is this visit:Initial Visit Address of Specialist: [address] [place] [address] Phone # of Specialist:[phone] Fax #: (if applicable): [phone] Does patient have an appointment scheduled?: NO Date of appointment- (including a retro-request): Is this appointment related to: Not MVA, WC or Surgery related documented in this encounter Plan of Treatment Not on file documented as of this encounter Visit Diagnoses Not on filedocumented in this encounter Care Teams Sales And Marketing Executive Relationship Specialty Start Date End Date Luna Andrew MD PCP - General Internal Medicine 08/11/11 12/23/21 Keya Jay MD [address] [place] [address] PCP - General Internal Medicine 12/24/21 Montrell Lopez MD, PHD [address] [place] [address] Surgeon Neurosurgery 02/06/22 Calvin Lucero PA-C [address] [place] [address] Specialist Neurosurgery 02/06/22 documented as of this encounter
--- OUTSIDE RECORDS SUMMARY | 2024-09-14 09:11 | XMS_ITS | Encounter Summary ---
Author Organization [facility] Address [address] [place] [address] Care Team Providers Care Sexer Name Role Phone Keya Jay MD Primary Care Prov ider Montrell Lopez MD, PHD Unavailable Unava ilable Calvin Lucero PA-C Unavailable [phone] Encounter Details Date Type Department Care Team Description 02/14/2022 Release of Information Medical Records [address] [place] [address] Abstract, Provider Social History Tobacco Use Types [...] on filedocumented in this encounter Care Teams Sexer Relationship Specialty Start Date End Date Keya Jay MD [address] [place] [address] PCP - General Internal Medicine 12/24/21 Montrell Lopez MD, PHD [address] [place] [address] Surgeon Neurosurgery 02/06/22 Calvin Lucero PA-C [address] [place] [address] [place] [address] Specialist Neurosurgery 02/06/22 documented as of this encounter
--- OUTSIDE RECORDS SUMMARY | 2024-09-14 09:11 | XMS_ITS | Encounter Summary ---
Author Organization [employer] [facility] Address [address] [place] [address] Care Team Providers Care Fingerprinter Name Role Phone Luna Andrew MD Primary Care Provider Keya Brito MD Primary Care Prov ider Montrell Lopez MD, PHD Unavailable Unava Calvin Garcia PA-C Unavailable Encounter Details Date Type Department Care Team Description 02/04/2017 Motors Assembler Report Medical Records [address] [place] [address] Marya Tejada MD Social History Tobacco Use [...] on filedocumented in this encounter Care Teams Fingerprinter Relationship Specialty Start Date End Date Luna Andrew MD PCP - General Internal Medicine 08/11/11 12/23/21 Keya Jay MD [address] [place] [address] PCP - General Internal Medicine 12/24/21 Montrell Lopez MD, PHD [address] [place], [place] [address] Surgeon Neurosurgery 02/06/22 Calvin Lucero PA-C 175 [facility] [address] [place] [address] Specialist Neurosurgery 02/06/22 documented as of this encounter
--- OUTSIDE RECORDS SUMMARY | 2024-09-14 09:11 | XMS_ITS | Encounter Summary ---
Author Organization [facility] Address [address] [place] [address] Care Team Providers Care Critical Care Technician Name Role Phone Luna Andrew MD Primary Care Provider Keya Brito MD Primary Care Prov ider Montrell Lopez MD, PHD Unavailable Unava Calvin Garcia PA-C Unavailable [phone] Reason for Visit * Reason Onset Date Comments Emg 02/13/2021 f/u call EMG arsalan elizabeth at [facility] Encounter Details Date Type Department Care Team Description 02/13/2021 Telephone [facility] Medical [facility] [address] [address] Radha Crystal PA-C [address] [place] [address] Emg (f/u call EMG booked at [facility] ) Social History Tobacco Use Types Packs/Day [...] encounter Miscellaneous Notes * Telephone Encounter - Per Spencre - 02/13/2021 10:00 AM EDT Patient aware her nerve test is scheduled at [facility] for , 04/04/21 at 9:30am. Someone from central scheduling will call patient to pre-register. documented in this encounter Plan of Treatment Not on file documented as of this encounter Visit Diagnoses Not on filedocumented in this encounter Care Teams Critical Care Technician Relationship Specialty Start Date End Date Luna Andrew MD PCP - General Internal Medicine 08/11/11 12/23/21 Keya Jay MD [address] [place] [address] PCP - General Internal Medicine 12/24/21 Montrell Lopez MD, PHD [address] [place] [address] Surgeon Neurosurgery 02/06/22 Calvin Lucero PA-C 175 [facility] [address] [place] [address] Specialist Neurosurgery 02/06/22 documented as of this encounter
--- OUTSIDE RECORDS SUMMARY | 2024-09-14 09:11 | XMS_ITS | Encounter Summary ---
Author Organization [employer] [facility] Address [address] [place] [address] Care Team Providers Care Funeral Planning Counselor Name Role Phone Luna Andrew MD Primary Care Provider Keya Brito MD Primary Care Prov ider Montrell Lopez MD, PHD Unavailable Unava Calvin Garcia PA-C Unavailable [phone] Encounter Details Date Type Department Care Team Description 02/20/2021 Orders Only Adult Medicine [address] [address] Shelly Montgomery PA [address] [place] [address] Pain and swelling of right ankle Social [...] Shelly [facility] 444 [facility] documented in this encounter Visit Diagnoses Diagnosis Pain and swelling of right ankle documented in this encounter Care Teams Funeral Planning Counselor Relationship Specialty Start Date End Date Luna Andrew MD PCP - General Internal Medicine 08/11/11 12/23/21 Keya Jay MD [address] [place] [address] PCP - General Internal Medicine 12/24/21 Montrell Lopez MD, PHD [address] [place] [address] Surgeon Neurosurgery 02/06/22 Calvin Lucero PA-C [address] [place] [address] Specialist Neurosurgery 02/06/22 documented as of this encounter
--- OUTSIDE RECORDS SUMMARY | 2024-09-14 09:11 | XMS_ITS | Encounter Summary ---
Author Organization [employer] [facility] Address [address] [place] [address] Care Team Providers Care Pattern Grader Cutter Name Role Phone Luna Andrew MD Primary Care Provider Keya Brito MD Primary Care Prov ider Montrell Lopez MD, PHD Unavailable Unava Calvin Garcia PA-C Unavailable [phone] Encounter Details Date Type Department Care Team Description 02/25/2018 Non Garment Sewing Machine Operator Report Medical Records [address] [place], [place] [id number] Cheng Singer Social History Tobacco Use Types [...] on filedocumented in this encounter Care Teams Pattern Grader Cutter Relationship Specialty Start Date End Date Luna Andrew MD PCP - General Internal Medicine 08/11/11 12/23/21 Keya Jay MD [address] [place], [place] [address] PCP - General Internal Medicine 12/24/21 Montrell Lopez MD, PHD [address] [place], [place] [address] Surgeon Neurosurgery 02/06/22 Calvin Lucero PA-C [address] [place] [address] [address] [place] [address] Specialist Neurosurgery 02/06/22 documented as of this encounter
--- OUTSIDE RECORDS SUMMARY | 2024-09-14 09:11 | XMS_ITS | Encounter Summary ---
Author Organization [facility] Address [address] [place] [address] Care Team Providers Care Making Line Worker Name Role Phone Luna Andrew MD Primary Care Provider Keya Brito MD Primary Care Prov ider Montrell Lopez MD, PHD Unavailable Unava Calvin Garcia PA-C Unavailable [phone] Encounter Details Date Type Department Care Team Description 09/05/2011 Gasoline Attendant Report Medical Records [address] [place] [address] Cash Desouza Social History Tobacco Use Types [...] on filedocumented in this encounter Care Teams Making Line Worker Relationship Specialty Start Date End Date Luna Andrew MD PCP - General Internal Medicine 08/11/11 12/23/21 Keya Jay MD [address] [place], [place] [phone] PCP - General Internal Medicine 12/24/21 Monterll Lopez MD, PHD [address] [place], [place] [address] Surgeon Neurosurgery 02/06/22 Calvin Lucero PA-C [address] [place] [address] [address] [place] [address] Specialist Neurosurgery 02/06/22 documented as of this encounter
--- OUTSIDE RECORDS SUMMARY | 2024-09-14 09:11 | XMS_ITS | Encounter Summary ---
Author Organization [employer] [facility] Address [address] [place] [address] Care Team Providers Care Flight Follower Name Role Phone Luna Andrew MD Primary Care Provider Keya Brito MD Primary Care Prov ider Montrell Lopez MD, PHD Unavailable Unava Calvin Garcia PA-C Unavailable [phone] Encounter Details Date Type Department Care Team Description 02/17/2017 Laborer Car Barn Report Medical Records [address] [place] [address] Marya Tejada MD Social History Tobacco Use [...] on filedocumented in this encounter Care Teams Flight Follower Relationship Specialty Start Date End Date Luna Andrew MD PCP - General Internal Medicine 08/11/11 12/23/21 Keya Jay MD [address] [place] [address] PCP - General Internal Medicine 12/24/21 Montrell Lopez MD, PHD [address] [place], [place] [phone] Surgeon Neurosurgery 02/06/22 Calvin Lucero PA-C 175 [facility] [address] [place] [address] Specialist Neurosurgery 02/06/22 documented as of this encounter
--- OUTSIDE RECORDS SUMMARY | 2024-09-14 09:11 | XMS_ITS | Encounter Summary ---
Author Organization [facility] Address [address] [place] [address] Care Team Providers Care Cloth Colors Examiner Name Role Phone Keya Jay MD Primary Care Prov ider Montrell Lopez MD, PHD Unavailable Unava ilable Calvin Lucero PA-C Unavailable [phone] Encounter Details Date Type Department Care Team Description 02/11/2022 SCAN [facility] Medical [facility] Neurosurgery Colman [place] [address] [phone] Calvin Lucero PA-C [address] [id number] Social History Tobacco Use Types Packs/Day Years [...] on filedocumented in this encounter Care Teams Cloth Colors Examiner Relationship Specialty Start Date End Date Keya Jay MD [address] [place] [address] PCP - General Internal Medicine 12/24/21 Montrell Lopez MD, PHD [address] [place] [address] Surgeon Neurosurgery 02/06/22 Calvin Lucero PA-C 175 [facility] [address] [place] [address] Specialist Neurosurgery 02/06/22 documented as of this encounter
--- OUTSIDE RECORDS SUMMARY | 2024-09-14 09:11 | XMS_ITS | Encounter Summary ---
Author Organization [employer] [facility] Address [address] [place] [address] Care Team Providers Care Blade Boner Name Role Phone Luna Andrew MD Primary Care Provider Keya Brito MD Primary Care Prov ider Montrell Lopez MD, PHD Unavailable Unava Calvin Garcia PA-C Unavailable [phone] Encounter Details Date Type Department Care Team Description 05/20/2019 Cellar Supervisor Report Medical Records [address] [place] [address] Social History Tobacco Use Types Packs/Day Years [...] on filedocumented in this encounter Care Teams Blade Boner Relationship Specialty Start Date End Date Luna Andrew MD PCP - General Internal Medicine 08/11/11 12/23/21 Keya Jay MD [address] [place], [place] [phone] PCP - General Internal Medicine 12/24/21 Montrell Lopez MD, PHD [address] [place], [place] [phone] Surgeon Neurosurgery 02/06/22 Calvin Lucero PA-C [address] [place] [address] 300 [place] [address] Specialist Neurosurgery 02/06/22 documented as of this encounter
--- OUTSIDE RECORDS SUMMARY | 2024-09-14 09:11 | XMS_ITS | Encounter Summary ---
Author Organization [facility] [facility] Address [address] [place] [address] Care Team Providers Care Bricklayer Supervisor Name Role Phone Luna Andrew MD Primary Care Provider Keya Brito MD Primary Care Prov ider Montrell Lopez MD, PHD Unavailable Unava Calvin Garcia PA-C Unavailable [phone] Encounter Details Date Type Department Care Team Description 02/12/2012 Release of Information Medical Records [address] [place] [address] Abstract, Provider Social History Tobacco Use Types [...] on filedocumented in this encounter Care Teams Bricklayer Supervisor Relationship Specialty Start Date End Date Luna Andrew MD PCP - General Internal Medicine 08/11/11 12/23/21 Keya Jay MD [address] [place], [place] [phone] PCP - General Internal Medicine 12/24/21 Montrell Lopez MD, PHD [address] [place], [place] [phone] Surgeon Neurosurgery 02/06/22 Calvin Lucero PA-C 175 [facility] [address] [place] [address] Specialist Neurosurgery 02/06/22 documented as of this encounter
--- OUTSIDE RECORDS SUMMARY | 2024-09-14 09:11 | XMS_ITS | Encounter Summary ---
Author Organization [employer] [facility] Address [address] [place] [address] Care Team Providers Care Burr Bench Hand Name Role Phone Luna Andrew MD Primary Care Provider Keya Brito MD Primary Care Prov ider Montrell Lopez MD, PHD Unavailable Unava Calvin Garcia PA-C Unavailable [phone] Encounter Details Date Type Department Care Team Description 12/14/2016 Release of Information Medical Records [address] [place] [address] Abstract, Provider Social History Tobacco Use Types [...] on filedocumented in this encounter Care Teams Burr Bench Hand Relationship Specialty Start Date End Date Luna Andrew MD PCP - General Internal Medicine 08/11/11 12/23/21 Keya Jay MD [address] [place], [place] [phone] PCP - General Internal Medicine 12/24/21 Montrell Lopez MD, PHD [address] [place], [place] [address] Surgeon Neurosurgery 02/06/22 Calvin Lucero PA-C 175 [facility] 300 [place] [address] Specialist Neurosurgery 02/06/22 documented as of this encounter
--- OUTSIDE RECORDS SUMMARY | 2024-09-14 09:11 | XMS_ITS | Encounter Summary ---
Author Organization [employer] [facility] Address [address] [place] [address] Care Team Providers Care Airport Utility Worker Name Role Phone Keya Jay MD Primary Care Prov ider Montrell Lopez MD, PHD Unavailable Unava ilable Calvin Lucero PA-C Unavailable [phone] Encounter Details Date Type Department Care Team Description 04/18/2024 Geospatial Information Scientist Report Medical Records [address] [place] [address] Bhupendra Chauhan Social History Tobacco Use Types [...] on filedocumented in this encounter Care Teams Airport Utility Worker Relationship Specialty Start Date End Date Keya Jay MD [address] [place] [address] PCP - General Internal Medicine 12/24/21 Montrell Lopez MD, PHD [address] [place] [address] Surgeon Neurosurgery 02/06/22 Calvin Lucero PA-C [address] [place] [address] [place] [address] Specialist Neurosurgery 02/06/22 documented as of this encounter
--- OUTSIDE RECORDS SUMMARY | 2024-09-14 09:11 | XMS_ITS | Encounter Summary ---
Author Organization [employer] [facility] Address [address] [place] [address] Care Team Providers Care Cosmetic Consultant Name Role Phone Keya Jay MD Primary Care Prov ider Montrell Lopez MD, PHD Unavailable Unava Calvin Garcia PA-C Unavailable [phone] Encounter Details Date Type Department Care Team Description 05/29/2022 Pt. Non Urgent Medical Question Adult Medicine [address] [address] Keya Jay MD [address] [place] [address] Social History Tobacco Use Types Packs/Day Years [...] on filedocumented in this encounter Care Teams Cosmetic Consultant Relationship Specialty Start Date End Date Keya Jay MD [address] [place] [address] PCP - General Internal Medicine 12/24/21 Montrell Lopez MD, PHD [address] [place] [address] Surgeon Neurosurgery 02/06/22 Calvin Lucero PA-C 175 [facility] [address] [place] [address] Specialist Neurosurgery 02/06/22 documented as of this encounter
--- OUTSIDE RECORDS SUMMARY | 2024-09-14 09:11 | XMS_ITS | Encounter Summary ---
Author Organization [employer] [facility] Address [address] [place] [address] Care Team Providers Care Medical Assistant Dermatology Name Role Phone Luna Andrew MD Primary Care Provider Keya Brito MD Primary Care Prov ider Montrell Lopez MD, PHD Unavailable Unava Calvin Garcia PA-C Unavailable [phone] Encounter Details Date Type Department Care Team Description 01/06/2017 Sewer Inspector Report Medical Records [address] [place] [address] Marya Tejada MD Social History Tobacco Use [...] filedocumented in this encounter Care Teams Medical Assistant Dermatology Relationship Specialty Start Date End Date Luna Andrew MD PCP - General Internal Medicine 08/11/11 12/23/21 Keya Jay MD [address] [place] [address] PCP - General Internal Medicine 12/24/21 Montrell Lopez MD, PHD [address] [place], [place] [phone] Surgeon Neurosurgery 02/06/22 Calvin Lucero PA-C 175 [facility] [address] [place] [address] Specialist Neurosurgery 02/06/22 documented as of this encounter
--- OUTSIDE RECORDS SUMMARY | 2024-09-14 09:11 | XMS_ITS | Encounter Summary ---
Author Organization [employer] [facility] Address [address] [place] [address] Care Team Providers Care Resource Management Specialist Name Role Phone Luna Andrew MD Primary Care Provider Keya Brito MD Primary Care Prov ider Montrell Lopez MD, PHD Unavailable Unava Calvin Garcia PA-C Unavailable [phone] Encounter Details Date Type Department Care Team Description 02/25/2018 Grain Inspector Report Medical Records [address] [place], [place] [phone] Cheng Singer Social History Tobacco Use Types [...] on filedocumented in this encounter Care Teams Resource Management Specialist Relationship Specialty Start Date End Date Luna Andrew MD PCP - General Internal Medicine 08/11/11 12/23/21 Keya Jay MD [address] [place], [place] [phone] PCP - General Internal Medicine 12/24/21 Montrell Lopez MD, PHD [address] [place], [place] [address] Surgeon Neurosurgery 02/06/22 Calvin Lucero PA-C [address] [place] [address] 300 [place] [address] Specialist Neurosurgery 02/06/22 documented as of this encounter
--- OUTSIDE RECORDS SUMMARY | 2024-09-14 09:11 | XMS_ITS | Encounter Summary ---
Author Organization [facility] Address [address] [place] [address] Care Team Providers Care Rn Family Name Role Phone Luna Andrew MD Primary Care Provider Keya Brito MD Primary Care Prov ider Montrell Lopez MD, PHD Unavailable Unava Calvin Garcia PA-C Unavailable Encounter Details Date Type Department Care Team Description 02/27/2019 Pt. Non Urgent Medical Question Physiatry - [address] [address] John Russo PA-C Spinal stenosis in cervical [...] region documented in this encounter Care Teams Rn Family Relationship Specialty Start Date End Date Luna Andrew MD PCP - General Internal Medicine 08/11/11 12/23/21 Keya Jay MD [address] [place] [address] PCP - General Internal Medicine 12/24/21 Montrell Lopez MD, PHD [address] [place] [address] Surgeon Neurosurgery 02/06/22 Calvin Lucero PA-C [address] [place] [address] Specialist Neurosurgery 02/06/22 documented as of this encounter
--- OUTSIDE RECORDS SUMMARY | 2024-09-14 09:11 | XMS_ITS | Encounter Summary ---
Author Organization [employer] [facility] Address [address] [place] [address] Care Team Providers Care Tank Filler Name Role Phone Luna Andrew MD Primary Care Provider Keya Brito MD Primary Care Prov ider Montrell Lopez MD, PHD Unavailable Unava Calvin Garcia PA-C Unavailable [phone] Encounter Details Date Type Department Care Team Description 03/17/2012 Lead Welder Report Medical Records [address] [place] [address] Jostin Nafisa Social History Tobacco Use Types [...] on filedocumented in this encounter Care Teams Tank Filler Relationship Specialty Start Date End Date Luna Andrew MD PCP - General Internal Medicine 08/11/11 12/23/21 Keya Jay MD [address] [place], [place] [phone] PCP - General Internal Medicine 12/24/21 Montrell Lopez MD, PHD [address] [place], [place] [address] Surgeon Neurosurgery 02/06/22 Calvin Lucero PA-C [address] [place] [address] 300 [place] [address] Specialist Neurosurgery 02/06/22 documented as of this encounter
--- OUTSIDE RECORDS SUMMARY | 2024-09-14 09:11 | XMS_ITS | Encounter Summary ---
Author Organization [employer] [facility] Address [address] [place] [address] Care Team Providers Care Geospatial Applications Developer Name Role Phone Keya Jay MD Primary Care Prov ider Montrell Lopez MD, PHD Unavailable Unava ilable Calvin Lucero PA-C Unavailable [phone] Reason for Visit * Reason Comments E-prescribe Rx Request Encounter Details Date Type Department Care Team Description 03/13/2023 Refill Adult Medicine [address] [address] Barbara Sherwood PA-C [address] [place] [address] E-prescribe Rx Request Social History Tobacco Use [...] #30- no refills - *Pharmacy refill request MDAAY 02/13/23 - PCP NOV 08/17/23 - PCP [...] N/A Patients current insurance carrier is: Payor: [employer] [place] / Plan: EPO $20 [place] [id number] / Product Type: EPO documented in this encounter Plan of Treatment Not on file documented as of this encounter Visit Diagnoses Not on filedocumented in this encounter Care Teams Geospatial Applications Developer Relationship Specialty Start Date End Date Keya Jay MD [address] [place] [address] PCP - General Internal Medicine 12/24/21 Montrell Lopez MD, PHD [address] [place] [address] Surgeon Neurosurgery 02/06/22 Calvin Lucero PA-C [address] [place] [address] Specialist Neurosurgery 02/06/22 documented as of this encounter
--- OUTSIDE RECORDS SUMMARY | 2024-09-14 09:11 | XMS_ITS | Encounter Summary ---
Author Organization [employer] [facility] Address [address] [place] [address] Care Team Providers Care Display Trimmer Name Role Phone Luna Andrew MD Primary Care Provider Keya Brito MD Primary Care Prov ider Montrell Lopez MD, PHD Unavailable Unava Calvin Garcia PA-C Unavailable [phone] Encounter Details Date Type Department Care Team Description 12/27/2020 Pt. Non Urgent Medic al Question Physiatr - [address] [address] John Russo PA-C Social History Tobacco Use [...] on filedocumented in this encounter Care Teams Display Trimmer Relationship Specialty Start Date End Date Luna Andrew MD PCP - General Internal Medicine 08/11/11 12/23/21 Keya Jay MD [address] [place] [address] PCP - General Internal Medicine 12/24/21 Montrell Lopez MD, PHD [address] [place] [address] Surgeon Neurosurgery 02/06/22 Calvin Lucero PA-C 175 [facility] [address] [place] [address] Specialist Neurosurgery 02/06/22 documented as of this encounter
--- OUTSIDE RECORDS SUMMARY | 2024-09-14 09:11 | XMS_ITS | Encounter Summary ---
Author Organization [employer] [facility] Address [address] [place] [address] Care Team Providers Care Cam Milling Machine Operator Name Role Phone Luna Andrew MD Primary Care Provider Keya Brito MD Primary Care Prov ider Montrell Lopez MD, PHD Unavailable Unava Calvin Garcia PA-C Unavailable [phone] Encounter Details Date Type Department Care Team Description 10/29/2020 Orders Only Adult Medicine [address] [address] Shelly Montgomery PA [address] [place] [address] Dizziness Social History Tobacco Use Types Packs/Day [...] W/TSH (10/12/2020) 10/12/2020 Shelly [facility] [employer] documented in this encounter Visit Diagnoses Diagnosis Dizziness Dizziness and giddiness documented in this encounter Care Teams Cam Milling Machine Operator Relationship Specialty Start Date End Date Luna Andrew MD PCP - General Internal Medicine 08/11/11 12/23/21 Keya Jay MD [address] [place] [address] PCP - General Internal Medicine 12/24/21 Montrell Lopez MD, PHD [address] [place] [address] Surgeon Neurosurgery 02/06/22 Calvin Lucero PA-C [address] [place] [address] [place] [address] Specialist Neurosurgery 02/06/22 documented as of this encounter
--- OUTSIDE RECORDS SUMMARY | 2024-09-14 09:11 | XMS_ITS | Encounter Summary ---
Author Organization [facility] Address [address] [place] [address] Care Team Providers Care Can Technician Name Role Phone Luna Andrew MD Primary Care Provider Keya Brito MD Primary Care Prov ider Montrell Lopez MD, PHD Unavailable Unava Calvin Garcia PA-C Unavailable [phone] Encounter Details Date Type Department Care Team Description 02/15/2018 Lug Breaker And Wire Puller Report Medical Records [address] [place] [address] Missael Catalan Social History Tobacco Use Types [...] on filedocumented in this encounter Care Teams Can Technician Relationship Specialty Start Date End Date Luna Andrew MD PCP - General Internal Medicine 08/11/11 12/23/21 Keya Jay MD [address] [place], [place] [phone] PCP - General Internal Medicine 12/24/21 Montrell Lopez MD, PHD [address] [place], [place] [address] Surgeon Neurosurgery 02/06/22 Calvin Lucero PA-C 175 [facility] 300 [place] [address] Specialist Neurosurgery 02/06/22 documented as of this encounter
--- OUTSIDE RECORDS SUMMARY | 2024-09-14 09:11 | XMS_ITS | Encounter Summary ---
Author Organization [facility] Address [address] [place] [address] Care Team Providers Care Residential Sales Representative Name Role Phone Luna Andrew MD Primary Care Provider Keya Brito MD Primary Care Prov ider Montrell Lopez MD, PHD Unavailable Unava Calvin Garcia PA-C Unavailable [phone] Encounter Details Date Type Department Care Team Description 03/31/2017 Electronic Resources Librarian Report Medical Records [address] [place], [place] [phone] Micheal Telles Social History Tobacco Use Types [...] on filedocumented in this encounter Care Teams Residential Sales Representative Relationship Specialty Start Date End Date Luna Andrew MD PCP - General Internal Medicine 08/11/11 12/23/21 Keya Jay MD [address] [place], [place] [phone] PCP - General Internal Medicine 12/24/21 Montrell Lopez MD, PHD [address] [place], [place] [phone] Surgeon Neurosurgery 02/06/22 Calvin Lucero PA-C 175 [facility] 300 [place] [address] Specialist Neurosurgery 02/06/22 documented as of this encounter
--- OUTSIDE RECORDS SUMMARY | 2024-09-14 09:11 | XMS_ITS | Encounter Summary ---
Author Organization [employer] [facility] Address [address] [place] [address] Care Team Providers Care Miter Saw Operator Name Role Phone Luna Andrew MD Primary Care Provider Keya Brito MD Primary Care Prov ider Montrell Lopez MD, PHD Unavailable Unava Calvin Garcia PA-C Unavailable [phone] Encounter Details Date Type Department Care Team Description 09/15/2018 Wood Boatbuilder Report Medical Records [address] [place] [address] Evangelist Nelson MD Social History Tobacco Use [...] on filedocumented in this encounter Care Teams Miter Saw Operator Relationship Specialty Start Date End Date Luna Andrew MD PCP - General Internal Medicine 08/11/11 12/23/21 Keya Jay MD [address] [place] [address] PCP - General Internal Medicine 12/24/21 Montrell Lopez MD, PHD [address] [place], [place] [phone] Surgeon Neurosurgery 02/06/22 Calvin Lucero PA-C 175 [facility] [address] [place] [address] Specialist Neurosurgery 02/06/22 documented as of this encounter
--- OUTSIDE RECORDS SUMMARY | 2024-09-14 09:11 | XMS_ITS | Encounter Summary ---
Author Organization [facility] Address [address] [place] [address] Care Team Providers Care Head Bone Grinder Name Role Phone Luna Andrew MD Primary Care Provider Keya Brito MD Primary Care Prov ider Montrell Lopez MD, PHD Unavailable Unava Calvin Garcia PA-C Unavailable [phone] Reason for Visit * Reason Onset Date Comments Provider Call Back 2019 Encounter Details Date Type Department Care Team Description [address] [address] Luna Anderw MD Provider Call Back Social History Tobacco [...] Pt advised lab orders are ready for berry picker machine operator in [facility]. * Telephone Encounter - Vicki Pepper M.A. - 05/13/2019 9:21 AM EDT Telephone Information: Lab orders left at [facility] Pt berry picker machine operator. Pt advised. * Telephone Encounter - Christina Pablo - 05/13/2019 8:45 AM EDT Pt calling for status on labs- would like to berry picker machine operator [place] [facility] * Telephone Encounter - Makenna Paniagua - 05/12/2019 1:30 PM EDT Patient is calling on status of orders . Patient is asking if she can berry picker machine operator orders when done * Telephone Encounter - VIANEY Escalera - 05/12/2019 8:26 AM EDT External orders placed in out box. Please see if patient can have CT completed at [facility] by next week. * Telephone Encounter - [...] radiology she has to be referred to [facility] along with her labs as[facility]. Caller offered to speak with the nurse for assistance: YES Response: Patient offered to speak with nurse for assistance and patient agreed. Message forwarded to nurse. documented in this encounter Plan of Treatment Not on file documented as of this encounter Visit Diagnoses Diagnosis Abdominal pain, right lower quadrant- Primary documented in this encounter Care Teams Head Bone Grinder Relationship Specialty Start Date End Date Luna Andrew MD PCP - General Internal Medicine 08/11/11 12/23/21 Virginia Munoz, Keya Lopez MD [address] [place] [phone] PCP - General Internal Medicine 12/24/21 Montrell Lopez MD, PHD [address] [place] [address] Surgeon Neurosurgery 02/06/22 Calvin Lucero PA-C 175 [facility] [address] [place] [address] Specialist Neurosurgery 02/06/22 documented as of this encounter
--- OUTSIDE RECORDS SUMMARY | 2024-09-14 09:11 | XMS_ITS | Encounter Summary ---
Author Organization [employer] [facility] Address [address] [place] [address] Care Team Providers Care Gas Generator Operator Name Role Phone Luna Andrew MD Primary Care Provider Keya Brito MD Primary Care Prov ider Montrell Lopez MD, PHD Unavailable Unava Calvin Garcia PA-C Unavailable [phone] Encounter Details Date Type Department Care Team Description 04/09/2017 Stripping Cutter And Winder Report Medical Records [address] [place] [address] Marya Tejada MD Social History Tobacco Use [...] on filedocumented in this encounter Care Teams Gas Generator Operator Relationship Specialty Start Date End Date Luna Andrew MD PCP - General Internal Medicine 08/11/11 12/23/21 Keya Jay MD [address] [place] [address] PCP - General Internal Medicine 12/24/21 Montrell Lopez MD, PHD [address] [place], [place] [address] Surgeon Neurosurgery 02/06/22 Calvin Lucero PA-C 175 [facility] [address] [place] [address] Specialist Neurosurgery 02/06/22 documented as of this encounter
--- OUTSIDE RECORDS SUMMARY | 2024-09-14 09:11 | XMS_ITS | Encounter Summary ---
Author Organization [employer] [facility] Address [address] [place] [address] Care Team Providers Care Mobile Lounge Driver Name Role Phone Luna Andrew MD Primary Care Provider Keya Brito MD Primary Care Prov ider Montrell Lopez MD, PHD Unavailable Unava Calvin Garcia PA-C Unavailable [phone] Encounter Details Date Type Department Care Team Description 03/09/2018 SCAN Medical Records [address] [place] [address] Abstract, Provider Social History Tobacco Use Types [...] on filedocumented in this encounter Care Teams Mobile Lounge Driver Relationship Specialty Start Date End Date Luna Andrew MD PCP - General Internal Medicine 08/11/11 12/23/21 Keya Jay MD [address] [place] [address] PCP - General Internal Medicine 12/24/21 Montrell Lopez MD, PHD [address] [place] [address] Surgeon Neurosurgery 02/06/22 Calvin Lucero PA-C 175 [facility] [address] [place] [address] Specialist Neurosurgery 02/06/22 documented as of this encounter
== END 2024-09-14 07:57 | disposition home or self-care (01) ==
LOC: HO.LAB 07:56
PROVIDERS: PCP Internal Medicine; Visit Provider Physician Assistant
DX: J02.9 Acute pharyngitis, unspecified (principal)
CPT/HCPCS: 87070; 87880

== ENCOUNTER 2024-09-14 07:56 | Outpatient (AMB) | payer OTHER, SELFPAY ==
--- OUTSIDE RECORDS SUMMARY | 2024-09-14 08:00 | XMS_ITS | Clinical Summary ---
Author Organization [address] Address [address] [place] [address] Phone Care Team Providers Care Pig Casting Machine Operator Name Role Phone Keya Glass MD Primary [...] (08/18/2024 3:01 PM EST): Recent labs at [facility] on the range of prediabetes. Patient [...] 2:30 PM EST Office Visit Adult Medicine [address] [address] MD Prediabetes (Primary Dx); Class 2 obesity due to excess calories without serious comorbidity with body mass index (BMI) of 37.0 to 37.9 in adult; Mixed hyperlipidemia from Last 3 Months Immunizations Name Administration Dates Next Due Influenza Quadravalent, MDCK , 0.5ml, preservative free (Flucelvax) 6mo and older 04/11/2018 Influenza Quadravalent, MDCK , 0.5ml, with preservative (Flucelvax) 6mo and older 03/24/2021,04/27/2019,04/12/2017 Influenza trivalent, with preservative (Fluzone; Afluria) 6mo and older 05/12/2016 Influenza, Unspecified 03/26/2024,2022,03/21/2022,2018,05/12/2016 Pfizer SARS-CoV-2 COVID-19, mRNA, LNP-S, preservative free 04/23/2021,08/02/2020,07/11/2020 [...] COMMENT: one ovary remains ESOPHAGOGASTRODUODENOSCOPY 05/28/2012 PROCEDURE: DE ESOPHAGOGASTRODUODENOSCOPY TRANSORAL DIAGNOSTIC; COMMENT: normal BREAST LUMPECTOMY 2007 Left PROCEDURE: HISTORICAL BREAST LUMPECTOMY; COMMENT: neg HERNIA REPAIR 05/2018 PROCEDURE: HISTORICAL HERNIA REPAIR/ING; COMMENT: with a mesh OTHER SURGICAL HISTORY 2004 PROCEDURE: DE HYSTEROSCOPY ENDOMETRIAL ABLATION OTHER SURGICAL HISTORY 2003 [...] COMMENT: left ovary removed and chemo at [facility], BRCA negative, had genetic counseling [...] for your loved ones. For example, child protective services specialist or elderly care for an older adult? [...] 02/25/2025 1:00 PM EDT Appointment Radiology Department [address] [address] 04/11/2025 1:30 PM EDT Consult Bariatric Surgery - [place] [address] [phone] Carmen Bailey MD [address] [address] 06/01/2025 3:00 PM EST Office Visit Adult [address] [address] Keya Glass MD [address] [place] [address] Health Maintenance Due Date Last Done Comments [...] RESULTING AGENCY - 08/25/2018 2:31 PM EST [id number] THINPREP PAP, IMAGED: NEGATIVE FOR SQUAMOUS INTRAEPITHELIAL LESION AND MALIGNANCY . VIDAL MITCHELL , CT(ASCP) (CASE ELECTRONICALLY SIGNED 08 25 2018) RESULT OF APTIMA HIGH RISK HPV ASSAY: HIGH RISK HPV: ??NEGATIVE (SEROTYPES 16,18,31,33,35,39,45,51,52,56,58,59,66,68) COMPLETED ON 2018-08-24 ADEQUACY: SATISFACTORY ENDOCERVICAL/TRANSFORMATION ZONE COMPONENT PRESENT. SOURCE: THINPREP PAP HPV ANY DX: ??REFLEX 16 AND 18, CERVICAL, IMAGED CLINICAL INFORMATION: HPV ANY DIAGNOSIS. Z12.4, Z01.419, PAP HX: POSITIVE ASCUS 09/2016 HPV NEG Nikki Lobo [facility] CYTOLOG[facility] ORDERABLES Final R esult HISTORICAL TESTING LAB RESULTING AGENCY * Colonoscopy (06/03/2017) Colonoscopy no interpretation , abstracted Anatomical Region Laterality Modality Other Historical Provider HEALTH MAINTENANCE Final Result * Hepatitis C Screening (09/23/2016) Hepatitis C Screening abstracted Historical Provider HEALTH MAINTENANCE Final Result from Last 3 Months or Most Recently Relevant to Health Maintenance Insurance [employer] [facility] [address] Care Teams Pig Casting Machine Operator Relationship Specialty Start Date End Date Coleman-Munoz, Keya Jessica, MD [address] [place] [address] PCP - General Internal Medicine 08/15/24
--- OUTSIDE RECORDS SUMMARY | 2024-09-14 08:00 | XMS_ITS ---
Author Organization [facility] Address [address] [place] [address] Care Team Providers Care Control Systems Technician Name Role Phone of [facility] Primary Care Provider Deisi selbyALIRIO Cortes Unavailable [phone] ALLERGIES Allergen (clinical drug ingredient) Drug/Non Drug [...] History of ovarian cancer (Z85.43) Active confirmed 985605088 Problem Obesity (BMI 30-39.9) (E66.9) Active confirmed 433593489 Problem BMI 36.0-36.9,adult (Z68.36) Active confirmed 952099941 Problem Prediabetes (R73.03) Active confirmed 975498106 Problem JAIRO (obstructive sleep apnea) (G47.33) Active confirmed 70517093 Problem Other hyperlipidemia (E78.49) Active confirmed 57679684 Problem Nutritional counseling (Z71.3) Active confirmed 557677066 VITAL SIGNS Blood pressure systolic 112 mm Hg 09/07/19 25 Blood pressure diastolic 74 mm Hg 025 Heart Rate 99 /min 09/07/2024 Height 61 in 09/07/2024 Weight 195 lbs 09/07/2024 BMI 36.84 kg/m2 09/07/2024 Oximetry 99 % 09/07/2024 Encounters Encounter Location Date Provider Diagnosis [address] [facility] [address] [place] [address] 09/07/2024 ALIRIO SANCHES Obesity (BMI 30-39.9 ) [...] including following with alternative weight management clinic ([facility]), working with sharepoint net developer, and improving diet and exercise without success [...] reviewed. Dictation completed with the use of [employer] voice recognition software, prone to medical misidentifications [...] including following with alternative weight management clinic ([facility]), working with sharepoint net developer, and improving diet and exercise without success [...] reviewed. Dictation completed with the use of Cl[employer] voice recognition software, prone to medical misidentifications [...] including following with alternative weight management clinic ([facility]), working with sharepoint net developer, and improving diet and exercise without success [...] reviewed. Dictation completed with the use of Cl[employer] voice recognition software, prone to medical misidentifications [...] including following with alternative weight management clinic ([facility]), working with sharepoint net developer, and improving diet and exercise without success [...] reviewed. Dictation completed with the use of Cl[employer] voice recognition software, prone to medical misidentifications [...] including following with alternative weight management clinic ([facility]), working with sharepoint net developer, and improving diet and exercise without success [...] reviewed. Dictation completed with the use of Cl[employer]yoo voice recognition software, prone to medical misidentifications [...] including following with alternative weight management clinic ([facility]), working with sharepoint net developer, and improving diet and exercise without success [...] reviewed. Dictation completed with the use of Clipyoo voice recognition software, prone to medical misidentifications [...] 03:00:00 PM, [address], [address], [place], [address], Provider Name:DEBBIE BURNETTEAby, 09/21/2024 03:15:00 PM, [address], [address], [place], [address], Provider Name:DEBBIE BURNETTEAby, 09/28/2024 03:15:00 PM, [address], [address], [place], [address], Provider Name:DEBBIE VAUGHN, 10/05/2024 03:15:00 PM, [address], [address], [place], [address], Provider Name:ALIRIO Sol, 10/11/2024 11:30:00 AM, [address] [facility] [address], [place], [address], MEDICATIONS ADMINISTERED Medication Instructions Date of Administration Dosage Notes Tirzepatide 09/07/2024 2.5 mg Progress Notes * Micky JONESB: [birth year] (59 yo F)Acc No.[id number]:09/07/2024 Patient:??Roxie JONES Provider:??ALIRIO SANCHES PA-C :1965?Age:59 Y?Sex:Fe male Date:09/07/2024 Address:[address] [place], [place] [phone] Pcp:[facility] Subjective: * Chief Complaints: * ?1. Pt [...] to optimize overall health. Has followed with [facility] Weight Loss program where she worked on lifestyle changes and worked with a sharepoint net developer - successfully lost 10lbs. Reviewed lifestyle. ?The [...] with Hanna. Last labs 07/21/24. 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 * ROS:?Constitutional: Denies fever, [...] including following with alternative weight management clinic ([facility]), working with sharepoint net developer, and improving diet and exercise without success [...] reviewed. Dictation completed with the use of Clipyoo voice recognition software, prone to medical misidentifications [...] CNSL OBESITY 15 MIN, Modifiers: 59 , 10589 GLYCATED HEMOGLOBIN TEST, Modifiers: QW * Images: Billing Information: * Visit Code:?? 00960 Office Visit, New Pt., Level 5. * Procedure Codes:?? G0447 FCE-FCE BEHAVRL CNSL OBESITY 15 MIN. Modifiers: 59 76302 GLYCATED HEMOGLOBIN TEST. Modifiers: QW * Sign [...]
--- OUTSIDE RECORDS SUMMARY | 2024-09-14 08:00 | XMS_ITS ---
Author Organization [facility] Address [address] [place] [address] Care Team Providers Care Management Advisor Name Role Phone of [facility] Primary Care Provider ALIRIO Baca Unavailable [phone] REASON FOR VISIT PA-Zepbound Encounters Encounter Location Date Provider Diagnosis [address] [place] [address] 09/07/2024 ALIRIO SANCHES PLAN OF TREATMENT Next Appt Details Provider Name:DEBBIE VAUGHN, 09/14/2024 03:00:00 PM, [address], [address], [place], [address], Provider Name:DEBBIE VAUGHN, 09/21/2024 03:15:00 PM, [address], [address], [place], [address], Provider Name:DEBBIE VAUGHN, 09/28/2024 03:15:00 PM, [address], [address], [place], [address], Provider Name:DEBBIE VAUGHN, 10/05/2024 03:15:00 PM, [address], [address], [place], [address], Provider Name:ALIRIO Sol, 10/11/2024 11:30:00 AM, [address], [address], [place], [address], Progress Notes * Svetlana JONES: [birth year] (59 yo F)Acc No.[id number]:09/07/2024 Patient:??Roxie JONES :1965?Age:59 Y?Sex:Fe male Address:[address] [place] [address] * true * Date:??
--- OUTSIDE RECORDS SUMMARY | 2024-09-14 08:01 | XMS_ITS | Encounter Summary ---
Author Organization [employer] [facility] Address [address] [place] [address] Care Team Providers Care Switchboard Manager Name Role Phone Keya Jay MD Primary Care Prov ider Montrell Lopez MD, PHD Unavailable Unava Calvin Garcia PA-C Unavailable [phone] Encounter Details Date Type Department Care Team Description 06/17/2022 Pt. Non Urgent Medical Question Adult Medicine [address] [address] Keya Jay MD [address] [place] [address] Social History Tobacco Use Types Packs/Day Years [...] 06/17/2022 1:28 PM ESTFrom: Roxie Dominic To: Sita Munoz Sent: 06/17/2022 1:12 PM EST Subject: Hematolory notes 2020 I seen a Hematology for the same thing 04/05/2021 if you would like you can set up another appointment with her Dr Yolette Fountain [facility]. notes are attached. documented in this encounter Plan of Treatment Not on file documented as of this encounter Visit Diagnoses Not on filedocumented in this encounter Care Teams Switchboard Manager Relationship Specialty Start Date End Date Keya Jay MD [address] [place] [address] PCP - General Internal Medicine 12/24/21 Montrell Lopez MD, PHD [address] [place] [address] Surgeon Neurosurgery 02/06/22 Calvin Lucero PA-C [address] [place] [address] Specialist Neurosurgery 02/06/22 documented as of this encounter
--- OUTSIDE RECORDS SUMMARY | 2024-09-14 08:01 | XMS_ITS | Encounter Summary ---
Author Organization [employer] [facility] Address [address] [place] [address] Care Team Providers Care Family Practice Doctor Name Role Phone Keya Jay MD Primary Care Prov ider Montrell Lopez MD, PHD Unavailable Unava ilable Calvin Lucero PA-C Unavailable [phone] Reason for Referral * EXTERNAL (Emergency) - Authorized/Booked Specialty Diagnoses / Procedures Referred By Contac t Referred To Contact Oncology/Hematology Diagnoses Leukocytosis, unspecified type Procedures REFERRAL TO ONCOLOGY/HEMATOLOGY (OUT OF NETWORK) Barbara Sherwood PA-C [address] [place] [address] External Oncology Referral ID Status Reason Start Date Expiration Date V isits Requested Visits Authorized [id number] Authorized/B ooked 06/26/2022 1 1 Encounter Details Date Type Department Care Team Description 06/26/2022 Pt. Non Urgent Medical Question Adult Medicine [address] [address] Keya Jay MD [address] [place] [address] Leukocytosis, unspecified type (Primary Dx) Social History Tobacco Use Types Packs/Day Years [...] encounter Miscellaneous Notes * Telephone Encounter - Amanda Fernandez - 06/26/2022 1:12 PM ESTFrom: Roxie Alfaro To: Sita Munoz Sent: 06/26/2022 1:11 PM EST Subject: Oncology Dr Yolette Fountain MD [facility] needs the referral from you to see me I have appointmenttomorrow at 11:30 am. Thank You. documented in this encounter Plan of Treatment Not on file documented as of this encounter Visit Diagnoses Diagnosis Leukocytosis, unspecified type- Primary documented in this encounter Care Teams Family Practice Doctor Relationship Specialty Start Date End Date Keya Jay MD [address] [place] [address] PCP - General Internal Medicine 12/24/21 Montrell Lopez MD, PHD [address] [place] [address] Surgeon Neurosurgery 02/06/22 Calvin Lucero PA-C [address] [place] [address] Specialist Neurosurgery 02/06/22 documented as of this encounter
--- OUTSIDE RECORDS SUMMARY | 2024-09-14 08:01 | XMS_ITS | Patient Health Record ---
Author Organization [facility] Address [address] [place] [address] Care Team Providers Care Greeting Card Writer Name Role Phone of [facility] Primary Care Provider SUSAN BacaYN Unavailable [phone] YOMAIRADEBBIE Badillo Unavailable [phone] ALLERGIES Allergen (clinical drug ingredient) Drug/Non Drug [...] Code Notes Problem Prediabetes (R73.03) Active confirmed 538352702 Problem Other hyperlipidemia (E78.49) Active confirmed 61216543 Problem JAIRO (obstructive sleep apnea) (G47.33) Active confirmed 22175844 Problem Obesity (BMI 30-39.9) (E66.9) Active confirmed 668485553 Problem BMI 36.0-36.9,adult (Z68.36) Active confirmed 534040084 Problem History of ovarian cancer (Z85.43) Active confirmed 608470696 Problem Nutritional counseling (Z71.3) Active confirmed 891016676 VITAL SIGNS Heart Rate 99 /min 09/07/2024 Oximetry 99 % 09/07/2024 Blood pressure diastolic 74 mm Hg 09/07/2024 Height 61 in 09/07/2024 Blood pressure systolic 112 mm Hg 09/07/2024 Weight 195 lbs 09/07/2024 BMI 36.84 kg/m2 09/07/2024 Encounters Encounter Location Date Provider Diagnosis [facility] [address] [facility] 119 [place] [address] 09/14/2024 DEBBIE VAUGHN [address] [facility] [address] [place] [address] 09/07/2024 ALIRIO VERÓNICA Obesity (BMI 30-39.9 ) E66.9 ; BMI 36.0-36.9,adult Z68.36 ; Prediabetes R73.03 ; JAIRO (obstructive sleep apnea) G47.33 ; Other hyperlipidemia E78.49 and Nutritional counseling Z71.3 [facility] 119 [address] [facility] [address] [place] [address] 09/07/2024 ALIRIO VERÓNICA ASSESSMENTS Encounter Date Diagnosis Assessment Notes Treatment [...] including following with alternative weight management clinic ([facility]), working with oral pathologist, and improving diet and exercise without success [...] reviewed. Dictation completed with the use of [employer] voice recognition software, prone to medical misidentifications [...] BMI of 36.8. Additional comorbidities include prediabetes, JAIOR, HLD. Patient has trialed other methods of weight loss including following with alternative weight management clinic ([facility]), working with oral pathologist, and improving diet and exercise without success [...] reviewed. Dictation completed with the use of [employer] voice recognition software, prone to medical misidentifications [...] including following with alternative weight management clinic ([facility]), working with oral pathologist, and improving diet and exercise without success [...] reviewed. Dictation completed with the use of [employer] voice recognition software, prone to medical misidentifications [...] literature including The Food Rules by Art Pollen and Eat Fat Get Lean by Dr [...] including following with alternative weight management clinic ([facility]), working with oral pathologist, and improving diet and exercise without success [...] reviewed. Dictation completed with the use of [employer] voice recognition software, prone to medical misidentifications [...] including following with alternative weight management clinic ([facility]), working with oral pathologist, and improving diet and exercise without success [...] reviewed. Dictation completed with the use of [employer] voice recognition software, prone to medical misidentifications [...] including following with alternative weight management clinic ([facility]), working with oral pathologist, and improving diet and exercise without success [...] reviewed. Dictation completed with the use of [employer] voice recognition software, prone to medical misidentifications and grammatical errors. All errors are unintentional. Although the practitioner does try to identify and correct errors, some may be present. Please do not hesitate to contact the practitioner for clarification. Total time was 60 minutes spent with >50% on coordination of care and patient education. PLAN OF TREATMENT Next Appt Details Provider Name:DEBBIE RODERICK, 09/14/2024 03:00:00 PM, [address] [place] [address], [facility] [address], [place], [address], Provider Name:DEBBIE VAUGHN, 09/21/2024 03:15:00 PM, [address], [facility] [address], [place], [address], Provider Name:DEBBIE VAUGHN, 09/28/2024 03:15:00 PM, [address], [address], [place], [address], Provider Name:DEBBIE VAUGHN, 10/05/2024 03:15:00 PM, [address], [address], [place], [address], Provider Name:ALIRIO Sol, 10/11/2024 11:30:00 AM, [address], [address], [place], [address], Insurance Providers Payer Name Payer Address Payer Phone Subscriber Number Group Number Insured Name Patient Relationship to Insured Coverage Start Date Coverage End [place] [address] [id number] [place] [address] [id number] Roxie Alfaro Self - patient is the insured MEDICATIONS ADMINISTERED Medication Instructions Date of Administration Dosage Notes Tirzepatide 09/07/2024 2.5 mg MEDICAL (GENERAL) HISTORY Medical History History ICD Code History of ovarian cancer Z85.43 Surgical History Surgery Date(Month/Year) C3-C4 fusion partial hysterectomy
--- OUTSIDE RECORDS SUMMARY | 2024-09-14 08:01 | XMS_ITS | Encounter Summary ---
Author Organization [place] [address] Care Team Providers Care Salicylic Acid Blender Name Role Phone Keay Glass MD Primary Care Prov ider Reason for Visit * Reason Comments weight concerns Encounter Details Date Type Department Care Team (Late st Contact Info) Description 08/18/2024 2:30 PM EST Office Visit Adult Medicine [address] [address] Keya Glass MD [address] [place] [address] Prediabetes (Primary Dx); Class 2 obesity due [...] care for your loved ones. For example, childcare center director or elderly care for an older adult? [...] PM ESTAssociated Problem(s): Prediabetes Recent labs at [facility] on the range of prediabetes. Patient [...] regularly. Was evaluated at weight management in [place] but they offered only surgery and patient [...] Current Outpatient Medications Medication Instructions EPINEPHrine (EpiPen 2-Jnaes) 0.3 mg/0.3 mL injection INJECT THE CONTENTS [...] Assessment & Plan Prediabetes Recent labs at [facility] on the range of prediabetes. Patient [...] final approval. Keya Munoz MD ADULT MEDICINE [address] Dept: [phone] Dept Date of Visit: 08/18/2024 documented in this encounter Plan of Treatment Upcoming Encounters Date Type Department Care Team (Late st Contact Info) Description 02/25/2025 1:00 PM EDT Appointment Radiology Department - [address] [phone] 04/11/2025 1:30 PM EDT Consult Bariatric Surgery - [place] [address] [address] Carmen Bailey MD [address] [address] 06/01/2025 3:00 PM EST Office Visit Adult Medicine [address] [phone] Keya Glass MD [address] [place] [address] Scheduled Orders Name Type Priority Associated Diagnoses [...] documented as of this encounter Care Teams Salicylic Acid Blender Relationship Specialty Start Date End Date Keya Glass MD [address] [place] [address] PCP - General Internal Medicine 08/15/24 documented as of this encounter
--- OUTSIDE RECORDS SUMMARY | 2024-09-14 08:01 | XMS_ITS | Encounter Summary ---
Author Organization [employer] [facility] Address [address] [place] [address] Care Team Providers Care Customer Service Driver Name Role Phone Keya Jay MD Primary Care Prov ider Montrell Lopez MD, PHD Unavailable Unava ilable Calvin Lucero PA-C Unavailable Encounter Details Date Type Department Care Team Description 11/03/2022 Machine Shop Lead Man Report Medical Records [address] [place] [address] John Russo PA-C Social History Tobacco Use [...] filedocumented in this encounter Care Teams Customer Service Driver Relationship Specialty Start Date End Date Keya Jay MD [address] [place] [address] PCP - General Internal Medicine 12/24/21 Montrell Lopez MD, PHD [address] [place] [address] Surgeon Neurosurgery 02/06/22 Calvin Lucero PA-C [address] [place] [address] [place] [address] Specialist Neurosurgery 02/06/22 documented as of this encounter
--- OUTSIDE RECORDS SUMMARY | 2024-09-14 08:02 | XMS_ITS | Encounter Summary ---
Author Organization [facility] Address [address] [place] [address] Care Team Providers Care Licensed Pesticide Applicator Name Role Phone Luna Andrew MD Primary Care Provider Keya Brito MD Primary Care Prov ider Montrell Lopez MD, PHD Unavailable Unava Calvin Garcia PA-C Unavailable [phone] Reason for Visit * Reason Onset Date Comments Appointment Cancelled 09/24/2016 Encounter Details Date Type Department Care Team Description 09/24/2016 Telephone Radiology - [address] [address] Nikki Lobo, [facility] [address] [place] [address] Appointment Cancelled Social History Tobacco Use Types Packs/Day Years [...] Telephone Encounter - Mona Schroeder M.A. - 10/01/2016 9:06 AM EDT Left message for patient. [facility] External order placed up front for moss picker. * Telephone Encounter - Nikki Lobo CNM - 10/01/2016 8:59 AM EDT I have placed an external order for sono pelvis per patient request. Nikki Lobo CNM * Telephone Encounter - Della Amador - 09/24/2016 1:04 PM EST Pt would like an external order for a pelvic ultrasound. Pt was scheduled to have it performed at [facility], but cannot due to her insurance. Pt requesting an external order to be scheduled at [facility]. Please advise thank you documented in this encounter Plan of Treatment Not on file documented as of this encounter Visit Diagnoses Diagnosis Pelvic pain- Primary documented in this encounter Care Teams Licensed Pesticide Applicator Relationship Specialty Start Date End Date Luna Andrew MD PCP - General Internal Medicine 08/11/11 12/23/21 Keya Jay MD [address] [place] [address] PCP - General Internal Medicine 12/24/21 Montrell Lopez MD, PHD [address] [place] [address] Surgeon Neurosurgery 02/06/22 Calvin Lucero PA-C [address] [place] [address] [place] [address] Specialist Neurosurgery 02/06/22 documented as of this encounter
--- OUTSIDE RECORDS SUMMARY | 2024-09-14 08:02 | XMS_ITS | Encounter Summary ---
Author Organization [facility] Address [address] [place] [address] Care Team Providers Care Cabinet Assembler Name Role Phone Keya Jay MD Primary Care Prov ider Montrell Lopez MD, PHD Unavailable Unava Calvin Garcia PA-C Unavailable [phone] Reason for Visit * Reason Onset Date Comments Mychart Rx Refill 02/05/2023 Encounter Details Date Type Department Care Team Description 02/05/2023 Refill Adult Medicine [address] [address] Keya Jay MD [address] [place] [address] Mychart Rx Refill Social History Tobacco Use [...] original note were not included. Roxie Carpenter [facility] (supporting [place] Munoz, Keya Lopez MD) 14 hours ago (5:25 PM) MO Garrett Oscar, can I get a refill of Ibuprofen 800MG for pain in my neck please, only when needed. Thanks PT sent 2nd [employer] message for reason for medication request. * [...] Histoic on 11/19/22. Patient was previouslyprescribed by [facility] providers intermittently. MADAY 11/27/22 - Ernesto NASSAR with PCP 08/29/22 NO pending appointment - NO current lab orders pending. * Telephone Encounter - Neisha Licona M.A. - 02/06/2023 7:14 AM EDTFrom: Roxie Alfaro To: Office of Sita Munoz Sent: 02/05/2023 5:27 PM EDT Subject: Medication Renewal Request Refills have been requested for the following medications: Other - Ibuprofen 800MG Preferred pharmacy: [id number] - [address] documented in this encounter Plan of Treatment Not on file documented as of this encounter Visit Diagnoses Not on filedocumented in this encounter Care Teams Cabinet Assembler Relationship Specialty Start Date End Date Keya Jay MD [address] [place] [address] PCP - General Internal Medicine 12/24/21 Montrell Lopez MD, PHD [address] [place] [address] Surgeon Neurosurgery 02/06/22 Calvin Lucero PA-C [address] [place] [address] Specialist Neurosurgery 02/06/22 documented as of this encounter
--- OUTSIDE RECORDS SUMMARY | 2024-09-14 08:02 | XMS_ITS | Encounter Summary ---
Author Organization [employer] [facility] Address [address] [place] [address] Care Team Providers Care Grinder Set Up Operator External Name Role Phone Keya Jay MD Primary Care Prov ider Montrell Lopez MD, PHD Unavailable Unava ilable Calvin Lucero PA-C Unavailable [phone] Encounter Details Date Type Department Care Team Description 09/29/2023 Equipment Associate Report Medical Records [address] [place] [address] Pepper Orozco [address] [place] [address] [phone] Social History Tobacco Use Types Packs/Day Years [...] on filedocumented in this encounter Care Teams Grinder Set Up Operator External Relationship Specialty Start Date End Date Keya Jay MD [address] [place] [phone] PCP - General Internal Medicine 12/24/21 Montrell Lopez MD, PHD [address] [place], [place] [phone] Surgeon Neurosurgery 02/06/22 Calvin Lucero PA-C 175 [facility] [address] [place] [address] Specialist Neurosurgery 02/06/22 documented as of this encounter
--- OUTSIDE RECORDS SUMMARY | 2024-09-14 08:02 | XMS_ITS | Encounter Summary ---
Author Organization [facility] Address [address] [place] [address] Care Team Providers Care Process Supervisor Name Role Phone Luna Andrew MD Primary Care Provider Keya Brito MD Primary Care Prov ider Montrell Lopez MD, PHD Unavailable Unava Calvin Garcia PA-C Unavailable [phone] Encounter Details Date Type Department Care Team Description 05/25/2020 Pt. Non Urgent Medic al Question Physiatr - [address] [address] John Russo PA-C Social History Tobacco Use [...] on filedocumented in this encounter Care Teams Process Supervisor Relationship Specialty Start Date End Date Luna Andrew MD PCP - General Internal Medicine 08/11/11 12/23/21 Keya Jay MD [address] [place] [address] PCP - General Internal Medicine 12/24/21 Montrell Lopez MD, PHD [address] [place] [address] Surgeon Neurosurgery 02/06/22 Calvin Lucero PA-C 175 [facility] [address] [place] [address] Specialist Neurosurgery 02/06/22 documented as of this encounter
--- OUTSIDE RECORDS SUMMARY | 2024-09-14 08:02 | XMS_ITS | Encounter Summary ---
Author Organization [facility] Address [address] [place] [address] Care Team Providers Care Fox Raiser Name Role Phone Luna Andrew MD Primary Care Provider Keya Brito MD Primary Care Prov ider Montrell Lopez MD, PHD Unavailable Unava Calvin Garcia PA-C Unavailable Encounter Details Date Type Department Care Team Description 09/05/2011 Punch Press Setter Report Medical Records [address] [place] [address] Cash Desouza Social History Tobacco Use Types Packs/Day Years [...] on filedocumented in this encounter Care Teams Fox Raiser Relationship Specialty Start Date End Date Luna Andrew MD PCP - General Internal Medicine 08/11/11 12/23/21 Keya Jay MD [address] [place], [place] [phone] PCP - General Internal Medicine 12/24/21 Montrell Lopez MD, PHD [address] [place], [place] [phone] Surgeon Neurosurgery 02/06/22 Calvin Lucero PA-C [address] [place] [address] [address] [place] [address] Specialist Neurosurgery 02/06/22 documented as of this encounter
--- OUTSIDE RECORDS SUMMARY | 2024-09-14 08:02 | XMS_ITS | Encounter Summary ---
Author Organization [employer] [facility] Address [address] [place] [address] Care Team Providers Care Chief Analytics Officer Name Role Phone Luna Andrew MD Primary Care Provider Keya Brito MD Primary Care Prov ider Montrell Lopez MD, PHD Unavailable Unava Calvin Garcia PA-C Unavailable [phone] Encounter Details Date Type Department Care Team Description 08/18/2019 Orders Only Adult Medicine B - [place] [address] [place] [address] Nina Lucas APRN Diarrhea, unspecified type Social History Tobacco Use Types Packs/Day Years [...] BLOOD COUNT COMPLETE AUTO&AUTO DIFRNTL WBC Routine 08/18/2019 11:26 AM EST Diarrhea, unspecified type documented in this encounter Results * CBC (AUTO DIFF PLATELET) (08/18/2019 11:26 AM EST) 08/18/2019 11:2 6 AM EST Nina Lance [employer] documented in this encounter Visit Diagnoses Diagnosis Diarrhea, unspecified type documented in this encounter Care Teams Chief Analytics Officer Relationship Specialty Start Date End Date Luna Andrew MD PCP - General Internal Medicine 08/11/11 12/23/21 Keya Jay MD [address] [place] [address] PCP - General Internal Medicine 12/24/21 Montrell Lopez MD, PHD [address] [place] [address] Surgeon Neurosurgery 02/06/22 Calvin Lucero PA-C [address] [place] [address] Specialist Neurosurgery 02/06/22 documented as of this encounter
--- OUTSIDE RECORDS SUMMARY | 2024-09-14 08:02 | XMS_ITS | Encounter Summary ---
Author Organization [facility] Address [address] [place] [address] Care Team Providers Care Employee Training Specialist Name Role Phone Luna Andrew MD Primary Care Provider Keya Brito MD Primary Care Prov ider Montrell Lopez MD, PHD Unavailable Unava Calvin Garcia PA-C Unavailable [phone] Encounter Details Date Type Department Care Team Description 05/14/2019 Old Medical Records Medical Records [address] [place] [address] Abstract, Provider Social History Tobacco Use Types [...] on filedocumented in this encounter Care Teams Employee Training Specialist Relationship Specialty Start Date End Date Luna Andrew MD PCP - General Internal Medicine 08/11/11 12/23/21 Keya Jay MD [address] [place], [place] [phone] PCP - General Internal Medicine 12/24/21 Montrell Lopez MD, PHD [address] [place], [place] [address] Surgeon Neurosurgery 02/06/22 Calvin Lucero PA-C 175 [facility] [address] [place] [address] Specialist Neurosurgery 02/06/22 documented as of this encounter
--- OUTSIDE RECORDS SUMMARY | 2024-09-14 08:02 | XMS_ITS | Encounter Summary ---
Author Organization [employer] [facility] Address [address] [place] [address] Care Team Providers Care Salesperson Handbags Name Role Phone Luna Andrew MD Primary Care Provider Keya Brito MD Primary Care Prov ider Montrell Lopez MD, PHD Unavailable Unava Calvin Garcia PA-C Unavailable [phone] Reason for Visit * Reason Onset Date Comments Medical Records 12/11/2016 pt filled out RO I Encounter Details Date Type Department Care Team Description 12/11/2016 Telephone OBGYN - [place] [address] [place] [address] Nikki Lobo, [facility] [address] [place], [place] [phone] Medical Records (pt filled out SENTHIL ) Social History Tobacco Use Types Packs/Day Years [...] encounter Miscellaneous Notes * Telephone Encounter - Chasity Enoch - 12/11/2016 11:05 AM EDT Pt filled out SENTHIL to get her records from [facility] ; faxed to [phone] documented in this encounter Plan of Treatment Not on file documented as of this encounter Visit Diagnoses Not on filedocumented in this encounter Care Teams Salesperson Handbags Relationship Specialty Start Date End Date Luna Andrew MD PCP - General Internal Medicine 08/11/11 12/23/21 Keya Jay MD [address] [place] [address] PCP - General Internal Medicine 12/24/21 Montrell Lopez MD, PHD [address] [place] [address] Surgeon Neurosurgery 02/06/22 Calvin Lucero PA-C [address] [place] [address] Specialist Neurosurgery 02/06/22 documented as of this encounter
--- OUTSIDE RECORDS SUMMARY | 2024-09-14 08:02 | XMS_ITS | Encounter Summary ---
Author Organization [employer] [facility] Address [address] [place] [address] Care Team Providers Care Seismic Computer Name Role Phone Luna Andrew MD Primary Care Provider Keya Brito MD Primary Care Prov ider Montrell Lopez MD, PHD Unavailable Unava Calvin Garcia PA-C Unavailable [phone] Encounter Details Date Type Department Care Team Description 08/20/2021 Framing Consultant Report Medical Records [address] [place] [address] Evangelist Nelson MD Social History Tobacco Use [...] on filedocumented in this encounter Care Teams Seismic Computer Relationship Specialty Start Date End Date Luna Andrew MD PCP - General Internal Medicine 08/11/11 12/23/21 Keya Jay MD [address] [place] [address] PCP - General Internal Medicine 12/24/21 Montrell Lopez MD, PHD [address] [place] [address] Surgeon Neurosurgery 02/06/22 Calvin Lucero PA-C [address] [place] [address] [address] [place] [address] Specialist Neurosurgery 02/06/22 documented as of this encounter
--- OUTSIDE RECORDS SUMMARY | 2024-09-14 08:02 | XMS_ITS | Encounter Summary ---
Author Organization [facility] Address [address] [place] [address] Care Team Providers Care Bull Float Finisher Name Role Phone Luna Andrew MD Primary Care Provider Keya Brito MD Primary Care Prov ider Montrell Lopez MD, PHD Unavailable Unava Calvin Garcia PA-C Unavailable [phone] Encounter Details Date Type Department Care Team Description 01/06/2017 Front Office Secretary Report Medical Records [address] [place] [address] Marya Tejada MD Social History Tobacco Use [...] on filedocumented in this encounter Care Teams Bull Float Finisher Relationship Specialty Start Date End Date Luna Andrew MD PCP - General Internal Medicine 08/11/11 12/23/21 Keya Jay MD [address] [place] [address] PCP - General Internal Medicine 12/24/21 Montrell Lopez MD, PHD [address] [place], [place] [phone] Surgeon Neurosurgery 02/06/22 Calvin Lucero PA-C 175 [facility] [address] [place] [address] Specialist Neurosurgery 02/06/22 documented as of this encounter
--- OUTSIDE RECORDS SUMMARY | 2024-09-14 08:02 | XMS_ITS | Encounter Summary ---
Author Organization [facility] Address [address] [place] [address] Care Team Providers Care Board Saw Runner Name Role Phone Luna Andrew MD Primary Care Provider Keya Brito MD Primary Care Prov ider Montrell Lopez MD, PHD Unavailable Unava Calvin Garcia PA-C Unavailable [phone] Encounter Details Date Type Department Care Team Description 02/17/2017 Burrer Operator Report Medical Records [address] [place] [address] Marya Tejada MD Social History Tobacco Use [...] on filedocumented in this encounter Care Teams Board Saw Runner Relationship Specialty Start Date End Date Luna Andrew MD PCP - General Internal Medicine 08/11/11 12/23/21 Keya Jay MD [address] [place] [address] PCP - General Internal Medicine 12/24/21 Montrell Lopez MD, PHD [address] [place], [place] [address] Surgeon Neurosurgery 02/06/22 Calvin Lucero PA-C 175 [facility] [address] [place] [address] Specialist Neurosurgery 02/06/22 documented as of this encounter
--- OUTSIDE RECORDS SUMMARY | 2024-09-14 08:02 | XMS_ITS ---
Author Organization [facility] Address [address] [place] [address] Care Team Providers Care Leases And Land Supervisor Name Role Phone of [facility] Primary Care Provider ALIRIO Baca Unavailable [phone] DEBBIE VAUGHN Unavailable [phone] REASON FOR VISIT 2.5 Encounters Encounter Location Date Provider Diagnosis [address] [address] 09/14/2024 DEBBIE VAUGHN PLAN OF TREATMENT Next Appt Details Provider Name:DEBBIE VAUGHN, 09/14/2024 03:00:00 PM, [address], [facility] [address], [address], Provider Name:DEBBIE VAUGHN, 09/21/2024 03:15:00 PM, [address], [facility] [address], [address], Provider Name:DEBBIE VAUGHN, 09/28/2024 03:15:00 PM, [address], [facility] [address], [address], Provider Name:DEBBIE VAUGHN, 10/05/2024 03:15:00 PM, [address], [facility] [address], [address], Provider Name:ALIRIO Sol, 10/11/2024 11:30:00 AM, [address], [address], [place], [address], Progress Notes * Svetlana JONES: [birth year] (59 yo F)Acc No.[id number]:09/14/2024 Patient:??Roxie JONES Provider:??DEBBIE VAUGHN NP :[id number]?Age:59 Y?Sex:Fe male Date:09/14/2024 Address:[address] [place], [place] [address] Pcp:[facility] Subjective: * Chief Complaints: * ?1. 2.5. * Medical History:?? Objective: Assessment: Plan: * Treatment: * Images: Billing Information: * Visit Code:?? * Procedure Codes:?? * Sign off status: Pending * Provider:??DEBBIE VAUGHN NP Date:??08/21
--- OUTSIDE RECORDS SUMMARY | 2024-09-14 08:02 | XMS_ITS | Encounter Summary ---
Author Organization [facility] Address [address] [place] [address] Care Team Providers Care Personal Vehicle Advisor Name Role Phone Luna Andrew MD Primary Care Provider Keya Brito MD Primary Care Prov ider Montrell Lopez MD, PHD Unavailable Unava Calvin Garcia PA-C Unavailable [phone] Encounter Details Date Type Department Care Team Description 10/06/2017 Contact Lens Fitter Report Medical Records [address] [place] [address] Social History Tobacco Use Types Packs/Day Years [...] on filedocumented in this encounter Care Teams Personal Vehicle Advisor Relationship Specialty Start Date End Date Luna Andrew MD PCP - General Internal Medicine 08/11/11 12/23/21 Keya Jay MD [address] [place] [address] PCP - General Internal Medicine 12/24/21 Montrell Lopez MD, PHD [address] [place] [address] Surgeon Neurosurgery 02/06/22 Calvin Lucero PA-C [address] [place] [address] [address] [place] [address] Specialist Neurosurgery 02/06/22 documented as of this encounter
--- OUTSIDE RECORDS SUMMARY | 2024-09-14 08:02 | XMS_ITS | Encounter Summary ---
Author Organization [employer] [facility] Address [address] [place] [address] Care Team Providers Care Hand I Blocker Name Role Phone Luna Andrew MD Primary Care Provider Keya Brito MD Primary Care Prov ider Montrell Lopez MD, PHD Unavailable Unava Calvin Garcia PA-C Unavailable [phone] Encounter Details Date Type Department Care Team Description 02/25/2018 Game Room Attendant Report Medical Records [address] [place], [place] [phone] Cheng Singer Social History Tobacco Use Types Packs/Day Years [...] on filedocumented in this encounter Care Teams Hand I Blocker Relationship Specialty Start Date End Date Luna Andrew MD PCP - General Internal Medicine 08/11/11 12/23/21 Keya Jay MD [address] [place], [place] [phone] PCP - General Internal Medicine 12/24/21 Montrell Lopez MD, PHD [address] [place], [place] [address] Surgeon Neurosurgery 02/06/22 Calvin Lucero PA-C [address] [place] [address] [address] [place] [address] Specialist Neurosurgery 02/06/22 documented as of this encounter
--- OUTSIDE RECORDS SUMMARY | 2024-09-14 08:02 | XMS_ITS | Encounter Summary ---
Author Organization [employer] [facility] Address [address] [place] [address] Care Team Providers Care Summer Clerk Name Role Phone Lnua Andrew MD Primary Care Provider Keya Brito MD Primary Care Prov ider Montrell Lpoez MD, PHD Unavailable Unava Calvin Garcia PA-C Unavailable [phone] Reason for Visit * Reason Onset Date Comments REFERRAL 02/08/2021 Encounter Details Date Type Department Care Team Description 02/08/2021 Telephone Adult Medicine [address] [address] Shelly [place] PA [address] [place] [address] REFERRAL Social History Tobacco Use Types Packs/Day [...] - 02/08/2021 11:30 AM EDT Pt states [facility] needs clinical notes and results of labs [...] insurance must be obtained and registered in [facility] or their referral can not be processed. [...] Is this visit:Initial Visit Address of Specialist: [address] [place] [address] Phone # of Specialist:[phone] Fax #: (if applicable): [phone] Does patient have an appointment scheduled?: NO Date of appointment- (including a retro-request): Is this appointment related to: Not MVA, WC or Surgery related documented in this encounter Plan of Treatment Not on file documented as of this encounter Visit Diagnoses Not on filedocumented in this encounter Care Teams Summer Clerk Relationship Specialty Start Date End Date Luna Andrew MD PCP - General Internal Medicine 08/11/11 12/23/21 Keya Jay MD [address] [place] [address] PCP - General Internal Medicine 12/24/21 Montrell Lopez MD, PHD [address] [place] [address] Surgeon Neurosurgery 02/06/22 Calvin Lucero PA-C [address] [place] [address] Specialist Neurosurgery 02/06/22 documented as of this encounter
--- OUTSIDE RECORDS SUMMARY | 2024-09-14 08:02 | XMS_ITS | Encounter Summary ---
Author Organization [facility] Address [address] [place] [address] Care Team Providers Care Client Evaluator Name Role Phone Luna Andrew MD Primary Care Provider eKya Brito MD Primary Care Prov ider Montrell Lopez MD, PHD Unavailable Unava Calvin Garcia PA-C Unavailable [phone] Encounter Details Date Type Department Care Team Description 08/26/2019 Transfer Records Medical Records [address] [place] [address] Abstract, Provider Social History Tobacco Use Types [...] on filedocumented in this encounter Care Teams Client Evaluator Relationship Specialty Start Date End Date Luna Andrew MD PCP - General Internal Medicine 08/11/11 12/23/21 Keya Jay MD [address] [place], [place] [id number] PCP - General Internal Medicine 12/24/21 Montrell Lopez MD, PHD [address] [place], [place] [phone] Surgeon Neurosurgery 02/06/22 Calvin Lucero PA-C [address] [place] [address] Specialist Neurosurgery 02/06/22 documented as of this encounter
--- OUTSIDE RECORDS SUMMARY | 2024-09-14 08:02 | XMS_ITS | Encounter Summary ---
Author Organization [facility] Address [address] [place] [address] Care Team Providers Care Assembly Technician Name Role Phone Keya Jay MD Primary Care Prov ider Montrell Lopez MD, PHD Unavailable Unava ilable Calvin Lucero PA-C Unavailable [phone] Encounter Details Date Type Department Care Team Description 02/26/2024 SCAN [facility] Neurosurgery [address] [address] Montrell Lopez MD, PHD Social [...] on filedocumented in this encounter Care Teams Assembly Technician Relationship Specialty Start Date End Date Keya Jay MD [address] [place] [address] PCP - General Internal Medicine 12/24/21 Montrell Lopez MD, PHD [address] [place] [address] Surgeon Neurosurgery 02/06/22 Calvin Lucero PA-C 175 [facility] [address] [place] [address] Specialist Neurosurgery 02/06/22 documented as of this encounter
--- OUTSIDE RECORDS SUMMARY | 2024-09-14 08:02 | XMS_ITS | Encounter Summary ---
Author Organization [facility] Address [address] [place] [address] Care Team Providers Care Package Center Supervisor Name Role Phone Keya Jay MD Primary Care Prov ider Montrell Lopez MD, PHD Unavailable Unava ilCalvin Juárez PA-C Unavailable [phone] Reason for Visit * Reason Onset Date Comments Orders Call 02/17/2024 Encounter Details Date Type Department Care Team Description 02/17/2024 Telephone Adult Medicine [facility] [address] [place] [address] Keya Jay MD [address] [place] [address] Orders Call Social History Tobacco Use Types Packs/Day Years [...] Miscellaneous Notes * Telephone Encounter - Amanda SandovalPMercedN. - 02/17/2024 2:46 PM EDT Has not been seen since October needs to be seen please call to book an apt Thanks * Telephone Encounter - Alycia Cota - 02/17/2024 9:48 AM EDT Patient is requesting to have an order for an MRI from the neck down for an upcomming appointment with Dr. Lopez. Patient would like to have the MRI done at [facility] [place] [place]. Please advise documented in this encounter Plan of Treatment Not on file documented as of this encounter Visit Diagnoses Not on filedocumented in this encounter Care Teams Package Center Supervisor Relationship Specialty Start Date End Date Keya Jay MD [address] [place] [address] PCP - General Internal Medicine 12/24/21 Montrell Lopez MD, PHD [address] [place] [address] Surgeon Neurosurgery 02/06/22 Calvin Lucero PA-C [address] [address] Specialist Neurosurgery 02/06/22 documented as of this encounter
--- OUTSIDE RECORDS SUMMARY | 2024-09-14 08:02 | XMS_ITS | Encounter Summary ---
Author Organization [facility] Address [address] [place] [address] Care Team Providers Care Incinerator Plant Laborer Name Role Phone Luna Andrew MD Primary Care Provider Keya Brito MD Primary Care Prov ider Montrell Lopez MD, PHD Unavailable Unava Calvin Garcia PA-C Unavailable [phone] Encounter Details Date Type Department Care Team Description 02/08/2021 Pt. Non Urgent Medical Question Adult Medicine [address] [address] Shelly Montgomery PA [address] [place] [address] Social History Tobacco Use Types Packs/Day Years [...] encounter Miscellaneous Notes * Telephone Encounter - Sandra Olivia M.A. - 02/08/2021 11:15 AM EDTFrom: Roxie Paniagua To: Jemma Montgomery Sent: 02/08/2021 11:13 AM EDT Subject: High Cell count Hi good morning , I just want to know if you are going to make an appointment, so I can see a DR for the High white blood count. It has to be in [facility] thank you. documented in this encounter Plan of Treatment Not on file documented as of this encounter Visit Diagnoses Not on filedocumented in this encounter Care Teams Incinerator Plant Laborer Relationship Specialty Start Date End Date Luna Andrew MD PCP - General Internal Medicine 08/11/11 12/23/21 Keya Jay MD [address] [place] [address] PCP - General Internal Medicine 12/24/21 Montrell Lopez MD, PHD [address] [place] [address] Surgeon Neurosurgery 02/06/22 Calvin Lucero PA-C 175 [facility] [address] [place] [address] Specialist Neurosurgery 02/06/22 documented as of this encounter
--- OUTSIDE RECORDS SUMMARY | 2024-09-14 08:02 | XMS_ITS | Encounter Summary ---
Author Organization [employer] [facility] Address [address] [place] [address] Care Team Providers Care Newspaper Photojournalist Name Role Phone Luna Andrew MD Primary Care Provider Keya Brito MD Primary Care Prov ider Montrell Lopez MD, PHD Unavailable Unava Calvin Garcia PA-C Unavailable [phone] Encounter Details Date Type Department Care Team Description 10/12/2020 Pt. Non Urgent Medical Question Adult Medicine [address] [address] Shelly Montgomery PA [address] [place] [address] Social History Tobacco Use Types Packs/Day Years [...] have Coronavirus / COVID-19? No / Unsure 10/08/2020 8:15 AM EDT documented as of this encounter Miscellaneous Notes * Telephone Encounter - Nadya Gonzalez M.A. - 10/12/2020 11:25 AM EDTFrom: Roxie Paniagua To: VIANEY Escalera Sent: 10/12/2020 11:10 AM EDT Subject: Blood Work I went in this morning for the blood work at [facility]. documented in this encounter Plan of Treatment Not on file documented as of this encounter Visit Diagnoses Not on filedocumented in this encounter Care Teams Newspaper Photojournalist Relationship Specialty Start Date End Date Luna Andrew MD PCP - General Internal Medicine 08/11/11 12/23/21 Keya Jay MD [address] [place] [address] PCP - General Internal Medicine 12/24/21 Montrell Lopez MD, PHD [address] [place] [address] Surgeon Neurosurgery 02/06/22 Calvin Lucero PA-C [address] [place] [address] [place] [address] Specialist Neurosurgery 02/06/22 documented as of this encounter
--- OUTSIDE RECORDS SUMMARY | 2024-09-14 08:02 | XMS_ITS | Encounter Summary ---
Author Organization [facility] Address [address] [place] [address] Care Team Providers Care Monorail Helper Name Role Phone Luna Andrew MD Primary Care Provider Keya Brito MD Primary Care Prov ider Montrell Lopez MD, PHD Unavailable Unava Calvin Garcia PA-C Unavailable [phone] Encounter Details Date Type Department Care Team Description 10/18/2021 Clerical Stock Inspector Report Medical Records [address] [place] [address] Aakash Tello MD Social History Tobacco Use [...] on filedocumented in this encounter Care Teams Monorail Helper Relationship Specialty Start Date End Date Luna Andrew MD PCP - General Internal Medicine 08/11/11 12/23/21 Keya Jay MD [address] [place] [address] PCP - General Internal Medicine 12/24/21 Montrell Lopez MD, PHD [address] [place] [address] Surgeon Neurosurgery 02/06/22 Calvin Lucero PA-C [address] [place] [address] Specialist Neurosurgery 02/06/22 documented as of this encounter
--- OUTSIDE RECORDS SUMMARY | 2024-09-14 08:02 | XMS_ITS | Encounter Summary ---
Author Organization [employer] [facility] Address [address] [place] [address] Care Team Providers Care Six Sigma Project Manager Name Role Phone Luna Andrew MD Primary Care Provider Keya Brito MD Primary Care Prov ider Montrell Lopez MD, PHD Unavailable Unava Calvin Garcia PA-C Unavailable [phone] Encounter Details Date Type Department Care Team Description 03/14/2021 Collateral Specialist Report Medical Records [address] [place] [address] Mabel Castaneda PA-C Social History Tobacco Use [...] on filedocumented in this encounter Care Teams Six Sigma Project Manager Relationship Specialty Start Date End Date Luna Andrew MD PCP - General Internal Medicine 08/11/11 12/23/21 Keya Jay MD [address] [place] [address] PCP - General Internal Medicine 12/24/21 Montrell Lopez MD, PHD [address] [place] [address] Surgeon Neurosurgery 02/06/22 Calvin Lucero PA-C [address] [place] [address] Specialist Neurosurgery 02/06/22 documented as of this encounter
--- OUTSIDE RECORDS SUMMARY | 2024-09-14 08:02 | XMS_ITS | Encounter Summary ---
Author Organization [employer] [facility] Address [address] [place] [address] Care Team Providers Care Senior Vice President & General Counsel Name Role Phone Keya Jay MD Primary Care Prov ider Montrell Lopez MD, PHD Unavailable Unava ilCalvin Juárez PA-C Unavailable Encounter Details Date Type Department Care Team Description 04/29/2024 Orders Only Medical Records [address] [place] [address] [facility] Social History Tobacco Use Types Packs/Day Years [...] Name Priority Date/Time Associated Diagnosis Comments OUTSIDE LAB Routine 03/31/2024 OUTSIDE EMG Routine 03/23/2024 documented in this encounter Results * OUTSIDE LAB (03/31/2024) [facility] LAB * OUTSIDE EMG (03/23/2024) Claribel Ann MD PERFORMABLES documented in this encounter Visit Diagnoses Not on filedocumented in this encounter Care Teams Senior Vice President & General Counsel Relationship Specialty Start Date End Date Keya Jay MD [address] [place] [address] PCP - General Internal Medicine 12/24/21 Montrell Lopez MD, PHD [address] [place] [address] Surgeon Neurosurgery 02/06/22 Calvin Lucero PA-C [address] [place] [address] Specialist Neurosurgery 02/06/22 documented as of this encounter
--- OUTSIDE RECORDS SUMMARY | 2024-09-14 08:02 | XMS_ITS | Encounter Summary ---
Author Organization [facility] [place] [facility] Address [address] [place] [address] Care Team Providers Care Transportation Technician Name Role Phone Luna Andrew MD Primary Care Provider Keya Brito MD Primary Care Prov ider Montrell Lopez MD, PHD Unavailable Unava Calvin Garcia PA-C Unavailable [phone] Reason for Referral * EXTERNAL (Routine) - Authorized/Booked Specialty Diagnoses / Procedures Referred By Demetris rosas Referred To Contact Physiatry Procedures REFERRAL TO PHYSIATRY Larisa Bennett PA-C [address] [place] [address] Referral ID Status Reason Start Date Expiration Date V isits Requested Visits Authorized SEE NOTE Authorized/B ooked 01/26/2018 01/26/2019 1 1 Reason for Visit * Reason Onset Date Comments REFERRAL 01/26/2018 Encounter Details Date Type Department Care Team Description 01/26/2018 Telephone Physiatry - [facility] [address] [place] [address] Clinton Thomas PA-C REFERRAL Social History Tobacco Use Types Packs/Day [...] encounter Miscellaneous Notes * Telephone Encounter - Shelly Johnston - 01/26/2018 12:52 PM EDT Patient is referred to physiatry. Reason for referral: cervical radiculopathy; had x-ray at [facility] Patient states she needs to be seen at [facility] due to her type of insurance. FYI Please refer externally documented in this encounter Plan of Treatment Not on file documented as of this encounter Visit Diagnoses Not on filedocumented in this encounter Care Teams Transportation Technician Relationship Specialty Start Date End Date Luna Andrew MD PCP - General Internal Medicine 08/11/11 12/23/21 Keya Jay MD [address] [place] [address] PCP - General Internal Medicine 12/24/21 Montrell Lopez MD, PHD [address] [place] [address] Surgeon Neurosurgery 02/06/22 Calvin Lucero PA-C 175 [facility] [address] [place] [address] Specialist Neurosurgery 02/06/22 documented as of this encounter
--- OUTSIDE RECORDS SUMMARY | 2024-09-14 08:02 | XMS_ITS | Clinical Summary ---
Author Organization [employer] [facility] Address [address] [place] [address] Care Team Providers Care Retarder Operator Name Role Phone Keya Jay MD Primary Care Prov ider Montrell Lopez MD, PHD Unavailable Unava Calvin Garcia PA-C Unavailable [phone] Allergies Active Allergy Reactions Severity Noted Date [...] that risks of HRT include cardiovascular disease- NV, DVT, stroke. She was most interested in [...] Specialty Care Team Description 07/11/2024 Orders Only [facility] from Last 3 Months Immunizations Name [...] 02/2023, 03/21/2022, Additional history exists Care Teams Retarder Operator Relationship Specialty Start Date End Date Keya Jay MD [address] [place] [address] PCP - General Internal Medicine 12/24/21 Montrell Lopez MD, PHD [address] [place] [address] Surgeon Neurosurgery 02/06/22 Calvin Lucero PA-C 175 [facility] [address] [place] [address] Specialist Neurosurgery 02/06/22
--- OUTSIDE RECORDS SUMMARY | 2024-09-14 08:02 | XMS_ITS | Encounter Summary ---
Author Organization [facility] [facility] Address [address] [place] [address] Care Team Providers Care Supervisor Picking Crew Name Role Phone Luna Andrew MD Primary Care Provider Keya Brito MD Primary Care Prov ider Montrell Lopez MD, PHD Unavailable Unava Calvin Garcia PA-C Unavailable [phone] Encounter Details Date Type Department Care Team Description 06/18/2020 Release of Information Medical Records [address] [place] [address] Abstract, Provider Social History Tobacco Use Types [...] on filedocumented in this encounter Care Teams Supervisor Picking Crew Relationship Specialty Start Date End Date Luna Andrew MD PCP - General Internal Medicine 08/11/11 12/23/21 Keya Jay MD [address] [place] [id number] PCP - General Internal Medicine 12/24/21 Montrell Lopez MD, PHD [address] [place] [address] Surgeon Neurosurgery 02/06/22 Calvin Lucero PA-C [address] [place] [address] Specialist Neurosurgery 02/06/22 documented as of this encounter
--- OUTSIDE RECORDS SUMMARY | 2024-09-14 08:02 | XMS_ITS | Encounter Summary ---
Author Organization [facility] Address [address] [place] [address] Care Team Providers Care Color Mixer Name Role Phone Luna Andrew MD Primary Care Provider Keya Brito MD Primary Care Prov ider Montrell Lopez MD, PHD Unavailable Unava Calvin Garcia PA-C Unavailable [phone] Reason for Visit * Reason Onset Date Comments Emg 02/13/2021 f/u call EMG arsalan elizabeth at [facility] Encounter Details Date Type Department Care Team Description 02/13/2021 Telephone [facility] [place] [facility] Medical [facility] [address] [address] Radha Crystal PA-C [address] [place] [address] Emg (f/u call EMG booked at [facility] ) Social History Tobacco Use Types Packs/Day [...] encounter Miscellaneous Notes * Telephone Encounter - ePr Spencer - 02/13/2021 10:00 AM EDT Patient aware her nerve test is scheduled at [facility] for , 04/04/21 at 9:30am. Someone from central scheduling will call patient to pre-register. documented in this encounter Plan of Treatment Not on file documented as of this encounter Visit Diagnoses Not on filedocumented in this encounter Care Teams Color Mixer Relationship Specialty Start Date End Date Luna Andrew MD PCP - General Internal Medicine 08/11/11 12/23/21 Keya Jay MD [address] [place] [address] PCP - General Internal Medicine 12/24/21 Montrell Lopez MD, PHD [address] [place] [address] Surgeon Neurosurgery 02/06/22 Calvin Lucero PA-C 175 [facility] [address] [place] [address] Specialist Neurosurgery 02/06/22 documented as of this encounter
--- OUTSIDE RECORDS SUMMARY | 2024-09-14 08:02 | XMS_ITS | Encounter Summary ---
Author Organization [facility] [facility] Address [address] [place] [address] Care Team Providers Care Crown Presser Name Role Phone Luna Andrew MD Primary Care Provider Keya Brito MD Primary Care Prov ider Montrell Lopez MD, PHD Unavailable Unava Calvin Garcia PA-C Unavailable [phone] Encounter Details Date Type Department Care Team Description 09/04/2017 Hospital Medical Records [address] [place] [address] Social History Tobacco Use Types Packs/Day Years [...] on filedocumented in this encounter Care Teams Crown Presser Relationship Specialty Start Date End Date Luna Andrew MD PCP - General Internal Medicine 08/11/11 12/23/21 Keya Jay MD [address] [place] [address] PCP - General Internal Medicine 12/24/21 Montrell Lopez MD, PHD [address] [place] [address] Surgeon Neurosurgery 02/06/22 Calvin Lucero PA-C 175 [facility] [address] [place] [address] Specialist Neurosurgery 02/06/22 documented as of this encounter
--- OUTSIDE RECORDS SUMMARY | 2024-09-14 08:02 | XMS_ITS | Encounter Summary ---
Author Organization [employer] [facility] Address [address] [place] [address] Care Team Providers Care Marketing Program Coordinator Name Role Phone Luna Andrew MD Primary Care Provider Keya Brito MD Primary Care Prov ider Montrell Lopez MD, PHD Unavailable Unava Calvin Garcia PA-C Unavailable [phone] Encounter Details Date Type Department Care Team Description 12/27/2020 Pt. Non Urgent Medic al Question Physiatr - [address] [address] John Russo PA-C Social History Tobacco Use [...] on filedocumented in this encounter Care Teams Marketing Program Coordinator Relationship Specialty Start Date End Date Luna Andrew MD PCP - General Internal Medicine 08/11/11 12/23/21 Keya Jay MD [address] [place] [address] PCP - General Internal Medicine 12/24/21 Montrell Lopez MD, PHD [address] [place] [address] Surgeon Neurosurgery 02/06/22 Calvin Lucero PA-C 175 [facility] [address] [place] [address] Specialist Neurosurgery 02/06/22 documented as of this encounter
--- OUTSIDE RECORDS SUMMARY | 2024-09-14 08:02 | XMS_ITS | Encounter Summary ---
Author Organization [facility] Address [address] [place] [address] Care Team Providers Care Mouthpiece Maker Name Role Phone Luna Andrew MD Primary Care Provider Keya Brito MD Primary Care Prov ider Montrell Lopez MD, PHD Unavailable Unava Calvin Garcia PA-C Unavailable [phone] Reason for Visit * Reason Onset Date Comments Faxed Order 05/25/2019 [facility] Encounter Details Date Type Department Care Team Description 05/25/2019 Telephone Adult Medicine [address] [address] Luna Andrew MD Faxed Order ([facility]) Social History Tobacco Use Types Packs/Day [...] 05/25/2019 3:12 PM EST Faxed order from [facility] in dr. Andrew's box for signature and to be faxed back to [phone] documented in this encounter Plan of Treatment Not on file documented as of this encounter Visit Diagnoses Not on filedocumented in this encounter Care Teams Mouthpiece Maker Relationship Specialty Start Date End Date Luna Andrew MD PCP - General Internal Medicine 08/11/11 12/23/21 Keya aJy MD [address] [place] [address] PCP - General Internal Medicine 12/24/21 Montrell Lopez MD, PHD [address] [place] [address] Surgeon Neurosurgery 02/06/22 Calvin Lucero PA-C [address] [place] [address] [place] [address] Specialist Neurosurgery 02/06/22 documented as of this encounter
--- OUTSIDE RECORDS SUMMARY | 2024-09-14 08:02 | XMS_ITS | Encounter Summary ---
Author Organization [facility] Address [address] [place] [address] Care Team Providers Care Clerk General Office Name Role Phone Luna Andrew MD Primary Care Provider Keya Brito MD Primary Care Prov ider Montrell Lopez MD, PHD Unavailable Unava Calvin Garcia PA-C Unavailable [phone] Reason for Visit * Reason Onset Date Comments Call-returning From Provider 12/10/2016 Encounter Details Date Type Department Care Team Description 12/10/2016 Telephone OBGYN - [place] [address] [place] [address] Nikki Lobo CN [address] [place] [address] Call-returning From Provider Social History Tobacco Use [...] SENTHIL. CMB * Telephone Encounter - Britney Galvin - 12/10/2016 9:41 AM EDT Chief Complaint/problem: Patient called states that she received a letter to remind her to have u/sdone. She states she did have it at [facility] and will sign SENTHIL to get results to us How long has the patient had this problem? Pt???s OFFICE CLEANER provider: Nikki Lobo CNM Last menstrual period (LMP) or EDC (due date): N/A documented in this encounter Plan of Treatment Not on file documented as of this encounter Visit Diagnoses Not on filedocumented in this encounter Care Teams Clerk General Office Relationship Specialty Start Date End Date Luna Andrew MD PCP - General Internal Medicine 08/11/11 12/23/21 Keya Jay MD [address] [place] [address] PCP - General Internal Medicine 12/24/21 Montrell Lopez MD, PHD [address] [place] [address] Surgeon Neurosurgery 02/06/22 Calvin Lucero PA-C [address] [place] [address] [place] [address] Specialist Neurosurgery 02/06/22 documented as of this encounter
--- OUTSIDE RECORDS SUMMARY | 2024-09-14 08:02 | XMS_ITS | Encounter Summary ---
Author Organization [employer] [facility] Address [address] [place] [address] Care Team Providers Care Cell Manager Name Role Phone Keya Jay MD Primary Care Prov ider Montrell Lopez MD, PHD Unavailable Unava Calvin Garcia PA-C Unavailable [phone] Encounter Details Date Type Department Care Team Description 08/17/2023 Orders Only Medical Records [address] [place] [address] [facility] Social History Tobacco Use Types Packs/Day Years [...] Date/Time Associated Diagnosis Comments OUTSIDE LAB Routine 06/19/2023 documented in this encounter Results * OUTSIDE LAB (06/19/2023) [facility] documented in this encounter Visit Diagnoses Not on filedocumented in this encounter Care Teams Cell Manager Relationship Specialty Start Date End Date Keya Jay MD [address] [place], [place] [phone] PCP - General Internal Medicine 12/24/21 Montrell Lopez MD, PHD [address] [place] [address] Surgeon Neurosurgery 02/06/22 Calvin Lucero PA-C [address] [place] [address] [place] [address] Specialist Neurosurgery 02/06/22 documented as of this encounter
--- OUTSIDE RECORDS SUMMARY | 2024-09-14 08:02 | XMS_ITS | Encounter Summary ---
Author Organization [employer] [facility] Address [address] [place] [address] Care Team Providers Care Basket Hand Weaver Name Role Phone Luna Andrew MD Primary Care Provider Keya Brito MD Primary Care Prov ider Montrell Lopez MD, PHD Unavailable Unava Calvin Garcia PA-C Unavailable [phone] Encounter Details Date Type Department Care Team Description 12/18/2021 Resident Director Report Medical Records [address] [place], [place] [id number] Javier Velasco Social History Tobacco Use Types [...] on filedocumented in this encounter Care Teams Basket Hand Weaver Relationship Specialty Start Date End Date Luna Andrew MD PCP - General Internal Medicine 08/11/11 12/23/21 Keya Jay MD [address] [place], [place] [phone] PCP - General Internal Medicine 12/24/21 Montrell Lopez MD, PHD [address] [place], [place] [phone] Surgeon Neurosurgery 02/06/22 Calvin Lucero PA-C 175 [facility] [address] [place] [address] Specialist Neurosurgery 02/06/22 documented as of this encounter
--- OUTSIDE RECORDS SUMMARY | 2024-09-14 08:02 | XMS_ITS | Encounter Summary ---
Author Organization [facility] [facility] Address [address] [place] [address] Care Team Providers Care Office Support Specialist Name Role Phone Luna Andrew MD Primary Care Provider Keya Brito MD Primary Care Prov ider Montrell Lopez MD, PHD Unavailable Unava Calvin Garcia PA-C Unavailable [phone] Encounter Details Date Type Department Care Team Description 03/17/2012 Farm Management Agent Report Medical Records [address] [place] [address] Jostin Nafisa Social History Tobacco Use Types [...] on filedocumented in this encounter Care Teams Office Support Specialist Relationship Specialty Start Date End Date Luna Andrew MD PCP - General Internal Medicine 08/11/11 12/23/21 Keya Jay MD [address] [place], [place] [phone] PCP - General Internal Medicine 12/24/21 Montrell Lopez MD, PHD [address] [place], [place] [phone] Surgeon Neurosurgery 02/06/22 Calvin Lucero PA-C [address] [place] [address] [address] [place] [address] Specialist Neurosurgery 02/06/22 documented as of this encounter
--- OUTSIDE RECORDS SUMMARY | 2024-09-14 08:02 | XMS_ITS | Encounter Summary ---
Author Organization [facility] Address [address] [place] [address] Care Team Providers Care Customer Resource Specialist Name Role Phone Luna Andrew MD Primary Care Provider Keya Brito MD Primary Care Prov ider Montrell Lopez MD, PHD Unavailable Unava Calvin Garcia PA-C Unavailable [phone] Reason for Visit * Reason Onset Date Comments Provider Call Back 2019 Encounter Details Date Type Department Care Team Description [address] [address] Luna Andrew MD Provider Call Back Social History Tobacco Use Types Packs/Day Years [...] encounter Miscellaneous Notes * Telephone Encounter - Vicki Pepper M.A. - 05/13/2019 9:24 AM EDT Pt advised lab orders are ready for pickling machine operator [facility]. * Telephone Encounter - Vicki Pepper M.A. - 05/13/2019 9:21 AM EDT Telephone Information: Lab orders left at [facility] Pt pickling machine operator. Pt advised. * Telephone Encounter - Christina Pablo - 05/13/2019 8:45 AM EDT Pt calling for status on labs- would like [place] pickling machine [place] [facility] * Telephone Encounter - Makenna Paniagua - 05/12/2019 1:30 PM EDT Patient is calling on status of orders . Patient is asking if she can pickling machine operator orders when done * Telephone Encounter - VIANEY Escalera - 05/12/2019 8:26 AM EDT External orders placed in out box. Please see if patient can have CT completed at [facility] by next week. * Telephone Encounter - Nadya Gonzalez M.A. - 2019 3:36 PM EDT Dani Bravo do external orders for radiology and labs. * Telephone Encounter - Makenna Paniagua - 2019 2:57 PM EDT Caller requesting call back from provider: Is the caller the patient? YES If caller is not the patient, what is the callers name? N/A Callers relationship to patient? N/A If person calling is not the patient themselves, is there a verbal release in FYI or permanent comments for this person: YES Reason for call back: Patient was referred to radiology by VIANEY Escalera. Patient states she cannot be seen at our radiology she has to be referred to [facility] along with her labs aswell. Caller offered to speak with the nurse for assistance: YES Response: Patient offered to speak with nurse for assistance and patient agreed. Message forwarded to nurse. documented in this encounter Plan of Treatment Not on file documented as of this encounter Visit Diagnoses Diagnosis Abdominal pain, right lower quadrant- Primary documented in this encounter Care Teams Customer Resource Specialist Relationship Specialty Start Date End Date Luna Andrew MD PCP - General Internal Medicine 08/11/11 12/23/21 Virginia Munoz, Keya Lopez MD [address] [place] [address] [phone] PCP - General Internal Medicine 12/24/21 Montrell Lopez MD, PHD [address] [place] [address] Surgeon Neurosurgery 02/06/22 Calvin Lucero PA-C 175 [facility] [address] [place] [address] Specialist Neurosurgery 02/06/22 documented as of this encounter
--- OUTSIDE RECORDS SUMMARY | 2024-09-14 08:02 | XMS_ITS | Encounter Summary ---
Author Organization [employer] [facility] Address [address] [place] [address] Care Team Providers Care Cnc Operator Machinist Name Role Phone Luna Andrew MD Primary Care Provider Keya Brito MD Primary Care Prov ider Montrell Lopez MD, PHD Unavailable Unava Calvin Garcia PA-C Unavailable [phone] Encounter Details Date Type Department Care Team Description 09/11/2017 Spring Former Machine Report Medical Records [address] [place] [address] Social History Tobacco Use Types Packs/Day Years [...] on filedocumented in this encounter Care Teams Cnc Operator Machinist Relationship Specialty Start Date End Date Luna Andrew MD PCP - General Internal Medicine 08/11/11 12/23/21 Keya Jay MD [address] [place] [address] PCP - General Internal Medicine 12/24/21 Montrell Lopez MD, PHD [address] [place] [address] Surgeon Neurosurgery 02/06/22 Calvin Lucero PA-C [address] [place] [address] [address] [place] [address] Specialist Neurosurgery 02/06/22 documented as of this encounter
--- OUTSIDE RECORDS SUMMARY | 2024-09-14 08:02 | XMS_ITS | Encounter Summary ---
Author Organization [facility] Address [address] [place] [address] Care Team Providers Care Correspondence Section Supervisor Name Role Phone Luna Andrew MD Primary Care Provider Keya Brito MD Primary Care Prov ider Montrell Lopez MD, PHD Unavailable Unava Calvin Garcia PA-C Unavailable [phone] Encounter Details Date Type Department Care Team Description 02/13/2021 Transfer Records Medical Records [address] [place] [address] Abstract, Provider Social History Tobacco Use Types [...] on filedocumented in this encounter Care Teams Correspondence Section Supervisor Relationship Specialty Start Date End Date Luna Andrew MD PCP - General Internal Medicine 08/11/11 12/23/21 Keya Jay MD [address] [place] [id number] PCP - General Internal Medicine 12/24/21 Montrell Lopez MD, PHD [address] [place] [address] Surgeon Neurosurgery 02/06/22 Calvin Lucero PA-C [address] [place] [address] Specialist Neurosurgery 02/06/22 documented as of this encounter
--- OUTSIDE RECORDS SUMMARY | 2024-09-14 08:02 | XMS_ITS | Encounter Summary ---
Author Organization [facility] Address [address] [place] [address] Care Team Providers Care Twister Tender Paper Name Role Phone Keya Jay MD Primary Care Prov ider Montrell Lopez MD, PHD Unavailable Unava Calvin Garcia PA-C Unavailable [phone] Encounter Details Date Type Department Care Team Description 02/27/2023 Orders Only Medical Records [address] [place] [address] Keya Jay MD [address] [place] [address] Social History Tobacco Use Types Packs/Day Years [...] Date/Time Associated Diagnosis Comments OUTSIDE LAB Routine 02/14/2023 documented in this encounter Results * OUTSIDE LAB (02/14/2023) Keya Munoz MD LAB documented in this encounter Visit Diagnoses Not on filedocumented in this encounter Care Teams Twister Tender Paper Relationship Specialty Start Date End Date Keya Jay MD [address] [place] [address] PCP - General Internal Medicine 12/24/21 Montrell Lopez MD, PHD [address] [place] [address] Surgeon Neurosurgery 02/06/22 Calvin Lucero PA-C [address] [place] [address] Specialist Neurosurgery 02/06/22 documented as of this encounter
--- OUTSIDE RECORDS SUMMARY | 2024-09-14 08:02 | XMS_ITS | Encounter Summary ---
Author Organization [facility] Address [address] [place] [address] Care Team Providers Care Development Specialist Name Role Phone Luna Andrew MD Primary Care Provider Keya Brito MD Primary Care Prov ider Montrell Lopez MD, PHD Unavailable Unava Calvin Garcia PA-C Unavailable [phone] Encounter Details Date Type Department Care Team Description 02/13/2021 Orders Only [facility] Medical [facility] 175 [facility] [address] [place] [phone] Radha Crystal PA-C [address] [address] Social History Tobacco Use Types Packs/Day Years [...] on filedocumented in this encounter Care Teams Development Specialist Relationship Specialty Start Date End Date Luna Andrew MD PCP - General Internal Medicine 08/11/11 12/23/21 Virginia Munoz, Keya Lopez MD [address] [place] [address] PCP - General Internal Medicine 12/24/21 Montrell Lopez MD, PHD [address] [place] [address] Surgeon Neurosurgery 02/06/22 Calvin Lucero PA-C [address] [place] [address] Specialist Neurosurgery 02/06/22 documented as of this encounter
--- OUTSIDE RECORDS SUMMARY | 2024-09-14 08:02 | XMS_ITS | Encounter Summary ---
Author Organization [employer] [facility] Address [address] [place] [address] Care Team Providers Care Extrusion Utility Worker Name Role Phone Keya Jay MD Primary Care Prov ider Montrell Lopez MD, PHD Unavailable Unava ilable Calvin Lucero PA-C Unavailable [phone] Encounter Details Date Type Department Care Team Description 04/18/2024 Flying Squad Worker Report Medical Records [address] [place] [address] Bhupendra Chauhan Social History Tobacco Use Types [...] on filedocumented in this encounter Care Teams Extrusion Utility Worker Relationship Specialty Start Date End Date Keya Jay MD [address] [place] [address] PCP - General Internal Medicine 12/24/21 Montrell Lopez MD, PHD [address] [place] [address] Surgeon Neurosurgery 02/06/22 Calvin Lucero PA-C [address] [place] [address] [place] [address] Specialist Neurosurgery 02/06/22 documented as of this encounter
--- OUTSIDE RECORDS SUMMARY | 2024-09-14 08:02 | XMS_ITS | Encounter Summary ---
Author Organization [facility] Address [address] [place] [address] Care Team Providers Care Vp Director Of Creative Strategy Name Role Phone Luna Andrew MD Primary Care Provider Keya Brito MD Primary Care Prov ider Montrell Lopez MD, PHD Unavailable Unava Calvin Garcia PA-C Unavailable [phone] Encounter Details Date Type Department Care Team Description 10/29/2020 Orders Only Adult Medicine [address] [address] Shelly Montgomery PA [address] [place] [address] Dizziness Social History Tobacco Use Types Packs/Day Years [...] Procedure Name Priority Date/Time Associated Diagnosis Comments THYROID PROFILE W/TSH Routine 10/12/2020 Dizziness documented in this encounter Results * THYROID PROFILE W/TSH (10/12/2020) 10/12/2020 [facility]ly [facility] [employer] documented in this encounter Visit Diagnoses Diagnosis Dizziness Dizziness and giddiness documented in this encounter Care Teams Vp Director Of Creative Strategy Relationship Specialty Start Date End Date Luna Andrew MD PCP - General Internal Medicine 08/11/11 12/23/21 Keya Jay MD [address] [place] [address] PCP - General Internal Medicine 12/24/21 Montrell Lopez MD, PHD [address] [place] [address] Surgeon Neurosurgery 02/06/22 Calvin Lucero PA-C [address] [place] [address] [place] [address] Specialist Neurosurgery 02/06/22 documented as of this encounter
--- OUTSIDE RECORDS SUMMARY | 2024-09-14 08:02 | XMS_ITS | Encounter Summary ---
Author Organization [facility] Address [address] [place] [address] Care Team Providers Care Assembler Radio And Electrical Name Role Phone Keya Jay MD Primary Care Prov ider Montrell Lopez MD, PHD Unavailable Unava Calvin Garcia PA-C Unavailable [phone] Encounter Details Date Type Department Care Team Description 10/20/2023 Orders Only Medical Records [address] [place] [address] Rhett Sanchez Social History Tobacco Use Types [...] on filedocumented in this encounter Care Teams Assembler Radio And Electrical Relationship Specialty Start Date End Date Keya Jay MD [address] [place] [address] PCP - General Internal Medicine 12/24/21 Montrell Lopez MD, PHD [address] [place] [address] Surgeon Neurosurgery 02/06/22 Calvin Lucero PA-C [address] [place] [address] Specialist Neurosurgery 02/06/22 documented as of this encounter
--- OUTSIDE RECORDS SUMMARY | 2024-09-14 08:02 | XMS_ITS | Encounter Summary ---
Author Organization [facility] Address [address] [place] [address] Care Team Providers Care Event Manager Name Role Phone Luna Andrew MD Primary Care Provider Keya Brito MD Primary Care Prov ider Montrell Lopez MD, PHD Unavailable Unava Calvin Garcia PA-C Unavailable [phone] Encounter Details Date Type Department Care Team Description 05/27/2017 Furnace Filler Report Medical Records [address] [place], [place] [id number] Osman Ledbetter MD Social History Tobacco Use Types Packs/Day [...] on filedocumented in this encounter Care Teams Event Manager Relationship Specialty Start Date End Date Luna Andrew MD PCP - General Internal Medicine 08/11/11 12/23/21 Keya Jay MD [address] [place] [address] PCP - General Internal Medicine 12/24/21 Montrell Lopez MD, PHD [address] [place] [address] Surgeon Neurosurgery 02/06/22 Calvin Lucero PA-C [address] [place] [address] [address] [place] [address] Specialist Neurosurgery 02/06/22 documented as of this encounter
--- OUTSIDE RECORDS SUMMARY | 2024-09-14 08:02 | XMS_ITS | Encounter Summary ---
Author Organization [facility] [facility] Address [address] [place] [address] Care Team Providers Care Woodworking Shop Laborer Name Role Phone Luna Andrew MD Primary Care Provider Keya Brito MD Primary Care Prov ider Montrell Lopez MD, PHD Unavailable Unava Calvin Garcia PA-C Unavailable [phone] Encounter Details Date Type Department Care Team Description 01/27/2018 Pt. Non Urgent Medic al Question Adult Medicine [address] [address] Larisa Bennett PA-C Social History Tobacco Use Types Packs/Day Years Used Date Smoking Tobacco: Never Smokeless Tobacco: Never Alcohol Use Standard Drinks/Week Comments No 0 (1 standard drink = 0.6 oz pur e alcohol) Sex Assigned at Date Recorded Female 11/03/2021 6:40 PM E DT Job Start Date Occupation Industry Not on file Not on file Not on file documented as of this encounter Progress Notes * Lilo Tapia M.A. - 01/27/2018 9:11 AM EDTFrom: Roxie Paniagua To: Larisa Bennett PA-C Sent: 01/27/2018 9:06 AM EDT Subject: Ex-Ray Good Morning, I went to [facility] for the ex-ray on Thursday . I am going to need an out patient referral to [facility]. The insurance I carry is from [facility] and I can only see there specialist, Please if this can be any time soon my shoulder is not getting better. Thank You. documented in this encounter Plan of Treatment Not on file documented as of this encounter Visit Diagnoses Not on filedocumented in this encounter Care Teams Woodworking Shop Laborer Relationship Specialty Start Date End Date Luna Andrew MD PCP - General Internal Medicine 08/11/11 12/23/21 Keya Jay MD [address] [place] [address] PCP - General Internal Medicine 12/24/21 Montrell Lopez MD, PHD [address] [place] [address] Surgeon Neurosurgery 02/06/22 Calvin Lucero PA-C [address] [place] [address] Specialist Neurosurgery 02/06/22 documented as of this encounter
--- OUTSIDE RECORDS SUMMARY | 2024-09-14 08:03 | XMS_ITS | Encounter Summary ---
Author Organization [facility] [facility] Address [address] [place] [address] Care Team Providers Care Willow Specialists Name Role Phone Luna Andrew MD Primary Care Provider Keya Brito MD Primary Care Prov ider Montrell Lopez MD, PHD Unavailable Unava Calvin Garcia PA-C Unavailable Encounter Details Date Type Department Care Team Description 03/09/2018 SCAN Medical Records [address] [place] [address] Abstract, Provider Social History Tobacco Use Types [...] on filedocumented in this encounter Care Teams Willow Specialists Relationship Specialty Start Date End Date Luna Andrew MD PCP - General Internal Medicine 08/11/11 12/23/21 Keya Jay MD [address] [place] [address] PCP - General Internal Medicine 12/24/21 Montrell Lopez MD, PHD [address] [place] [address] Surgeon Neurosurgery 02/06/22 Calvin Lucero PA-C 175 [facility] [address] [place] [address] Specialist Neurosurgery 02/06/22 documented as of this encounter
--- OUTSIDE RECORDS SUMMARY | 2024-09-14 08:03 | XMS_ITS | Encounter Summary ---
Author Organization [facility] Address [address] [place] [address] Care Team Providers Care Electronic Maintenance Supervisor Name Role Phone Luna Andrew MD Primary Care Provider Keya Brito MD Primary Care Prov ider Montrell Lopez MD, PHD Unavailable Unava Calvin Garcia PA-C Unavailable [phone] Encounter Details Date Type Department Care Team Description 08/17/2015 Business Doc Medical Records [address] [place] [address] Abstract, Provider Social History Tobacco Use Types [...] on filedocumented in this encounter Care Teams Electronic Maintenance Supervisor Relationship Specialty Start Date End Date Luna Andrew MD PCP - General Internal Medicine 08/11/11 12/23/21 Keya Jay MD [address] [place], [place] [phone] PCP - General Internal Medicine 12/24/21 Montrell Lopez MD, PHD [address] [place], [place] [address] Surgeon Neurosurgery 02/06/22 Calvin Lucero PA-C [address] [place] [address] Specialist Neurosurgery 02/06/22 documented as of this encounter
--- OUTSIDE RECORDS SUMMARY | 2024-09-14 08:03 | XMS_ITS | Encounter Summary ---
Author Organization [facility] Address [address] [place] [address] Care Team Providers Care Repair Electric Motor Assembler Name Role Phone Luna Andrew MD Primary Care Provider Keya Brito MD Primary Care Prov ider Montrell Lopez MD, PHD Unavailable Unava Calvin Garcia PA-C Unavailable [phone] Encounter Details Date Type Department Care Team Description 06/06/2014 Project Officer Report Medical Records [address] [place] [address] Viviane Lopez MD [address] [place] [address] Social History Tobacco Use Types Packs/Day Years [...] on filedocumented in this encounter Care Teams Repair Electric Motor Assembler Relationship Specialty Start Date End Date Luna Andrew MD PCP - General Internal Medicine 08/11/11 12/23/21 Keya Jay MD [address] [place] [address] PCP - General Internal Medicine 12/24/21 Montrell Lopez MD, PHD [address] [place] [address] Surgeon Neurosurgery 02/06/22 Calvin Lucero PA-C [address] [place] [address] Specialist Neurosurgery 02/06/22 documented as of this encounter
--- OUTSIDE RECORDS SUMMARY | 2024-09-14 08:03 | XMS_ITS | Encounter Summary ---
Author Organization [facility] Address [address] [place] [address] Care Team Providers Care Decontamination Technician Name Role Phone Luna Andrew MD Primary Care Provider Keya Brito MD Primary Care Prov ider Montrell Lopez MD, PHD Unavailable Unava Calvin Garcia PA-C Unavailable [phone] Encounter Details Date Type Department Care Team Description 02/27/2019 Pt. Non Urgent Medical Question Physiatry - [address] [address] John Russo PA-C Spinal stenosis in cervical [...] region documented in this encounter Care Teams Decontamination Technician Relationship Specialty Start Date End Date Luna Andrew MD PCP - General Internal Medicine 08/11/11 12/23/21 Keya Jay MD [address] [place] [address] PCP - General Internal Medicine 12/24/21 Montrell Lopez MD, PHD [address] [place] [address] Surgeon Neurosurgery 02/06/22 Calvin Lucero PA-C [address] [place] [address] Specialist Neurosurgery 02/06/22 documented as of this encounter
--- OUTSIDE RECORDS SUMMARY | 2024-09-14 08:03 | XMS_ITS | Encounter Summary ---
Author Organization [facility] Address [address] [place] [address] Care Team Providers Care Chief Deputy Coroner Name Role Phone Luna Andrew MD Primary Care Provider Keya Brito MD Primary Care Prov ider Montrell Lopez MD, PHD Unavailable Unava Calvin Garcia PA-C Unavailable Encounter Details Date Type Department Care Team Description 10/04/2018 Release of Information Medical Records [address] [place] [address] Abstract, Provider Social History Tobacco Use Types [...] on filedocumented in this encounter Care Teams Chief Deputy Coroner Relationship Specialty Start Date End Date Luna Andrew MD PCP - General Internal Medicine 08/11/11 12/23/21 Keya Jay MD [address] [place], [place] [phone] PCP - General Internal Medicine 12/24/21 Montrell Lopez MD, PHD [address] [place], [place] [phone] Surgeon Neurosurgery 02/06/22 Calvin Lucero PA-C [address] [facility] [address] [place] [address] Specialist Neurosurgery 02/06/22 documented as of this encounter
--- OUTSIDE RECORDS SUMMARY | 2024-09-14 08:03 | XMS_ITS | Encounter Summary ---
Author Organization [employer] [facility] Address [address] [place] [address] Care Team Providers Care Cigar Sorter Name Role Phone Luna Andrew MD Primary Care Provider Keya Brito MD Primary Care Prov ider Montrell Lopez MD, PHD Unavailable Unava Calvin Garcia PA-C Unavailable [phone] Encounter Details Date Type Department Care Team Description 09/15/2018 Solderer Electronic Report Medical Records [address] [place] [address] Evangelist Nelson MD Social History Tobacco Use [...] on filedocumented in this encounter Care Teams Cigar Sorter Relationship Specialty Start Date End Date Luna Andrew MD PCP - General Internal Medicine 08/11/11 12/23/21 Keya Jay MD [address] [place] [address] PCP - General Internal Medicine 12/24/21 Montrell Lopez MD, PHD [address] [place], [place] [address] Surgeon Neurosurgery 02/06/22 Calvin Lucero PA-C 175 [facility] [address] [place] [address] Specialist Neurosurgery 02/06/22 documented as of this encounter
--- OUTSIDE RECORDS SUMMARY | 2024-09-14 08:03 | XMS_ITS | Encounter Summary ---
Author Organization [facility] Address [address] [place] [address] Care Team Providers Care Assistant Director Of Nursing Name Role Phone Luna Andrew MD Primary Care Provider Keya Brito MD Primary Care Prov ider Montrell Lopez MD, PHD Unavailable Unava Calvin Garcia PA-C Unavailable [phone] Encounter Details Date Type Department Care Team Description 03/17/2019 Orders Only Adult Medicine - [place] [address] [place] [address] Nina Lucas APRN Groin pain, right Social History Tobacco Use Types Packs/Day Years [...] Priority Date/Time Associated Diagnosis Comments CHG RADEX HIP UNILATERAL WIT H PELVIS 2-3 VIEWS Routine 02/11/2019 Groin pain, right documented in this encounter Results * RADEX HIP UNILATERAL WITH PELVIS 2-3 VIEWS (02/11/2019) Nina Lucas APRN RADIOLOGY [facility] [address] documented in this encounter Visit Diagnoses Diagnosis Groin pain, right documented in this encounter Care Teams Assistant Director Of Nursing Relationship Specialty Start Date End Date Luna Andrew MD PCP - General Internal Medicine 08/11/11 12/23/21 Keya Jay MD [address] [place] [address] PCP - General Internal Medicine 12/24/21 Montrell Lopez MD, PHD [address] [place] [address] Surgeon Neurosurgery 02/06/22 Calvin Lucero PA-C [address] [place] [address] Specialist Neurosurgery 02/06/22 documented as of this encounter
--- OUTSIDE RECORDS SUMMARY | 2024-09-14 08:03 | XMS_ITS | Encounter Summary ---
Author Organization [facility] Address [address] [place] [address] Care Team Providers Care Distribution Engineer Name Role Phone Luna Andrew MD Primary Care Provider Keya Brito MD Primary Care Prov ider Montrell Lopez MD, PHD Unavailable Unava Calvin Garcia PA-C Unavailable [phone] Encounter Details Date Type Department Care Team Description 05/12/2018 Pt. Non Urgent Medic al Question Physiatr - [address] [address] John Russo PA-C Social History Tobacco Use [...] filedocumented in this encounter Care Teams Distribution Engineer Relationship Specialty Start Date End Date Luna Andrew MD PCP - General Internal Medicine 08/11/11 12/23/21 Keya Jay MD [address] [place] [address] PCP - General Internal Medicine 12/24/21 Montrell Lopez MD, PHD [address] [place] [address] Surgeon Neurosurgery 02/06/22 Calvin Lucero PA-C 175 [facility] [address] [place] [address] Specialist Neurosurgery 02/06/22 documented as of this encounter
--- OUTSIDE RECORDS SUMMARY | 2024-09-14 08:03 | XMS_ITS | Encounter Summary ---
Author Organization [facility] Address [address] [place] [address] Care Team Providers Care Permanent Waver Name Role Phone Keya Jay MD Primary Care Prov ider Montrell Lopez MD, PHD Unavailable Unava ilable Calvin Lucero PA-C Unavailable [phone] Encounter Details Date Type Department Care Team Description 02/20/2022 Orders Only [facility] Neurosurgery [place] [address] [phone] Calvin Lucero PA-C [address] [phone] Social History Tobacco Use Types Packs/Day Years [...] on filedocumented in this encounter Care Teams Permanent Waver Relationship Specialty Start Date End Date Keya Jay MD [address] [place] [address] PCP - General Internal Medicine 12/24/21 Montrell Lopez MD, PHD [address] [place] [address] Surgeon Neurosurgery 02/06/22 Calvin Lucero PA-C 175 [facility] [address] [place] [address] Specialist Neurosurgery 02/06/22 documented as of this encounter
--- OUTSIDE RECORDS SUMMARY | 2024-09-14 08:03 | XMS_ITS | Encounter Summary ---
Author Organization [facility] Address [address] [place] [address] Care Team Providers Care Secondary Special Education Teacher Name Role Phone Keya Jay MD Primary Care Prov ider Montrell Lopez MD, PHD Unavailable Unava Calvin Garcia PA-C Unavailable [phone] Encounter Details Date Type Department Care Team Description 07/11/2024 Orders Only Medical Records [address] [place] [address] [facility] Social History Tobacco Use Types Packs/Day Years [...] Date/Time Associated Diagnosis Comments OUTSIDE LAB Routine 04/12/2024 documented in this encounter Results * OUTSIDE LAB (04/12/2024) [facility] documented in this encounter Visit Diagnoses Not on filedocumented in this encounter Care Teams Secondary Special Education Teacher Relationship Specialty Start Date End Date Keya Jay MD [address] [place], [place] [phone] PCP - General Internal Medicine 12/24/21 Montrell Lopez MD, PHD [address] [place] [address] Surgeon Neurosurgery 02/06/22 Calvin Lucero PA-C [address] [place] [address] [place] [address] Specialist Neurosurgery 02/06/22 documented as of this encounter
--- OUTSIDE RECORDS SUMMARY | 2024-09-14 08:03 | XMS_ITS | Encounter Summary ---
Author Organization [facility] Address [address] [place] [address] Care Team Providers Care Mental Health Worker Name Role Phone Luna Andrew MD Primary Care Provider Keya Brito MD Primary Care Prov ider Montrell Lopez MD, PHD Unavailable Unava Calvin Garcia PA-C Unavailable [phone] Encounter Details Date Type Department Care Team Description 05/31/2018 Child Development Director Report Medical Records [address] [place] [address] Kristen Solo NP Social History Tobacco Use [...] on filedocumented in this encounter Care Teams Mental Health Worker Relationship Specialty Start Date End Date Luna Andrew MD PCP - General Internal Medicine 08/11/11 12/23/21 Keya Jay MD [address] [place] [address] PCP - General Internal Medicine 12/24/21 Montrell Lopez MD, PHD [address] [place], [place] [phone] Surgeon Neurosurgery 02/06/22 Calvin Lucero PA-C 175 [facility] [address] [place] [address] Specialist Neurosurgery 02/06/22 documented as of this encounter
--- OUTSIDE RECORDS SUMMARY | 2024-09-14 08:03 | XMS_ITS | Encounter Summary ---
Author Organization [facility] Address [address] [place] [address] Care Team Providers Care Training Project Manager Name Role Phone Keya Jay MD Primary Care Prov ider Montrell Lopez MD, PHD Unavailable Unava Calvin Garcia PA-C Unavailable Encounter Details Date Type Department Care Team Description 04/30/2022 Pt. Non Urgent Medical Question Adult Medicine [address] [address] Keya Jay MD [address] [place] [address] Social History Tobacco Use Types Packs/Day Years [...] suspected to have Coronavirus/COVID-19? No / Unsure 04/28/2022 12:41 PM EDT documented as of this encounter Miscellaneous Notes * Telephone Encounter - Vicki Hurd M.A. - 04/30/2022 12:57 PM EDTFrom: Roxie Alfaro To: Sita Munoz Sent: 04/30/2022 12:52 PM EDT Subject: The Medication I told you and blood work Attached is the medication I am on Repatha 140mg/mL and I so did blood work for the weight management program. Also attached. documented in this encounter Plan of Treatment Not on file documented as of this encounter Visit Diagnoses Not on filedocumented in this encounter Care Teams Training Project Manager Relationship Specialty Start Date End Date Keya Jay MD [address] [place] [address] PCP - General Internal Medicine 12/24/21 Montrell Lopez MD, PHD [address] [place] [address] Surgeon Neurosurgery 02/06/22 Calvin Lucero PA-C [address] [place] [address] [place] [address] Specialist Neurosurgery 02/06/22 documented as of this encounter
--- OUTSIDE RECORDS SUMMARY | 2024-09-14 08:03 | XMS_ITS | Encounter Summary ---
Author Organization [facility] Address [address] [place] [address] Care Team Providers Care Cap Coverer Name Role Phone Keya Jay MD Primary Care Prov ider Montrell Lopez MD, PHD Unavailable Unava ilable Calvin Lucero PA-C Unavailable [phone] Encounter Details Date Type Department Care Team Description 02/14/2022 Release of Information Medical Records [address] [place] [address] Abstract, Provider Social History Tobacco Use Types [...] on filedocumented in this encounter Care Teams Cap Coverer Relationship Specialty Start Date End Date Keya Jay MD [address] [place] [address] PCP - General Internal Medicine 12/24/21 Montrell Lopez MD, PHD [address] [place] [address] Surgeon Neurosurgery 02/06/22 Calvin Lucero PA-C [address] [place] [address] [place] [address] Specialist Neurosurgery 02/06/22 documented as of this encounter
--- OUTSIDE RECORDS SUMMARY | 2024-09-14 08:03 | XMS_ITS | Encounter Summary ---
Author Organization [employer] [facility] Address [address] [place] [address] Care Team Providers Care Roving Technician Name Role Phone Keya Jay MD Primary Care Prov ider Montrell Lopez MD, PHD Unavailable Unava Calvin Garcia PA-C Unavailable [phone] Encounter Details Date Type Department Care Team Description 05/29/2022 Pt. Non Urgent Medical Question Adult Medicine [address] [address] Keya Jay MD [address] [place] [address] Social History Tobacco Use Types Packs/Day Years [...] on filedocumented in this encounter Care Teams Roving Technician Relationship Specialty Start Date End Date Keya Jay MD [address] [place] [address] PCP - General Internal Medicine 12/24/21 Montrell Lopez MD, PHD [address] [place] [address] Surgeon Neurosurgery 02/06/22 Calvin Lucero PA-C 175 [facility] [address] [place] [address] Specialist Neurosurgery 02/06/22 documented as of this encounter
[2024-09-14 08:07] VITALS: BP 130/80; PULSE 81; RESP 15; TEMP 36.8; O2SAT 97; BMI 37.0
--- NOTE | 2024-09-14 08:07 | AM.OFFWIN_ITS ---
Intake Vital Signs 09/14/24 08:07 Height 5 ft 1 in Weight 196 lb BMI 37.0 BP 130/80 Blood Pressure Location Rt brachial Position Sitting Respiration 15 Pulse 81 Pulse Source Pulse Oximeter Temp 98.2 F Temp Source Oral Pulse Oximetry (%) 97 Oxygen Delivery Method Room Air Intake Visit Reasons: EP Sore throat, ear pain Intake Note: Pt is here today c/o sorethroat and Rt ear pain x2days Patient Tobacco Use Status: Never used Tobacco Allergies shellfish derived Allergy (Severe, Verified 09/14/24 08:24) Anaphylaxis gluten Allergy (Intermediate, Verified 09/14/24 08:24) Diarrhea lactose Allergy (Intermediate, Verified 09/14/24 08:24) Diarrhea evolocumab [From [employer]] Adverse Reaction (Intermediate, Verified 09/14/24 08:24) Abdominal Pain HPI HPI Comments History of Present Illness Details History - The patient is a 59-year-old female pr esenting with throat pain, right ear pain, and suspected upper respiratory infection symptoms. - Symptoms commenced two days ago with s ignificant throat and right ear discomfort, and a nature of symptom progression with mild dry cough. - She denies fever or cervical lymph nod e swelling but reports notable right ear pain and tenderness in the area below the ear. 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 - Describes pain during swallowing and a sensation of sinus-related head pain, localized primarily to the right side. Physical Exam General: Cooperative, healthy appearing, comfortable and no acute distress Orientation/consciousness: Patient oriented x3 Limitations: No limitations Head: Normal to inspection Ears: Hearing grossly normal bilaterally, external ears normal and TM's normal bilaterally Nose: Normal external nose present, Normal nares present and No nasal discharge present Face and sinus: Normal facial exam and Yes sinuses nontender Mouth: Normal oral and palatal mucosa present and moist mucous membranes Throat: Yes tonsils normal, Yes uvula midline. Posterior oropharynx erythema, no exudates noted on exam Eyes: Appearance normal, both eyes and all related structures Neck: Normal visual inspection. No swollen lymph nodes noted Respiratory: Clear to auscultation bilaterally. Normal respiratory effort, able to speak in complete sentences, Dry cough present, no respiratory distress, not tachypneic, no tripod positioning and no use of accessory muscles Cardiovascular: Regular rate and rhythm. Normal S1 and S2 Skin: No rashes or lesions noted Neuro: Patient oriented x3 Extremities: Normal to inspection and Yes no clubbing, cyanosis or edema [facility] Medical History (Updated 09/14/24 @ 08:38 by Marya Holley PA-C) BRCA negative History of ovarian cancer BMI 37.0-37.9, adult Back pain Sleep apnea with use of continuous positive airway pressure (CPAP) BMI 36.0-36.9,adult Obesity JAIRO (obstructive sleep apnea) History of kidney stones Hyperlipidemia Family history of early CAD Spondylosis of cervical spine with radiculopathy Degeneration, intervertebral disc, cervical Surgical History (Updated 09/07/24 @ 13:52 by Spring Reid CNM) History of right oophorectomy History of hysterectomy, supracervical History of esophagogastroduodenoscopy (EGD) (~2019) History of colonoscopy (~2016) History of left oophorectomy History of cystoscopy (~2015) History of lithotripsy (~2016) History of cervical spinal surgery (~2018) History of bilateral inguinal hernia repair (~2017) Family History Maternal Aunt Breast cancer Maternal Aunt Stomach cancer Maternal Aunt Ovarian cancer Maternal Uncle Throat cancer Father Alzheimer disease Diabetes Brother COPD (chronic obstructive pulmonary disease) Diabetes Son HTN (hypertension) Maternal Uncle Prostate cancer Sister CAD, multiple vessel Son No problems noted. Son No problems noted. Mother Breast cancer Social History (Updated 09/07/24 @ 13:48 by Spring Reid CNM) Household Members: Significant Other Housing: House Are you a primary healthcare marketer to a significant other at home: No Do you presently have visiting nurse or other home services: No Alcohol intake: never Patient Tobacco Use Status: Never used Tobacco service: No Current occupational status: employed Current occupation: [employer] Female Reproductive History Menstrual Age of Menarche: 15 Review of Systems Const All systems reviewed & are unremarkable except as noted in HPI and below Physical Exam Vital Signs: Last Vital Signs Temp 98.2 F 09/14/24 08:07 Pulse 81 09/14/24 08:07 Resp 15 09/14/24 08:07 BP 130/80 09/14/24 08:07 Pulse Ox 97 09/14/24 08:07 Oxygen Delivery Method Room Air 09/14/24 08:07 BMI result Body Mass Index 37.0 Results AMB Rapid Strep AMB Rapid Strep Negative Last Edit by Magdalena Ruano CMA on 09/14/24 08:36 Assessment & Plan Assessment & Plan (1) Pharyngitis: Code(s): J02.9 - Acute pharyngitis, unspecified Qualifiers: Pharyngitis/tonsillitis etiology: unspecified etiology Qualified Code(s): J02.9 - Acute pharyngitis, unspecified Plan: VSS, pt well appearing, PE unremarkable. Rapid strep is negative, sent throat culture and viral testing. The current suspected diagnosis involves acute pharyngitis, potentially due to streptococcal or viral causes, given the patient's recent symptomatology and occupational exposure. While pending diagnostic results from influenza, COVID-19, and RSV tests, symptomatic management with ibuprofen and patient-preferred fluid intake adjustments are advised. If suspected bacterial involvement is confirmed, Amoxicillin will be sent to pharmacy as a therapeutic intervention post-lab confirmation. This treatment spans 10 days to adequately address any bacterial infections identified, ensuring comprehensive symptom resolution if Streptococcal pharyngitis is confirmed. Patient was informed and verbally consented to the use of an ambient scribe for clinic note documentation during this visit Orders: Orders Throat Culture Today J02.9 - Acute pharyngitis, unspecified AMB Rapid Strep Screen Today Z13.9 - Encounter for screening, unspecified SARS-CoV2/FLU/RSV Today R09.89 - Other specified symptoms and signs involving the circulatory and respiratory systems Coding Level of Care Code New Pt Level 4 (28592) Diagnoses Pharyngitis, unspecified etiology J02.9 Pharyngitis/tonsillitis etiology: unspecified etiology
== END 2024-09-14 08:56 | disposition home or self-care (01) ==
PROVIDERS: PCP Internal Medicine; Visit Provider Physician Assistant
DX: J02.9 Acute pharyngitis, unspecified (principal); Z13.9 Encounter for screening, unspecified

== ENCOUNTER 2024-09-14 07:56 | Outpatient (REF) | payer OTHER, SELFPAY ==
[2024-09-14 15:10] LABS: Influenza A PCR NEGATIVE (Negative); Influenza B PCR NEGATIVE (Negative); Resp Syncy Virus RNA Qual PCR NEGATIVE (Negative); SARS COV2 PCR INHOUSE NEGATIVE (Negative)
--- OUTSIDE RECORDS SUMMARY | 2024-09-14 16:37 | XMS_ITS | Clinical Summary ---
Author Organization [address] Address [address] [place] [phone] Phone Care Team Providers Care Foundry Molder Name Role Phone Keya Glass MD Primary [...] (08/18/2024 3:01 PM EST): Recent labs at [facility] on the range of prediabetes. Patient [...] 2:30 PM EST Office Visit Adult Medicine [address] [address] MD Prediabetes (Primary Dx); Class [...] COMMENT: one ovary remains ESOPHAGOGASTRODUODENOSCOPY 05/28/2012 PROCEDURE: CT ESOPHAGOGASTRODUODENOSCOPY TRANSORAL DIAGNOSTIC; COMMENT: normal BREAST LUMPECTOMY 2007 Left PROCEDURE: HISTORICAL BREAST LUMPECTOMY; COMMENT: neg HERNIA REPAIR 05/2018 PROCEDURE: HISTORICAL HERNIA REPAIR/ING; COMMENT: with a mesh OTHER SURGICAL HISTORY 2004 PROCEDURE: CT HYSTEROSCOPY ENDOMETRIAL ABLATION OTHER SURGICAL HISTORY 2003 [...] COMMENT: left ovary removed and chemo at [facility], BRCA negative, had genetic counseling Iron deficiency [...] care for your loved ones. For example, maternal child nurse or elderly care for an older adult? [...] 02/25/2025 1:00 PM EDT Appointment Radiology Department [address] [address] 04/11/2025 1:30 PM EDT Consult Bariatric Surgery - [place] [address] [phone] Carmen Bailey MD [address] [address] 06/01/2025 3:00 PM EST Office Visit Adult [address] [address] Keya Glass MD [address] [place] [address] Health Maintenance Due Date Last Done Comments [...] RESULTING AGENCY - 08/25/2018 2:31 PM EST [id number] THINPREP PAP, IMAGED: NEGATIVE FOR SQUAMOUS INTRAEPITHELIAL [...] POSITIVE ASCUS 09/2016 HPV NEG Nikki Lobo [facility] LAB CYTOLOGY ORDERABLES Final R esult HISTORICAL TESTING LAB RESULTING AGENCY * Colonoscopy (06/03/2017) Colonoscopy no interpretation , abstracted Anatomical Region Laterality Modality Other Historical Provider HEALTH MAINTENANCE Final Result * Hepatitis C Screening (09/23/2016) Hepatitis C Screening abstracted Historical Provider HEALTH MAINTENANCE Final Result from Last 3 Months or Most Recently Relevant to Health Maintenance Insurance [employer] [facility] Care Teams Foundry Molder Relationship Specialty Start Date End Date Coleamn-Munoz, Keya Jessica, MD [address] [place] [address] PCP - General Internal Medicine 08/15/24
--- OUTSIDE RECORDS SUMMARY | 2024-09-14 16:38 | XMS_ITS | Encounter Summary ---
Author Organization [employer] [facility] Address [address] [place] [address] Care Team Providers Care Mix House Operator Name Role Phone Luna Andrew MD Primary Care Provider Keya Brito MD Primary Care Prov ider Montrell Lopez MD, PHD Unavailable Unava Calvin Garcia PA-C Unavailable [phone] Encounter Details Date Type Department Care Team Description 05/20/2019 Old Medical Records Medical Records [address] [place] [address] Abstract, Provider Social History Tobacco Use Types [...] on filedocumented in this encounter Care Teams Mix House Operator Relationship Specialty Start Date End Date Luna Andrew MD PCP - General Internal Medicine 08/11/11 12/23/21 Keya Jay MD [address] [place], [place] [phone] PCP - General Internal Medicine 12/24/21 Montrell Lopez MD, PHD [address] [place], [place] [phone] Surgeon Neurosurgery 02/06/22 Calvin Lucero PA-C 175 [facility] [address] [place] [address] Specialist Neurosurgery 02/06/22 documented as of this encounter
--- OUTSIDE RECORDS SUMMARY | 2024-09-14 16:38 | XMS_ITS | Encounter Summary ---
Author Organization [employer] [facility] Address [address] [place] [address] Care Team Providers Care Experimental Assembler Name Role Phone Luna Andrew MD Primary Care Provider Keya Brito MD Primary Care Prov ider Montrell Lopez MD, PHD Unavailable Unava Calvin Garcia PA-C Unavailable [phone] Reason for Visit * Reason Onset Date Comments Appointment Cancelled 09/24/2016 Encounter Details Date Type Department Care Team Description 09/24/2016 Telephone Radiology - [address] [address] Nikki Lobo, [facility] [address] [place] [address] Appointment Cancelled Social History Tobacco Use Types [...] CMB External order placed up front for pickle water pump operator. * Telephone Encounter - Nikki Loob CNM - 10/01/2016 8:59 AM EDT I have placed an external order for sono pelvis per patient request. Nikki Lobo CNM * Telephone Encounter - Della Amador - 09/24/2016 1:04 PM EST Pt would like an external order for a pelvic ultrasound. Pt was scheduled to have it performed at [facility], but cannot due to her insurance. Pt requesting an external order to be scheduled at [facility]. Please advise thank you documented in this encounter Plan of Treatment Not on file documented as of this encounter Visit Diagnoses Diagnosis Pelvic pain- Primary documented in this encounter Care Teams Experimental Assembler Relationship Specialty Start Date End Date Luna Andrew MD PCP - General Internal Medicine 08/11/11 12/23/21 Keya Jay MD [address] [place] [address] PCP - General Internal Medicine 12/24/21 Montrell Lopez MD, PHD [address] [place] [address] Surgeon Neurosurgery 02/06/22 Calvin Lucero PA-C [address] [place] [address] [place] [address] Specialist Neurosurgery 02/06/22 documented as of this encounter
--- OUTSIDE RECORDS SUMMARY | 2024-09-14 16:38 | XMS_ITS | Encounter Summary ---
Author Organization [facility] Address [address] [place] [address] Care Team Providers Care Cap And Stud Machine Operator Name Role Phone Luna Andrew MD Primary Care Provider Keya Brito MD Primary Care Prov ider Montrell Lopez MD, PHD Unavailable Unava Calvin Garcia PA-C Unavailable [phone] Encounter Details Date Type Department Care Team Description 05/25/2020 Pt. Non Urgent Medic al Question Physiatr - [address] [address] John Russo PA-C Social History Tobacco Use [...] filedocumented in this encounter Care Teams Cap And Stud Machine Operator Relationship Specialty Start Date End Date Luna Andrew MD PCP - General Internal Medicine 08/11/11 12/23/21 Keya Jay MD [address] [place] [address] PCP - General Internal Medicine 12/24/21 Montrell Lopez MD, PHD [address] [place] [address] Surgeon Neurosurgery 02/06/22 Calvin Lucero PA-C 175 [facility] [address] [place] [address] Specialist Neurosurgery 02/06/22 documented as of this encounter
--- OUTSIDE RECORDS SUMMARY | 2024-09-14 16:38 | XMS_ITS | Encounter Summary ---
Author Organization [employer] [facility] Address [address] [place] [address] Care Team Providers Care Silk Blocker Name Role Phone Keya Jay MD Primary Care Prov ider Montrell Lopez MD, PHD Unavailable Unava ilCalvin Juárez PA-C Unavailable [phone] Reason for Visit * Reason Onset Date Comments REFERRAL 04/25/2024 neurosurgery Encounter Details Date Type Department Care Team Description 04/25/[address] [facility] [address] [place] [address] Keya Jay MD [address] [place] [phone] REFERRAL (neurosurgery) Social History Tobacco Use Types [...] on filedocumented in this encounter Care Teams Silk Blocker Relationship Specialty Start Date End Date Keya Jay MD [address] [place] [address] PCP - General Internal Medicine 12/24/21 Montrell Lopez MD, PHD [address] [place] [address] Surgeon Neurosurgery 02/06/22 Calvin Lucero PA-C [address] [place] [address] [place] [address] Specialist Neurosurgery 02/06/22 documented as of this encounter
--- OUTSIDE RECORDS SUMMARY | 2024-09-14 16:38 | XMS_ITS | Encounter Summary ---
Author Organization [employer] [facility] Address [address] [place] [address] Care Team Providers Care Company Truck Driver Name Role Phone Keya Jay MD Primary Care Prov ider Montrell Lopez MD, PHD Unavailable Unava ilable Calvin Lucero PA-C Unavailable [phone] Encounter Details Date Type Department Care Team Description 09/15/2023 Chief Meter Reader Report Medical Records [address] [place] [address] Dwayne [place] NP Social History Tobacco Use [...] on filedocumented in this encounter Care Teams Company Truck Driver Relationship Specialty Start Date End Date Keya Jay MD [address] [place] [address] PCP - General Internal Medicine 12/24/21 Montrell Lopez MD, PHD [address] [place] [address] Surgeon Neurosurgery 02/06/22 Calvin Lucero PA-C [address] [place] [address] [place] [address] Specialist Neurosurgery 02/06/22 documented as of this encounter
--- OUTSIDE RECORDS SUMMARY | 2024-09-14 16:38 | XMS_ITS | Encounter Summary ---
Author Organization [place] [address] Care Team Providers Care Office Electrician Name Role Phone Keya Glass MD Primary Care Prov ider Reason for Visit * Reason Comments weight concerns Encounter Details Date Type Department Care Team (Late st Contact Info) Description 08/18/2024 2:30 PM EST Office Visit Adult Medicine [address] [address] Keya Glass MD [address] [place] [address] Prediabetes (Primary Dx); Class 2 obesity due [...] your loved ones. For example, child care leader or elderly care for an older adult? [...] PM ESTAssociated Problem(s): Prediabetes Recent labs at [facility] on the range of prediabetes. Patient [...] regularly. Was evaluated at weight management in [place] but they offered only surgery and patient [...] Assessment & Plan Prediabetes Recent labs at [facility] on the range of prediabetes. Patient [...] final approval. Keya Munoz MD ADULT MEDICINE [address] Dept: [phone] Dept Date of Visit: 08/18/2024 documented in this encounter Plan of Treatment Upcoming Encounters Date Type Department Care Team (Late st Contact Info) Description 02/25/2025 1:00 PM EDT Appointment Radiology Department - [address] [phone] 04/11/2025 1:30 PM EDT Consult Bariatric Surgery - [place] [address] [address] Carmen Bailey MD [address] [address] 06/01/2025 3:00 PM EST Office Visit Adult Medicine [address] [phone] Keya Glass MD [address] [place] [address] Scheduled Orders Name Type Priority Associated Diagnoses [...] documented as of this encounter Care Teams Office Electrician Relationship Specialty Start Date End Date Keya Glass MD [address] [place] [address] PCP - General Internal Medicine 08/15/24 documented as of this encounter
--- OUTSIDE RECORDS SUMMARY | 2024-09-14 16:38 | XMS_ITS | Encounter Summary ---
Author Organization [facility] Address [address] [place] [address] Care Team Providers Care Mold Worker Name Role Phone Luna Andrew MD Primary Care Provider Keya Brito MD Primary Care Prov ider Montrell Lopez MD, PHD Unavailable Unava Calvin Garcia PA-C Unavailable [phone] Encounter Details Date Type Department Care Team Description 05/20/2019 Pocketed Spring Assembler Report Medical Records [address] [place] [address] Social History Tobacco Use Types Packs/Day Years [...] on filedocumented in this encounter Care Teams Mold Worker Relationship Specialty Start Date End Date Luna Andrew MD PCP - General Internal Medicine 08/11/11 12/23/21 Keya Jay MD [address] [place], [place] [phone] PCP - General Internal Medicine 12/24/21 Montrell Lopez MD, PHD [address] [place], [place] [address] Surgeon Neurosurgery 02/06/22 Calvin Lucero PA-C [address] [place] [address] [address] [place] [address] Specialist Neurosurgery 02/06/22 documented as of this encounter
--- OUTSIDE RECORDS SUMMARY | 2024-09-14 16:38 | XMS_ITS | Encounter Summary ---
Author Organization [facility] Address [address] [place] [address] Care Team Providers Care Electrotype Caster Name Role Phone Keya Jay MD Primary Care Prov ider Montrell Lopez MD, PHD Unavailable Unava Calvin Garcia PA-C Unavailable [phone] Encounter Details Date Type Department Care Team Description 06/17/2022 Pt. Non Urgent Medical Question Adult Medicine [address] [address] Keya Jay MD [address] [place] [address] Social History Tobacco Use Types Packs/Day Years [...] another appointment with her Dr Yolette Fountain [facility]. notes are attached. documented in this encounter Plan of Treatment Not on file documented as of this encounter Visit Diagnoses Not on filedocumented in this encounter Care Teams Electrotype Caster Relationship Specialty Start Date End Date Keya Jay MD [address] [place] [address] PCP - General Internal Medicine 12/24/21 Montrell Lopez MD, PHD [address] [place] [address] Surgeon Neurosurgery 02/06/22 Calvin Lucero PA-C [address] [place] [address] Specialist Neurosurgery 02/06/22 documented as of this encounter
--- OUTSIDE RECORDS SUMMARY | 2024-09-14 16:38 | XMS_ITS | Encounter Summary ---
Author Organization [facility] Address [address] [place] [address] Care Team Providers Care Geological Specialist Name Role Phone Luna Andrew MD Primary Care Provider Keya Brito MD Primary Care Prov ider Montrell Lopez MD, PHD Unavailable Unava Calvin Garcia PA-C Unavailable [phone] Encounter Details Date Type Department Care Team Description 05/14/2019 Old Medical Records Medical Records [address] [place] [address] Abstract, Provider Social History Tobacco Use Types [...] filedocumented in this encounter Care Teams Geological Specialist Relationship Specialty Start Date End Date Luna Andrew MD PCP - General Internal Medicine 08/11/11 12/23/21 Keya Jay MD [address] [place], [place] [phone] PCP - General Internal Medicine 12/24/21 Montrell Lopez MD, PHD [address] [place], [place] [address] Surgeon Neurosurgery 02/06/22 Calvin Lucero PA-C 175 [facility] [address] [place] [address] Specialist Neurosurgery 02/06/22 documented as of this encounter
--- OUTSIDE RECORDS SUMMARY | 2024-09-14 16:38 | XMS_ITS | Encounter Summary ---
Author Organization [facility] Address [address] [place] [address] Care Team Providers Care Assistant Pastry Chef Name Role Phone Luna Andrew MD Primary Care Provider Keya Brito MD Primary Care Prov ider Montrell Lopez MD, PHD Unavailable Unava Calvin Garcia PA-C Unavailable [phone] Reason for Visit * Reason Onset Date Comments Faxed Order 05/25/2019 [facility] Encounter Details Date Type Department Care Team Description 05/25/2019 Telephone Adult Medicine [address] [address] Luna Andrew MD Faxed Order ([facility]) Social History Tobacco Use Types Packs/Day [...] 05/25/2019 3:12 PM EST Faxed order from [facility] in dr. Andrew's box for signature and to be faxed back to [phone] documented in this encounter Plan of Treatment Not on file documented as of this encounter Visit Diagnoses Not on filedocumented in this encounter Care Teams Assistant Pastry Chef Relationship Specialty Start Date End Date Luna Andrew MD PCP - General Internal Medicine 08/11/11 12/23/21 Keya Jay MD [address] [place] [address] PCP - General Internal Medicine 12/24/21 Montrell Lopez MD, PHD [address] [place] [address] Surgeon Neurosurgery 02/06/22 Calvin Lucero PA-C [address] [place] [address] [place] [address] Specialist Neurosurgery 02/06/22 documented as of this encounter
--- OUTSIDE RECORDS SUMMARY | 2024-09-14 16:38 | XMS_ITS | Encounter Summary ---
Author Organization [employer] [facility] Address [address] [place] [address] Care Team Providers Care Certified Residential Medication Aide Name Role Phone Luna Andrew MD Primary Care Provider Keya Brito MD Primary Care Prov ider Montrell Lopez MD, PHD Unavailable Unava Calvin Garcia PA-C Unavailable [phone] Encounter Details Date Type Department Care Team Description 07/25/2020 Refill Physiatry - [address] [address] John Russo PA-C Social History Tobacco Use [...] on filedocumented in this encounter Care Teams Certified Residential Medication Aide Relationship Specialty Start Date End Date Luna Andrew MD PCP - General Internal Medicine 08/11/11 12/23/21 Keya Jay MD [address] [place] [address] PCP - General Internal Medicine 12/24/21 Montrell Lopez MD, PHD [address] [place] [address] Surgeon Neurosurgery 02/06/22 Calvin Lucero PA-C [address] [place] [address] Specialist Neurosurgery 02/06/22 documented as of this encounter
--- OUTSIDE RECORDS SUMMARY | 2024-09-14 16:38 | XMS_ITS | Encounter Summary ---
Author Organization [employer] [facility] Address [address] [place] [address] Care Team Providers Care Slotter Operator Name Role Phone Keya Jay MD Primary Care Prov ider Montrell Lopez MD, PHD Unavailable Unava Calvin Garcia PA-C Unavailable [phone] Encounter Details Date Type Department Care Team Description 06/20/2022 Orders Only Adult Medicine [address] [address] Keya Jay MD [address] [place] [id number] Mixed hyperlipidemia Social History Tobacco Use Types [...] Keya Munoz MD LAB Performing Organization Address City/[facility]/ZIP Co de Phone Number [facility] * COMPREHENSIVE METABOLIC PANEL (06/16/2022) 06/16/2022 Keya Munoz MD LAB [facility] * LIPID PROFILE (06/16/2022) 06/16/2022 Keya Munoz MD LAB Performing Organization Address [facility] Co de Phone Number [facility] documented in this encounter Visit Diagnoses Diagnosis Mixed hyperlipidemia documented in this encounter Care Teams Slotter Operator Relationship Specialty Start Date End Date Keya Jay MD [address] [place] [address] PCP - General Internal Medicine 12/24/21 Montrell Lopez MD, PHD [address] [place] [address] Surgeon Neurosurgery 02/06/22 Calvin Lucero PA-C [address] [place] [address] Specialist Neurosurgery 02/06/22 documented as of this encounter
--- OUTSIDE RECORDS SUMMARY | 2024-09-14 16:38 | XMS_ITS | Encounter Summary ---
Author Organization [facility] Address [address] [place] [address] Care Team Providers Care Customer Sales Distributor Name Role Phone Keya Jay MD Primary Care Prov ider Montrell Lopez MD, PHD Unavailable Unava Calvin Garcia PA-C Unavailable [phone] Encounter Details Date Type Department Care Team Description 12/22/2022 Launch Commander Harbor Police Report Medical Records [address] [place] [address] Xander Rogers DO Social History Tobacco Use [...] filedocumented in this encounter Care Teams Customer Sales Distributor Relationship Specialty Start Date End Date Keya Jay MD [address] [place] [address] PCP - General Internal Medicine 12/24/21 Montrell Lopez MD, PHD [address] [place] [address] Surgeon Neurosurgery 02/06/22 Calvin Lucero PA-C 175 [facility] [address] [place] [address] Specialist Neurosurgery 02/06/22 documented as of this encounter
--- OUTSIDE RECORDS SUMMARY | 2024-09-14 16:38 | XMS_ITS | Encounter Summary ---
Author Organization [facility] [facility] Address [address] [place] [address] Care Team Providers Care Driver'S Education Instructor Name Role Phone Keya Jay MD Primary Care Prov ider Montrell Lopez MD, PHD Unavailable Unava Calvin Garcia PA-C Unavailable [phone] Encounter Details Date Type Department Care Team Description 02/27/2023 Orders Only Medical Records [address] [place] [address] Keya Jay MD [address] [place] [address] Social History Tobacco Use Types Packs/Day Years [...] on filedocumented in this encounter Care Teams Driver'S Education Instructor Relationship Specialty Start Date End Date Keya Jay MD [address] [place] [address] PCP - General Internal Medicine 12/24/21 Montrell Lopez MD, PHD [address] [place] [address] Surgeon Neurosurgery 02/06/22 Calvin Lucero PA-C [address] [place] [address] Specialist Neurosurgery 02/06/22 documented as of this encounter
--- OUTSIDE RECORDS SUMMARY | 2024-09-14 16:38 | XMS_ITS | Encounter Summary ---
Author Organization [facility] Address [address] [place] [address] Care Team Providers Care Ethnoarchaeologist Name Role Phone Luna Andrew MD Primary Care Provider Keya Brito MD Primary Care Prov ider Montrell Lopez MD, PHD Unavailable Unava Calvin Garcia PA-C Unavailable [phone] Encounter Details Date Type Department Care Team Description 05/20/2019 Old Medical Records Medical Records [address] [place] [address] Abstract, Provider Social History Tobacco Use Types [...] on filedocumented in this encounter Care Teams Ethnoarchaeologist Relationship Specialty Start Date End Date Luna Andrew MD PCP - General Internal Medicine 08/11/11 12/23/21 Keya Jay MD [address] [place], [place] [phone] PCP - General Internal Medicine 12/24/21 Montrell Lopez MD, PHD [address] [place], [place] [phone] Surgeon Neurosurgery 02/06/22 Calvin Lucero PA-C 175 [facility] [address] [place] [address] Specialist Neurosurgery 02/06/22 documented as of this encounter
--- OUTSIDE RECORDS SUMMARY | 2024-09-14 16:38 | XMS_ITS | Encounter Summary ---
Author Organization [employer] [facility] Address [address] [place] [address] Care Team Providers Care Pensions Retirement Plan Specialist Name Role Phone Keya Jay MD Primary Care Prov ider Montrell Lopez MD, PHD Unavailable Unava ilCalvin Juárez PA-C Unavailable Encounter Details Date Type Department Care Team Description 04/29/2024 Orders Only Medical Records [address] [place] [address] [facility] Social History Tobacco Use Types Packs/Day [...] this encounter Results * OUTSIDE LAB (03/31/2024) [facility] * OUTSIDE EMG (03/23/2024) Claribel Ann MD PERFORMABLES documented in this encounter Visit Diagnoses Not on filedocumented in this encounter Care Teams Pensions Retirement Plan Specialist Relationship Specialty Start Date End Date Keya Jay MD [address] [place] [address] PCP - General Internal Medicine 12/24/21 Montrell Lopez MD, PHD [address] [place] [address] Surgeon Neurosurgery 02/06/22 Calvin Lucero PA-C [address] [place] [address] Specialist Neurosurgery 02/06/22 documented as of this encounter
--- OUTSIDE RECORDS SUMMARY | 2024-09-14 16:38 | XMS_ITS | Encounter Summary ---
Author Organization [facility] Address [address] [place] [address] Care Team Providers Care Sand Wheeler Name Role Phone Keya Jay MD Primary Care Prov ider Montrell Lopez MD, PHD Unavailable Unava Calvin Garcia PA-C Unavailable [phone] Encounter Details Date Type Department Care Team Description 08/17/2023 Orders Only Medical Records [address] [place] [address] [facility] Social History Tobacco Use Types [...] this encounter Results * OUTSIDE LAB (06/19/2023) [facility] documented in this encounter Visit Diagnoses Not on filedocumented in this encounter Care Teams Sand Wheeler Relationship Specialty Start Date End Date Keya Jay MD [address] [place], [place] [phone] PCP - General Internal Medicine 12/24/21 Montrell Lopez MD, PHD [address] [place] [address] Surgeon Neurosurgery 02/06/22 Calvin Lucero PA-C [address] [place] [address] [place] [address] Specialist Neurosurgery 02/06/22 documented as of this encounter
--- OUTSIDE RECORDS SUMMARY | 2024-09-14 16:38 | XMS_ITS | Encounter Summary ---
Author Organization [address] Address [address] [place] [address] Care Team Providers Care Commercial Solar Sales Consultant Name Role Phone Luna Andrew MD Primary Care Provider Keya Brito MD Primary Care Prov ider Montrell Lopez MD, PHD Unavailable Unava Calvin Garcia PA-C Unavailable [phone] Encounter Details Date Type Department Care Team Description 12/03/2016 Orders Only Adult Medicine [facility] [address] [place] [address] Nikki Lobo CNM [address] [place] [address] [phone] Pelvic pain Social History Tobacco Use Types [...] pain documented in this encounter Care Teams Commercial Solar Sales Consultant Relationship Specialty Start Date End Date Luna Andrew MD PCP - General Internal Medicine 08/11/11 12/23/21 Keya Jay MD [address] [place] [address] PCP - General Internal Medicine 12/24/21 Montrell Lopez MD, PHD [address] [place] [address] Surgeon Neurosurgery 02/06/22 Calvin Lucero PA-C [address] [place] [address] Specialist Neurosurgery 02/06/22 documented as of this encounter
--- OUTSIDE RECORDS SUMMARY | 2024-09-14 16:38 | XMS_ITS | Encounter Summary ---
Author Organization [facility] Address [address] [place] [address] Care Team Providers Care Student Records Coordinator Name Role Phone Keya Jay MD Primary Care Prov ider Montrell Lopez MD, PHD Unavailable Unava ilable Calvin Lucero PA-C Unavailable [phone] Encounter Details Date Type Department Care Team Description 11/03/2022 Dispatcher Maintenance Service Report Medical Records [address] [place] [address] John Russo PA-C Social History Tobacco Use [...] on filedocumented in this encounter Care Teams Student Records Coordinator Relationship Specialty Start Date End Date Keya Jay MD [address] [place] [address] PCP - General Internal Medicine 12/24/21 Montrell Lopez MD, PHD [address] [place] [address] Surgeon Neurosurgery 02/06/22 Calvin Lucero PA-C [address] [place] [address] [place] [address] Specialist Neurosurgery 02/06/22 documented as of this encounter
--- OUTSIDE RECORDS SUMMARY | 2024-09-14 16:38 | XMS_ITS | Encounter Summary ---
Author Organization [facility] Address [address] [place] [address] Care Team Providers Care Guide Plant Name Role Phone Luna Andrew MD Primary Care Provider Keya Brito MD Primary Care Prov ider Montrell Lopez MD, PHD Unavailable Unava Calvin Garcia PA-C Unavailable [phone] Encounter Details Date Type Department Care Team Description 06/18/2020 Release of Information Medical Records [address] [place] [address] Abstract, Provider Social History Tobacco Use Types [...] on filedocumented in this encounter Care Teams Guide Plant Relationship Specialty Start Date End Date Luna Andrew MD PCP - General Internal Medicine 08/11/11 12/23/21 Keya Jay MD [address] [place] [address] [phone] PCP - General Internal Medicine 12/24/21 Montrell Lopez MD, PHD [address] [place] [address] Surgeon Neurosurgery 02/06/22 Calvin Lucero PA-C [address] [place] [address] Specialist Neurosurgery 02/06/22 documented as of this encounter
--- OUTSIDE RECORDS SUMMARY | 2024-09-14 16:38 | XMS_ITS | Encounter Summary ---
Author Organization [facility] Address [address] [place] [address] Care Team Providers Care Pneumatic System Conveyor Operator Name Role Phone Luna Andrew MD Primary Care Provider Keya Brito MD Primary Care Prov ider Montrell Lopez MD, PHD Unavailable Unava Calvin Garcia PA-C Unavailable [phone] Reason for Visit * Reason Onset Date Comments Call-returning From Provider 12/10/2016 Encounter Details Date Type Department Care Team Description 12/10/2016 Telephone OBGYN - [place] [address] [place] [address] Nikki Lobo CN [address] [place] [address] Call-returning From Provider Social History Tobacco Use [...] She states she did have it at [facility] and will sign SENTHIL to get results to us How long has the patient had this problem? Pt???s GENERAL OFFICE ASSISTANT provider: Nikki Lobo CNM Last menstrual period (LMP) or EDC (due date): N/A documented in this encounter Plan of Treatment Not on file documented as of this encounter Visit Diagnoses Not on filedocumented in this encounter Care Teams Pneumatic System Conveyor Operator Relationship Specialty Start Date End Date Luna Andrew MD PCP - General Internal Medicine 08/11/11 12/23/21 Keya Jay MD [address] [place] [address] PCP - General Internal Medicine 12/24/21 Montrell Lopez MD, PHD [address] [place] [address] Surgeon Neurosurgery 02/06/22 Calvin Lucero PA-C [address] [place] [address] [place] [address] Specialist Neurosurgery 02/06/22 documented as of this encounter
--- OUTSIDE RECORDS SUMMARY | 2024-09-14 16:38 | XMS_ITS | Encounter Summary ---
Author Organization [facility] Address [address] [place] [address] Care Team Providers Care Fur Sorter Name Role Phone Luna Andrew MD Primary Care Provider Keya Brito MD Primary Care Prov ider Montrell Lopez MD, PHD Unavailable Unava Calvin Garcia PA-C Unavailable [phone] Encounter Details Date Type Department Care Team Description 08/16/2016 Release of Information Medical Records [address] [place] [address] Abstract, Provider Social History Tobacco Use Types [...] on filedocumented in this encounter Care Teams Fur Sorter Relationship Specialty Start Date End Date Luna Andrew MD PCP - General Internal Medicine 08/11/11 12/23/21 Kyea Jay MD [address] [place], [place] [phone] PCP - General Internal Medicine 12/24/21 Montrell Lopez MD, PHD [address] [place], [place] [phone] Surgeon Neurosurgery 02/06/22 Calvin Lucero PA-C 175 [facility] [address] [place] [address] Specialist Neurosurgery 02/06/22 documented as of this encounter
--- OUTSIDE RECORDS SUMMARY | 2024-09-14 16:38 | XMS_ITS | Encounter Summary ---
Author Organization [employer] [facility] Address [address] [place] [address] Care Team Providers Care Willow Analyst Name Role Phone Luna Andrew MD Primary Care Provider Keya Brito MD Primary Care Prov ider Montrell Lopez MD, PHD Unavailable Unava Calvin Garcia PA-C Unavailable [phone] Reason for Visit * Reason Onset Date Comments Testing 11/24/2016 Encounter Details Date Type Department Care Team Description 11/24/2016 Telephone OBGYN - [place] [address] [place] [address] Nikki Lobo [facility] [address] [place] [address] Testing Social History Tobacco Use Types Packs/Day [...] patient. CMB Order placed up front for pickle processor. * Telephone Encounter - Nikki Lobo CNM [...] 9:01 AM EDT Received sono pelvis from [facility] Impression- small right ovarian cyst 2.2 x 1.7 x 2.2 Telephone Information: Called patient to discuss results. Left voice mail for patient to call back. Nikki Lobo CNM * Telephone Encounter - Mona Schroeder M.A. - 11/24/2016 1:59 PM EDT Spoke with patient, she went to [facility] and had ultrasound performed on May [...] cyst documented in this encounter Care Teams Willow Analyst Relationship Specialty Start Date End Date Luna Andrew MD PCP - General Internal Medicine 08/11/11 12/23/21 Keya Jay MD [address] [place] [address] PCP - General Internal Medicine 12/24/21 Montrell Lopez MD, PHD [address] [place] [address] Surgeon Neurosurgery 02/06/22 Calvin Lucero PA-C [address] [place] [address] [place] [address] Specialist Neurosurgery 02/06/22 documented as of this encounter
--- OUTSIDE RECORDS SUMMARY | 2024-09-14 16:38 | XMS_ITS | Encounter Summary ---
Author Organization [employer] [facility] Address [address] [place] [address] Care Team Providers Care Director Of Coding Name Role Phone Luna Andrew MD Primary Care Provider Keya Brito MD Primary Care Prov ider Montrell Lopez MD, PHD Unavailable Unava Calvin Garcia PA-C Unavailable [phone] Encounter Details Date Type Department Care Team Description 10/12/2020 Pt. Non Urgent Medical Question Adult Medicine [address] [address] Shelly Montgomery PA [address] [place] [address] Social History Tobacco Use Types Packs/Day Years [...] this morning for the blood work at [facility]. documented in this encounter Plan of Treatment Not on file documented as of this encounter Visit Diagnoses Not on filedocumented in this encounter Care Teams Director Of Coding Relationship Specialty Start Date End Date Lnua Andrew MD PCP - General Internal Medicine 08/11/11 12/23/21 Keya Jay MD [address] [place] [address] PCP - General Internal Medicine 12/24/21 Montrell Lopez MD, PHD [address] [place] [address] Surgeon Neurosurgery 02/06/22 Calvin Lucero PA-C [address] [place] [address] [place] [address] Specialist Neurosurgery 02/06/22 documented as of this encounter
--- OUTSIDE RECORDS SUMMARY | 2024-09-14 16:39 | XMS_ITS | Encounter Summary ---
Author Organization [facility] Address [address] [place] [address] Care Team Providers Care Needle Punch Machine Operator Name Role Phone Luna Andrew MD Primary Care Provider Keya Brito MD Primary Care Prov ider Montrell Lopez MD, PHD Unavailable Unava Calvin Garcia PA-C Unavailable Encounter Details Date Type Department Care Team Description 09/04/2017 Hospital Medical Records [address] [place] [address] Social History Tobacco Use Types Packs/Day Years [...] on filedocumented in this encounter Care Teams Needle Punch Machine Operator Relationship Specialty Start Date End Date Luna Andrew MD PCP - General Internal Medicine 08/11/11 12/23/21 Keya Jay MD [address] [place] [address] PCP - General Internal Medicine 12/24/21 Montrell Lopez MD, PHD [address] [place] [address] Surgeon Neurosurgery 02/06/22 Calvin Lucero PA-C 175 [facility] [address] [place] [address] Specialist Neurosurgery 02/06/22 documented as of this encounter
--- OUTSIDE RECORDS SUMMARY | 2024-09-14 16:39 | XMS_ITS | Encounter Summary ---
Author Organization [employer] [facility] Address [address] [place] [address] Care Team Providers Care Pest Control Pilot Name Role Phone Luna Andrew MD Primary Care Provider Keya Brito MD Primary Care Prov ider Montrell Lopez MD, PHD Unavailable Unava Calvin Garcia PA-C Unavailable [phone] Encounter Details Date Type Department Care Team Description 05/12/2018 Pt. Non Urgent Medic al Question Physiatr - [address] [address] John Russo PA-C Social History Tobacco Use [...] on filedocumented in this encounter Care Teams Pest Control Pilot Relationship Specialty Start Date End Date Luna Andrew MD PCP - General Internal Medicine 08/11/11 12/23/21 Keya Jay MD [address] [place] [address] PCP - General Internal Medicine 12/24/21 Montrlel Lopez MD, PHD [address] [place] [address] Surgeon Neurosurgery 02/06/22 Calvin Lucero PA-C 175 [facility] [address] [place] [address] Specialist Neurosurgery 02/06/22 documented as of this encounter
--- OUTSIDE RECORDS SUMMARY | 2024-09-14 16:39 | XMS_ITS | Encounter Summary ---
Author Organization [facility] [facility] Address [address] [place] [address] Care Team Providers Care Churn Driller Name Role Phone Community, Pcp Primary Care Provider Luna Bianchi MD Primary Care Provider Keya Brito MD Primary Care Prov ider Montrell Lopez MD, PHD Unavailable Unava Calvin Garcia PA-C Unavailable [phone] Encounter Details Date Type Department Care Team Description 12/31/2004 Orders Only OBGYN - [place] [address] [place] [address] Alexandru Reynolds MD EXCESSIVE OR FREQUENT MENSTRUATION; PRE-OPERATIVE EXAMINATION, UNSPECIFIED Social History Tobacco Use Types Packs/Day Years Used Date Smoking Tobacco: Never Assessed Sex Assigned at Date Recorded Female 11/03/2021 6:40 PM E DT Job Start Date Occupation Industry Not on file Not on file Not on file documented as of this encounter Plan of Treatment Scheduled Orders Name Type Priority Associated Diagnoses Orde r Schedule VENIPUNCTURE Lab Routine Pre-Operative Examination, Unspecified Ordered: 12/31/2004 documented as of this encounter Procedures Procedure Name Priority Date/Time Associated Diagnosis Comments CBC WITHOUT DIFF Routine 12/31/2004 10:2 3 AM EDT Excessive Or Frequent Menstruation HCG/ (BLOOD) QUALITATIVE Routine 12/31/2004 10:23 AM EDT Pre-Operative Examination, Unspecified documented in this encounter Results * HCG/ (BLOOD) QUALITATIVE (12/31/2004 10:23 AM EDT) HCG SERUM QUAL NEGATIVE NEG [facility] 12/31/2004 10:2 3 AM EDT 12/31/2004 10:25 AM EDT Alexandru Reynolds MD LAB Performing Organization Address City/[place] [facility]/ZIP Co de Phone Number [facility] * (ABNORMAL) CBC WITHOUT DIFF (12/31/2004 10:23 AM EDT) WHITE BLOOD COUNT 8.3 4.8 - 10.8 x10-3 [facility] RED BLOOD COUNT 4.4 3.8 - 4.8 x10-6 [facility] Hemoglobin 10.3(L) 12.0 - 15.0 g/dL [facility] Hematocrit 33.0(L) 36 - 46 % [facility] MEAN CORPUSCULAR VOLUME 74.7(L) 79 - 98 fl [facility] MEAN CORPUSCULAR HEMOGLOBIN 23.3(L) 27 - 32 pg [facility] MEAN CORPUS[facility]ULAR HGB CONC 31.2(L) 32 - 37 g/dl [facility] RED CELL DISTRIBUTION WIDTH 13.9 11 - 15 % [facility] PLT COUNT 311 130 - 400 x10-3 [facility] 12/31/2004 10:2 3 AM EDT 12/31/2004 10:25 AM EDT Alexandru Reynolds MD LAB Performing Organization Address City/[place] [facility]/ZIP Co de Phone Number [facility] documented in this encounter Visit Diagnoses Diagnosis Excessive or frequent menstruation Preoperative examination, unspecified documented in this encounter Care Teams Churn Driller Relationship Specialty Start Date End Date Community, Pcp PCP - General 12/18/02 08/10/11 Luna Andrew MD PCP - General Internal Medicine 08/11/11 12/23/21 Keya Jay MD [address] [place] [address] PCP - General Internal Medicine 12/24/21 Montrell Lopez MD, PHD [address] [place] [address] Surgeon Neurosurgery 02/06/22 Calvin Lucero PA-C [address] [place] [address] [place] [address] Specialist Neurosurgery 02/06/22 documented as of this encounter
--- OUTSIDE RECORDS SUMMARY | 2024-09-14 16:39 | XMS_ITS | Encounter Summary ---
Author Organization [employer] [facility] Address [address] [place] [address] Care Team Providers Care Contract Officer Name Role Phone Luna Andrew MD Primary Care Provider Keya Brito MD Primary Care Prov ider Montrell Lopez MD, PHD Unavailable Unava Calvin Garcia PA-C Unavailable [phone] Encounter Details Date Type Department Care Team Description 02/04/2017 Distillery Worker General Report Medical Records [address] [place] [address] Marya Tejada MD Social History Tobacco Use [...] on filedocumented in this encounter Care Teams Contract Officer Relationship Specialty Start Date End Date Luna Andrew MD PCP - General Internal Medicine 08/11/11 12/23/21 Keya Jay MD [address] [place] [address] PCP - General Internal Medicine 12/24/21 Montrell Lopez MD, PHD [address] [place], [place] [address] Surgeon Neurosurgery 02/06/22 Calvin Lucero PA-C 175 [facility] [address] [place] [address] Specialist Neurosurgery 02/06/22 documented as of this encounter
--- OUTSIDE RECORDS SUMMARY | 2024-09-14 16:39 | XMS_ITS | Encounter Summary ---
Author Organization [employer] [facility] Address [address] [place] [address] Care Team Providers Care Calendering Machine Operator Name Role Phone Keya Jay MD Primary Care Prov ider Montrell Lopez MD, PHD Unavailable Unava Calvin Garcia PA-C Unavailable [phone] Encounter Details Date Type Department Care Team Description 04/30/2022 Pt. Non Urgent Medical Question Adult Medicine [address] [address] Keya Jay MD [address] [place] [address] Social History Tobacco Use Types Packs/Day Years [...] on filedocumented in this encounter Care Teams Calendering Machine Operator Relationship Specialty Start Date End Date Keya Jay MD [address] [place] [address] PCP - General Internal Medicine 12/24/21 Montrell Lopez MD, PHD [address] [place] [address] Surgeon Neurosurgery 02/06/22 Calvin Lucero PA-C [address] [place] [address] [place] [address] Specialist Neurosurgery 02/06/22 documented as of this encounter
--- OUTSIDE RECORDS SUMMARY | 2024-09-14 16:39 | XMS_ITS | Encounter Summary ---
Author Organization [employer] [facility] Address [address] [place] [address] Care Team Providers Care Exhibits Curator Name Role Phone Luna Andrew MD Primary Care Provider Keya Brito MD Primary Care Prov ider Montrell Lopez MD, PHD Unavailable Unava Calvin Garcia PA-C Unavailable [phone] Encounter Details Date Type Department Care Team Description 10/29/2020 Orders Only Adult Medicine [address] [address] Shelly Montgomery PA [address] [place] [address] Dizziness Social History Tobacco Use Types Packs/Day [...] W/TSH (10/12/2020) 10/12/2020 Shelly [facility] documented in this encounter Visit Diagnoses Diagnosis Dizziness Dizziness and giddiness documented in this encounter Care Teams Exhibits Curator Relationship Specialty Start Date End Date Luna Andrew MD PCP - General Internal Medicine 08/11/11 12/23/21 Keya Jay MD [address] [place] [address] PCP - General Internal Medicine 12/24/21 Montrell Lopez MD, PHD [address] [place] [address] Surgeon Neurosurgery 02/06/22 Calvin Lucero PA-C [address] [place] [address] [place] [address] Specialist Neurosurgery 02/06/22 documented as of this encounter
--- OUTSIDE RECORDS SUMMARY | 2024-09-14 16:39 | XMS_ITS | Encounter Summary ---
Author Organization [employer] [facility] Address [address] [place] [address] Care Team Providers Care Flame Degreaser Name Role Phone Luna Andrew MD Primary Care Provider Keya Brito MD Primary Care Prov ider Montrell Lopez MD, PHD Unavailable Unava Calvin Garcia PA-C Unavailable [phone] Encounter Details Date Type Department Care Team Description 03/17/2012 Neuroscientist Report Medical Records [address] [place] [address] Jostin Nafisa Social History Tobacco Use Types [...] on filedocumented in this encounter Care Teams Flame Degreaser Relationship Specialty Start Date End Date Luna Andrew MD PCP - General Internal Medicine 08/11/11 12/23/21 Keya Jay MD [address] [place], [place] [phone] PCP - General Internal Medicine 12/24/21 Montrell Lopez MD, PHD [address] [place], [place] [address] Surgeon Neurosurgery 02/06/22 Calvin Lucero PA-C [address] [place] [address] [address] [place] [address] Specialist Neurosurgery 02/06/22 documented as of this encounter
--- OUTSIDE RECORDS SUMMARY | 2024-09-14 16:39 | XMS_ITS | Encounter Summary ---
Author Organization [facility] Address [address] [place] [address] Care Team Providers Care Metrology Manager Name Role Phone Luna Andrew MD Primary Care Provider Keya Brito MD Primary Care Prov ider Montrell Lopez MD, PHD Unavailable Unava Calvin Garcia PA-C Unavailable Encounter Details Date Type Department Care Team Description 08/27/2011 Transfer Records Medical Records [address] [place] [address] Abstract, Provider Social History Tobacco Use Types [...] on filedocumented in this encounter Care Teams Metrology Manager Relationship Specialty Start Date End Date Luna Andrew MD PCP - General Internal Medicine 08/11/11 12/23/21 Keya Jay MD [address] [place], [place] [phone] PCP - General Internal Medicine 12/24/21 Montrell Lopez MD, PHD [address] [place], [place] [address] Surgeon Neurosurgery 02/06/22 Calvin Lucero PA-C [address] [place] [address] Specialist Neurosurgery 02/06/22 documented as of this encounter
--- OUTSIDE RECORDS SUMMARY | 2024-09-14 16:39 | XMS_ITS | Encounter Summary ---
Author Organization [employer] [facility] Address [address] [place] [address] Care Team Providers Care Stem Lead Former Name Role Phone Luna Andrew MD Primary Care Provider Keya Brito MD Primary Care Prov ider Montrell Lopez MD, PHD Unavailable Unava Calvin Garcia PA-C Unavailable [phone] Encounter Details Date Type Department Care Team Description 02/27/2019 Pt. Non Urgent Medical Question Physiatry - [address] [address] John Russo PA-C Spinal stenosis in cervical [...] region documented in this encounter Care Teams Stem Lead Former Relationship Specialty Start Date End Date Luna Andrew MD PCP - General Internal Medicine 08/11/11 12/23/21 Keya Jay MD [address] [place] [address] PCP - General Internal Medicine 12/24/21 Montrell Lopez MD, PHD [address] [place] [address] Surgeon Neurosurgery 02/06/22 Calvin Lucero PA-C [address] [place] [address] Specialist Neurosurgery 02/06/22 documented as of this encounter
--- OUTSIDE RECORDS SUMMARY | 2024-09-14 16:39 | XMS_ITS | Encounter Summary ---
Author Organization [employer] [facility] Address [address] [place] [address] Care Team Providers Care Farmer Diversified Crops Name Role Phone Luna Andrew MD Primary Care Provider Keya Brito MD Primary Care Prov ider Montrell Lopez MD, PHD Unavailable Unava Calvin Garcia PA-C Unavailable [phone] Encounter Details Date Type Department Care Team Description 03/17/2019 Orders Only Adult Medicine - [place] [address] [place] [address] Nina Lucas APRN Groin pain, right Social [...] 2-3 VIEWS (02/11/2019) Nina Lucas APRN RADIOLOGY [facility] [address] documented in this encounter Visit Diagnoses Diagnosis Groin pain, right documented in this encounter Care Teams Farmer Diversified Crops Relationship Specialty Start Date End Date Luna Andrew MD PCP - General Internal Medicine 08/11/11 12/23/21 Keya Jay MD [address] [place] [address] PCP - General Internal Medicine 12/24/21 Montrell Lopez MD, PHD [address] [place] [address] Surgeon Neurosurgery 02/06/22 Calvin Lucero PA-C [address] [place] [address] Specialist Neurosurgery 02/06/22 documented as of this encounter
--- OUTSIDE RECORDS SUMMARY | 2024-09-14 16:39 | XMS_ITS | Encounter Summary ---
Author Organization [facility] Address [address] [place] [address] Care Team Providers Care Civil Defense Director Name Role Phone Keya Jay MD Primary Care Prov ider Montrell Lopez MD, PHD Unavailable Unava Calvin Garcia PA-C Unavailable [phone] Encounter Details Date Type Department Care Team Description 07/11/2024 Orders Only Medical Records [address] [place] [address] [facility] Social History Tobacco Use Types [...] Results * OUTSIDE LAB (04/12/2024) [facility] documented in this encounter Visit Diagnoses Not on filedocumented in this encounter Care Teams Civil Defense Director Relationship Specialty Start Date End Date Keya Jay MD [address] [place], [place] [phone] PCP - General Internal Medicine 12/24/21 Montrell Lopez MD, PHD [address] [place] [address] Surgeon Neurosurgery 02/06/22 Calvin Lucero PA-C [address] [place] [address] [place] [address] Specialist Neurosurgery 02/06/22 documented as of this encounter
--- OUTSIDE RECORDS SUMMARY | 2024-09-14 16:39 | XMS_ITS | Encounter Summary ---
Author Organization [employer] [facility] Address [address] [place] [address] Care Team Providers Care Cabinet Mounter Name Role Phone Luna Andrew MD Primary Care Provider Keya Brito MD Primary Care Prov ider Montrell Lopez MD, PHD Unavailable Unava Calvin Garcia PA-C Unavailable [phone] Encounter Details Date Type Department Care Team Description 02/04/2018 Vector Control Assistant Report Medical Records [address] [place] [address] Reading, [facility] [address] [place] [address] Social History Tobacco Use Types Packs/Day Years [...] filedocumented in this encounter Care Teams Cabinet Mounter Relationship Specialty Start Date End Date Luna Andrew MD PCP - General Internal Medicine 08/11/11 12/23/21 Keya Jay MD [address] [place] [address] PCP - General Internal Medicine 12/24/21 Montrell Lopez MD, PHD [address] [place] [address] Surgeon Neurosurgery 02/06/22 Calvin Lucero PA-C 175 [facility] [address] [place] [address] Specialist Neurosurgery 02/06/22 documented as of this encounter
--- OUTSIDE RECORDS SUMMARY | 2024-09-14 16:39 | XMS_ITS | Encounter Summary ---
Author Organization [facility] Address [address] [place] [address] Care Team Providers Care Cost Specialist Name Role Phone Luna Andrew MD Primary Care Provider Keya Brito MD Primary Care Prov ider Montrell Lopez MD, PHD Unavailable Unava Calvin Garcia PA-C Unavailable [phone] Encounter Details Date Type Department Care Team Description 05/31/2018 Scanning Tech Report Medical Records [address] [place] [address] Kristen Solo NP Social History Tobacco Use [...] on filedocumented in this encounter Care Teams Cost Specialist Relationship Specialty Start Date End Date Luna Andrew MD PCP - General Internal Medicine 08/11/11 12/23/21 Keya Jay MD [address] [place] [address] PCP - General Internal Medicine 12/24/21 Montrell Lopez MD, PHD [address] [place], [place] [address] Surgeon Neurosurgery 02/06/22 Calvin Lucero PA-C [address] [facility] [address] [place] [address] Specialist Neurosurgery 02/06/22 documented as of this encounter
--- OUTSIDE RECORDS SUMMARY | 2024-09-14 16:39 | XMS_ITS | Encounter Summary ---
Author Organization [employer] (acquired by [employer] in 2014) [facility] Address [address] [place] [address] Care Team Providers Care Networker Name Role Phone Luna Andrew MD Primary Care Provider Keya Brito MD Primary Care Prov ider Montrell Lopez MD, PHD Unavailable Unava Calvin Garcia PA-C Unavailable [phone] Encounter Details Date Type Department Care Team Description 10/06/2017 Conference Planning Manager Report Medical Records [address] [place] [address] Social History Tobacco Use Types Packs/Day Years [...] on filedocumented in this encounter Care Teams Networker Relationship Specialty Start Date End Date Luna Andrew MD PCP - General Internal Medicine 08/11/11 12/23/21 Keya Jay MD [address] [place] [address] PCP - General Internal Medicine 12/24/21 Montrell Lopez MD, PHD [address] [place] [address] Surgeon Neurosurgery 02/06/22 Calvin Lucero PA-C [address] [place] [address] [address] [place] [address] Specialist Neurosurgery 02/06/22 documented as of this encounter
--- OUTSIDE RECORDS SUMMARY | 2024-09-14 16:39 | XMS_ITS | Encounter Summary ---
Author Organization [facility] Address [address] [place] [address] Care Team Providers Care Burlap Bag Sewer Name Role Phone Community, Pcp Primary Care Provider Luna Bianchi MD Primary Care Provider Keya Brito MD Primary Care Prov ider Montrell Lopez MD, PHD Unavailable Calvin Masters PA-C Unavailable [phone] Encounter Details Date Type Department Care Team Description 02/15/2008 Hospital Medical Records [address] [place] [address] Nelson Perdomo MD Social History Tobacco Use [...] on filedocumented in this encounter Care Teams Burlap Bag Sewer Relationship Specialty Start Date End Date Community, Pcp PCP - General 12/18/02 08/10/11 Luna Andrew MD PCP - General Internal Medicine 08/11/11 12/23/21 Keya Jay MD [address] [place] [address] PCP - General Internal Medicine 12/24/21 Montrell Lopez MD, PHD 4 [place] [address] Surgeon Neurosurgery 02/06/22 Calvin Lucero PA-C [address] [place] [address] Specialist Neurosurgery 02/06/22 documented as of this encounter
--- OUTSIDE RECORDS SUMMARY | 2024-09-14 16:39 | XMS_ITS | Encounter Summary ---
Author Organization [employer] [facility] Address [address] [place] [address] Care Team Providers Care Machine Heel Seat Laster Name Role Phone Luna Andrew MD Primary Care Provider Keya Brito MD Primary Care Prov ider Montrell Lopez MD, PHD Unavailable Unava Calvin Garcia PA-C Unavailable [phone] Encounter Details Date Type Department Care Team Description 04/09/2017 Fixture Fabricator Repairer Report Medical Records [address] [place] [address] Marya Tejada MD Social History Tobacco Use [...] on filedocumented in this encounter Care Teams Machine Heel Seat Laster Relationship Specialty Start Date End Date Luna Andrew MD PCP - General Internal Medicine 08/11/11 12/23/21 Keya Jay MD [address] [place] [address] PCP - General Internal Medicine 12/24/21 Montrell Lopez MD, PHD [address] [place], [place] [address] Surgeon Neurosurgery 02/06/22 Calvin Lucero PA-C 175 [facility] [address] [place] [address] Specialist Neurosurgery 02/06/22 documented as of this encounter
--- OUTSIDE RECORDS SUMMARY | 2024-09-14 16:39 | XMS_ITS | Encounter Summary ---
Author Organization [employer] [facility] Address [address] [place] [address] Care Team Providers Care Machine Overhauler Name Role Phone Luna Andrew MD Primary Care Provider Keya Brito MD Primary Care Prov ider Montrell Lopez MD, PHD Unavailable Unava Calvin Garcia PA-C Unavailable [phone] Encounter Details Date Type Department Care Team Description 08/17/2015 Business Doc Medical Records [address] [place] [address] Abstract, Provider Social History Tobacco Use Types [...] filedocumented in this encounter Care Teams Machine Overhauler Relationship Specialty Start Date End Date Luna Andrew MD PCP - General Internal Medicine 08/11/11 12/23/21 Keya Jay MD [address] [place], [place] [address] PCP - General Internal Medicine 12/24/21 Montrell Lopez MD, PHD [address] [place], [place] [address] Surgeon Neurosurgery 02/06/22 Calvin Lucero PA-C 175 [place] [address] Specialist Neurosurgery 02/06/22 documented as of this encounter
--- OUTSIDE RECORDS SUMMARY | 2024-09-14 16:39 | XMS_ITS | Encounter Summary ---
Author Organization [employer] [facility] Address [address] [place] [address] Care Team Providers Care Smokehouse Worker Name Role Phone Luna Andrew MD Primary Care Provider Keya Brito MD Primary Care Prov ider Montrell Lopez MD, PHD Unavailable Unava Calvin Garcia PA-C Unavailable [phone] Encounter Details Date Type Department Care Team Description 02/17/2017 Optical Advisor Report Medical Records [address] [place] [address] Marya Tejada MD Social History Tobacco Use [...] on filedocumented in this encounter Care Teams Smokehouse Worker Relationship Specialty Start Date End Date Luna Andrew MD PCP - General Internal Medicine 08/11/11 12/23/21 Keya Jay MD [address] [place] [address] PCP - General Internal Medicine 12/24/21 Montrell Lopez MD, PHD [address] [place], [place] [address] Surgeon Neurosurgery 02/06/22 Calvin Lucero PA-C 175 [facility] [address] [place] [address] Specialist Neurosurgery 02/06/22 documented as of this encounter
--- OUTSIDE RECORDS SUMMARY | 2024-09-14 16:39 | XMS_ITS | Encounter Summary ---
Author Organization [facility] Address [address] [place] [address] Care Team Providers Care Manager Sterile Name Role Phone Luna Andrew MD Primary Care Provider Keya Brito MD Primary Care Prov ider Montrell Lopez MD, PHD Unavailable Unava Calvin aGrcia PA-C Unavailable [phone] Encounter Details Date Type Department Care Team Description 10/18/2021 Ammunition Specialist Report Medical Records [address] [place] [address] Aakash Tello MD Social History Tobacco Use [...] on filedocumented in this encounter Care Teams Manager Sterile Relationship Specialty Start Date End Date Luna Andrew MD PCP - General Internal Medicine 08/11/11 12/23/21 Keya Jay MD [address] [place] [phone] PCP - General Internal Medicine 12/24/21 Montrell Lopez MD, PHD [address] [place] [address] Surgeon Neurosurgery 02/06/22 Calvin Lucero PA-C [address] [place] [address] Specialist Neurosurgery 02/06/22 documented as of this encounter
--- OUTSIDE RECORDS SUMMARY | 2024-09-14 16:39 | XMS_ITS | Encounter Summary ---
Author Organization [email or web address] [facility] Address [address] [place] [address] Care Team Providers Care Knife Edger Name Role Phone Luna Andrew MD Primary Care Provider Keya Brito MD Primary Care Prov ider Montrell Lopez MD, PHD Unavailable Unava Calvin Garcia PA-C Unavailable [phone] Encounter Details Date Type Department Care Team Description 01/06/2017 [employer] Freight Car Cleaner Report Medical Records [address] [place] [address] Marya Tejada MD Social History Tobacco Use [...] on filedocumented in this encounter Care Teams Knife Edger Relationship Specialty Start Date End Date Luna Andrew MD PCP - General Internal Medicine 08/11/11 12/23/21 Keya Jay MD [address] [place] [address] PCP - General Internal Medicine 12/24/21 Montrell Lopez MD, PHD [address] [place], [place] [address] Surgeon Neurosurgery 02/06/22 Calvin Lucero PA-C 175 [facility] [address] [place] [address] Specialist Neurosurgery 02/06/22 documented as of this encounter
--- OUTSIDE RECORDS SUMMARY | 2024-09-14 16:39 | XMS_ITS | Encounter Summary ---
Author Organization [employer] [facility] Address [address] [place] [address] Care Team Providers Care Formula Room Worker Name Role Phone Luna Andrew MD Primary Care Provider Keya Brito MD Primary Care Prov ider Montrell Lopez MD, PHD Unavailable Unava Calvin Garcia PA-C Unavailable [phone] Encounter Details Date Type Department Care Team Description 02/15/2018 Gate Mortiser Operator Report Medical Records [address] [place] [address] Missael Catalan Social History Tobacco Use Types [...] on filedocumented in this encounter Care Teams Formula Room Worker Relationship Specialty Start Date End Date Luna Andrew MD PCP - General Internal Medicine 08/11/11 12/23/21 Keya Jay MD [address] [place], [place] [phone] PCP - General Internal Medicine 12/24/21 Montrell Lopez MD, PHD [address] [place], [place] [address] Surgeon Neurosurgery 02/06/22 Calvin Lucero PA-C 175 [facility] [address] [place] [address] Specialist Neurosurgery 02/06/22 documented as of this encounter
--- OUTSIDE RECORDS SUMMARY | 2024-09-14 16:39 | XMS_ITS | Encounter Summary ---
Author Organization [employer] [facility] Address [address] [place] [address] Care Team Providers Care Cork Insulator Helper Name Role Phone Luna Andrew MD Primary Care Provider Keya Brito MD Primary Care Prov ider Montrell Lopez MD, PHD Unavailable Unava Calvin Garcia PA-C Unavailable Encounter Details Date Type Department Care Team Description 05/27/2017 Seat Coverer Report Medical Records [address] [place], [place] [id number] Osman Ledbetter MD Social History Tobacco Use [...] on filedocumented in this encounter Care Teams Cork Insulator Helper Relationship Specialty Start Date End Date Luna Andrew MD PCP - General Internal Medicine 08/11/11 12/23/21 Keya Jay MD [address] [place] [address] PCP - General Internal Medicine 12/24/21 Montrell Lopez MD, PHD [address] [place] [address] Surgeon Neurosurgery 02/06/22 Calvin Lucero PA-C [address] [place] [address] [address] [place] [address] Specialist Neurosurgery 02/06/22 documented as of this encounter
--- OUTSIDE RECORDS SUMMARY | 2024-09-14 16:39 | XMS_ITS | Encounter Summary ---
Author Organization [facility] Address [address] [place] [address] Care Team Providers Care Nitrating Acid Mixer Name Role Phone Keya Jay MD Primary Care Prov ider Montrell Lopez MD, PHD Unavailable Unava ilable Calvin Lucero PA-C Unavailable [phone] Encounter Details Date Type Department Care Team Description 02/20/2022 Orders Only [facility] Medical [place] [facility] Neurosurgery [place] [address] [phone] Calvin Lucero PA-C [address] [phone] Social History Tobacco Use Types Packs/Day Years [...] on filedocumented in this encounter Care Teams Nitrating Acid Mixer Relationship Specialty Start Date End Date Keya Jay MD [address] [place] [address] PCP - General Internal Medicine 12/24/21 Montrell Lopez MD, PHD [address] [place] [address] Surgeon Neurosurgery 02/06/22 Calvin Lucero PA-C 175 [facility] [address] [place] [address] Specialist Neurosurgery 02/06/22 documented as of this encounter
--- OUTSIDE RECORDS SUMMARY | 2024-09-14 16:39 | XMS_ITS | Encounter Summary ---
Author Organization [facility] Address [address] [place] [address] Care Team Providers Care Chief Design Drafter Name Role Phone Luna Andrew MD Primary Care Provider Keya Brito MD Primary Care Prov ider Montrell Lopez MD, PHD Unavailable Unava Calvin Garcia PA-C Unavailable [phone] Encounter Details Date Type Department Care Team Description 12/18/2021 Machinery Repair Maintenance Supervisor Report Medical Records [address] [place], [place] [phone] Javier Velasco Social History Tobacco Use Types [...] filedocumented in this encounter Care Teams Chief Design Drafter Relationship Specialty Start Date End Date Luna Andrew MD PCP - General Internal Medicine 08/11/11 12/23/21 Keya Jay MD [address] [place], [place] [phone] PCP - General Internal Medicine 12/24/21 Montrell Lopez MD, PHD [address] [place], [place] [phone] Surgeon Neurosurgery 02/06/22 Calvin Lucero PA-C 175 [facility] [address] [place] [address] Specialist Neurosurgery 02/06/22 documented as of this encounter
--- OUTSIDE RECORDS SUMMARY | 2024-09-14 16:39 | XMS_ITS | Encounter Summary ---
Author Organization [employer] [facility] Address [address] [place] [address] Care Team Providers Care Glue Clamp Operator Name Role Phone Luna Andrew MD Primary Care Provider Keya Brito MD Primary Care Prov ider Montrell Lopez MD, PHD Unavailable Unava Calvin Garcia PA-C Unavailable [phone] Encounter Details Date Type Department Care Team Description 03/11/2017 Transfer Records Medical Records [address] [place] [address] Social History Tobacco Use Types Packs/Day Years [...] on filedocumented in this encounter Care Teams Glue Clamp Operator Relationship Specialty Start Date End Date Luna Andrew MD PCP - General Internal Medicine 08/11/11 12/23/21 Keya Jay MD [address] [place] [address] PCP - General Internal Medicine 12/24/21 Montrell Lopez MD, PHD [address] [place] [address] Surgeon Neurosurgery 02/06/22 Calvin Lucero PA-C [address] [place] [address] 300 [place] [address] Specialist Neurosurgery 02/06/22 documented as of this encounter
--- OUTSIDE RECORDS SUMMARY | 2024-09-14 16:39 | XMS_ITS | Encounter Summary ---
Author Organization [employer] [facility] Address [address] [place] [address] Care Team Providers Care Manager Grant Name Role Phone Luna Andrew MD Primary Care Provider Keya Brito MD Primary Care Prov ider Montrell Lopez MD, PHD Unavailable Unava Calvin Garcia PA-C Unavailable [phone] Reason for Visit * Reason Onset Date Comments Faxed Order 04/27/2019 Encounter Details Date Type Department Care Team Description 04/27/2019 Telephone Adult [address] [address] Luna Andrew MD Faxed Order Social History Tobacco Use Types Packs/Day Years [...] encounter Miscellaneous Notes * Telephone Encounter - Radha Arriaga - 04/27/2019 1:03 PM EDT Received faxed orders from [facility] Orders to be signed dated and returned documented in this encounter Plan of Treatment Not on file documented as of this encounter Visit Diagnoses Not on filedocumented in this encounter Care Teams Manager Grant Relationship Specialty Start Date End Date Luna Andrew MD PCP - General Internal Medicine 08/11/11 12/23/21 Keya Jay MD [address] [place] [address] PCP - General Internal Medicine 12/24/21 Montrell Lopez MD, PHD [address] [place] [address] Surgeon Neurosurgery 02/06/22 Calvin Lucero PA-C [address] [place] [address] Specialist Neurosurgery 02/06/22 documented as of this encounter
--- OUTSIDE RECORDS SUMMARY | 2024-09-14 16:39 | XMS_ITS | Encounter Summary ---
Author Organization [facility] Address [address] [place] [address] Care Team Providers Care Continuous Improvement Manager Name Role Phone Luna Andrew MD Primary Care Provider Keya Brito MD Primary Care Prov ider Montrell Lopez MD, PHD Unavailable Unava Calvin Garcia PA-C Unavailable [phone] Encounter Details Date Type Department Care Team Description 09/11/2017 Tobacco Sweeper Report Medical Records [address] [place] [address] Social History Tobacco Use Types Packs/Day Years [...] on filedocumented in this encounter Care Teams Continuous Improvement Manager Relationship Specialty Start Date End Date Luna Andrew MD PCP - General Internal Medicine 08/11/11 12/23/21 Keya Jay MD [address] [place] [address] PCP - General Internal Medicine 12/24/21 Montrell Lopez MD, PHD [address] [place] [address] Surgeon Neurosurgery 02/06/22 Calvin Lucero PA-C [address] [place] [address] [address] [place] [address] Specialist Neurosurgery 02/06/22 documented as of this encounter
--- OUTSIDE RECORDS SUMMARY | 2024-09-14 16:39 | XMS_ITS | Encounter Summary ---
Author Organization [employer] [facility] Address [address] [place] [address] Care Team Providers Care Insurance Application Investigator Name Role Phone Keya Jay MD Primary Care Prov ider Montrell Lopez MD, PHD Unavailable Unava Calvin Garcia PA-C Unavailable [phone] Reason for Visit * Reason Comments E-prescribe Rx Request Encounter Details Date Type Department Care Team Description 03/22/2022 Refill Adult Medicine [address] [address] Shelly Montgomery PA [address] [place] [address] E-prescribe Rx Request Social History Tobacco Use [...] Telephone Encounter - Neisha Licona M.A. - 03/27/2022 2:07 PM EDT Lab Results Component Value Date NA 139 09/07/2015 K 4.2 09/07/2015 CO2 27.7 09/07/2015 CL 100 09/07/2015 BUN 10 09/07/2015 CREAT 0.8 09/07/2015 GLU 103 10/20/2006 CA 8.9 09/07/2015 GFR > 60 09/07/2015 MADAY 12/25/21 - Shazia Goldberg- GUME f/u NOV 04/28/22 - Dr. Coleman- ABDI to PCP No h/o of CKD, outside labs scanned into EMR from 12/09/21. * Telephone Encounter - Marguerite Parisi - 03/26/2022 2:09 PM EDT Patient would like script to be: E-PRESCRIBED/FAXED TO PHARMACY WHEN WAS THE PATIENT'S LAST APPOINTMENT IN ADULT MEDICINE? 12/25/21 WHEN WAS THE LAST TIME THE PATIENT SAW THEIR PCP? Never seen pcp Does patient have an upcoming appointment? Yes 04/28/22 (THE MEDICATION REQUESTED IS ON THE MED [...] N/A Patients current insurance carrier is: Payor: [employer] [place] / Plan: PPO $20 [employer] [id number] / Product Type: PPO [id number] documented in this encounter Plan of Treatment Not on file documented as of this encounter Visit Diagnoses Not on filedocumented in this encounter Care Teams Insurance Application Investigator Relationship Specialty Start Date End Date Keya Jay MD [address] [place] [address] PCP - General Internal Medicine 12/24/21 Montrell Lopez MD, PHD [address] [place] [address] Surgeon Neurosurgery 02/06/22 Calvin Lucero PA-C [address] [place] [address] Specialist Neurosurgery 02/06/22 documented as of this encounter
--- OUTSIDE RECORDS SUMMARY | 2024-09-14 16:39 | XMS_ITS | Encounter Summary ---
Author Organization [facility] Address [address] [place] [address] Care Team Providers Care Pest Control Specialist Name Role Phone Luna Andrew MD Primary Care Provider Keya Brito MD Primary Care Prov ider Montrell Lopez MD, PHD Unavailable Unava Calvin Garcia PA-C Unavailable [phone] Reason for Visit * Reason Onset Date Comments Emg 02/13/2021 f/u call EMG arsalan elizabeth at [facility] Encounter Details Date Type Department Care Team Description 02/13/2021 Telephone [facility] Medical [facility] [address] [phone] Radha Crystal PA-C [address] [place] [address] Emg (f/u call EMG booked at [facility] ) Social History Tobacco Use Types Packs/Day [...] Miscellaneous Notes * Telephone Encounter - Per Spencer - 02/13/2021 10:00 AM EDT Patient aware her nerve test is scheduled at [facility] for , 04/04/21 at 9:30am. Someone from central scheduling will call patient to pre-register. documented in this encounter Plan of Treatment Not on file documented as of this encounter Visit Diagnoses Not on filedocumented in this encounter Care Teams Pest Control Specialist Relationship Specialty Start Date End Date Luna Andrew MD PCP - General Internal Medicine 08/11/11 12/23/21 Keya Jay MD [address] [place] [address] PCP - General Internal Medicine 12/24/21 Montrell Lopez MD, PHD [address] [place] [address] Surgeon Neurosurgery 02/06/22 Calvin Lucero PA-C 175 [facility] [address] [place] [address] Specialist Neurosurgery 02/06/22 documented as of this encounter
--- OUTSIDE RECORDS SUMMARY | 2024-09-14 16:39 | XMS_ITS | Encounter Summary ---
Author Organization [employer] Address [address] [place] [address] Care Team Providers Care Sweet Dough Mixer Name Role Phone Luna Andrew MD Primary Care Provider Keya Brito MD Primary Care Prov ider Montrell Lopez MD, PHD Unavailable Unava Calvin Garcia PA-C Unavailable [phone] Encounter Details Date Type Department Care Team Description 02/10/2017 Meat Hostess Report Medical Records [address] [place], [place] [phone] Micheal Telles Social History Tobacco Use Types [...] on filedocumented in this encounter Care Teams Sweet Dough Mixer Relationship Specialty Start Date End Date Luna Andrew MD PCP - General Internal Medicine 08/11/11 12/23/21 Keya Jay MD [address] [place], [place] [phone] PCP - General Internal Medicine 12/24/21 Montrell Lopez MD, PHD [address] [place], [place] [phone] Surgeon Neurosurgery 02/06/22 Calvin Lucero PA-C 175 [facility] [address] [place] [address] Specialist Neurosurgery 02/06/22 documented as of this encounter
== END 2024-09-14 07:57 | disposition home or self-care (01) ==
LOC: HO.LNP 07:56
PROVIDERS: Visit Provider Physician Assistant
DX: R09.89 Other specified symptoms and signs involving the circulatory and respiratory systems (principal)
CPT/HCPCS: 0241U

== ENCOUNTER 2025-03-09 10:15 | Outpatient (AMB) | payer OTHER, SELFPAY ==
--- OUTSIDE RECORDS SUMMARY | 2024-11-14 10:30 | XMS_ITS ---
Author Organization [facility] [address] Address [address] [place] [address] Care Team Providers Care Operations Processor Name Role Phone [facility] Primary Car e Provider Unavailable ALIRIO SANCHES Unavailable [phone] REASON FOR VISIT a1c Encounters Encounter Location Date Provider Diagnosis [facility] [address] [address] 11/14/2024 ALIRIO SANCHES Plan Of Treatment No Information Progress Notes * Micky JONESB: [birth year] (59 yo F)Acc No.[id number]:11/14/2024 Patient: Jyoti STALEYtza Provider: Jemma SANCHES PA-C :1965 A ge:59 Y S ex:Female Date:11/14/2024 Address:[address] [place] [id number] Pcp:[facility] Subjective: * Chief Complaints: * 1 . A1c. * Medical History: Objective: * Vitals: Assessment: Plan: * Treatment: * Images: Billing Information: * Visit Code: * Procedure Codes: * Electronic signature of HERNÁN SANCHES PA-C on 03/09/2025 at 11:45 AM EDT Sign off status: Pending * Provider: Jemma SANCHES PA-C Date: 11/14/2024 Generated for Printi ng/Faxing/eTransmitting on: 0 03/09/2025 11:45 AM EDT
[2025-03-09 10:18] VITALS: BP 116/74
--- NOTE | 2025-03-09 10:18 | A.OFFVIS_ITS ---
Vital Signs 03/09/25 10:18 Height 5 ft 1 in BP 116/74 Intake Visit Reasons: Menopause Edi Architect: Edi Architect Present Allergies shellfish derived Allergy (Severe, Verified 03/09/25 10:18) Anaphylaxis gluten Allergy (Intermediate, Verified 03/09/25 10:18) Diarrhea lactose Allergy (Intermediate, Verified 03/09/25 10:18) Diarrhea evolocumab (From Repatha SureClick) Adverse Reaction (Intermediate, Verified 03/09/25 10:18) Abdominal Pain Is last menstrual period known: Yes HPI Comments Details: Patient is here today with concerns for night sweats and flashes. Menopausal since age 54. History of hysterectomy for noncancerous purposes. Patient reports a recent mammogram at [facility] with BI-RADS 2 benign results per patient portal view today. [facility] Medical History BRCA negative History of ovarian cancer BMI 37.0-37.9, adult Back pain Sleep apnea with use of continuous positive airway pressure (CPAP) BMI 36.0-36.9,adult Obesity JAIRO (obstructive sleep apnea) History of kidney stones Hyperlipidemia Family history of early CAD Spondylosis of cervical spine with radiculopathy Degeneration, intervertebral disc, cervical Surgical History History of right oophorectomy History of hysterectomy, supracervical History of esophagogastroduodenoscopy (EGD) (~2019) History of colonoscopy (~2017) History of left oophorectomy History of cystoscopy (~2016) History of lithotripsy (~2017) History of cervical spinal surgery (~2019) History of bilateral inguinal hernia repair (~2018) Family History Maternal Aunt Breast cancer Maternal Aunt Stomach cancer Maternal Aunt Ovarian cancer Maternal Uncle Throat cancer Father Alzheimer disease Diabetes Brother COPD (chronic obstructive pulmonary disease) Diabetes Son HTN (hypertension) Maternal Uncle Prostate cancer Sister CAD, multiple vessel Son No problems noted. Son No problems noted. 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 Female Reproductive History Menstrual Age of Menarche: 15 Review of Systems Const All systems reviewed & are unremarkable except as noted in HPI and below Endo Reports no additional complaints Physical Exam Vital Signs: Last Vital Signs BP 116/74 03/09/25 10:18 Const General: cooperative, healthy appearing and no acute distress Psych Appearance: well kempt Attitude: cooperative Thought process: Normal thought process present Assessment & Plan Assessment & Plan (1) Hot flashes: Code(s): R23.2 - Flushing Plan Counseled regarding treatment for hot flashes, including options for gabapentin, SSRI's, other medications including HRT. She opts to have HRT, reviewed medication, side effects, risks, benefits, and use. Rx to be sent into pharmacy and a follow up scheduled appointment 2 months. The patient expressed understanding and agreement with the plan of care. All of her questions and c oncerns were addressed to the best of my ability. Total time I personally spent on visit and management today: ?30 minutes. Time spent included review of pertinent office notes in the electronic health record; review of laboratory and imaging results; review of personal family medical history; performing physical exam; discussing diagnosis and plan of care with the patient; documenting the encounter in the EMR. This note is constructed using voice recognition software. While every effort has been made to ensure accuracy, ultrasound coordinator errors may have been included. Medications: New estradiol (Vivelle-Dot) apply 1 patch for 3 days alternating with 1 patch for 4 days each week for 3 wks per 4-wk cycle 1 patch transdermal 2XW 8 ea 2RF Coding Level of Care Code Est Pt Level 3 (52561) Diagnoses Hot flashes R23.2
--- OUTSIDE RECORDS SUMMARY | 2025-03-09 11:45 | XMS_ITS | Clinical Summary ---
Author Organization [address] Address [address] [place] [phone] Phone Care Team Providers Care Float Tender Name Role Phone Keya Glass MD Primary [...] (08/18/2024 3:01 PM EST): Recent labs at [facility] on the range of prediabetes. Patient [...] Encounters Date Type Department Care Team Description 03/09/2025 Telephone Adult Medicine [address] [phone] Keya Block MD 03/09/2025 Telephone Adult Medicine [address] [phone] Keya Block MD Referral 02/25/2025 12:53 PM EDT - 02/25/2025 11:59 PM EDT Hospital Encounter Radiology Department - [address] [phone] Encounter for screening mammogram for breast cancer Discharge Disposition: Home or Self Care 01/17/2025 8:45 AM EDT - 01/17/2025 11:59 PM EDT Hospital Encounter XRAY - [address] [phone] Pain in left hand Discharge Disposition: Home or Self Care from Last 3 Months Immunizations Name Administration Dates Next Due Influenza Quadravalent, MDCK , 0.5ml, preservative free (Flucelvax) 6mo and older 04/11/2018 Influenza Quadravalent, MDCK , 0.5ml, with preservative (Flucelvax) 6mo and older 03/24/2021,04/27/2019,04/12/2017 Influenza trivalent, with preservative (Fluzone; Afluria) 6mo and older 05/12/2016 Influenza, Unspecified 03/26/2024,2022,03/21/2022,2018,05/12/2016 ILD T[employer]ices SARS-CoV-2 COVID-19, mRNA, LNP-S, preservative free 04/23/2021,08/02/2020,07/11/2020 Tdap Tetanus diptheria acell ular pertussis (Boostrix; Adacel) 7yo and older 07/29/2022,05/09/2022,10/13/2011 Zoster recombinant (Shingrix ) 19yo and older 10/22/2022,06/06/2022 Surgical History Surgery Date Site/Laterality Comments OOPHORECTOMY 1991, 2016 Bilateral PROCEDURE: HISTORICAL OOPHORECTOMY; COMMENT: robotic laparoscopic - 2016 benign serous cystadenoma OTHER SURGICAL HISTORY 04/2011 PROCEDURE: HISTORICAL SUPRACERVICAL HYSTERECTOMY W/O BSO; COMMENT: one ovary remains ESOPHAGOGASTRODUODENOSCOPY 05/28/2012 PROCEDURE: ME ESOPHAGOGASTRODUODENOSCOPY TRANSORAL DIAGNOSTIC; COMMENT: normal BREAST LUMPECTOMY 2007 Left PROCEDURE: HISTORICAL BREAST LUMPECTOMY; COMMENT: neg HERNIA REPAIR 05/2018 PROCEDURE: HISTORICAL HERNIA REPAIR/ING; COMMENT: with a mesh OTHER SURGICAL HISTORY 2004 PROCEDURE: ME HYSTEROSCOPY ENDOMETRIAL ABLATION OTHER SURGICAL HISTORY 2003 [...] COMMENT: righ side removed, benign Ovarian cancer (CMS/HCC V24, CMS/HCC V28) 1991 DX:Ovarian cancer (HCC); COM MENT: left ovary removed and chemo at [facility], BRCA negative, had genetic counseling [...] Record ed Within the last 3 months, cale thomas many times did you visit the emergency [...] your loved ones. For example, child care giver or elderly care for an older adult? [...] 92 08/18/2024 2:13 PM EST Temperature 36.6 C (97.9 F) 08/18/2024 2:13 PM EST Respiratory Rate 16 08/18/2024 2:13 PM EST Oxygen Saturation - - Inhaled Oxygen Concentration - - Weight 88.8 kg (195 lb 12.8 oz) 08/18/2024 2:13 PM EST Height 154.9 cm (5' 1 ) 05/31/2024 1:59 PM EST Body Mass Index 37 05/31/2024 1:59 PM EST Plan of Treatment Upcoming Encounters Date Type Department Care Team (Late st Contact Info) Description 06/01/2025 3:00 PM EST Office Visit Adult Medicine [address] [phone] Keya Glass MD [address] [place] [phone] Health Maintenance Due Date Last Done Comments Cervical Cancer Screening: Pap Smear 08/20/2021 08/20/2018, 08/20/2018, 08/20/2018 HIV Screening 06/28/2022 Depression Screening 07/20/2024 05/31/2024 COVID-19 Vaccine (8 - Pfizer risk season) 2024 03/26/2024, 04/22/2023, 05/23/2022, Additional history exists Influenza Vaccine (#1) 2025 , 03/27/2023, 03/21/2022, Additional history exists Social Influencers of Health Screening 05/31/2025 05/31/2024 Breast Cancer Screening 02/25/2026 02/26/20 25, 02/20/2024, 02/20/2024, Additional history exists Colorectal Cancer Screening: Colonoscopy 06/03/2027 06/03/2017 Cholesterol Screening (Lipid Panel) 06/16/2027 06/16/2022 DTaP,Tdap,and Td Vaccines (4 - Td or Tdap) 07/29/2032 07/29/2022, 05/09/2022, 10/13/2011 Hepatitis C Screening Completed 09/23/2016 Zoster Vaccines Completed 10/22/2022, 07/20, 06/06/2022 Pneumococcal Vaccine: 50+ Years Completed 02/28/2024 Hepatitis B Vaccines Completed 03/31/2024, 02/28/20 24 [...] age to complete this topic Meningococcal B Vaccine Aged Out No l onger eligible based on patient's age to complete this topic RSV Immunization Patients Under 20 months Aged Out No longer eligible based on patient's age to complete this topic Varicella Vaccines Aged Out No longer eligible based on patient's age to complete this topic Procedures Procedure Name Priority Date/Time Associated Diagnosis Comments MG MAMMO DIGITAL SCREENING W DANY BILAT Routine 02/25/2025 1:04 PM EDT Encounter for screening mammogram for breast cancer XR HAND 3+ VIEWS LEFT Routine 01/17/2025 9:09 AM EDT Pain in left hand LIPID PANEL Routine 06/16/2022 PAP SMEAR Routine 08/20/2018 HM COLONOSCOPY Routine 06/03/2017 HEPATITIS C SCREENING Routine 09/23/2016 from Last 3 Months or Most Recently Relevant to Health Maintenance Results * MG Mammo Digital Screening w Dany bilat (02/25/2025 1:04 PM EDT) Anatomical Region Laterality Modality Breast Bilateral Mammography 02/28/2025 2:13 PM EDT Impressions 02/28/2025 2:39 PM EDT 1. No mammographic evidence of malignancy 2. Scattered fibroglandular tissue BI-RADS CATEGORY: 2 - BENIGN RECOMMENDATION: Screening bilateral mammogram is recommended in 1 year. Mammo Location: [facility], [address] [place] [address], [id number], . -------- FINAL REPORT -------- Dictated By: Janeth Rudd Dictated Date: 02/28/2025 14:13 ET Assigned Physician: Janeth Rudd Reviewed and Electronically Signed By: Janeth Rudd Signed Date: 02/28/2025 14:39 ET Workstation ID: [id number] Transcribed By: Self Edit Transcribed Date: 02/28/2025 14:13 ET Narrative 02/28/2025 2:39 PM EDT A BILATERAL DIGITAL 3D SCREENING MAMMOGRAPHY HISTORY: Routine screening. Family history of breast cancer in mother and aunt COMPARISON: Multiple priors dating back to 01/05/2021 Technique: Bilateral full field digital mammography (3D) was performed using standard CC and MLO projections CAD was used to evaluate this mammogram. FINDINGS: Right: No suspicious masses, groups of microcalcification or areas of architectural distortion identified. Stable typically benign parenchymal asymmetries. Left: No suspicious masses, groups of microcalcification or areas of architectural distortion identified. Stable typically benign parenchymal asymmetries. BREAST DENSITY: B - There are scattered areas of fibroglandular density. Procedure Note Janeth Rudd MD - 02/28/2025 A BILATERAL DIGITAL 3D SCREENING MAMMOGRAPHY HISTORY: Routine screening. Family history of breast cancer in mother andaunt COMPARISON: Multiple priors dating back to 01/05/2021 Technique: Bilateral full field digital mammography (3D) was performedusing standard CC and MLO projections CAD was used to evaluate this mammogram. FINDINGS: Right: No suspicious masses, groups of microcalcification or areas ofarchitectural distortion identified. Stable typically benign parenchymalasymmetries. Left: No suspicious masses, groups of microcalcification or areas ofarchitectural distortion identified. Stable typically benign parenchymalasymmetries. BREAST DENSITY: B - There are scattered areas of fibroglandular density. IMPRESSION: 1. No mammographic evidence of malignancy 2. Scattered fibroglandular tissue BI-RADS CATEGORY: 2 - BENIGN RECOMMENDATION: Screening bilateral mammogram is recommended in 1 year. Mammo Location: [facility], [address] [place] [address], [id number], . -------- FINAL REPORT -------- Dictated By: Janeth Rudd Dictated Date: 02/28/2025 14:13 ET Assigned Physician: Janeth Rudd Reviewed and Electronically Signed By: aJneth Rudd Signed Date: 02/28/2025 14:39 ET Workstation ID: [id number] Transcribed By: Self Edit Transcribed Date: 02/28/2025 14:13 ET us Keya Glass MD IMG BI PROCEDURES Final Result * XR Hand 3+ Views Left (01/17/2025 9:09 AM EDT) Anatomical Region Laterality Modality Upper Extremities, Hand Left Radiogra phic Imaging 01/17/2025 6:30 PM EDT Impressions 01/17/2025 6:33 PM EDT Minimal degenerative changes. POS - [id number] -------- FINAL REPORT -------- Dictated By: Rosanna Lloyd Dictated Date: 01/17/2025 18:30 ET Assigned Physician: Rosanna Lloyd Reviewed and Electronically Signed By: Rosanna Lloyd Signed Date: 01/17/2025 18:33 ET Workstation ID: [id number] Transcribed By: Self Edit Transcribed Date: 01/17/2025 18:30 ET Narrative 01/17/2025 6:33 PM EDT EXAM: Left hand x-ray HISTORY: Left hand pain. COMPARISON: None FINDINGS: 3 views were performed. No evidence of an acute fracture or malalignment. Joint spaces are maintained. Minimal spurring at the IP and first CMC joints. No destructive bone lesion. No erosions identified. No soft tissue calcifications. Procedure Note Rosanna Lloyd MD - 01/17/2025 EXAM: Left hand x-ray HISTORY: Left hand pain. COMPARISON: None FINDINGS: 3 views were performed. No evidence of an acute fracture or malalignment. Joint spaces aremaintained. Minimal spurring at the IP and first CMC joints. Nodestructive bone lesion. No erosions identified. No soft tissuecalcifications. IMPRESSION: Minimal degenerative changes. POS - [id number] -------- FINAL REPORT -------- Dictated By: Rosanna Lloyd Dictated Date: 01/17/2025 18:30 ET Assigned Physician: Rosanna Lloyd Reviewed and Electronically Signed By: Rosanna Lloyd Signed Date: 01/17/2025 18:33 ET Workstation ID: [id number] Transcribed By: Self Edit Transcribed Date: 01/17/2025 18:30 ET John WINTERS IMG XR PROCEDURES Final Result * (ABNORMAL) Lipid panel (06/16/2022) Triglycerides 177(A) <=150 mg/dL Cholesterol 185 <=200 mg/dL HDL 59 >=40 mg/dL LDL Cholesterol 91 <=100 mg/dL Blood Venous blood specimen / Unknown Historical Provider MD LAB BLOOD ORDERABLES Karla l Result * Pap smear (08/20/2018) 08/20/2018 Narrative HISTORICAL TESTING LAB RESULTING AGENCY - 08/25/2018 2:31 PM EST [id number] THINPREP PAP, IMAGED: NEGATIVE FOR SQUAMOUS INTRAEPITHELIAL LESION AND MALIGNANCY . VIDAL MITCHELL , PITA(ASCP) (CASE ELECTRONICALLY SIGNED 08 25 2018) RESULT OF APTIMA HIGH RISK HPV ASSAY: HIGH RISK HPV: NEGATIVE (SEROTYPES 16,18,31,33,35,39,45,51,52,56,58,59,66,68) COMPLETED ON 2018-08-24 ADEQUACY: SATISFACTORY ENDOCERVICAL/TRANSFORMATION ZONE COMPONENT PRESENT. SOURCE: THINPREP PAP HPV ANY DX: REFLEX 16 AND 18, CERVICAL, IMAGED CLINICAL INFORMATION: HPV ANY DIAGNOSIS. Z12.4, Z01.419, PAP HX: POSITIVE ASCUS 09/2016 HPV NEG Nikki Lobo CNM LAB CYTOLOGY ORDERABLES Final R esult HISTORICAL TESTING LAB RESULTING AGENCY * Colonoscopy (06/03/2017) Colonoscopy no interpretation , abstracted Anatomical Region Laterality Modality Other Historical Provider HEALTH MAINTENANCE Final Result * Hepatitis C Screening (09/23/2016) Pathologist [facility] Hepatitis C Screening abstracted Historical Provider HEALTH MAINTENANCE Final Result from Last 3 Months or Most Recently Relevant to Health Maintenance Insurance [employer] [facility] Care Teams Float Tender Relationship Specialty Start Date End Date Keya Glass MD [address] [place] [address] [phone] PCP - General Internal Medicine 08/15/24
== END 2025-03-09 10:53 | disposition home or self-care (01) ==
LOC: HO.HWS 10:15
PROVIDERS: PCP Internal Medicine; Visit Provider Advanced Practice Midwife
DX: R23.2 Flushing (principal)
CPT/HCPCS: 99213

== ENCOUNTER 2025-05-17 14:40 | Outpatient (AMB) | payer OTHER, SELFPAY ==
--- OUTSIDE RECORDS SUMMARY | 2024-10-19 11:00 | XMS_ITS ---
Author Organization [facility] [address] Address [address] [place] [address] Care Team Providers Care Kitchen Worker Name Role Phone [employer] [facility] Primary Car e Provider Unavailable ALIRIO SANCHES Unavailable [phone] DEBBIE VAUGHN Unavailable [phone] REASON FOR VISIT 5.0 tirz given i llq pt tolerated well Medications Medication SIG (Take, Route, Frequency, Duration) Notes Start Date End Date Status Rosuvastatin Calcium 40 MG Oral; Duration: 90 Days Active Zepbound 2.5 MG/0.5ML Inject 2.5mg Subcu taneous weekly; Duration: 30 days 09/07/2024 Active Encounters Encounter Location Date Provider Diagnosis [facility] [address] [address] 10/19/2024 DEBBIE VAUGHN Plan Of Treatment Next Appt Details Provider Name:ALIRIO NARANJO Ebenezer, 05/29/2025 03:30:00 PM, [address] [facility] [address], [place], [address], Medications Administered Medication Instructions Date of Administration Dosage Notes Tirzepatide 10/19/2024 5 mL Progress Notes * Micky JONESB: 9[birth year] (60 yo F)Acc No.[id number]:10/19/2024 Patient: Jyoti STALEYtza Provider: Twan VAUGHN NP :1965 A ge:59 Y S ex:Female Date:10/19/2024 Address:[address] [place] [address] Pcp:[facility] Subjective: * Chief Complaints: * 1 . 5.0 tirz given i llq pt tolerated well. * Medical History: * Medications: T aking Rosuvastatin Calcium 40 MG Tablet Oral , Taking Zepbound 2.5 MG/0.5ML Solution Auto-injector Inject 2.5mg Subcutaneous weekly Objective: * Vitals: Assessment: Plan: * Treatment: * Therapeutic Injections: Tirzepatide : 5 mL (Route: Subcutaneous) given by Korina Martinez on subcutaneus * Images: Billing Information: * Visit Code: * Procedure Codes: * Electronic signature of TRINI VAUGHN on 05/17/2025 at 07:05 PM EDT Sign off status: Pending * Provider: Twan VAUGHN NP Date: 0 10/19/2024 Generated for Ruby phillips/Jessie/Jose Martin on: 1 07:05 PM EDT
--- OUTSIDE RECORDS SUMMARY | 2024-10-27 11:00 | XMS_ITS ---
Author Organization [facility] [address] Address [address] [place] [address] Care Team Providers Care Conservation Of Resources Commissioner Name Role Phone [facility] Primary Car e Provider Unavailable ALIRIO SANCHES Unavailable [phone] DEBBIE VAUGHN Unavailable [phone] REASON FOR VISIT 2.5 Encounters Encounter Location Date Provider Diagnosis [facility] [address] 299 [facility] [address] [place] [address] 10/27/2024 DEBBIE VAUGHN Plan Of Treatment Next Appt Details Provider Name:ALIRIO JOSE A Ebenezer, 05/29/2025 03:30:00 PM, [address], [address], [place], [address], Progress Notes * Micky JONESB: 9[birth year] (60 yo F)Acc No.[id number]:10/27/2024 Patient: Yamel Roxie JOHNSON Provider: Twan VAUGHN NP :1965 A ge:59 Y S ex:Female Date:10/27/2024 Address:[address] [place] [address] Pcp:[facility] Subjective: * Chief Complaints: * 1 . 2.5. * Medical History: Objective: * Vitals: Assessment: Plan: * Treatment: * Images: Billing Information: * Visit Code: * Procedure Codes: * Electronic signature of TRINI VAUGHN on 05/17/2025 at 07:04 PM EDT Sign off status: Pending * Provider: Twan VAUGHN NP Date: 0 10/27/2024 Generated for Ruby phillips/Jessie/Jose Martin on: 1 07:04 PM EDT
--- OUTSIDE RECORDS SUMMARY | 2024-11-03 11:00 | XMS_ITS ---
Author Organization [facility] [address] Address [address] [place] [address] Care Team Providers Care Patient Relations Director Name Role Phone [facility] Primary Car e Provider Unavailable ALIRIO SACNHES Unavailable [phone] DEBBIE VAUGHN Unavailable [phone] REASON FOR VISIT 2.5 Encounters Encounter Location Date Provider Diagnosis [facility] [address] 299 [facility] [address] [place] [address] 11/03/2024 DEBBIE VAUGHN Plan Of Treatment Next Appt Details Provider Name:ALIRIO JOSE A Ebenezer, 05/29/2025 03:30:00 PM, [address], [address], [place], [address], Progress Notes * Micky JONESB: 9[birth year] (60 yo F)Acc No.[id number]:11/03/2024 Patient: Yamel Roxie JOHNSON Provider: Twan VAUGHN NP :1965 A ge:59 Y S ex:Female Date:11/03/2024 Address:[address] [place] [address] Pcp:[facility] Subjective: * Chief Complaints: * 1 . 2.5. * Medical History: Objective: * Vitals: Assessment: Plan: * Treatment: * Images: Billing Information: * Visit Code: * Procedure Codes: * Electronic signature of TRINI VAUGHN on 05/17/2025 at 07:03 PM EDT Sign off status: Pending * Provider: Twan VAUGHN NP Date: 0 11/03/2024 Generated for Ruby phillips/Jessie/Jose Martin on: 1 07:03 PM EDT
--- OUTSIDE RECORDS SUMMARY | 2024-11-10 11:00 | XMS_ITS ---
Author Organization [facility] [address] Address [address] [place] [address] Care Team Providers Care Principal Systems Architect Name Role Phone [facility] Primary Car e Provider Unavailable ALIRIO SANCHES Unavailable [phone] DEBBIE VAUGHN Unavailable [phone] REASON FOR VISIT 2.5 Encounters Encounter Location Date Provider Diagnosis [facility] [address] [facility] [address] [place] [address] 11/10/2024 DEBBIE VAUGHN Plan Of Treatment Next Appt Details Provider Name:ALIRIO JOSE A Ebenezer, 05/29/2025 03:30:00 PM, [address], [address], [place], [address], Progress Notes * Micky JONESB: 9[birth year] (60 yo F)Acc No.[id number]:11/10/2024 Patient: Yamel Roxie JOHNSON Provider: Twan VAUGHN NP :1965 A ge:59 Y S ex:Female Date:11/10/2024 Address:[address] [place] [address] Pcp:[facility] Subjective: * Chief Complaints: * 1 . 2.5. * Medical History: Objective: * Vitals: Assessment: Plan: * Treatment: * Images: Billing Information: * Visit Code: * Procedure Codes: * Electronic signature of TRINI VAUGHN on 05/17/2025 at 07:04 PM EDT Sign off status: Pending * Provider: Twan VAUGHN NP Date: 0 11/10/2024 Generated for Ruby phillips/Jessie/Jose Martin on: 1 07:04 PM EDT
--- OUTSIDE RECORDS SUMMARY | 2024-11-14 10:30 | XMS_ITS ---
Author Organization [facility] [address] Address [address] [place] [address] Care Team Providers Care Community Living Coach Name Role Phone [facility] Primary Car e Provider Unavailable ALIRIO SANCHES [phone] REASON FOR VISIT a1c Encounters Encounter Location Date Provider Diagnosis [facility] [address] [place] [address] 11/14/2024 ALIRIO SANCHES Plan Of Treatment Next Appt Details Provider Name:ALIRIO Sol, 05/29/2025 03:30:00 PM, [address], [address], [place], [address], Progress Notes * Micky JONESB: 967 (60 yo F)Acc No.[id number]:11/14/2024 Patient: Roxie STALEY Provider: Jemma SANCHES PA-C :1965 A ge:59 Y S ex:Female Date:11/14/2024 Address:[address] [place] [address] Pcp:[facility] Subjective: * Chief Complaints: * 1 . A1c. * Medical History: Objective: * Vitals: Assessment: Plan: * Treatment: * Images: Billing Information: * Visit Code: * Procedure Codes: * Electronic signature of HERNÁN SANCHES PA-C on 05/17/2025 at 07:04 PM EDT Sign off status: Pending * Provider: Jemma SANCHES PA-C Date: 0 11/14/2024 Generated for Ruby phillips/Jesise/Ijeomaitting on: 1 07:04 PM EDT
--- OUTSIDE RECORDS SUMMARY | 2024-11-17 11:00 | XMS_ITS ---
Author Organization [facility] [address] Address [address] [place] [address] Care Team Providers Care Bottom Saw Operator Name Role Phone [facility] Primary Car e Provider Unavailable ALIRIO SANCHES Unavailable [phone] DEBBIE VAUGHN Unavailable [phone] REASON FOR VISIT 2.5 Encounters Encounter Location Date Provider Diagnosis [facility] [address] [facility] [address] [place] [address] 11/17/2024 DEBBIE VAUGHN Plan Of Treatment Next Appt Details Provider Name:ALIRIO JOSE A Ebenezer, 05/29/2025 03:30:00 PM, [address], [address], [place], [address], Progress Notes * Micky JONESB: [birth year] (60 yo F)Acc No.[id number]:11/17/2024 Patient: Yamel Roxie JOHNSON Provider: Twan VAUGHN NP :1965 A ge:59 Y S ex:Female Date:11/17/2024 Address:[address] [place] [address] Pcp:[facility] Subjective: * Chief Complaints: * 1 . 2.5. * Medical History: Objective: * Vitals: Assessment: Plan: * Treatment: * Images: Billing Information: * Visit Code: * Procedure Codes: * Electronic signature of TRINI VAUGHN on 05/17/2025 at 07:04 PM EDT Sign off status: Pending * Provider: Twan VAUGHN NP Date: 0 11/17/2024 Generated for Ruby phillips/Jessie/Jose Martin on: 1 07:04 PM EDT
--- OUTSIDE RECORDS SUMMARY | 2025-03-09 11:15 | XMS_ITS ---
Author Organization [facility] [address] Address [address] [place] [address] Care Team Providers Care Stuffed Casing Tier Name Role Phone [facility] Primary Car e Provider Unavailable ALIRIO SANCHES Unavailable [phone] DEBBIE VAUGHN Unavailable [phone] REASON FOR VISIT 2.5mg Encounters Encounter Location Date Provider Diagnosis [facility] [address] [facility] [address] [place] [address] 03/09/2025 DEBBIE VAUGHN Plan Of Treatment Next Appt Details Provider Name:ALIRIO Sol, 05/29/2025 03:30:00 PM, [address], [address], [place], [address], Progress Notes * Micky JONESB: [birth year] (60 yo F)Acc No.[id number]:03/09/2025 Patient: Yamel Roxie JOHNSON Provider: Twan VAUGHN NP :1965 A ge:59 Y S ex:Female Date:03/09/2025 Address:[address] [place] [address] Pcp:[facility] Subjective: * Chief Complaints: * 1 . 2.5mg. * Medical History: Objective: * Vitals: Assessment: Plan: * Treatment: * Images: Billing Information: * Visit Code: * Procedure Codes: * Electronic signature of TRINI VAUGHN on 05/17/2025 at 07:04 PM EDT Sign off status: Pending * Provider: Twan VAUGHN NP Date: 0 03/09/2025 Generated for Ruby phillips/Jessie/Jose Martin on: 1 07:04 PM EDT
--- NOTE | 2025-05-17 14:45 | A.OFFVIS_ITS ---
Vital Signs 05/17/25 14:47 Height 5 ft 1 in Weight 184 lb BMI 34.8 BP 110/70 Intake Visit Reasons: med check Customer Support Analyst: Customer Support Analyst Present Allergies shellfish derived Allergy (Severe, Verified 05/17/25 14:45) Anaphylaxis gluten Allergy (Intermediate, Verified 05/17/25 14:45) Diarrhea lactose Allergy (Intermediate, Verified 05/17/25 14:45) Diarrhea evolocumab (From Repatha SureClick) Adverse Reaction (Intermediate, Verified 05/17/25 14:45) Abdominal Pain Is last menstrual period known: Yes HPI Comments Details: Patient is here today for a follow up on her estrogen patch. Discussed details regarding ovarian precancer found at her ectopic surgery years ago, subsequently had a hysterectomy for AUB and the 2nd ovary was removed during that surgery. She then had used estrogen patches for a while and discontinued between providers. Family history of first-degree relative with breast cancer. BRCA negative. She reports having abdominal pain due to hernia that was diagnosed when she was in bariatric care. At this time she would like to have it looked at due to it impairing her ability to exercise and with movement. COUNTS INCLUDE 234 BEDS AT THE [facility] Medical History (Updated 05/17/25 @ 15:34 by Spring Reid CNM) FH: breast cancer in first degree relative BRCA negative History of ovarian cancer BMI 37.0-37.9, adult Back pain Sleep apnea with use of continuous positive airway pressure (CPAP) BMI 36.0-36.9,adult Obesity JAIRO (obstructive sleep apnea) History of kidney stones Hyperlipidemia Family history of early CAD Spondylosis of cervical spine with radiculopathy Degeneration, intervertebral disc, cervical Surgical History History of right oophorectomy History of hysterectomy, supracervical History of esophagogastroduodenoscopy (EGD) (~2019) History of colonoscopy (~2016) History of left oophorectomy History of cystoscopy (~2015) History of lithotripsy (~2017) History of cervical spinal surgery (~2018) History of bilateral inguinal hernia repair (~2018) Family History Maternal Aunt Breast cancer Maternal Aunt Stomach cancer Maternal Aunt Ovarian cancer Maternal Uncle Throat cancer Father Alzheimer disease Diabetes Brother COPD (chronic obstructive pulmonary disease) Diabetes Son HTN (hypertension) Maternal Uncle Prostate cancer Sister CAD, multiple vessel Son No problems noted. Son No problems noted. Mother Breast cancer Social History Household Members: Significant Other Housing: House Are you a primary youth care professional to a significant other at home: No Do you presently have visiting nurse or other home services: No Alcohol intake: never Patient Tobacco Use Status: Never used Tobacco service: No Current occupational status: employed Current occupation: [employer] Female Reproductive History Menstrual Age of Menarche: 15 Review of Systems Const All systems reviewed & are unremarkable except as noted in HPI and below Endo Reports no additional complaints Physical Exam Vital Signs: Last Vital Signs BP 110/70 05/17/25 14:47 BMI result Body Mass Index 34.8 Const General: cooperative, healthy appearing and no acute distress Psych Appearance: well kempt Attitude: cooperative Thought process: Normal thought process present Assessment & Plan Assessment & Plan (1) FH: breast cancer in first degree relative: Code(s): Z80.3 - Family history of malignant neoplasm of breast Category: Medical Plan Discontinue estrogen patch until records are obtained from [facility]. Plan referral to Dr. Nelson for follow up on high-risk breast cancer surveillance due to family history of first-degree relative. The patient expressed understanding and agreement with the plan of care. All of her questions and concerns were addressed to the best of my ability. This note is constructed using voice recognition software. While every effort has been made to ensure accuracy, automotive light mechanic errors may have been included. Orders: Referrals Breast Surgery Referral K46.9 - Unspecified abdominal hernia without obstruction or gangrene, Z80.3 - Family history of malignant neoplasm of breast Coding Level of Care Code Est Pt Level 3 (94318) Diagnoses FH: breast cancer in first degree relative Z80.3
[2025-05-17 14:47] VITALS: BP 110/70; BMI 34.8
--- OUTSIDE RECORDS SUMMARY | 2025-05-17 19:04 | XMS_ITS | Patient Health Record ---
Author Organization [facility] [address] Address [address] [place] [address] Care Team Providers Care Environmental Protection Economist Name Role Phone [facility] Primary Car e Provider Unavailable ALIRIO SANCHES Unavailable [phone] DEBBIE VAUGHN Unavailable [phone] Allergies Allergen (clinical drug ingredient) Drug/Non Drug Allergy documented on EMR Reaction Allergy Type Onset Date Status Shellfish (FN) Shellfish-derived Products anaphylaxis Drug Allergy Active Reason For Referral No Information Medications Medication SIG (Take, Route, Frequency, Duration) Notes Start Date End Date Status Wegovy 0.5 MG/0.5ML Inject 0.5mg Subcuta neous once weekly; Duration: 30 days 04/17/2025 Active Wegovy 0.25 MG/0.5ML Inject 0.25mg Subcu taneous once weekly; Duration: 30 days 03/16/2025 Active Rosuvastatin Calcium 40 MG Oral; Duration: 90 Days Active Problems Problem Type SNOMED Code ICD Code Onset Dates Problem Status W/U Status Risk Notes Problem Prediabetes (408811827) Prediabetes (R73.03) Active confirmed Problem Hyperlipidemia (85725137) Other hyperlipidemia (E78.49) Active confirmed Problem Obstructive sleep apnea syndrome (22684046) JAIRO (obstructive sleep apnea) (G47.33) Active confirmed Problem Obesity (860999537) Obesity (BMI 30-39.9) (E66.9) Active confirmed Problem Obese class II (518154938659532) BMI 35.0-35.9,adult (Z68.35) Active confirmed Problem History of malignant neoplasm of ovary (374465816) History of ovarian cancer (Z85.43) Active confirmed Vital Signs Heart Rate 87 /min 04/17/2025 Blood pressure diastolic 70 mm Hg 04/17/2025 Oximetry 97 % 04/17/2025 Height 61 in 04/17/2025 Blood pressure systolic 120 mm Hg 04/17/2025 Weight 185.4 lbs 04/17/2025 BMI 35.03 kg/m2 04/17/2025 Encounters Encounter Location Date Provider Diagnosis [facility] [address] [facility] [address] [address] 09/14/2024 [facility] [address] [address] 09/21/2024 DEBBIE [facility]ORHOT [facility] [address] [address] 09/28/2024 [facility] [address] [address] 10/05/2024 [facility] [address] [facility] [address] [address] 10/19/2024 [facility] [address] [facility] [address] [address] 09/07/2024 [facility] Obesity (BMI 30-39.9 ) E66.9 ; BMI 36.0-36.9,adult Z68.36 ; Prediabetes R73.03 ; JAIRO (obstructive sleep apnea) G47.33 ; Other hyperlipidemia E78.49 and Nutritional counseling Z71.3 [facility] [address] [facility] [address] [address] 10/11/2024 [facility] BMI 35.0-35.9,adult Z68.35 ; Prediabetes R73.03 ; Obesity (BMI 30-39.9) E66.9 ; JAIRO (obstructive sleep apnea) G47.33 ; Other hyperlipidemia E78.49 and Nutritional counseling Z71.3 [facility] [address] [facility] [address] [address] 03/16/2025 ALIRIO HARLINGEN BMI 35.0-35.9,adult Z68.35 ; Prediabetes R73.03 ; Obesity (BMI 30-39.9) E66.9 ; JAIRO (obstructive sleep apnea) G47.33 ; Other hyperlipidemia E78.49 ; Nutritional counseling Z71.3 and Encounter for examination of blood pressure without abnormal findings Z01.30 [facility] [address] [facility] [address] [place] [address] 04/17/2025 ALIRIO VERÓNICA BMI 35.0-35.9,adult Z68.35 ; Prediabetes R73.03 ; JAIRO (obstructive sleep apnea) G47.33 ; Obesity (BMI 30-39.9) E66.9 ; Other hyperlipidemia E78.49 ; Nutritional counseling Z71.3 and Encounter for examination of blood pressure without abnormal findings Z01.30 [facility] [address] [place] [address] [place] [address] 09/07/2024 ALIRIO HARLINGEN [facility] [address] [address] 10/27/2024 ALIRIO HARLINGEN [facility] [address] [address] 10/27/2024 ALIRIO HARLINGEN [facility] [address] [address] 03/06/2025 [facility] [address] [address] 03/16/2025 ALIRIO MONTESHAM JAIRO (obstructive sle ep apnea) G47.[address] [address] [place] [address] 04/04/2025 [facility] [address] [place] [address] 04/10/2025 ALIRIO HARLINGEN [facility] [address] [address] 04/11/2025 ALIRIO HARLINGEN [facility] [address] [address] 04/11/2025 ALIRIO HARLINGEN [facility] [address] [address] 04/17/2025 [facility] [address] [address] 04/17/2025 ALIRIO MONTESHAM Obesity (BMI 30-39.9 ) E66.9 Assessments Encounter Date Diagnosis (ICD Code) Assessment Notes Treatment Notes Treatment Clinical Notes [...] including following with alternative weight management clinic ([facility]), working with software educator, and improving diet and exercise without success [...] reviewed. Dictation completed with the use of [employer] voice recognition software, prone to medical misidentifications [...] including following with alternative weight management clinic ([facility]), working with software educator, and improving diet and exercise without success [...] reviewed. Dictation completed with the use of [employer] voice recognition software, prone to medical misidentifications and grammatical errors. All errors are unintentional. Although the practitioner does try to identify and correct errors, some may be present. Please do not hesitate to contact the practitioner for clarification. Total time was 60 minutes spent with >50% on coordination of care and patient education. 10/11/2024 BMI 35.0-35.9,adult (ICD-10 - Z68.35) Roxie is a 59-year-old female with a PMH of prediabetes (A1c 6.2%), JAIRO, HLD, history of ovarian cancer that presents for weight management follow-up. Reviewed [facility] holistic and medical approach to weight loss with emphasis on lifestyle modification. 10/11/2024: Weight: 190, BMI: 35.9. Patient down 5 pounds. Seca reviewed, fat mass unchanged with loss of muscle mass. Discussed the importance of prioritizing protein intake and increasing strength training with goal of maintenance of healthy muscle mass. Protein goal 25 g/meal and strength training 2-3 times weekly. Additionally discussed the importance of adequate nutrition in the setting of GLP-1 induced appetite suppression. Recommending increasing feeding frequency. Plan to increase dose of compounded Ozempic at the 5 mg SC weekly and follow-up in 1 month. 09/07/2024: Weight: 195, BMI: 36.8. Reviewed SECA/goals [...] tirzepatide, 2.5 mg administered in office today. All questions answered to the patient's satisfaction. Patient demonstrates understanding of diagnosis and treatments discussed. Follow-up in 4 weeks, sooner should any questions/concerns arise. Case discussed with collaborating physician Bailee Arthur who has reviewed the assessment/plan. Chart, medications, labs, and vital signs reviewed. Dictation completed with the use of [employer] voice recognition software, prone to medical misidentifications and grammatical errors. All errors are unintentional. Although the practitioner does try to identify and correct errors, some may be present. Please do not hesitate to contact the practitioner for clarification. Total time was 30 minutes spent with >50% on coordination of care and patient education. 03/16/2025 BMI 35.0-35.9,adult (ICD-10 - Z68.35) Roxie is a 59-year-old female with a PMH of prediabetes (A1c 6.2%), JAIRO, HLD, history of ovarian cancer that presents for weight management follow-up. Reviewed [facility] holistic and medical approach to weight loss with emphasis on lifestyle modification. 03/16/2025: Weight: 189.7, BMI: 35.8. SECA reviewed, relatively stable. Patient encouraged to be mindful of adequate nutrition intake. Discussed importance of prioritizing protein denies/nutrient rich foods. She is encouraged to continue hydrating adequately, goal 60+ ounces/day. Discussed importance of continued walking with goal of adding strength training 2-3 times weekly. Will submit for Zepbound 2.5 mg SC weekly. Reviewed proper use, SE, and expectations for PA process/insurance coverage. 10/11/2024: Weight: 190, BMI: 35.9 (-5lbs) 09/07/2024: Weight: 195, BMI: 36.8. All questions answered to the patient's satisfaction. Patient demonstrates understanding of diagnosis and treatments discussed. Follow-up in 4 weeks, sooner should any questions/concerns arise. Case discussed with collaborating physician Bailee Arthur who has reviewed the assessment/plan. Chart, medications, labs, and vital signs reviewed. Dictation completed with the use of [employer] voice recognition software, prone to medical misidentifications and grammatical errors. All errors are unintentional. Although the practitioner does try to identify and correct errors, some may be present. Please do not hesitate to contact the practitioner for clarification. Total time was 30 minutes spent with >50% on coordination of care and patient education. 04/17/2025 BMI 35.0-35.9,adult (ICD-10 - Z68.35) Roxie is a 59-year-old female with a PMH of prediabetes (A1c 6.2%), JAIRO, HLD, history of ovarian cancer that presents for weight management follow-up. Reviewed [facility] holistic and medical approach to weight loss with emphasis on lifestyle modification. 04/17/2025: Weight: 185.4, BMI: 35.03 (-4lbs) SECA reviewed, reveals over 3 pounds of fat loss and minimal muscle mass loss. Patient encouraged to continue making health-conscious diet choices and prioritizing protein intake. Discussed importance of continued walking with goal of adding strength training. Will trial FRANCK injection in office with goal of improving energy. Discussed importance of sleep hygiene. Plan increase dose Wegovy to 0.5 mg SC weekly and follow-up in 4 to 6 weeks. 03/16/2025: Weight: 189.7, BMI: 35.8. 10/11/2024: Weight: 190, BMI: 35.9 (-5lbs) 09/07/2024: Weight: 195, BMI: 36.8. All questions answered to the patient's satisfaction. Patient demonstrates understanding of diagnosis and treatments discussed. Follow-up in 4 weeks, sooner should any questions/concerns arise. Case discussed with collaborating physician Bailee Arthur who has reviewed the assessment/plan. Chart, medications, labs, and vital signs reviewed. Dictation completed with the use of [employer] voice recognition software, prone to medical misidentifications and grammatical errors. All errors are unintentional. Although the practitioner does try to identify and correct errors, some may be present. Please do not hesitate to contact the practitioner for clarification. Total time was 30 minutes spent with >50% on coordination of care and patient education. 04/17/2025 Obesity (BMI 30-39.9) (ICD-10 - E66.9) 10/11/2024 Obesity (BMI 30-39.9) (ICD-10 - E66.9) Roxie is a 59-year-old female with a PMH of prediabetes (A1c 6.2%), JAIRO, HLD, history of ovarian cancer that presents for weight management follow-up. Reviewed [facility] holistic and medical approach to weight loss with emphasis on lifestyle modification. 10/11/2024: Weight: 190, BMI: 35.9. Patient down 5 pounds. Seca reviewed, fat mass unchanged with loss of muscle mass. Discussed the importance of prioritizing protein intake and increasing strength training with goal of maintenance of healthy muscle mass. Protein goal 25 g/meal and strength training 2-3 times weekly. Additionally discussed the importance of adequate nutrition in the setting of GLP-1 induced appetite suppression. Recommending increasing feeding frequency. Plan to increase dose of compounded Ozempic at the 5 mg SC weekly and follow-up in 1 month. 09/07/2024: Weight: 195, BMI: 36.8. Reviewed SECA/goals [...] tirzepatide, 2.5 mg administered in office today. All questions answered to the patient's satisfaction. Patient demonstrates understanding of diagnosis and treatments discussed. Follow-up in 4 weeks, sooner should any questions/concerns arise. Case discussed with collaborating physician Bailee Arthur who has reviewed the assessment/plan. Chart, medications, labs, and vital signs reviewed. Dictation completed with the use of [employer] voice recognition software, prone to medical misidentifications and grammatical errors. All errors are unintentional. Although the practitioner does try to identify and correct errors, some may be present. Please do not hesitate to contact the practitioner for clarification. Total time was 30 minutes spent with >50% on coordination of care and patient education. 03/16/2025 JAIRO (obstructive sleep apnea) (ICD-10 - G47.33) Electronic Prior Authorization was requested for Zepbound 2.5 MG/0.5ML Solution. Provider can order medication once approval received. 04/17/2025 Prediabetes (ICD-10 - R73.03) Roxie is a 59-year-old female with a PMH of prediabetes (A1c 6.2%), JAIRO, HLD, history of ovarian cancer that presents for weight management follow-up. Reviewed [facility] holistic and medical approach to weight loss with emphasis on lifestyle modification. 04/17/2025: Weight: 185.4, BMI: 35.03 (-4lbs) SECA reviewed, reveals over 3 pounds of fat loss and minimal muscle mass loss. Patient encouraged to continue making health-conscious diet choices and prioritizing protein intake. Discussed importance of continued walking with goal of adding strength training. Will trial FRANCK injection in office with goal of improving energy. Discussed importance of sleep hygiene. Plan increase dose Wegovy to 0.5 mg SC weekly and follow-up in 4 to 6 weeks. 03/16/2025: Weight: 189.7, BMI: 35.8. 10/11/2024: Weight: 190, BMI: 35.9 (-5lbs) 09/07/2024: Weight: 195, BMI: 36.8. All questions answered to the patient's satisfaction. Patient demonstrates understanding of diagnosis and treatments discussed. Follow-up in 4 weeks, sooner should any questions/concerns arise. Case discussed with collaborating physician Bailee Arthur who has reviewed the assessment/plan. Chart, medications, labs, and vital signs reviewed. Dictation completed with the use of [employer] voice recognition software, prone to medical misidentifications and grammatical errors. All errors are unintentional. Although the practitioner does try to identify and correct errors, some may be present. Please do not hesitate to contact the practitioner for clarification. Total time was 30 minutes spent with >50% on coordination of care and patient education. 03/16/2025 Prediabetes (ICD-10 - R73.03) Roxie is a 59-year-old female with a PMH of prediabetes (A1c 6.2%), JAIRO, HLD, history of ovarian cancer that presents for weight management follow-up. Reviewed [facility] holistic and medical approach to weight loss with emphasis on lifestyle modification. 03/16/2025: Weight: 189.7, BMI: 35.8. SECA reviewed, relatively stable. Patient encouraged to be mindful of adequate nutrition intake. Discussed importance of prioritizing protein denies/nutrient rich foods. She is encouraged to continue hydrating adequately, goal 60+ ounces/day. Discussed importance of continued walking with goal of adding strength training 2-3 times weekly. Will submit for Zepbound 2.5 mg SC weekly. Reviewed proper use, SE, and expectations for PA process/insurance coverage. 10/11/2024: Weight: 190, BMI: 35.9 (-5lbs) 09/07/2024: Weight: 195, BMI: 36.8. All questions answered to the patient's satisfaction. Patient demonstrates understanding of diagnosis and treatments discussed. Follow-up in 4 weeks, sooner should any questions/concerns arise. Case discussed with collaborating physician Bailee Arthur who has reviewed the assessment/plan. Chart, medications, labs, and vital signs reviewed. Dictation completed with the use of [employer] voice recognition software, prone to medical misidentifications and grammatical errors. All errors are unintentional. Although the practitioner does try to identify and correct errors, some may be present. Please do not hesitate to contact the practitioner for clarification. Total time was 30 minutes spent with >50% on coordination of [...] including following with alternative weight management clinic ([facility]), working with software educator, and improving diet and exercise without success [...] reviewed. Dictation completed with the use of [employer] voice recognition software, prone to medical misidentifications and grammatical errors. All errors are unintentional. Although the practitioner does try to identify and correct errors, some may be present. Please do not hesitate to contact the practitioner for clarification. Total time was 60 minutes spent with >50% on coordination of care and patient education. 10/11/2024 Prediabetes (ICD-10 - R73.03) Roxie is a 59-year-old female with a PMH of prediabetes (A1c 6.2%), JAIRO, HLD, history of ovarian cancer that presents for weight management follow-up. Reviewed [facility] holistic and medical approach to weight loss with emphasis on lifestyle modification. 10/11/2024: Weight: 190, BMI: 35.9. Patient down 5 pounds. Seca reviewed, fat mass unchanged with loss of muscle mass. Discussed the importance of prioritizing protein intake and increasing strength training with goal of maintenance of healthy muscle mass. Protein goal 25 g/meal and strength training 2-3 times weekly. Additionally discussed the importance of adequate nutrition in the setting of GLP-1 induced appetite suppression. Recommending increasing feeding frequency. Plan to increase dose of compounded Ozempic at the 5 mg SC weekly and follow-up in 1 month. 09/07/2024: Weight: 195, BMI: 36.8. Reviewed SECA/goals [...] tirzepatide, 2.5 mg administered in office today. All questions answered to the patient's satisfaction. Patient demonstrates understanding of diagnosis and treatments discussed. Follow-up in 4 weeks, sooner should any questions/concerns arise. Case discussed with collaborating physician Bailee Arthur who has reviewed the assessment/plan. Chart, medications, labs, and vital signs reviewed. Dictation completed with the use of [employer] voice recognition software, prone to medical misidentifications and grammatical errors. All errors are unintentional. Although the practitioner does try to identify and correct errors, some may be present. Please do not hesitate to contact the practitioner for clarification. Total time was 30 minutes spent with >50% on coordination of [...] including following with alternative weight management clinic ([facility]), working with software educator, and improving diet and exercise without success [...] reviewed. Dictation completed with the use of [employer] voice recognition software, prone to medical misidentifications and grammatical errors. All errors are unintentional. Although the practitioner does try to identify and correct errors, some may be present. Please do not hesitate to contact the practitioner for clarification. Total time was 60 minutes spent with >50% on coordination of care and patient education. 10/11/2024 JAIRO (obstructive sleep apnea) (ICD-10 - G47.33) Roxie is a 59-year-old female with a PMH of prediabetes (A1c 6.2%), JAIRO, HLD, history of ovarian cancer that presents for weight management follow-up. Reviewed [facility] holistic and medical approach to weight loss with emphasis on lifestyle modification. 10/11/2024: Weight: 190, BMI: 35.9. Patient down 5 pounds. Seca reviewed, fat mass unchanged with loss of muscle mass. Discussed the importance of prioritizing protein intake and increasing strength training with goal of maintenance of healthy muscle mass. Protein goal 25 g/meal and strength training 2-3 times weekly. Additionally discussed the importance of adequate nutrition in the setting of GLP-1 induced appetite suppression. Recommending increasing feeding frequency. Plan to increase dose of compounded Ozempic at the 5 mg SC weekly and follow-up in 1 month. 09/07/2024: Weight: 195, BMI: 36.8. Reviewed SECA/goals [...] tirzepatide, 2.5 mg administered in office today. All questions answered to the patient's satisfaction. Patient demonstrates understanding of diagnosis and treatments discussed. Follow-up in 4 weeks, sooner should any questions/concerns arise. Case discussed with collaborating physician Bailee Arthur who has reviewed the assessment/plan. Chart, medications, labs, and vital signs reviewed. Dictation completed with the use of [employer] voice recognition software, prone to medical misidentifications and grammatical errors. All errors are unintentional. Although the practitioner does try to identify and correct errors, some may be present. Please do not hesitate to contact the practitioner for clarification. Total time was 30 minutes spent with >50% on coordination of care and patient education. 03/16/2025 JAIRO (obstructive sleep apnea) (ICD-10 - G47.33) Roxie is a 59-year-old female with a PMH of prediabetes (A1c 6.2%), JAIRO, HLD, history of ovarian cancer that presents for weight management follow-up. Reviewed [facility] holistic and medical approach to weight loss with emphasis on lifestyle modification. 03/16/2025: Weight: 189.7, BMI: 35.8. SECA reviewed, relatively stable. Patient encouraged to be mindful of adequate nutrition intake. Discussed importance of prioritizing protein denies/nutrient rich foods. She is encouraged to continue hydrating adequately, goal 60+ ounces/day. Discussed importance of continued walking with goal of adding strength training 2-3 times weekly. Will submit for Zepbound 2.5 mg SC weekly. Reviewed proper use, SE, and expectations for PA process/insurance coverage. 10/11/2024: Weight: 190, BMI: 35.9 (-5lbs) 09/07/2024: Weight: 195, BMI: 36.8. All questions answered to the patient's satisfaction. Patient demonstrates understanding of diagnosis and treatments discussed. Follow-up in 4 weeks, sooner should any questions/concerns arise. Case discussed with collaborating physician Bailee Arthur who has reviewed the assessment/plan. Chart, medications, labs, and vital signs reviewed. Dictation completed with the use of [employer] voice recognition software, prone to medical misidentifications and grammatical errors. All errors are unintentional. Although the practitioner does try to identify and correct errors, some may be present. Please do not hesitate to contact the practitioner for clarification. Total time was 30 minutes spent with >50% on coordination of care and patient education. 03/16/2025 Obesity (BMI 30-39.9) (ICD-10 - E66.9) Roxie is a 59-year-old female with a PMH of prediabetes (A1c 6.2%), JAIRO, HLD, history of ovarian cancer that presents for weight management follow-up. Reviewed [facility] holistic and medical approach to weight loss with emphasis on lifestyle modification. 03/16/2025: Weight: 189.7, BMI: 35.8. SECA reviewed, relatively stable. Patient encouraged to be mindful of adequate nutrition intake. Discussed importance of prioritizing protein denies/nutrient rich foods. She is encouraged to continue hydrating adequately, goal 60+ ounces/day. Discussed importance of continued walking with goal of adding strength training 2-3 times weekly. Will submit for Zepbound 2.5 mg SC weekly. Reviewed proper use, SE, and expectations for PA process/insurance coverage. 10/11/2024: Weight: 190, BMI: 35.9 (-5lbs) 09/07/2024: Weight: 195, BMI: 36.8. All questions answered to the patient's satisfaction. Patient demonstrates understanding of diagnosis and treatments discussed. Follow-up in 4 weeks, sooner should any questions/concerns arise. Case discussed with collaborating physician Bailee Arthur who has reviewed the assessment/plan. Chart, medications, labs, and vital signs reviewed. Dictation completed with the use of [employer] voice recognition software, prone to medical misidentifications and grammatical errors. All errors are unintentional. Although the practitioner does try to identify and correct errors, some may be present. Please do not hesitate to contact the practitioner for clarification. Total time was 30 minutes spent with >50% on coordination of care and patient education. 04/17/2025 AJIRO (obstructive sleep apnea) (ICD-10 - G47.33) Roxie is a 59-year-old female with a PMH of prediabetes (A1c 6.2%), JAIRO, HLD, history of ovarian cancer that presents for weight management follow-up. Reviewed [facility] holistic and medical approach to weight loss with emphasis on lifestyle modification. 04/17/2025: Weight: 185.4, BMI: 35.03 (-4lbs) SECA reviewed, reveals over 3 pounds of fat loss and minimal muscle mass loss. Patient encouraged to continue making health-conscious diet choices and prioritizing protein intake. Discussed importance of continued walking with goal of adding strength training. Will trial FRANCK injection in office with goal of improving energy. Discussed importance of sleep hygiene. Plan increase dose Wegovy to 0.5 mg SC weekly and follow-up in 4 to 6 weeks. 03/16/2025: Weight: 189.7, BMI: 35.8. 10/11/2024: Weight: 190, BMI: 35.9 (-5lbs) 09/07/2024: Weight: 195, BMI: 36.8. All questions answered to the patient's satisfaction. Patient demonstrates understanding of diagnosis and treatments discussed. Follow-up in 4 weeks, sooner should any questions/concerns arise. Case discussed with collaborating physician Bailee Arthur who has reviewed the assessment/plan. Chart, medications, labs, and vital signs reviewed. Dictation completed with the use of [employer] voice recognition software, prone to medical misidentifications and grammatical errors. All errors are unintentional. Although the practitioner does try to identify and correct errors, some may be present. Please do not hesitate to contact the practitioner for clarification. Total time was 30 minutes spent with >50% on coordination of care and patient education. 04/17/2025 Obesity (BMI 30-39.9) (ICD-10 - E66.9) Roxie is a 59-year-old female with a PMH of prediabetes (A1c 6.2%), JAIRO, HLD, history of ovarian cancer that presents for weight management follow-up. Reviewed [facility] holistic and medical approach to weight loss with emphasis on lifestyle modification. 04/17/2025: Weight: 185.4, BMI: 35.03 (-4lbs) SECA reviewed, reveals over 3 pounds of fat loss and minimal muscle mass loss. Patient encouraged to continue making health-conscious diet choices and prioritizing protein intake. Discussed importance of continued walking with goal of adding strength training. Will trial FRANCK injection in office with goal of improving energy. Discussed importance of sleep hygiene. Plan increase dose Wegovy to 0.5 mg SC weekly and follow-up in 4 to 6 weeks. 03/16/2025: Weight: 189.7, BMI: 35.8. 10/11/2024: Weight: 190, BMI: 35.9 (-5lbs) 09/07/2024: Weight: 195, BMI: 36.8. All questions answered to the patient's satisfaction. Patient demonstrates understanding of diagnosis and treatments discussed. Follow-up in 4 weeks, sooner should any questions/concerns arise. Case discussed with collaborating physician Bailee Arthur who has reviewed the assessment/plan. Chart, medications, labs, and vital signs reviewed. Dictation completed with the use of [employer] voice recognition software, prone to medical misidentifications and grammatical errors. All errors are unintentional. Although the practitioner does try to identify and correct errors, some may be present. Please do not hesitate to contact the practitioner for clarification. Total time was 30 minutes spent with >50% on coordination of care and patient education. 04/17/2025 Other hyperlipidemia (ICD-10 - E78.49) Roxie is a 59-year-old female with a PMH of prediabetes (A1c 6.2%), JAIRO, HLD, history of ovarian cancer that presents for weight management follow-up. Reviewed [facility] holistic and medical approach to weight loss with emphasis on lifestyle modification. 04/17/2025: Weight: 185.4, BMI: 35.03 (-4lbs) SECA reviewed, reveals over 3 pounds of fat loss and minimal muscle mass loss. Patient encouraged to continue making health-conscious diet choices and prioritizing protein intake. Discussed importance of continued walking with goal of adding strength training. Will trial FRANCK injection in office with goal of improving energy. Discussed importance of sleep hygiene. Plan increase dose Wegovy to 0.5 mg SC weekly and follow-up in 4 to 6 weeks. 03/16/2025: Weight: 189.7, BMI: 35.8. 10/11/2024: Weight: 190, BMI: 35.9 (-5lbs) 09/07/2024: Weight: 195, BMI: 36.8. All questions answered to the patient's satisfaction. Patient demonstrates understanding of diagnosis and treatments discussed. Follow-up in 4 weeks, sooner should any questions/concerns arise. Case discussed with collaborating physician Bailee Arthur who has reviewed the assessment/plan. Chart, medications, labs, and vital signs reviewed. Dictation completed with the use of [employer] voice recognition software, prone to medical misidentifications and grammatical errors. All errors are unintentional. Although the practitioner does try to identify and correct errors, some may be present. Please do not hesitate to contact the practitioner for clarification. Total time was 30 minutes spent with >50% on coordination of care and patient education. 03/16/2025 Other hyperlipidemia (ICD-10 - E78.49) Roxie is a 59-year-old female with a PMH of prediabetes (A1c 6.2%), JAIRO, HLD, history of ovarian cancer that presents for weight management follow-up. Reviewed [facility] holistic and medical approach to weight loss with emphasis on lifestyle modification. 03/16/2025: Weight: 189.7, BMI: 35.8. SECA reviewed, relatively stable. Patient encouraged to be mindful of adequate nutrition intake. Discussed importance of prioritizing protein denies/nutrient rich foods. She is encouraged to continue hydrating adequately, goal 60+ ounces/day. Discussed importance of continued walking with goal of adding strength training 2-3 times weekly. Will submit for Zepbound 2.5 mg SC weekly. Reviewed proper use, SE, and expectations for PA process/insurance coverage. 10/11/2024: Weight: 190, BMI: 35.9 (-5lbs) 09/07/2024: Weight: 195, BMI: 36.8. All questions answered to the patient's satisfaction. Patient demonstrates understanding of diagnosis and treatments discussed. Follow-up in 4 weeks, sooner should any questions/concerns arise. Case discussed with collaborating physician Bailee Atrhur who has reviewed the assessment/plan. Chart, medications, labs, and vital signs reviewed. Dictation completed with the use of [employer] voice recognition software, prone to medical misidentifications and grammatical errors. All errors are unintentional. Although the practitioner does try to identify and correct errors, some may be present. Please do not hesitate to contact the practitioner for clarification. Total time was 30 minutes spent with >50% on coordination of care and patient education. 10/11/2024 Other hyperlipidemia (ICD-10 - E78.49) Roxie is a 59-year-old female with a PMH of prediabetes (A1c 6.2%), JAIRO, HLD, history of ovarian cancer that presents for weight management follow-up. Reviewed [facility] holistic and medical approach to weight loss with emphasis on lifestyle modification. 10/11/2024: Weight: 190, BMI: 35.9. Patient down 5 pounds. Seca reviewed, fat mass unchanged with loss of muscle mass. Discussed the importance of prioritizing protein intake and increasing strength training with goal of maintenance of healthy muscle mass. Protein goal 25 g/meal and strength training 2-3 times weekly. Additionally discussed the importance of adequate nutrition in the setting of GLP-1 induced appetite suppression. Recommending increasing feeding frequency. Plan to increase dose of compounded Ozempic at the 5 mg SC weekly and follow-up in 1 month. 09/07/2024: Weight: 195, BMI: 36.8. Reviewed SECA/goals [...] tirzepatide, 2.5 mg administered in office today. All questions answered to the patient's satisfaction. Patient demonstrates understanding of diagnosis and treatments discussed. Follow-up in 4 weeks, sooner should any questions/concerns arise. Case discussed with collaborating physician Bailee Arthur who has reviewed the assessment/plan. Chart, medications, labs, and vital signs reviewed. Dictation completed with the use of [employer] voice recognition software, prone to medical misidentifications and grammatical errors. All errors are unintentional. Although the practitioner does try to identify and correct errors, some may be present. Please do not hesitate to contact the practitioner for clarification. Total time was 30 minutes spent with >50% on coordination of [...] including following with alternative weight management clinic ([facility]), working with software educator, and improving diet and exercise without success [...] reviewed. Dictation completed with the use of [employer] voice recognition software, prone to medical misidentifications [...] including following with alternative weight management clinic ([facility]), working with software educator, and improving diet and exercise without success [...] reviewed. Dictation completed with the use of [employer] voice recognition software, prone to medical misidentifications and grammatical errors. All errors are unintentional. Although the practitioner does try to identify and correct errors, some may be present. Please do not hesitate to contact the practitioner for clarification. Total time was 60 minutes spent with >50% on coordination of care and patient education. 10/11/2024 Nutritional counseling (ICD-10 - Z71.3) Roxie is a 59-year-old female with a PMH of prediabetes (A1c 6.2%), JAIRO, HLD, history of ovarian cancer that presents for weight management follow-up. Reviewed [facility] holistic and medical approach to weight loss with emphasis on lifestyle modification. 10/11/2024: Weight: 190, BMI: 35.9. Patient down 5 pounds. Seca reviewed, fat mass unchanged with loss of muscle mass. Discussed the importance of prioritizing protein intake and increasing strength training with goal of maintenance of healthy muscle mass. Protein goal 25 g/meal and strength training 2-3 times weekly. Additionally discussed the importance of adequate nutrition in the setting of GLP-1 induced appetite suppression. Recommending increasing feeding frequency. Plan to increase dose of compounded Ozempic at the 5 mg SC weekly and follow-up in 1 month. 09/07/2024: Weight: 195, BMI: 36.8. Reviewed SECA/goals [...] tirzepatide, 2.5 mg administered in office today. All questions answered to the patient's satisfaction. Patient demonstrates understanding of diagnosis and treatments discussed. Follow-up in 4 weeks, sooner should any questions/concerns arise. Case discussed with collaborating physician Bailee Arthur who has reviewed the assessment/plan. Chart, medications, labs, and vital signs reviewed. Dictation completed with the use of [employer] voice recognition software, prone to medical misidentifications and grammatical errors. All errors are unintentional. Although the practitioner does try to identify and correct errors, some may be present. Please do not hesitate to contact the practitioner for clarification. Total time was 30 minutes spent with >50% on coordination of care and patient education. 03/16/2025 Nutritional counseling (ICD-10 - Z71.3) Roxie is a 59-year-old female with a PMH of prediabetes (A1c 6.2%), JAIRO, HLD, history of ovarian cancer that presents for weight management follow-up. Reviewed [facility] holistic and medical approach to weight loss with emphasis on lifestyle modification. 03/16/2025: Weight: 189.7, BMI: 35.8. SECA reviewed, relatively stable. Patient encouraged to be mindful of adequate nutrition intake. Discussed importance of prioritizing protein denies/nutrient rich foods. She is encouraged to continue hydrating adequately, goal 60+ ounces/day. Discussed importance of continued walking with goal of adding strength training 2-3 times weekly. Will submit for Zepbound 2.5 mg SC weekly. Reviewed proper use, SE, and expectations for PA process/insurance coverage. 10/11/2024: Weight: 190, BMI: 35.9 (-5lbs) 09/07/2024: Weight: 195, BMI: 36.8. All questions answered to the patient's satisfaction. Patient demonstrates understanding of diagnosis and treatments discussed. Follow-up in 4 weeks, sooner should any questions/concerns arise. Case discussed with collaborating physician Bailee Arthur who has reviewed the assessment/plan. Chart, medications, labs, and vital signs reviewed. Dictation completed with the use of [employer] voice recognition software, prone to medical misidentifications and grammatical errors. All errors are unintentional. Although the practitioner does try to identify and correct errors, some may be present. Please do not hesitate to contact the practitioner for clarification. Total time was 30 minutes spent with >50% on coordination of care and patient education. 04/17/2025 Nutritional counseling (ICD-10 - Z71.3) Roxie is a 59-year-old female with a PMH of prediabetes (A1c 6.2%), JAIRO, HLD, history of ovarian cancer that presents for weight management follow-up. Reviewed [facility] holistic and medical approach to weight loss with emphasis on lifestyle modification. 04/17/2025: Weight: 185.4, BMI: 35.03 (-4lbs) SECA reviewed, reveals over 3 pounds of fat loss and minimal muscle mass loss. Patient encouraged to continue making health-conscious diet choices and prioritizing protein intake. Discussed importance of continued walking with goal of adding strength training. Will trial FRANCK injection in office with goal of improving energy. Discussed importance of sleep hygiene. Plan increase dose Wegovy to 0.5 mg SC weekly and follow-up in 4 to 6 weeks. 03/16/2025: Weight: 189.7, BMI: 35.8. 10/11/2024: Weight: 190, BMI: 35.9 (-5lbs) 09/07/2024: Weight: 195, BMI: 36.8. All questions answered to the patient's satisfaction. Patient demonstrates understanding of diagnosis and treatments discussed. Follow-up in 4 weeks, sooner should any questions/concerns arise. Case discussed with collaborating physician Bailee Arthur who has reviewed the assessment/plan. Chart, medications, labs, and vital signs reviewed. Dictation completed with the use of [employer] voice recognition software, prone to medical misidentifications and grammatical errors. All errors are unintentional. Although the practitioner does try to identify and correct errors, some may be present. Please do not hesitate to contact the practitioner for clarification. Total time was 30 minutes spent with >50% on coordination of care and patient education. 04/17/2025 Encounter for examination of blood pressure without abnormal findings (ICD-10 - Z01.30) Roxie is a 59-year-old female with a PMH of prediabetes (A1c 6.2%), JAIRO, HLD, history of ovarian cancer that presents for weight management follow-up. Reviewed [facility] holistic and medical approach to weight loss with emphasis on lifestyle modification. 04/17/2025: Weight: 185.4, BMI: 35.03 (-4lbs) SECA reviewed, reveals over 3 pounds of fat loss and minimal muscle mass loss. Patient encouraged to continue making health-conscious diet choices and prioritizing protein intake. Discussed importance of continued walking with goal of adding strength training. Will trial FRANCK injection in office with goal of improving energy. Discussed importance of sleep hygiene. Plan increase dose Wegovy to 0.5 mg SC weekly and follow-up in 4 to 6 weeks. 03/16/2025: Weight: 189.7, BMI: 35.8. 10/11/2024: Weight: 190, BMI: 35.9 (-5lbs) 09/07/2024: Weight: 195, BMI: 36.8. All questions answered to the patient's satisfaction. Patient demonstrates understanding of diagnosis and treatments discussed. Follow-up in 4 weeks, sooner should any questions/concerns arise. Case discussed with collaborating physician Bailee Arthur who has reviewed the assessment/plan. Chart, medications, labs, and vital signs reviewed. Dictation completed with the use of [employer] voice recognition software, prone to medical misidentifications and grammatical errors. All errors are unintentional. Although the practitioner does try to identify and correct errors, some may be present. Please do not hesitate to contact the practitioner for clarification. Total time was 30 minutes spent with >50% on coordination of care and patient education. 03/16/2025 Encounter for examination of blood pressure without abnormal findings (ICD-10 - Z01.30) Roxie is a 59-year-old female with a PMH of prediabetes (A1c 6.2%), JAIRO, HLD, history of ovarian cancer that presents for weight management follow-up. Reviewed [facility] holistic and medical approach to weight loss with emphasis on lifestyle modification. 03/16/2025: Weight: 189.7, BMI: 35.8. SECA reviewed, relatively stable. Patient encouraged to be mindful of adequate nutrition intake. Discussed importance of prioritizing protein denies/nutrient rich foods. She is encouraged to continue hydrating adequately, goal 60+ ounces/day. Discussed importance of continued walking with goal of adding strength training 2-3 times weekly. Will submit for Zepbound 2.5 mg SC weekly. Reviewed proper use, SE, and expectations for PA process/insurance coverage. 10/11/2024: Weight: 190, BMI: 35.9 (-5lbs) 09/07/2024: Weight: 195, BMI: 36.8. All questions answered to the patient's satisfaction. Patient demonstrates understanding of diagnosis and treatments discussed. Follow-up in 4 weeks, sooner should any questions/concerns arise. Case discussed with collaborating physician Bailee Arthur who has reviewed the assessment/plan. Chart, medications, labs, and vital signs reviewed. Dictation completed with the use of [employer] voice recognition software, prone to medical misidentifications and grammatical errors. All errors are unintentional. Although the practitioner does try to identify and correct errors, some may be present. Please do not hesitate to contact the practitioner for clarification. Total time was 30 minutes spent with >50% on coordination of care and patient education. Plan Of Treatment Next Appt Details Provider Name:ALIRIO NARANJO Ebenezer, 05/29/2025 03:30:00 PM, [address] [place] [address], [phone], Insurance Providers Payer Name Payer Address Payer Phone Subscriber Number Group Number Insured Name Patient Relationship to Insured Coverage Start Date Coverage End Date [employer] [place] [address] [address] [place] [address] [id number] Roxie Alfaro Self - patient is the insured Medications Administered Medication Instructions Date of Administration Dosage Notes MICC B12 INJECTION 04/17/2025 1.0 mL Tirzepatide 09/07/2024 2.5 mg Tirzepatide 09/14/2024 2.5 mg Tirzepatide 09/21/2024 2.5 mg Tirzepatide 10/05/2024 2.5 mg Tirzepatide 10/11/2024 2.5 mg Tirzepatide 10/19/2024 5 mL Medical (General) History Medical History History ICD Code History of ovarian cancer Z85.43 Surgical History Surgery Date(Month/Year) C3-C4 fusion partial hysterectomy
--- OUTSIDE RECORDS SUMMARY | 2025-05-17 19:04 | XMS_ITS | Clinical Summary ---
Author Organization [address] Address [address] [place] [phone] Phone Care Team Providers Care Hydramatic Mechanic Name Role Phone Keya Glass MD Primary [...] (08/18/2024 3:01 PM EST): Recent labs at [facility] on the range of prediabetes. Patient [...] Care Team Description 03/09/2025 Telephone Adult Medicine [address] [phone] Keya Block MD 03/09/2025 Telephone Adult Medicine [address] [phone] Keya Block MD 02/25/2025 12:53 PM EDT - 02/25/2025 11:59 PM EDT Hospital Encounter Radiology Department - [address] [phone] Encounter for screening mammogram for breast cancer Discharge Disposition: Home or Self Care from Last 3 Months Immunizations Immunization Administration Dates Next Due Influenza Quadravalent, MDCK [...] COMMENT: one ovary remains ESOPHAGOGASTRODUODENOSCOPY 05/28/2012 PROCEDURE: OR ESOPHAGOGASTRODUODENOSCOPY TRANSORAL DIAGNOSTIC; COMMENT: normal BREAST LUMPECTOMY 2007 Left PROCEDURE: HISTORICAL BREAST LUMPECTOMY; COMMENT: neg HERNIA REPAIR 05/2018 PROCEDURE: HISTORICAL HERNIA REPAIR/ING; COMMENT: with a mesh OTHER SURGICAL HISTORY 2004 PROCEDURE: OR HYSTEROSCOPY ENDOMETRIAL ABLATION OTHER SURGICAL HISTORY 2003 [...] MENT: left ovary removed and chemo at [facility], BRCA negative, had genetic counseling [place] [...] ed Within the last 3 months, ho martha many times did you visit the emergency [...] do you feel lonely or isolated from ose around you? Rarely 05/31/2024 Food Risk [...] care for your loved ones. For example, childhood teacher or elderly care for an older [...] Date Recorded What is your living situation? Unrecognized valu e 05/31/2024 Comments No Sex and Gender Information Value [...] 3:00 PM EST Office Visit Adult Medicine [address] [phone] Keya Glass MD [address] [place] [address] Health Maintenance Due Date Last Done Comments Cervical Cancer Screening: Pap Smear 08/20/2021 08/20/2018, 08/20/2018, 08/20/2018 HIV Screening 06/28/2022 Depression Screening 07/20/2024 05/31/2024 COVID-19 Vaccine (8 - Pfizer risk season) 2025 03/26/2024, 04/22/2023, 05/23/2022, Additional history exists Influenza Vaccine (#1) 2025 , 03/27/2023, 03/21/2022, Additional history exists Social Influencers of Health Screening 05/31/2025 05/31/2024 Breast Cancer Screening 02/25/2026 02/26/20, 02/20/2024, 02/20/2024, Additional history exists Colorectal Cancer Screening: Colonoscopy 06/03/2027 06/03/2017 Cholesterol Screening (Lipid Panel) 06/16/2027 06/16/2022 DTaP,Tdap,and Td Vaccines (4 - Td or Tdap) 07/29/2032 07/29/2022, 05/09/2022, 10/13/2011 RSV Immunization Adult Patients (1 - 1-dose 75+ series) 2042 Hepatitis C Screening Completed 09/23/2016 Zoster Vaccines [...] Procedure Name Priority Date/Time Associated Diagnosis Comments HEMOGLOBIN A1C Routine 03/10/2025 3:32 PM EDT Prediabetes THYROID STIMULATING HORMONE WITH REFLEX TO FREE T4 AND FREE T3 Routine 03/10/2025 3:32 PM EDT Surgical menopause on hormone replacement therapy MG MAMMO DIGITAL SCREENING W DANY BILAT Routine 02/25/2025 1:04 PM EDT Encounter for screening mammogram for breast cancer LIPID PANEL Routine 06/16/2022 PAP SMEAR Routine 08/20/2018 COLONOSCOPY Routine 06/03/2017 HEPATITIS C SCREENING Routine 09/23/2016 from Last 3 Months or Most Recently Relevant to Health Maintenance Results * Thyroid stimulating hormone with reflex to free t4 and free t3 (03/10/2025 3:32 PM EDT) TSH 1.45 0.40 - 4.00 mcIU/mL LAB CHEMISTRY METHOD 03/10/2025 6:34 PM EDT [facility] Blood Venous blood specimen / Unknown Venipuncture / Unknown 03/10/2025 3:32 PM EDT 03/10/2025 3:32 PM EDT us Keya Glass MD LAB BLOOD ORDERABL ES Final Result [facility] [address] [place] [address], [place] [phone] * Hemoglobin A1c (03/10/2025 3:32 PM EDT) Hemoglobin A1C 6.1 <6.5 % LAB CHEMISTRY METHOD 03/10/2025 10:03 PM EDT [facility] Mean Bld Glu Estim. 128 mg/dL LAB CHEMISTRY METHOD 03/10/2025 10:03 PM EDT [facility] Blood Venous blood specimen / Unknown Venipuncture / Unknown 03/10/2025 3:32 PM EDT 03/10/2025 3:32 PM EDT us Keya Glass MD LAB BLOOD ORDERABL ES Final Result [facility] [address] [place] [address], [place] [phone] * MG Mammo Digital Screening w Dany bilat (02/25/2025 1:04 PM EDT) Anatomical Region Laterality Modality Breast Bilateral Mammography 02/28/2025 2:13 PM EDT Impressions 02/28/2025 2:39 PM EDT 1. No mammographic evidence of malignancy 2. Scattered fibroglandular tissue BI-RADS CATEGORY: 2 - BENIGN RECOMMENDATION: Screening bilateral mammogram is recommended in 1 year. Mammo Location: [facility], [address] [place] [address], [id number], . -------- FINAL REPORT -------- Dictated By: Janeth Rudd Dictated Date: 02/28/2025 14:13 ET Assigned Physician: Janeth Rudd Reviewed and Electronically Signed By: Janeth Rudd Signed Date: 02/28/2025 14:39 ET Workstation ID: [id number] Transcribed By: Self Edit Transcribed Date: 02/28/2025 [...] is recommended in 1 year. Mammo Location: [facility], [address] [place] [address], [id number], . -------- FINAL REPORT -------- Dictated By: Janeth Rudd Dictated Date: 02/28/2025 14:13 ET Assigned Physician: Janeth Rudd Reviewed and Electronically Signed By: Janeth Rudd Signed Date: 02/28/2025 14:39 ET Workstation ID: [id number] Transcribed By: Self Edit Transcribed Date: 02/28/2025 14:13 ET us Keya Glass MD IMG BI PROCEDURES Final Result * (ABNORMAL) Lipid panel (06/16/2022) Triglycerides 177(A) <=150 mg/dL Cholesterol 185 <=200 mg/dL HDL 59 >=40 mg/dL LDL Cholesterol 91 <=100 mg/dL Blood Venous blood specimen / Unknown Historical Provider LAB BLOOD ORDERABLES Karla l Result * Pap smear (08/20/2018) 08/20/2018 Narrative HISTORICAL TESTING LAB RESULTING AGENCY - 08/25/2018 2:31 PM EST [id number] THINPREP PAP, IMAGED: NEGATIVE FOR SQUAMOUS INTRAEPITHELIAL [...] TESTING LAB RESULTING AGENCY * Colonoscopy (06/03/2017) [facility] Colonoscopy no interpretation , abstracted Anatomical Region Laterality Modality Other Historical Provider HEALTH MAINTENANCE Final Result * Hepatitis C Screening (09/23/2016) [facility] Hepatitis C Screening abstracted Historical Provider HEALTH MAINTENANCE Final Result from Last 3 Months or Most Recently Relevant to Health Maintenance Insurance [employer] [place] [phone] Care Teams Hydramatic Mechanic Relationship Specialty Start Date End Date Keya Glass MD [address] [place] [phone] PCP - General Internal Medicine 08/15/24
== END 2025-05-17 15:40 | disposition home or self-care (01) ==
LOC: HO.HWS 14:41
PROVIDERS: PCP Internal Medicine; Visit Provider Advanced Practice Midwife
DX: Z80.3 Family history of malignant neoplasm of breast (principal)
CPT/HCPCS: 99213

== ENCOUNTER 2025-06-26 10:38 | Outpatient (AMB) | payer OTHER, SELFPAY ==
--- NOTE | 2025-06-26 10:42 | MHC.OFFVIS ---
Vital Signs 06/26/25 10:56 Height 5 ft 1 in Weight 178 lb BMI 33.6 BP 125/58 L Blood Pressure Location Lt brachial Position Sitting Pulse 91 Intake Visit Reasons: abdominal hernia/FHX brst CA Intake Note: Patient is seen in office for family history of breast cancer & an abdominal hernia. Pt c/o: would like to discuss the hernia only, feels a lump above the right groin, moves up and down, onset one year, denies increase/decrease, unable to sit or stand prolonged periods, denies n/v/d/c Rn Field Case Manager Required: No Accompanied by: Self / Same As Patient Allergies shellfish derived Allergy (Severe, Verified 06/26/25 10:55) Anaphylaxis gluten Allergy (Intermediate, Verified 06/26/25 10:55) Diarrhea lactose Allergy (Intermediate, Verified 06/26/25 10:55) Diarrhea evolocumab (From Repatha SureClick) Adverse Reaction (Intermediate, Verified 06/26/25 10:55) Abdominal Pain Medication List - Last Reconciled 06/26/25 by Evangelist Nelson MD albuterol sulfate 90 mcg/actuation 1 - 2 puffs inhalation QID PRN cholecalciferol (vitamin D3) 125 mcg PO DAILY epinephrine 0.3 mg (0.3 mL) IM Q10M PRN ibuprofen 600 mg PO Q8H PRN mecobalamin (vitamin B12) 1,000 mcg sublingual DAILY rosuvastatin 40 mg PO DAILY semaglutide (weight loss) (Wegovy) mg subcut HPI Comments Details: 60-year-old female patient with a prior history of bilateral inguinal hernia repairs, laparoscopic with mesh presenting with persistent pain in the left groin with a palpable lump. The lump seems to increase with standing and lifting. She recently was then assume a class and noted increased pain with right leg lifting. The lump does seem to reduce with light pressure or while in the supine position. She denies nausea, vomiting, fever, chills, diarrhea or constipation. She is requesting repair of this recurrent right inguinal hernia. [facility] Medical History FH: breast cancer in first degree relative BRCA negative History of ovarian cancer BMI 37.0-37.9, adult Back pain Sleep apnea with use of continuous positive airway pressure (CPAP) BMI 36.0-36.9,adult Obesity JAIRO (obstructive sleep apnea) History of kidney stones Hyperlipidemia Family history of early CAD Spondylosis of cervical spine with radiculopathy Degeneration, intervertebral disc, cervical Surgical History History of right oophorectomy History of hysterectomy, supracervical History of esophagogastroduodenoscopy (EGD) (~2019) History of colonoscopy (~2017) History of left oophorectomy History of cystoscopy (~2016) History of lithotripsy (~2017) History of cervical spinal surgery (~2019) History of bilateral inguinal hernia repair (~2018) Family History Maternal Aunt Breast cancer Maternal Aunt Stomach cancer Maternal Aunt Ovarian cancer Maternal Uncle Throat cancer Father Alzheimer disease Diabetes Brother COPD (chronic obstructive pulmonary disease) Diabetes Son HTN (hypertension) Maternal Uncle Prostate cancer Sister CAD, multiple vessel Son No problems noted. Son No problems noted. 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 Female Reproductive History Menstrual Age of Menarche: 15 Review of Systems Const All systems reviewed & are unremarkable except as noted in HPI and below Physical Exam Const General: cooperative and no acute distress Nutritional Appearance: well nourished Orientation/consciousness: patient oriented x3 Limitations: no limitations HEENT Head: Yes normocephalic and Yes atraumatic Ears: hearing grossly normal bilaterally Resp Effort & Inspection: normal respiratory effort, no audible wheezes, no cough and no respiratory distress Cardio Jugular venous distension: no JVD GI Other: Examination in the standing position with Valsalva maneuvers does produce a palpable right inguinal hernia which reduces with light pressure. Site is tender to palpation as well. No hernia noted in the left side. Inspection: Yes normal to inspection Abdomen image:  1. Site of palpable hernia right groin Skin Other: Warm, dry, no rash Neuro General: patient oriented x3 Extrem General: Yes no clubbing, cyanosis or edema Assessment & Plan Assessment & Plan (1) Recurrent inguinal hernia of right side without obstruction or gangrene: Code(s): K40.91 - Unilateral inguinal hernia, without obstruction or gangrene, recurrent Category: Medical Plan 60-year-old female patient with a prior history of a laparoscopic bilateral inguinal hernia now returning with pain in the right groin felt to be possibly a recurrent right inguinal hernia. On examination, a palpable hernia is confirmed in the right groin in the standing position with Valsalva maneuvers. I recommended an open repair of this right inguinal hernia with mesh and after discussion of the procedure, risks, and alternatives, she consents to the surgery. This will be scheduled as a short-stay surgery at her earliest convenience. Orders: Referrals General Surgery Procedure Notification K40.91 - Unilateral inguinal hernia, without obstruction or gangrene, recurrent Coding Level of Care Code Est Pt Level 4 (48889) Diagnoses Recurrent inguinal hernia of right side without obstruction or gangrene K40.91
[2025-06-26 10:56] VITALS: BP 125/58; PULSE 91; BMI 33.6
== END 2025-06-26 11:58 | disposition home or self-care (01) ==
LOC: HO.HGS 10:38
PROVIDERS: PCP Internal Medicine; Visit Provider Surgery
DX: K40.91 Unilateral inguinal hernia, without obstruction or gangrene, recurrent (principal)
CPT/HCPCS: 99214

== ENCOUNTER 2025-07-12 05:51 | Day surgery (SDC) | payer OTHER, SELFPAY ==
--- OUTSIDE RECORDS SUMMARY | 2024-09-14 05:45 | XMS_ITS ---
Author Organization [facility] [address] Address [address] [place] [address] Care Team Providers Care Digital Account Manager Name Role Phone Team [facility] Primary Car e Provider Unavailable ALIRIO SANCHES Unavailable [phone] DEBBIE VAUGHN Unavailable [phone] REASON FOR VISIT 2.5 RECEIVED IN LLQ PT TOLERATED WELL NO REACTION Medications Medication SIG (Take, Route, Frequency, Duration) Notes Start Date End Date Status Rosuvastatin Calcium 40 MG Tablet Oral; Duration: 90 Days Acti ve Zepbound 2.5 MG/0.5ML Solution Auto-injector Inject 2.5mg Subcutaneous weekly; Duration: 30 days 09/07/2024 Active Encounters Encounter Location Date Provider Diagnosis [facility] [address] [address] 09/14/2024 DEBBIE VAUGHN Plan Of Treatment Next Appt Details Provider Name:ALIRIO Sol, 07/03/2025 03:00:00 PM, [address] [facility] [address], [place], [address], Medications Administered Medication Instructions Date of Administration Dosage Notes Tirzepatide 09/14/2024 2.5 mg Progress Notes * Micky JONESB: [birth year] (60 yo F)Acc No.[id number]:09/14/2024 Patient: Roxie Dukes Provider: Twan VAUGHN NP :1965 A ge:59 Y S ex:Female Date:09/14/2024 Address:[address] [place] [address] Pcp:[facility] Subjective: * Chief Complaints: * 2 .5 RECEIVED IN LLQ PT TOLERATED WELL NO REACTION * Medications: T akingRosuvastatin Calcium 40 MG Tablet Oral Zepbound 2.5 MG/0.5ML Solution Auto-injector Inject 2.5mg Subcutaneous weekly Taking Rosuvastatin Calcium 40 MG Tablet Oral Taking Zepbound 2.5 MG/0.5ML Solution Auto-injector Inject 2.5mg Subcutaneous weekly Plan: * Therapeutic Injections: Tirzepatide : 2.5 mg (Route: Subcutaneous) given by Kroina Martinez on subcutaneus * Electronic signature of TRINI VAUGHN on 06/28/2025 at 08:59 PM EST Sign off status: Pending * Provider: Twan VAUGHN NP Date: 0 09/14/2024 Generated for Ruby phillips/Jessie/Jose Martin on: 1 08/29/2024 08:59 PM EST
--- OUTSIDE RECORDS SUMMARY | 2024-09-21 10:15 | XMS_ITS ---
Author Organization [facility] [address] Address [address] [place] [address] Care Team Providers Care Shot Tube Machine Tender Name Role Phone 51 Give [facility] Primary Car e Provider Unavailable ALIRIO SANCHES Unavailable [phone] DEBBIE VAUGHN Unavailable [phone] REASON FOR VISIT Patient is here for Nurse visit for Tirzep 2.5mg. Patient signed consent and left in stable condition Medications Medication SIG (Take, Route, Frequency, Duration) Notes Start Date End Date Status Rosuvastatin Calcium 40 MG Tablet Oral; Duration: 90 Days Acti ve Zepbound 2.5 MG/0.5ML Solution Auto-injector Inject 2.5mg Subcutaneous weekly; Duration: 30 days 09/07/2024 Active Encounters Encounter Location Date Provider Diagnosis [facility] [address] [facility] 119 [place] [address] 09/21/2024 DEBBIE VAUGHN Plan Of Treatment Next Appt Details Provider Name:ALIRIO Sol, 07/03/2025 03:00:00 PM, 299 [facility], [address], [place], [address], Medications Administered Medication Instructions Date of Administration Dosage Notes Tirzepatide 09/21/2024 2.5 mg Progress Notes * Micky JONESB: 9[birth year] (60 yo F)Acc No.[id number]:09/21/2024 Patient: Yamel morenokielJyotiRoxie Provider: Twan VAUGHN NP :1965 A ge:59 Y S ex:Female Date:09/21/2024 Address:[address] [place] [address] Pcp:[facility] Subjective: * Chief Complaints: * P kvng is here for Nurse visit for Tirzep 2.5mg. Patient signed consent and left in stable condition * Medications: T akingRosuvastatin Calcium 40 MG Tablet Oral Zepbound 2.5 MG/0.5ML Solution Auto-injector Inject 2.5mg Subcutaneous weekly Taking Rosuvastatin Calcium 40 MG Tablet Oral Taking Zepbound 2.5 MG/0.5ML Solution Auto-injector Inject 2.5mg Subcutaneous weekly Plan: * Therapeutic Injections: Tirzepatide : 2.5 mg (Route: Subcutaneous) given by RAQUEL ABRAHAM on subcutaneus * Electronic signature of TRINI VAUGHN on 06/28/2025 at 09:01 PM EST Sign off status: Pending * Provider: Twan VAUGHN NP Date: 0 09/21/2024 Generated for Ruby phillips/Jessie/Ijeomaitting on: 1 08/29/2024 09:01 PM EST
--- OUTSIDE RECORDS SUMMARY | 2024-09-28 10:15 | XMS_ITS ---
Author Organization [facility] [address] Address [address] [place] [address] Care Team Providers Care Pocket Closer Name Role Phone [facility] Primary Car e Provider Unavailable ALIRIO SANCHES Unavailable [phone] DEBBIE VAUGHN Unavailable [phone] REASON FOR VISIT 2.5 Encounters Encounter Location Date Provider Diagnosis [facility] [address] 299 [facility] [address] [place] [address] 09/28/2024 DEBBIE VAUGHN Plan Of Treatment Next Appt Details Provider Name:ALIRIO JOSE A Sol, 07/03/2025 03:00:00 PM, [address], [address], [place], [address], Progress Notes * Micky JONESB: 967 (60 yo F)Acc No.[id number]:09/28/2024 Patient: Yamel Roxie moon Provider: Twan VAUGHN NP :1965 A ge:59 Y S ex:Female Date:09/28/2024 Address:[address] [place] [address] Pcp:[facility] Subjective: * Chief Complaints: * 2 .5 * Electronic signature of TRINI VAUGHN on 06/28/2025 at 08:59 PM EST Sign off status: Pending * Provider: Twan VAUGHN NP Date: 0 09/28/2024 Generated for Ruby phillips/Jessie/eTransmitting on: 1 08/29/2024 08:59 PM EST
--- OUTSIDE RECORDS SUMMARY | 2024-10-05 10:15 | XMS_ITS ---
Author Organization [facility] [address] Address [address] [place] [address] Care Team Providers Care Private Investigator Name Role Phone [employer] [facility] Primary Car e Provider Unavailable ALIRIO SANCHES Unavailable [phone] DEBBIE VAUGHN Unavailable [phone] REASON FOR VISIT Patient is here for [...] Active Encounters Encounter Location Date Provider Diagnosis [facility] [address] 299 [facility] 119 [place] [address] 10/05/2024 DEBBIE VAUGHN Plan Of Treatment Next Appt Details Provider Name:ALIRIO Sol, 07/03/2025 03:00:00 PM, 299 [facility], [address], [place], [address], Medications Administered Medication Instructions Date of Administration Dosage Notes Tirzepatide 10/05/2024 2.5 mg Progress Notes * Micky JONESB: 9[birth year] (60 yo F)Acc No.[id number]:10/05/2024 Patient: Yamel red Roxie Provider: Twan VAUGHN NP :1965 A ge:59 Y S ex:Female Date:10/05/2024 Address:[address] [place] [address] Pcp:[facility] Subjective: * Chief Complaints: * P kvng [...] : 2.5 mg (Route: Subcutaneous) given by Georgina Fisher on subcutaneus * Electronic signature of TRINI VAUGHN on 06/28/2025 at 09:00 PM EST Sign off status: Pending * Provider: Twan VAUGHN NP Date: 0 10/05/2024 Generated for Ruby phillpis/Jessie/Ijeomaitting on: 1 08/29/2024 09:00 PM EST
--- OUTSIDE RECORDS SUMMARY | 2024-10-19 10:00 | XMS_ITS ---
Author Organization [facility] [address] Address [address] [place] [address] Care Team Providers Care Vp Product Name Role Phone [facility] [facility] Primary Car e Provider Unavailable ALIRIO SANCHES Unavailable [phone] DEBBIE VAUGHN Unavailable [phone] REASON FOR VISIT 5.0 tirz given i llq pt tolerated well Medications Medication SIG (Take, Route, Frequency, Duration) Notes Start Date End Date Status Rosuvastatin Calcium 40 MG Tablet Oral; Duration: 90 Days Acti ve Zepbound 2.5 MG/0.5ML Solution Auto-injector Inject 2.5mg Subcutaneous weekly; Duration: 30 days 09/07/2024 Active Encounters Encounter Location Date Provider Diagnosis [facility] [address] [address] 10/19/2024 DEBBIE VAUGHN Plan Of Treatment Next Appt Details Provider Name:ALIRIO Sol, 07/03/2025 03:00:00 PM, [address] [facility] [address], [address], Medications Administered Medication Instructions Date of Administration Dosage Notes Tirzepatide 10/19/2024 5 mL Progress Notes * Micky JONESB: 9[birth year] (60 yo F)Acc No.[id number]:10/19/2024 Patient: Roxie Dukes Provider: Twan VAUGHN NP :1965 A ge:59 Y S ex:Female Date:10/19/2024 Address:[address] [place] [address], [place] Pcp:[facility] Subjective: * Chief Complaints: * 5 .0 tirz given i llq pt tolerated well * Medications: T akingRosuvastatin Calcium 40 MG Tablet Oral Zepbound 2.5 MG/0.5ML Solution Auto-injector Inject 2.5mg Subcutaneous weekly Taking Rosuvastatin Calcium 40 MG Tablet Oral Taking Zepbound 2.5 MG/0.5ML Solution Auto-injector Inject 2.5mg Subcutaneous weekly Plan: * Therapeutic Injections: Tirzepatide : 5 mL (Route: Subcutaneous) given by Korina Martinez on subcutaneus * Electronic signature of TRINI VAUGHN on 06/28/2025 at 09:01 PM EST Sign off status: Pending * Provider: Twan VAUGHN NP Date: 0 10/19/2024 Generated for Ruby phillips/Jessie/Jose Martin on: 1 08/29/2024 09:01 PM EST
--- OUTSIDE RECORDS SUMMARY | 2025-06-28 21:00 | XMS_ITS | Patient Health Record ---
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 Phone Formerly [facility] Primary Car e Provider Unavailable ALIRIO SANCHES Unavailable [phone] DEBBIE VAUGHN Unavailable [phone] Allergies Allergen (clinical drug ingredient) Drug/Non Drug Allergy documented on EMR Reaction Allergy Type Onset Date Status Shellfish (FN) Shellfish-derived Products anaphylaxis Drug Allergy Active Reason For Referral No Information Medications Medication SIG (Take, Route, Frequency, Duration) Notes Start Date End Date Status Rosuvastatin Calcium 40 MG Tablet Oral; Duration: 90 Days Acti ve Wegovy 1 MG/0.5ML Solution Auto-injector Inject 1mg Subcutaneous once weekly; Duration: 28 days 05/31/2025 Active Ondansetron 4 MG Tablet Disintegrating 1 tablet on the tongue and allow to dissolve Orally up to every 8 hours; Duration: 5 days As needed for nausea 05/31/2025 Active Problems Problem Type SNOMED Code ICD Code Onset Dates Problem Status W/U Status Risk Notes Problem Prediabetes (980311709) Prediabetes (R73.03) Active confirmed Problem Hyperlipidemia (15583814) Other hyperlipidemia (E78.49) Active confirmed Problem Obstructive sleep apnea syndrome (62709186) JAIRO (obstructive sleep apnea) (G47.33) Active confirmed Problem Obesity (546328332) Obesity (BMI 30-39.9) (E66.9) Active confirmed Problem Obese class II (839934303368363) BMI 35.0-35.9,adult (Z68.35) Active confirmed Problem Body mass index 30.00 to 34.99 (972956857077234) BMI 34.0-34.9,adult (Z68.34) Active confirmed Problem History of malignant neoplasm of ovary (688980691) History of ovarian cancer (Z85.43) Active confirmed Vital Signs Heart Rate 80 /min 05/31/2025 Oximetry 98 % 05/31/2025 Blood pressure diastolic 68 mm Hg 05/31/2025 Height 61 in 05/31/2025 Blood pressure systolic 108 mm Hg 05/31/2025 Weight 183.3 lbs 05/31/2025 BMI 34.63 kg/m2 05/31/2025 Encounters Encounter Location Date Provider Diagnosis [facility] [address] [address] 09/14/2024 DEBBIE BORHOT [facility] [address] [address] 09/21/2024 DEBBIE BORHOT [facility] [address] [address] 09/28/2024 DEBBIE BORHOT [facility] [address] [address] 10/05/2024 DEBBIE BORHOT [facility] [address] [place] [address] [place] [address] 10/19/2024 DEBBIE BORHOT [facility] [address] [address] 09/07/2024 ALIRIO VERÓNICA Obesity (BMI 30-39.9 ) E66.9 ; BMI 36.0-36.9,adult Z68.36 ; Prediabetes R73.03 ; JAIRO (obstructive sleep apnea) G47.33 ; Other hyperlipidemia E78.49 and Nutritional counseling Z71.3 [facility] [address] [address] 10/11/2024 ALIRIO MONTESHAM BMI 35.0-35.9,adult Z68.35 ; Prediabetes R73.03 ; Obesity (BMI 30-39.9) E66.9 ; JAIRO (obstructive sleep apnea) G47.33 ; Other hyperlipidemia E78.49 and Nutritional counseling Z71.3 [facility] [address] [facility] [address] [address] 03/16/2025 ALIRIO MONTESHAM BMI 35.0-35.9,adult Z68.35 ; Prediabetes R73.03 ; Obesity (BMI 30-39.9) E66.9 ; JAIRO (obstructive sleep apnea) G47.33 ; Other hyperlipidemia E78.49 ; Nutritional counseling Z71.3 and Encounter for examination of blood pressure without abnormal findings Z01.30 [facility] [address] [address] 04/17/2025 [facility] BMI 35.0-35.9,adult Z68.35 ; Prediabetes R73.03 ; JAIRO (obstructive sleep apnea) G47.33 ; Obesity (BMI 30-39.9) E66.9 ; Other hyperlipidemia E78.49 ; Nutritional counseling Z71.3 and Encounter for examination of blood pressure without abnormal findings Z01.30 [facility] [address] [address] 05/31/2025 [facility] BMI 34.0-34.9,adult Z68.34 ; Prediabetes R73.03 ; JAIRO (obstructive sleep apnea) G47.33 ; Obesity (BMI 30-39.9) E66.9 ; Other hyperlipidemia E78.49 ; Nutritional counseling Z71.3 and Encounter for examination of blood pressure without abnormal findings Z01.30 [facility] [address] [address] 09/07/2024 [facility] [address] [address] 10/27/2024 [facility] [address] [address] 10/27/2024 [facility] [address] [address] 03/06/2025 [facility] [address] [address] 03/16/2025 [facility] JAIRO (obstructive sle ep apnea) G47.[address] [facility] [address] [place] [address] 04/04/2025 [facility] [address] [place] [address] 04/10/2025 [facility] [address] [facility] [address] [place] [address] 04/11/2025 ALIRIO MACKSBURG [facility] [address] [facility] [address] [place] [address] 04/11/2025 ALIRIO MACKSBURG [facility] [address] [facility] [address] [place] [address] 04/17/2025 ALIRIO [place]ACK[place]URG [facility] [address] [facility] [address] [place] [address] 04/17/2025 ALIRIO MACKSBURG Obesity (BMI 30-39.9 ) E66.9 [facility] [address] [facility] [address] [place] [address] 05/29/2025 ALIRIO [place]ACK[place]URG [facility] [address] [address] 06/01/2025 ALIRIO [place]ACK[place]URG [facility] [address] [address] 06/12/2025 ALIRIO VERÓNICA Assessments Encounter Date Diagnosis (ICD Code) Assessment [...] including following with alternative weight management clinic ([facility]), working with tank tender, and improving diet and exercise without success [...] reviewed. Dictation completed with the use of [employer] voice recognition software, prone to medical misidentifications [...] including following with alternative weight management clinic ([facility]), working with tank tender, and improving diet and exercise without success [...] reviewed. Dictation completed with the use of [employer] voice recognition software, prone to medical misidentifications [...] reviewed. Dictation completed with the use of [employer] voice recognition software, prone to medical misidentifications [...] reviewed. Dictation completed with the use of [employer] voice recognition software, prone to medical misidentifications [...] reviewed. Dictation completed with the use of [employer] voice recognition software, prone to medical misidentifications and grammatical errors. All errors are unintentional. Although the practitioner does try to identify and correct errors, some may be present. Please do not hesitate to contact the practitioner for clarification. Total time was 30 minutes spent with >50% on coordination of care and patient education. 04/17/2025 Obesity (BMI 30-39.9) (ICD-10 - E66.9) 05/31/2025 BMI 34.0-34.9,adult (ICD-10 - Z68.34) Roxie is a 60-year-old female with a PMH of prediabetes (A1c 6.2%), JAIRO, HLD, history of ovarian cancer that presents for weight management follow-up. Reviewed [facility] holistic and medical approach to weight loss with emphasis on lifestyle modification. 05/31/2025: Weight: 183.3, BMI: 34.6. (-2lbs) SECA reviewed, reveals 2 pounds of fat and muscle mass loss. Patient encouraged to continue making health-conscious diet choices and prioritizing protein intake. Goal 25 to 30 g of protein 3 times daily. She is encouraged to increase hydration, goal 40-60+ ounces/day. She is encouraged to modify physical activity as tolerated. An increase dose of Wegovy to 1 mg SC weekly and follow-up in 4 to 6 weeks. 04/17/2025: Weight: 185.4, BMI: 35.03 (-4lbs) 03/16/2025: Weight: 189.7, BMI: 35.8. 10/11/2024: Weight: [...] reviewed. Dictation completed with the use of [employer] voice recognition software, prone to medical misidentifications and grammatical errors. All errors are unintentional. Although the practitioner does try to identify and correct errors, some may be present. Please do not hesitate to contact the practitioner for clarification. Total time was 30 minutes spent with >50% on coordination of care and patient education. 10/11/2024 Obesity (BMI 30-39.9) (ICD-10 - E66.9) [...] reviewed. Dictation completed with the use of [employer] voice recognition software, prone to medical misidentifications and grammatical errors. All errors are unintentional. Although the practitioner does try to identify and correct errors, some may be present. Please do not hesitate to contact the practitioner for clarification. Total time was 30 minutes spent with >50% on coordination of care and patient education. 05/31/2025 Prediabetes (ICD-10 - R73.03) Roxie is a 60-year-old female with a PMH of prediabetes (A1c 6.2%), JAIRO, HLD, history of ovarian cancer that presents for weight management follow-up. Reviewed [facility] holistic and medical approach to weight loss with emphasis on lifestyle modification. 05/31/2025: Weight: 183.3, BMI: 34.6. (-2lbs) SECA reviewed, reveals 2 pounds of fat and muscle mass loss. Patient encouraged to continue making health-conscious diet choices and prioritizing protein intake. Goal 25 to 30 g of protein 3 times daily. She is encouraged to increase hydration, goal 40-60+ ounces/day. She is encouraged to modify physical activity as tolerated. An increase dose of Wegovy to 1 mg SC weekly and follow-up in 4 to 6 weeks. 04/17/2025: Weight: 185.4, BMI: 35.03 (-4lbs) 03/16/2025: Weight: 189.7, BMI: 35.8. 10/11/2024: Weight: [...] reviewed. Dictation completed with the use of [employer] voice recognition software, prone to medical misidentifications [...] goal of adding strength training. Will trial FRANKC injection in office with goal of improving [...] reviewed. Dictation completed with the use of [employer] voice recognition software, prone to medical misidentifications [...] reviewed. Dictation completed with the use of [employer] voice recognition software, prone to medical misidentifications [...] including following with alternative weight management clinic ([facility]), working with tank tender, and improving diet and exercise without success [...] reviewed. Dictation completed with the use of [employer] voice recognition software, prone to medical misidentifications [...] reviewed. Dictation completed with the use of [employer] voice recognition software, prone to medical misidentifications [...] including following with alternative weight management clinic ([facility]), working with tank tender, and improving diet and exercise without success [...] reviewed. Dictation completed with the use of [employer] voice recognition software, prone to medical misidentifications [...] reviewed. Dictation completed with the use of [employer] voice recognition software, prone to medical misidentifications [...] reviewed. Dictation completed with the use of [employer] voice recognition software, prone to medical misidentifications [...] reviewed. Dictation completed with the use of [employer] voice recognition software, prone to medical misidentifications and grammatical errors. All errors are unintentional. Although the practitioner does try to identify and correct errors, some may be present. Please do not hesitate to contact the practitioner for clarification. Total time was 30 minutes spent with >50% on coordination of care and patient education. 04/17/2025 JAIRO (obstructive sleep apnea) (ICD-10 - G47.33) [...] reviewed. Dictation completed with the use of [employer] voice recognition software, prone to medical misidentifications and grammatical errors. All errors are unintentional. Although the practitioner does try to identify and correct errors, some may be present. Please do not hesitate to contact the practitioner for clarification. Total time was 30 minutes spent with >50% on coordination of care and patient education. 05/31/2025 JAIRO (obstructive sleep apnea) (ICD-10 - G47.33) Roxie is a 60-year-old female with a PMH of prediabetes (A1c 6.2%), JAIRO, HLD, history of ovarian cancer that presents for weight management follow-up. Reviewed [facility] holistic and medical approach to weight loss with emphasis on lifestyle modification. 05/31/2025: Weight: 183.3, BMI: 34.6. (-2lbs) SECA reviewed, reveals 2 pounds of fat and muscle mass loss. Patient encouraged to continue making health-conscious diet choices and prioritizing protein intake. Goal 25 to 30 g of protein 3 times daily. She is encouraged to increase hydration, goal 40-60+ ounces/day. She is encouraged to modify physical activity as tolerated. An increase dose of Wegovy to 1 mg SC weekly and follow-up in 4 to 6 weeks. 04/17/2025: Weight: 185.4, BMI: 35.03 (-4lbs) 03/16/2025: Weight: 189.7, BMI: 35.8. 10/11/2024: Weight: [...] reviewed. Dictation completed with the use of [employer] voice recognition software, prone to medical misidentifications and grammatical errors. All errors are unintentional. Although the practitioner does try to identify and correct errors, some may be present. Please do not hesitate to contact the practitioner for clarification. Total time was 30 minutes spent with >50% on coordination of care and patient education. 05/31/2025 Obesity (BMI 30-39.9) (ICD-10 - E66.9) Roxie is a 60-year-old female with a PMH of prediabetes (A1c 6.2%), JAIRO, HLD, history of ovarian cancer that presents for weight management follow-up. Reviewed [facility] holistic and medical approach to weight loss with emphasis on lifestyle modification. 05/31/2025: Weight: 183.3, BMI: 34.6. (-2lbs) SECA reviewed, reveals 2 pounds of fat and muscle mass loss. Patient encouraged to continue making health-conscious diet choices and prioritizing protein intake. Goal 25 to 30 g of protein 3 times daily. She is encouraged to increase hydration, goal 40-60+ ounces/day. She is encouraged to modify physical activity as tolerated. An increase dose of Wegovy to 1 mg SC weekly and follow-up in 4 to 6 weeks. 04/17/2025: Weight: 185.4, BMI: 35.03 (-4lbs) 03/16/2025: Weight: 189.7, BMI: 35.8. 10/11/2024: Weight: [...] reviewed. Dictation completed with the use of [employer] voice recognition software, prone to medical misidentifications and grammatical errors. All errors are unintentional. Although the practitioner does try to identify and correct errors, some may be present. Please do not hesitate to contact the practitioner for clarification. Total time was 30 minutes spent with >50% on coordination of care and patient education. 05/31/2025 Other hyperlipidemia (ICD-10 - E78.49) Roxie is a 60-year-old female with a PMH of prediabetes (A1c 6.2%), JAIRO, HLD, history of ovarian cancer that presents for weight management follow-up. Reviewed [facility] holistic and medical approach to weight loss with emphasis on lifestyle modification. 05/31/2025: Weight: 183.3, BMI: 34.6. (-2lbs) SECA reviewed, reveals 2 pounds of fat and muscle mass loss. Patient encouraged to continue making health-conscious diet choices and prioritizing protein intake. Goal 25 to 30 g of protein 3 times daily. She is encouraged to increase hydration, goal 40-60+ ounces/day. She is encouraged to modify physical activity as tolerated. An increase dose of Wegovy to 1 mg SC weekly and follow-up in 4 to 6 weeks. 04/17/2025: Weight: 185.4, BMI: 35.03 (-4lbs) 03/16/2025: Weight: 189.7, BMI: 35.8. 10/11/2024: Weight: [...] reviewed. Dictation completed with the use of [employer] voice recognition software, prone to medical misidentifications [...] reviewed. Dictation completed with the use of [employer] voice recognition software, prone to medical misidentifications [...] reviewed. Dictation completed with the use of [employer] voice recognition software, prone to medical misidentifications [...] reviewed. Dictation completed with the use of [employer] voice recognition software, prone to medical misidentifications [...] reviewed. Dictation completed with the use of [employer] voice recognition software, prone to medical misidentifications [...] including following with alternative weight management clinic ([facility]), working with tank tender, and improving diet and exercise without success [...] reviewed. Dictation completed with the use of [employer] voice recognition software, prone to medical misidentifications [...] including following with alternative weight management clinic ([facility]), working with tank tender, and improving diet and exercise without success [...] reviewed. Dictation completed with the use of [employer] voice recognition software, prone to medical misidentifications [...] reviewed. Dictation completed with the use of [employer] voice recognition software, prone to medical misidentifications [...] reviewed. Dictation completed with the use of [employer] voice recognition software, prone to medical misidentifications [...] reviewed. Dictation completed with the use of [employer] voice recognition software, prone to medical misidentifications and grammatical errors. All errors are unintentional. Although the practitioner does try to identify and correct errors, some may be present. Please do not hesitate to contact the practitioner for clarification. Total time was 30 minutes spent with >50% on coordination of care and patient education. 05/31/2025 Nutritional counseling (ICD-10 - Z71.3) Roxie is a 60-year-old female with a PMH of prediabetes (A1c 6.2%), JAIRO, HLD, history of ovarian cancer that presents for weight management follow-up. Reviewed [facility] holistic and medical approach to weight loss with emphasis on lifestyle modification. 05/31/2025: Weight: 183.3, BMI: 34.6. (-2lbs) SECA reviewed, reveals 2 pounds of fat and muscle mass loss. Patient encouraged to continue making health-conscious diet choices and prioritizing protein intake. Goal 25 to 30 g of protein 3 times daily. She is encouraged to increase hydration, goal 40-60+ ounces/day. She is encouraged to modify physical activity as tolerated. An increase dose of Wegovy to 1 mg SC weekly and follow-up in 4 to 6 weeks. 04/17/2025: Weight: 185.4, BMI: 35.03 (-4lbs) 03/16/2025: Weight: 189.7, BMI: 35.8. 10/11/2024: Weight: [...] reviewed. Dictation completed with the use of [employer] voice recognition software, prone to medical misidentifications and grammatical errors. All errors are unintentional. Although the practitioner does try to identify and correct errors, some may be present. Please do not hesitate to contact the practitioner for clarification. Total time was 30 minutes spent with >50% on coordination of care and patient education. 05/31/2025 Encounter for examination of blood pressure without abnormal findings (ICD-10 - Z01.30) Roxie is a 60-year-old female with a PMH of prediabetes (A1c 6.2%), JAIRO, HLD, history of ovarian cancer that presents for weight management follow-up. Reviewed [facility] holistic and medical approach to weight loss with emphasis on lifestyle modification. 05/31/2025: Weight: 183.3, BMI: 34.6. (-2lbs) SECA reviewed, reveals 2 pounds of fat and muscle mass loss. Patient encouraged to continue making health-conscious diet choices and prioritizing protein intake. Goal 25 to 30 g of protein 3 times daily. She is encouraged to increase hydration, goal 40-60+ ounces/day. She is encouraged to modify physical activity as tolerated. An increase dose of Wegovy to 1 mg SC weekly and follow-up in 4 to 6 weeks. 04/17/2025: Weight: 185.4, BMI: 35.03 (-4lbs) 03/16/2025: Weight: 189.7, BMI: 35.8. 10/11/2024: Weight: [...] reviewed. Dictation completed with the use of [employer] voice recognition software, prone to medical misidentifications [...] reviewed. Dictation completed with the use of [employer] voice recognition software, prone to medical misidentifications [...] reviewed. Dictation completed with the use of [employer] voice recognition software, prone to medical misidentifications [...] JOSE A Sol, 07/03/2025 03:00:00 PM, [address] [facility], [facility] [address], [place], [address], Insurance Providers Payer Name Payer Address Payer Phone Subscriber Number Group Number Insured Name Patient Relationship to Insured Coverage Start Date Coverage End Date [employer] [place] [address] [address] [place] [address] [id number] Roxie Alfaro Self - patient is the insured Medications Administered Medication Instructions Date of Administration Dosage Notes MICC B12 INJECTION 04/17/2025 1.0 mL MICC B12 INJECTION 05/31/2025 1.0 mL Tirzepatide 09/07/2024 2.5 mg Tirzepatide 09/14/2024 2.5 mg Tirzepatide 09/21/2024 2.5 mg Tirzepatide 10/05/2024 2.5 mg Tirzepatide 10/11/2024 2.5 mg Tirzepatide 10/19/2024 5 mL Medical (General) History Medical History History ICD Code History of ovarian cancer Z85.43 Surgical History Surgery Date(Month/Year) C3-C4 fusion partial hysterectomy
--- OUTSIDE RECORDS SUMMARY | 2025-06-28 21:01 | XMS_ITS | Clinical Summary ---
Author Organization [address] Address [address] [place] [phone] Phone Care Team Providers Care Campus Supervisor Name Role Phone Keya Glass MD Primary [...] (eight) hours if needed for mild pain. 20 tablet 06/01/20 25 Active Wegovy 1 mg/0.5 mL injection pen 05/31/20 25 Active ibuprofen (ADVIL,MOTRIN) 600 mg tablet Take 1 tablet (600 mg total) by mouth every 8 (eight) hours if needed for mild pain. 30 tablet 05/31/20 24 025 Discontin ued(Reord er) Active Problems Problem Noted Date Diagnosed Date Surgical menopause on hormone replacement therap y 04/21/2024 Assessment & Plan (06/05/2025 12:42 PM EST): Lost to follow up with [employer], her provider left. A new referral was placed. Orders: Ambulatory referral to Obstetrics / Gynecology; Future Prediabetes 04/21/2024 Assessment & Plan (08/18/2024 3:01 PM EST): Recent labs at [facility] on the range of prediabetes. Patient is recommended a low-carb diet and regular exercise. Orders: Hemoglobin A1c; Future Leukocytosis 02/06/2021 Cervical radiculitis 04/15/2018 Renal calculus 02/09/2017 Overview (04/21/2024): 11/18/2016 Renal US: small left renal calculus, otherwise unremarkable Hyperlipidemia 09/10/2015 Assessment & Plan (06/05/2025 12:42 PM EST): Currently on Rosvastatin 40mg day. Continue same medication. Assessment & Plan (08/18/2024 3:01 PM EST): Currently on rosuvastatin 40 mg a day. Following with cardiology for injectables, but having problems with her insurance to get the medications approved. Will continue rosuvastatin for now. Midline thoracic back pain 09/03/2015 Chronic headache 06/07/2012 JAIRO on CPAP 08/12/2011 Encounters Date Type Department Care Team Description 06/16/2025 Results Follow-Up Adult Medicine [address] [phone] Keya Block MD 06/14/2025 8:45 AM EST Lab Draw [address] Encounter for lipid screening for cardiovascular disease; Adult general medical examination 06/01/2025 3:00 PM EST Office Visit Adult Medicine [address] [phone] Keya Block MD Adult general medical examination (Primary Dx); Encounter for lipid screening for cardiovascular disease; Mixed hyperlipidemia; Surgical menopause on hormone replacement therapy; Snoring from Last 3 Months Immunizations Immunization Administration [...] COMMENT: one ovary remains ESOPHAGOGASTRODUODENOSCOPY 05/28/2012 PROCEDURE: SD ESOPHAGOGASTRODUODENOSCOPY TRANSORAL DIAGNOSTIC; COMMENT: normal BREAST LUMPECTOMY 2007 Left PROCEDURE: HISTORICAL BREAST LUMPECTOMY; COMMENT: neg HERNIA REPAIR 05/2018 PROCEDURE: HISTORICAL HERNIA REPAIR/ING; COMMENT: with a mesh OTHER SURGICAL HISTORY 2004 PROCEDURE: SD HYSTEROSCOPY ENDOMETRIAL ABLATION OTHER SURGICAL HISTORY 2003 [...] MENT: left ovary removed and chemo at [facility], BRCA negative, had genetic counseling Iron deficiency [...] care for your loved ones. For example, vocational childcare teacher or elderly care for an older [...] AM EST Sexual Orientation Not on file Last Filed Vital Signs Vital Sign Reading Time Taken Comments Blood Pressure 122/65 06/01/2025 2:47 PM EST Pulse 84 06/01/2025 2:47 PM EST Temperature 36.2 C (97.1 F) 06/01/2025 2:47 PM EST Respiratory Rate 15 06/01/2025 2:47 PM EST Oxygen Saturation 95% 06/01/2025 2:47 PM EST Inhaled Oxygen Concentration - - Weight 83.4 kg (183 lb 12.8 oz) 06/01/2025 2:47 PM EST Height 154.9 cm (5' 1 ) 06/01/2025 2:47 PM EST Body Mass Index 34.73 06/01/2025 2:47 PM EST Plan of Treatment Upcoming Encounters Date Type Department Care Team (Late st Contact Info) Description 06/05/2026 3:00 PM EST Office Visit Adult Medicine [facility] [address] [place] [address] Keya Glass MD [address] [place], [place] Health Maintenance Due Date Last Done Comments Cervical Cancer Screening: Pap Smear 08/20/2021 08/20/2018, 08/20/2018 Social Influencers of Health Screening 05/31/2025 05/31/2024 COVID-19 Vaccine (9 - Pfizer risk 2024- season) 2025 04/21/2025, 03/26/2024, 04/22/2023, Additional history exists Breast Cancer Screening 02/25/2026 02/26/20 25, 02/20/2024, 02/20/2024, Additional history exists Colorectal Cancer Screening: Colonoscopy 06/03/2027 06/03/2017 Cholesterol Screening (Lipid Panel) 06/14/2030 06/14/2025, 06/16/2022 DTaP,Tdap,and Td Vaccines (4 - Td or Tdap) 07/29/2032 07/29/2022, 05/09/2022, 10/13/2011 RSV Immunization Adult Patients (1 - 1-dose 75+ series) 2042 Hepatitis C Screening Completed 09/23/2016 Zoster Vaccines Completed 10/22/2022, 07/20, 06/06/2022 Pneumococcal Vaccine: 50+ Years Completed 02/28/2024 Hepatitis B Vaccines Completed 03/31/2024, 02/28/20 24 Influenza Vaccine Completed 04/21/2025, , 03/27/2023, Additional history exists Depression Screening Completed 05/29/2025 HIB Vaccines Aged Out No longer eligi ble based on patient's age to complete this topic HIV Screening Discontinued HPV Vaccines Aged Out No longer eligi [...] Name Priority Date/Time Associated Diagnosis Comments CBC WITH AUTO DIFFERENTIAL Routine 06/14/2025 8:55 AM EST Adult general medical examination CBC AND DIFFERENTIAL Routine 06/14/2025 8:55 AM EST Adult general medical examination COMPREHENSIVE METABOLIC PANEL Routine 06/14/2025 8:55 AM EST Adult general medical examination LIPID PANEL WITH REFLEX TO DIRECT LDL Routine 06/14/2025 8:55 AM EST Encounter for lipid screening for cardiovascular disease MG MAMMO DIGITAL SCREENING W DANY BILAT Routine 02/25/2025 1:04 PM EDT Encounter for screening mammogram for breast cancer PAP SMEAR Routine 08/20/2018 COLONOSCOPY Routine 06/03/2017 HEPATITIS C SCREENING Routine 09/23/2016 from Last 3 Months or Most Recently Relevant to Health Maintenance Results * (ABNORMAL) Lipid panel with reflex to direct LDL (06/14/2025 8:55 AM EST) Cholesterol 190 0 - 200 mg/dL 06/14/2025 1:26 PM EST [facility] Triglycerides 144 0 - 150 mg/dL 06/14/2025 1:26 PM [facility] HDL 52 >=40 mg/dL 06/14/2025 1:26 PM EST [facility] LDL Calculated 109(H) 0 - 100 mg/dL 06/14/2025 1:26 PM [facility] Comment:Estimated LDL Calcul ated using equation: Total cholesterol - HDL cholesterol - (Triglycerides/5) VLDL Cholesterol Mariano 28.8 mg/dL 06/14/2025 1:26 PM [facility] Non HDL Chol. (LDL+VLDL) 138 <145 mg/dL 06/14/2025 1:26 PM [facility] Chol/HDL Ratio 3.7 0.0 - 4.4 06/14/2025 1:26 PM [facility] Blood Venous blood specimen / Unknown Venipuncture / Unknown 06/14/2025 8:55 AM EST 06/14/2025 8:55 AM EST us Keya Glass MD LAB BLOOD ORDERABL ES Final Result [facility] [address] [place] [address], * (ABNORMAL) CBC auto differential (06/14/2025 8:55 AM EST) Pathologist [facility] WBC 9.7 4.8 - 10.8 K/[facility] LAB HEMETOLOGY METHOD 06/14/2025 10:29 AM EST [facility] RBC 5.70(H) 3.80 - 4.80 M/[facility] LAB HEMETOLOGY METHOD 06/14/2025 10:29 AM [facility] Hemoglobin 15.0 11.5 - 16.0 g/dL LAB HEMETOLOGY METHOD 06/14/2025 10:29 AM [facility] Hematocrit 46.1 35.0 - 47.0 % LAB HEMETOLOGY METHOD 06/14/2025 10:29 AM [facility] MCV 80.5 79.0 - 98.0 FL LAB HEMETOLOGY METHOD 06/14/2025 10:29 AM [facility] MCH 26.2(L) 27.0 - 32.0 pcg LAB HEMETOLOGY METHOD 06/14/2025 10:29 AM [facility] MCHC 32.5 32.0 - 37.0 g/dL LAB HEMETOLOGY METHOD 06/14/2025 10:29 AM [facility] RDW 14.5 11.0 - 15.0 % LAB HEMETOLOGY METHOD 06/14/2025 10:29 AM [facility] Platelets 252 130 - 400 K/mcL LAB HEMETOLOGY METHOD 06/14/2025 10:29 AM [facility] MPV 9.2 7.0 - 11.0 FL LAB HEMETOLOGY METHOD 06/14/2025 10:29 AM [facility] NRBC 0.0 <1.0 % LAB HEMETOLOGY METHOD 06/14/2025 10:29 AM [facility] NRBC Absolute 0.00 <0.10 K/mcL LAB HEMETOLOGY METHOD 06/14/2025 10:29 AM [facility] Neutrophils Relative 50.1 % LAB HEMETOLOGY METHOD 06/14/2025 10:29 AM [facility] Lymphocytes Relative 41.1 % LAB HEMETOLOGY METHOD 06/14/2025 10:29 AM [facility] Monocytes Relative 6.6 % LAB HEMETOLOGY METHOD 06/14/2025 10:29 AM [facility] Eosinophils Relative 1.4 % LAB HEMETOLOGY METHOD 06/14/2025 10:29 AM [facility] Basophils Relative 0.6 % LAB HEMETOLOGY METHOD 06/14/2025 10:29 AM [facility] Immature Granulocytes Relative 0.2 % LAB HEMETOLOGY METHOD 06/14/2025 10:29 AM [facility] Neutrophils Absolute 4.84 1.50 - 7.00 K/mcL LAB HEMETOLOGY METHOD 06/14/2025 10:29 AM [facility] Lymphocytes Absolute 3.98 1.00 - 5.00 K/mcL LAB HEMETOLOGY METHOD 06/14/2025 10:29 AM [facility] Monocytes Absolute 0.64 0.20 - 1.00 K/mcL LAB HEMETOLOGY METHOD 06/14/2025 10:29 AM EST [facility] Eosinophils Absolute 0.14 0.00 - 0.50 K/mcL LAB HEMETOLOGY METHOD 06/14/2025 10:29 AM [facility] Basophils Absolute 0.06 0.00 - 0.20 K/mcL LAB HEMETOLOGY METHOD 06/14/2025 10:29 AM [facility] Immature Granulocytes Absolute 0.02 0.00 - 0.03 K/mcL LAB HEMETOLOGY METHOD 06/14/2025 10:29 AM [facility] Blood Venous blood specimen / Unknown Venipuncture / Unknown 06/14/2025 8:55 AM EST 06/14/2025 8:55 AM EST us Keya Glass MD LAB BLOOD ORDERABL ES Final Result [facility] [address] [place] [address], * Comprehensive metabolic panel (06/14/2025 8:55 AM EST) Sodium 141 133 - 145 mmol/L 06/14/2025 1:26 PM [facility] Potassium 4.2 3.5 - 5.5 mmol/L 06/14/2025 1:26 PM [facility] Chloride 103 96 - 110 mmol/L 06/14/2025 1:26 PM [facility] CO2 29 21 - 32 mmol/L 06/14/2025 1:26 PM [facility] Anion Gap 9 3 - 11 06/14/2025 1:26 PM [facility] Glucose 81 70 - 100 mg/dL 06/14/2025 1:26 PM [facility] BUN 11 5 - 25 mg/dL 06/14/2025 1:26 PM [facility] Creatinine 0.89 0.50 - 1.10 mg/dL 06/14/2025 1:26 PM [facility] eGFR 75 >=60 mL/min/1. 73m2 06/14/2025 1:26 PM [facility] Comment:Calculation based on the Chronic Kidney Disease Epidemiology Collaboration (CKD-EPI) equation refit without adjustment for race. BUN/Creatinine Ratio 12.4 06/14/2025 1:26 PM [facility] Calcium 9.0 8.5 - 10.5 mg/dL 06/14/2025 1:26 PM [facility] AST (SGOT) 22 10 - 42 unit/L 06/14/2025 1:26 PM [facility] ALT (SGPT) 21 10 - 60 unit/L 06/14/2025 1:26 PM [facility] Alkaline Phosphatase 77 42 - 121 unit/L 06/14/2025 1:26 PM [facility] Total Protein 7.1 6.0 - 8.0 g/dL 06/14/2025 1:26 PM EST [facility] Albumin 4.2 3.2 - 5.0 g/dL 06/14/2025 1:26 PM EST [facility] Total Bilirubin 0.8 0.0 - 1.4 mg/dL 06/14/2025 1:26 PM EST [facility] Blood Venous blood specimen / Unknown Venipuncture / Unknown 06/14/2025 8:55 AM EST 06/14/2025 8:55 AM EST us Keya Glass MD LAB BLOOD ORDERABL ES Final Result [facility] [address] [place] [address], * MG Mammo Digital Screening w Dany bilat (02/25/2025 1:04 PM EDT) Anatomical Region Laterality Modality Breast Bilateral Mammography 02/28/2025 2:13 PM EDT Impressions 02/28/2025 2:39 PM EDT 1. No mammographic evidence of malignancy 2. Scattered fibroglandular tissue BI-RADS CATEGORY: 2 - BENIGN RECOMMENDATION: Screening bilateral mammogram is recommended in 1 year. Mammo Location: [facility], [address] [place] [address], [phone], . -------- FINAL REPORT -------- Dictated By: Janeth Rudd Dictated Date: 02/28/2025 14:13 ET Assigned Physician: Janeth Rudd Reviewed and Electronically Signed By: Janeth Rudd Signed Date: 02/28/2025 14:39 ET Workstation ID: [id number] Transcribed By: Self Edit Transcribed Date: 02/28/2025 [...] is recommended in 1 year. Mammo Location: [facility], [address] [place] [address], [address], . -------- FINAL REPORT -------- Dictated By: Janeth Rudd Dictated Date: 02/28/2025 14:13 ET Assigned Physician: Janeth Rudd Reviewed and Electronically Signed By: Janeth Rudd Signed Date: 02/28/2025 14:39 ET Workstation ID: [id number] Transcribed By: Self Edit Transcribed Date: 02/28/2025 14:13 ET us Keya Glass MD IMG BI PROCEDURES Final Result * Pap smear (08/20/2018) 08/20/2018 Narrative HISTORICAL TESTING LAB RESULTING AGENCY - 08/25/2018 2:31 PM EST [id number] THINPREP PAP, IMAGED: NEGATIVE FOR SQUAMOUS INTRAEPITHELIAL [...] to Health Maintenance Insurance [employer] [facility] Care Teams Campus Supervisor Relationship Specialty Start Date End Date Keya Glass MD [address] [place] [phone] PCP - General Internal Medicine 08/15/24
--- OUTSIDE RECORDS SUMMARY | 2025-06-28 21:01 | XMS_ITS | Encounter Summary ---
Author Organization [employer] [place] [address] Care Team Providers Care Clinical Psychologist Name Role Phone Keya Glass MD Primary Care Prov ider Encounter Details Date Type Department Care Team ([facility] st Contact Info) Description 06/16/2025 Results Follow-Up Adult [address] [phone] Keya Glass MD [address] [place], [place] Social History Tobacco Use Types Packs/Day Years [...] care for your loved ones. For example, early childhood aide classroom or elderly care for an older adult? [...] as of this encounter Plan of Treatment Upcoming Encounters Date Type Department Care Team (Late st Contact Info) Description 06/05/2026 3:00 PM EST Office Visit Adult Medicine [address] [phone] Keya Glass MD [address] [place] [address] documented as of this encounter Visit Diagnoses Not on filedocumented in this encounter Additional Health Concerns Assessment Noted Time PHQ-9 Depression Total Score: 0 05/29/20 25 1:39 PM EST documented as of this encounter Care Teams Clinical Psychologist Relationship Specialty Start Date End Date Keya Glass MD [address] [place] [address] PCP - General Internal Medicine 08/15/24 documented as of this encounter
--- NOTE | 2025-07-07 14:03 | HO.ANESPROP2 ---
Documented by User: Donita Rodarte NP 07/07/25 14:05 HPI - Anesthesia Eval Consult details Narrative: 60yo F for Right Repair Hernia Inguinal Reducible with mesh [place] for hld, strong fam hx of CAD - last visit 06/2024 without cardiac symptoms, hld med change d/t adverse effects with previous Anesthesia Pre-Procedure Meds Is the patient on any of the following meds?: GLP1/DPP4 PMFSH Active Problems Active Problems: All Active Problems Recurrent inguinal hernia of right side without obstruction or gangrene (Acute) FH: breast cancer in first degree relative (Acute) Pharyngitis (Acute) Encounter for well woman exam with routine gynecological exam (Acute) Vitamin B12 deficiency (Acute) Vitamin D deficiency (Acute) BMI 37.0-37.9, adult (Acute) Chronic pain syndrome (Acute) Postlaminectomy syndrome of cervical region (Acute) Neurogenic claudication (Acute) Right shoulder pain (Acute) Numbness of foot (Acute) Right knee pain (Acute) Sprain of lateral ligament of ankle joint (Acute) Daytime sleepiness (Acute) JAIRO (obstructive sleep apnea) (Acute) Heart palpitations (Acute) Back pain (Acute) Sleep apnea with use of continuous positive airway pressure (CPAP) (Acute) BMI 36.0-36.9,adult (Acute) Obesity (Acute) Chest pain (Acute) Left arm pain (Acute ~12/07/21) Abnormal EKG (Acute ~12/09/21) Hyperlipidemia (Acute) Family history of early CAD (Acute) Cervicalgia (Acute) Radiculopathy of cervical region (Acute) Degeneration, intervertebral disc, cervical (Acute) Spondylosis of cervical spine with radiculopathy (Acute) Irritable bowel syndrome (IBS) (Acute) Right inguinal pain (Acute) Leucocytosis (Chronic) Past Medical History Medical History FH: breast cancer in first degree relative BRCA negative History of ovarian cancer BMI 37.0-37.9, adult Back pain Sleep apnea with use of continuous positive airway pressure (CPAP) BMI 36.0-36.9,adult Obesity JAIRO (obstructive sleep apnea) History of kidney stones Hyperlipidemia Family history of early CAD Spondylosis of cervical spine with radiculopathy Degeneration, intervertebral disc, cervical Family History Family History Maternal Aunt Breast cancer Maternal Aunt Stomach cancer Maternal Aunt Ovarian cancer Maternal Uncle Throat cancer Father Alzheimer disease Diabetes Brother COPD (chronic obstructive pulmonary disease) Diabetes Son HTN (hypertension) Maternal Uncle Prostate cancer Sister CAD, multiple vessel Son No problems noted. Son No problems noted. Mother Breast cancer Family history of problems with anesthesia: No Surgical History Surgical History History of right oophorectomy History of hysterectomy, supracervical History of esophagogastroduodenoscopy (EGD) (~2019) History of colonoscopy (~2016) History of left oophorectomy History of cystoscopy (~2015) History of lithotripsy (~2016) History of cervical spinal surgery (~2018) History of bilateral inguinal hernia repair (~2017) History of Problems with Anesthesia: No Social History Social History Household Members: Significant Other Housing: House Are you a primary administrator health care facility to a significant other at home: No Do you presently have visiting nurse or other home services: No Alcohol intake: never Patient Tobacco Use Status: Never used Tobacco Use of substances other than those prescribed or required for medical reasons: No Advance Directives: No Advance Directives Information Provided: Yes service: No Current occupational status: employed 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 Meds Allergies Allergy/AdvReac Type Severity Reaction Status Date / Time shellfish derived Allergy Severe Anaphylaxis Verified 06/26/25 10:55 gluten Allergy Intermediate Diarrhea Verified 06/26/25 10:55 lactose Allergy Intermediate Diarrhea Verified 06/26/25 10:55 evolocumab (From Repatha AdvReac Intermediate Abdominal Verified 06/26/25 10:55 SureClick) Pain Home Medications ?Medication ?Instructions ?Recorded ?Confirmed ?Last Taken ?Type ibuprofen 600 mg tablet 600 mg PO Q8H PRN Pain 03/25/23 07/12/25 07/03/25 History semaglutide (weight loss) 0.5 mg subcut 05/17/25 06/26/25 06/30/25 History mg/0.5 mL subcutaneous pen injector (Josegovgregory) Exam Narrative Narrative: EKG 06/2024 Vent. Rate : 077 BPM Atrial Rate : 077 BPM P-R Int : 164 ms QRS Dur : 072 ms QT Int : 362 ms P-R-T Axes : 058 -02 040 degrees QTc Int : 409 ms Normal sinus rhythm Septal infarct (cited on or before 09-DEC-2021) Abnormal ECG When compared with ECG of 11-APR-2022 06:58, No significant change was found Assessment and Plan Assessment Anesthesia Assessment: Chart Reviewed Final Anesthetic Review Family History of Problems with Anesthesia: No History of Problems with Anesthesia: No Documented by User: Chuyita Joy MD 07/12/25 07:28 [facility] Past Medical History Medical History FH: breast cancer in first degree relative BRCA negative History of ovarian cancer BMI 37.0-37.9, adult Back pain Sleep apnea with use of continuous positive airway pressure (CPAP) BMI 36.0-36.9,adult Obesity JAIRO (obstructive sleep apnea) History of kidney stones Hyperlipidemia Family history of early CAD Spondylosis of cervical spine with radiculopathy Degeneration, intervertebral disc, cervical Family History Family History Maternal Aunt Breast cancer Maternal Aunt Stomach cancer Maternal Aunt Ovarian cancer Maternal Uncle Throat cancer Father Alzheimer disease Diabetes Brother COPD (chronic obstructive pulmonary disease) Diabetes Son HTN (hypertension) Maternal Uncle Prostate cancer Sister CAD, multiple vessel Son No problems noted. Son No problems noted. Mother Breast cancer Surgical History Surgical History History of right oophorectomy History of hysterectomy, supracervical History of esophagogastroduodenoscopy (EGD) (~2019) History of colonoscopy (~2016) History of left oophorectomy History of cystoscopy (~2016) History of lithotripsy (~2017) History of cervical spinal surgery (~2019) History of bilateral inguinal hernia repair (~2018) Social History Social History Household Members: Significant Other Housing: House Are you a primary administrator health care facility to a significant other at home: No Do you presently have visiting nurse or other home services: No Alcohol intake: never Patient Tobacco Use Status: Never used Tobacco Use of substances other than those prescribed or required for medical reasons: No Advance Directives: No Advance Directives Information Provided: Yes service: No Current occupational status: employed 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 Allergies Allergy/AdvReac Type Severity Reaction Status Date / Time shellfish derived Allergy Severe Anaphylaxis Verified 06/26/25 10:55 gluten Allergy Intermediate Diarrhea Verified 06/26/25 10:55 lactose Allergy Intermediate Diarrhea Verified 06/26/25 10:55 evolocumab (From Repatha AdvReac Intermediate Abdominal Verified 06/26/25 10:55 SureClick) Pain Home Medications ?Medication ?Instructions ?Recorded ?Confirmed ?Last Taken ?Type ibuprofen 600 mg tablet 600 mg PO Q8H PRN Pain 03/25/23 07/12/25 07/03/25 History semaglutide (weight loss) 0.5 mg subcut 05/17/25 06/26/25 06/30/25 History mg/0.5 mL subcutaneous pen injector (Wegovy) Exam Airway Mallampati Class: II TM Dist: >3cm Heart: rrr Lungs: cta Assessment and Plan Assessment Anesthesia Assessment: Anesthesia Plan Discussed Final Anesthetic Review NPO: Yes ASA Class: II Final Preanesthetic Review: No Changes in Pt Med Stat, Meds/Allgs Chart Reviewed, Consent Obtained/Reviewed and Anes Risks/Benef Reviewed Patient Risk: Low Procedure Risk: Low Anesthetic Plan Anesthetic Plan: GA and Agree w/ Assess. and Plan Disposition: Standard PACU
[2025-07-10 09:12] VITALS: BMI 33.6
[2025-07-12 06:09] VITALS: BMI 34.1
[2025-07-12] MEDS: Lactated Ringers 1,000 ML 100 ML IVCONT (06:20)
[2025-07-12 06:29] VITALS: BP 132/71; PULSE 90; RESP 16; TEMP 36.3; O2SAT 95
--- NOTE | 2025-07-12 07:12 | MHC.SHP ---
Pre-Procedural Eval Section A - 24 Hr Update-Section A only Date of Service: 07/12/25 The patient is an INPATIENT: No Changes since office visit: Yes Patient answered all questions; No Cold of Flu in the past 2 weeks, No New Medical Problems and No Changes in Medication The patient has been examined within 24 hours of the surgical procedure. The History & Physical has been completed within 30 days and I have reviewed it.: Yes Section B - Complete if H&P > 30 days Chief Complaint: Unilateral inguinal hernia, without obstruction Allergies: Allergies Allergy/AdvReac Type Severity Reaction Status Date / Time shellfish derived Allergy Severe Anaphylaxis Verified 06/26/25 10:55 gluten Allergy Intermediate Diarrhea Verified 06/26/25 10:55 lactose Allergy Intermediate Diarrhea Verified 06/26/25 10:55 evolocumab (From Repatha AdvReac Intermediate Abdominal Verified 06/26/25 10:55 SureClick) Pain Plan Diagnosis/Plan: Unchanged I have reviewed the history and physical and performed a pertinent physical examination on my patient. No changes have occurred unless specified. Time Spent With Patient Time: Total time managing care of this patient today ____ minutes.
--- NOTE | 2025-07-12 08:20 | P.OP_ITS ---
Operative Note Operative Note Date of Service: 07/12/25 Narrative: Preoperative diagnosis: Recurrent right inguinal hernia, reducible Postoperative diagnosis: Same Procedure: Repair of recurrent right inguinal hernia with mesh Surgeon: Evangelist Nelson MD Cartoonist Special Effects: Kari Concepcion PA-C Anesthesia: General LMA Indications for procedure: 60-year-old female patient with a prior history of a laparoscopic right inguinal hernia repair now presenting with a new painful lump located in the right groin which increases in size with Valsalva but reduces with light pressure. Operative findings: Small direct inguinal hernia noted adjacent to the internal ring. This was repaired using a medium PHS mesh Specimen: None Estimated blood loss: 2 mL Complications: None Procedure details: Patient was brought to the OR and placed in a supine position. After administering general anesthesia the patient's abdomen was prepped with ChloraPrep and draped in a sterile fashion. A surgical time-out was called the consent confirmed. Patient received preoperative antibiotics and Venodyne boots were in place. Local anesthesia was then infiltrated over the right inguinal ligament. Incision was then made with a scalpel over the right inguinal ligament and carried out through subcutaneous tissue, past Rob's fashion up to the external oblique aponeurosis. This was then incised with a scalpel and widened with the Metzenbaum scissors after instilling local anesthesia. The round ligament was dissected and adherent fat noted in the medial inguinal canal. This was dissected free and a direct hernia noted in this location. Round ligament was explored and no sac noted within the round ligament. The round ligament was then divided and ligated using a 3-0 Polysorb suture. The internal oblique and transversalis aponeurosis were then incised using electrocautery and the preperitoneal space entered. This was then widened using an open Ray-Arabella sponge. A medium PHS mesh was then obtained. The circular underlay was deployed within the preperitoneal space in the overlay secured to the pubic tubercle, conjoined tendon and shelving edge of the inguinal ligament using a 0 Polysorb suture. The remainder of the overlay was placed below the external oblique aponeurosis laterally. Wounds were then irrigated with saline solution and suctioned dry. External oblique aponeurosis was then closed using a running 2-0 Polysorb suture. Approximately 8 mL of Zenrelef was instilled below the external oblique aponeurosis. Rob's fascia and dermis were then reapproximated using interrupted 3-0 Polysorb sutures. Skin was then closed using a running subcuticular 4-0 Polysorb suture. The patient tolerated the procedure well. Sponge, instrument, and needle counts reported as correct. The patient was transferred to PACU in stable condition.
[2025-07-12 08:33] VITALS: BP 117/77; PULSE 85; RESP 10; TEMP 36.1; O2SAT 96
[2025-07-12 08:35] VITALS: BP 130/73; PULSE 88; RESP 11; O2SAT 97
[2025-07-12 08:40] VITALS: BP 121/74; PULSE 83; RESP 12; O2SAT 99
[2025-07-12 08:45] VITALS: BP 127/75; PULSE 81; RESP 12; O2SAT 97
[2025-07-12 08:50] VITALS: BP 126/76; PULSE 78; RESP 18; TEMP 36.1; O2SAT 100
== END 2025-07-12 09:23 | disposition home or self-care (01) ==
PROVIDERS: PCP Internal Medicine; Visit Provider Surgery
PROC: (CPT 49520; principal; 2025-07-12 07:30)
DX: K40.91 Unilateral inguinal hernia, without obstruction or gangrene, recurrent (principal); Z85.43 Personal history of malignant neoplasm of ovary; Z80.3 Family history of malignant neoplasm of breast; E78.5 Hyperlipidemia, unspecified; E66.9 Obesity, unspecified; Z68.33 Body mass index [BMI] 33.0-33.9, adult; G47.33 Obstructive sleep apnea (adult) (pediatric); Z87.442 Personal history of urinary calculi; M50.30 Other cervical disc degeneration, unspecified cervical region; M47.22 Other spondylosis with radiculopathy, cervical region; Z79.1 Long term (current) use of non-steroidal anti-inflammatories (NSAID); Z79.85 Long-term (current) use of injectable non-insulin antidiabetic drugs; Z79.899 Other long term (current) drug therapy; Z99.89 Dependence on other enabling machines and devices; Z88.8 Allergy status to other drugs, medicaments and biological substances; Z98.890 Other specified postprocedural states
CPT/HCPCS: 49520; C1781; J0668; J0690; J1100; J2003; J2250; J2371; J2405; J2704; J3010

== ENCOUNTER → 2025-07-12 05:51 | Outpatient (BNV) | payer OTHER, SELFPAY | PROVIDERS: PCP Internal Medicine; Visit Provider Surgery | DX: K40.91 Unilateral inguinal hernia, without obstruction or gangrene, recurrent (principal) | CPT/HCPCS: 49520 ==